=== PATIENT | female | born 1980 | race Caucasian/White ===

== ENCOUNTER → 2016-09-20 | Outpatient (CLI) | payer BC ==
[~2016-09-20] MED LIST: ADDE10 PO; CEPH500C3 PO; CYMB30CA PO; IBUP600 PO; LEXA10TA PO; LORTA5 PO; MACR100C PO; MACR100C2 PO; METF500T PO; NAPR500 PO; PERC10TA27 PO; PYRI200T4 PO; SYMB80AE INH; TAMS0.4C67 PO; TOPI25 PO; VENTAER INH; VICOTAB4 PO; VICT18IN SQ; ZOFR4TAB3 SL; ZOFR8TAB PO
== END ==
LOC: CPRE 09:55
PROVIDERS: ATTEND Obstetrics & Gynecology
DX: R10.2 Pelvic and perineal pain (principal)

== ENCOUNTER → 2016-09-23 | Day surgery (SDC) | payer BC ==
--- NOTE | 2016-09-21 12:19 | MH ---
cc: MILLIE HERNANDEZ DATE OF ADMISSION: 09/23/2016 DATE OF : 1980 SCHEDULED PROCEDURE: Diagnostic laparoscopy, possible excision of endometriosis, lysis of adhesions. CHIEF COMPLAINT Chronic pelvic pain. HISTORY OF PRESENT ILLNESS The patient is a 35 year old white female, Para 2, using a Nuva ring continuously to not cycle, who has been longstanding patient of [facility] and other physicians in our practice. She has a very pleasant but somewhat dysphoric and unfortunate young lady with multiple medical conditions requiring multiple procedures throughout her young life. 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 She has had multiple episodes of severe bleeding, menometrorrhagia, and has tried various oral contraceptives IUD use with out significant improvement. She desires to maintain her fertility for possibly one more child on a recent Indices she did have a number of polyps but these were reviewed. A sonogram was done recently by her primary care physician which showed bilateral 3-4 cm complex masses which could be endometrioma like in nature. She states that her pain and the lower pelvis is 7 out of 10 most day but can go up. She reports extreme fatigue. She complains of abdominal bloating. She has had multiple yeast infection, urinary tract infections and overall feels lethargic most of the time. She is currently not involved, not having intercourse. She has had a history of one section one natural delivery. She has had a distant history of a LEEP procedure. She has had at least for laparoscopies by other physicians for chronic pelvic pain and has been diagnosed with endometriosis. She has had most recently one open ureteral reimplantation which was bilateral she has also had a right lower quadrant hernia repair x2 and she has had both her appendix and gallbladder out. CHRONIC CONDITIONS: Her chronic conditions include severe migraines Depression Anxiety gastroparesis She is moderately above her ideal body weight. MEDICATIONS Medications include 1. Bupropion 150 daily. 2. Adderall daily 20 mg. 3. Hydrocodone 5 mg. 4. Ibuprofen to 200 mg just recently given one to two every 6 hours because of this most recent pain. She has not opioid addicted or opioid seeking in the past. 5. She takes metformin 500 mg daily. 6. Nuva ring. 7. Decadron for nausea. 8. Dipendrate for headaches 9. Victoza to help with a free diabetic condition and help with weight loss. ALLERGIES CEFTIN CIPRO LEVAQUIN PHENERGAN She acknowledges that when she tries to take all these medications as prescribed that they cause significant nausea and that she has been trying to get off most of her medications. Most recently she has taken an antibiotic for urinary tract infection but is on none at this time. She has had a severe migraine for the past three days. She is concerned that it maybe hormonal although she is sing the Nuva ring continuously. She is not taking right now her Topamax, Her Wellbutrin or her metformin. She is hoping that after this for surgery that she will go on the metabolic diet. Again the pain is bilateral. She pinpoints it to around the ovarian areas. She has had no other real exacerbating or alleviating factors. PHYSICAL EXAMINATION: VITAL SIGNS: Her weight is 160. Her height is 5.2. Her blood pressure is 110/70. NECK: She has no thyromegaly. LUNGS: Lungs are clear to auscultation and percussion. HEART: Rate and rhythm are regular without murmur, heaves or thrills. BREASTS: Breast exam shows no dominant mass, nipple discharge, skin retraction or adenopathy the last exam 6 months ago. ABDOMEN: Her abdomen is essentially benign. She has no hepatosplenomegaly. No CVA tenderness. Normoactive bowel sounds in all four quadrant. I Do palpate any hernias, there is no fluid wave. There is no hepatosplenomegaly and I can elicit pain with deep palpation in both lower quadrants but no rebound or guarding. PELVIC: The pelvic examination reveals a normal vaginal vault, it has a multiparous cervix without any significant descent and a normal size uterus bilateral hip pain on bimanual exam in both quadrants and more on the right in the left. RECTUM: Rectovaginal exam revealed a negative guaiac no polyps or hemorrhoids. EXTREMITIES: Show normal deep tendon reflexes, normal pulses and no edema. IMPRESSION: The impression at this time is chronic and acute pelvic pain with recent diagnosis of bilateral ovarian mass and they are small nature, could be either hemorrhagic corpus luteal cyst or they could be endometrioma. She does have a prior history of endometriosis. She states system new pain in terms of the acuity and consistency and she also likely has some the pelvic adhesions. We reviewed in great detail the risks, benefits and expectations of the surgery. The prior surgeries for a greater risk for a the iatrogenic injury, either trocar energy, using devices or infection. She understands that we may not identify reason for her pain. She understands that may find a reason that we cannot treat but she feels that this point the importance of both diagnosis and potential treatment exceeds the list. She has signed consents and is ready for . Thank you very much. Millie Hernandez MD [facility]/ /11:23 AM /11:55 AM
[~2016-09-23] VITALS: Ht 157.5 cm; Wt 74.1 kg
[~2016-09-23] MED LIST changes: +ACETAMINOPHEN 1000 MG/100 ML VIAL IV ONE; +APREPITANT 40 MG CAP ONE; +BUPIVACAINE HCL PF 0.5% 30 ML VIAL ONE; -CEPH500C3 PO; +CLINDAMYCIN INJ 600 MG in SODIUM CHLORIDE 0.9% INJ 100 ML IV SCH; +DEXAMETHASONE SOD PHOS 4 MG/ML VIAL ONE; +DO NOT ADM ANY ANTICOAGULANT DRUGS XX PRN; +FAMOTIDINE 20 MG/2 ML VIAL ONE; -IBUP600 PO; +INSULIN HUMAN REGULAR 1,000 UNITS/10 ML VIAL SQ PRN; +LACTATED RINGER'S 1000 ML IV SCH; -LEXA10TA PO; -LORTA5 PO; -MACR100C PO; +MEPERIDINE HCL 50 MG/ML VIAL IM PRN; +METHYLENE BLUE 10 MG/ML VIAL ONE; +METOPROLOL TARTRATE 25 MG TAB PO PRN; +MIDAZOLAM HCL 2 MG/2 ML VIAL ONE; -NAPR500 PO; +NEOSTIGMINE 3 MG/3 ML SYR IV ONE; +ONDANSETRON HCL 4 MG/2 ML VIAL IV PUSH PRN; +ONDANSETRON HCL 4 MG/2 ML VIAL ONE; -PERC10TA27 PO; +PROPOFOL 200 MG/20 ML AMP IV ONE; -PYRI200T4 PO; +SODIUM CHLORID 0.9% 500 ML IV SCH; +SODIUM CHLORIDE 0.9% 20 ML VIAL ONE; +SODIUM CHLORIDE 0.9% INJ 100 ML ONE; +SUGAMMADEX SODIUM 200 MG/2 ML VIAL IV PUSH ONE; -TAMS0.4C67 PO; -TOPI25 PO; +VASOPRESSIN INJ 20 UNITS/ML VIAL ONE; -ZOFR4TAB3 SL; +diphenhydrAMINE HCL 50 MG/ML VIAL ONE; +fentaNYL CITRATE 250 MCG/5 ML AMP ONE; +oxyCODONE/ACETAMINOPHEN 5 MG/325 MG TAB PO PRN
[2016-09-23 06:18] VITALS: BP 113/74; PULSE 85; RESP 20; TEMP 98.5; O2SAT 98
[2016-09-23 10:40] VITALS: BP 115/73; PULSE 85; RESP 16; TEMP 97.6; O2SAT 94
--- NOTE | 2016-09-23 18:26 | PD.OP ---
Operative Report Date of Surgery: Sep 23, 2016 Preoperative Diagnosis: pelvic pain, bilateral ovarian cysts, history of endometriosis, hx of ureteral reimplantations, irregular bleeding Postoperative Diagnosis: same, minimal endometriosis no flow of dye through tubes interstitial cystitis bladder diverticulum Procedure: D & C, diagnostic laparoscopy chromointubation cystourethroscopy Anesthesia: GET Surgeon: Deborah Ernst Indirect Sales Representative(s): hospital staff Operation and Findings: Deborah Tomlin MD Sep 23, 2016 18:26
[2016-09-24 09:58] LABS: RAPID PLASMA REAGIN SCREEN NON-REACTIVE (NON-REACTVE)
--- NOTE | 2016-09-29 07:53 | MP ---
cc: MILLIE HERNANDEZ DATE OF SURGERY: 09/23/2016 1980 PREOPERATIVE DIAGNOSIS Chronic and acute pelvic pain, bilateral ovarian cysts on ultrasound that may be endometriomas, history of ureteral reimplantation, sections, possible adhesions and irregular bleeding. POSTOPERATIVE DIAGNOSIS Minimal endometriosis, lack of flow of dye with chromotubation and glomerulations in the bladder consistent with interstitial cystitis. SURGEON Dr. Hernandez. PROCEDURE Fractional D&C, diagnostic laparoscopy, chromotubation, cystourethroscopy. ANESTHESIA General. SURGEON Dr. Hernandez. COFFEE URN ATTENDANT Hospital staff. FINDINGS Examination under anesthesia revealed an anteverted mobile uterus that was not fixed. I could not palpate the ovaries. There was no real significant descent. Dilation of the cervix was done and endocervical curettage and the uterus was sounded to 8 and a D&C was performed. Then attention was directed to the abdomen where an incision was made in the umbilicus and a 5 mm trocar and sleeve were placed with great care due to her previous laparoscopies. Positioning was appropriate and then CO2 was instilled into the peritoneal cavity and systematic evaluation of the abdominal and pelvic contents was performed. Liver edge was normal. There was a worrisome degree of abdominal fat for such a young female in the omentum and elsewhere. The uterus was of normal size and contour. Both tubes seemed somewhat dilated intermittent positions. The left tube had some clubbing and phimosis of the fimbria. The right tube otherwise appeared normal. Both ovaries were normal in appearance and there was an absence of the cyst seen on ultrasound which was suggested that they were corpus luteal cyst that had resolved. There was mild scarring from her previous section and there was some mild endometriosis by the right tube and very significant pelvic congestion syndrome noted on the right infundibulopelvic ligament which may be a source of her pain. The pneumoperitoneum was released after we could not get any flow of dye through either tube and attention was directed to the perineum. The bladder was filled with 300 ccs of sterile saline and then the scope placed. Most of the bladder looked fairly smooth but there was some areas of inflammation and classic glomerulations that would be suggestive of interstitial cystitis. The right ureteral orifice was difficult to observe, there was a lot of redundancy and what appeared to be a bladder diverticulum toward the right upper corner of the bladder. I never did see urine coming through but it looked like some bluish dye was right at the area of the ureteral orifice. The left ureteral orifice which was flush against the bladder had immediate and strong flow of urine under direct observation. The instrumentation was then removed in the bladder and the Rangel replaced Sponge, instrument, needle count were appropriate. Bleeding was negligible. She tolerated the procedure well and she went to the recovery room in stable condition. Millie Hernandez MD [facility] /6:30 PM /7:35 AM
== END | disposition home or self-care (01) ==
LOC: HSDC 05:38
PROVIDERS: ATTEND Obstetrics & Gynecology
DX: R10.2 Pelvic and perineal pain (principal); N32.3 Diverticulum of bladder; N83.202 Unspecified ovarian cyst, left side; N83.201 Unspecified ovarian cyst, right side; N97.1 Female infertility of tubal origin; N30.10 Interstitial cystitis (chronic) without hematuria; N80.2 Endometriosis of fallopian tube; N94.89 Other specified conditions associated with female genital organs and menstrual cycle
CPT/HCPCS: 00840; 49320; 52000; 58120; 58350; 86592; 86850; 86900; 86901; 88305; J0131; J1100; J1200; J2250; J2405; J2710; J3010; J7120; J8501

== ENCOUNTER 2017-01-22 19:05 | Emergency (ER) | payer BC ==
[~2017-01-22] VITALS: Ht 162.6 cm; Wt 65.0 kg
[~2017-01-22 19:05] MED LIST changes: -ACETAMINOPHEN 1000 MG/100 ML VIAL IV ONE; -APREPITANT 40 MG CAP ONE; -BUPIVACAINE HCL PF 0.5% 30 ML VIAL ONE; -CLINDAMYCIN INJ 600 MG in SODIUM CHLORIDE 0.9% INJ 100 ML IV SCH; -CYMB30CA PO; -DEXAMETHASONE SOD PHOS 4 MG/ML VIAL ONE; -DO NOT ADM ANY ANTICOAGULANT DRUGS XX PRN; -FAMOTIDINE 20 MG/2 ML VIAL ONE; -INSULIN HUMAN REGULAR 1,000 UNITS/10 ML VIAL SQ PRN; -LACTATED RINGER'S 1000 ML IV SCH; -MACR100C2 PO; -MEPERIDINE HCL 50 MG/ML VIAL IM PRN; -METHYLENE BLUE 10 MG/ML VIAL ONE; -METOPROLOL TARTRATE 25 MG TAB PO PRN; -MIDAZOLAM HCL 2 MG/2 ML VIAL ONE; -NEOSTIGMINE 3 MG/3 ML SYR IV ONE; -ONDANSETRON HCL 4 MG/2 ML VIAL IV PUSH PRN; -ONDANSETRON HCL 4 MG/2 ML VIAL ONE; -PROPOFOL 200 MG/20 ML AMP IV ONE; -SODIUM CHLORID 0.9% 500 ML IV SCH; -SODIUM CHLORIDE 0.9% 20 ML VIAL ONE; -SODIUM CHLORIDE 0.9% INJ 100 ML ONE; -SUGAMMADEX SODIUM 200 MG/2 ML VIAL IV PUSH ONE; -VASOPRESSIN INJ 20 UNITS/ML VIAL ONE; -diphenhydrAMINE HCL 50 MG/ML VIAL ONE; -fentaNYL CITRATE 250 MCG/5 ML AMP ONE; -oxyCODONE/ACETAMINOPHEN 5 MG/325 MG TAB PO PRN
[2017-01-22 19:09] VITALS: BP 136/79; PULSE 91; RESP 16; TEMP 99.3; O2SAT 96
[2017-01-22] MEDS ORDERED: CYMB30CA PO ×2 (19:25)
[2017-01-22] MEDS ORDERED: SODIUM CHLORIDE 0.9% FLUSH 10 ML FLUSH IVF PRN (19:45)
--- NOTE | 2017-01-22 19:49 | PD ---
HPI Chief Complaint: Flank/Kidney Pain Time Seen by Provider: 19:35 Travel History International Travel<30 days: No Contact w/Intl Traveler<30days: No Traveled to known affect area: No History of Present Illness HPI 36-year-old female presents to the emergency department for complaint of urinary tract infection fever 100.6-100.7F generalized weakness lethargy nausea right flank pain with history of vesicoureteral reflux and recurrent infections with ESBL Klebsiella pneumonia only responsive to meropenem. Patient states she was hospitalized 01/17 through through 01/19 at [facility] and discharged and referred to [facility] for ongoing management without prescription medication. Patient states she contacted her specialist at [facility] where she is followed by a urologist and an infectious disease specialist and was told to come to a different hospital in the area. Patient did not follow-up with [facility] as she lives here locally. Patient states that since she's been discharged she is progressively worsened. Patient's had no vomiting abdominal pain or diarrhea. Patient is also diabetic. Patient denies . Patient has polycystic ovary syndrome and pelvic congestion syndrome. Patient denies any abnormal vaginal bleeding. Patient is currently taking no antibiotic. Patient presents with her urine culture with resultant organism and sensitivities. Patient's culture is positive for ESBL Klebsiella pneumoniae. Patient rates pain 5-7/10 in intensity. PFSH Past Medical History Narrative Medical Asthma, diabetes, vesicoureteral reflux, polycystic ovary syndrome, pelvic congestion syndrome, endometriosis, D&C and cystoscopy recurrent ESBL Klebsiella pneumonia UTI's; no tobacco use; nursing notes reviewed Asthma: Yes Cancer: No Cardiovascular Problems: No Diabetes: Yes (TYPE II) Patient Takes Glucophage: Yes Diminished Hearing: No Endocrine: No Gastrointestinal Disorders: Yes (GERD; GASTROPARESIS) GERD: Yes Genitourinary: Yes (VESICOURETERAL REFLUX, CKD) Hepatitis: No Hiatal Hernia: No Immune Disorder: No Inguinal Hernia: Yes Medical other: Yes Musculoskeletal: No Psychiatric: Yes (ADHD) Reproductive: Yes (ENDOMETRIOSIS;PELVIC CONGESTIVE SYNDROME, PCOS ) Respiratory: Yes (ASTHMA) Immunizations Current: Yes Migraines: Yes Thyroid Disease: No ?: Not : 3 Para: 2 Miscarriage: 0 : 0 Ectopic : Yes (X 1 ) Dilation and Curettage (D&C): Yes Past Surgical History Abdominal Surgery: Yes (APPENDECTOMY, CHOLECTSTECTOMY) AICD: No Appendectomy: Yes Body Medical Devices: NOVA RING Cardiac Surgery: No Section: Yes Cholecystectomy: Yes Ear Surgery: No Endocrine Surgery: No Eye Surgery: Yes (STRABISMUS X 3) Genitourinary Surgery: Yes (CYSTOSCOPIES X 3 WITH URETERAL STENTING 06/11/14, REIMPLANTATION OF KATIE URE) Gynecologic Surgery: Yes (mult lap endometrosis X 4; C -SECTION) Joint Replacement: No Oral Surgery: Yes (T&A) Pacemaker: No Thoracic Surgery: No Tonsillectomy: Yes Other Surgery: Yes Social History Alcohol Use: Yes (SOCIALLY) Tobacco Use: No Substance Use: No Allergies-Medications (Allergen,Severity, Reaction): Coded Allergies: Ceftin (Verified Allergy, Severe, SEVERE VOMITING,THROAT SWELLING, 01/22/17 ) THROAT SWELLING Cipro (Verified Allergy, Severe, HIVES, SOB ; THROAT SWELLING, 01/22/17) Phenergan (Verified Allergy, Severe, SEIZURES, 01/22/17) Rocephin (Verified Allergy, Intermediate, Rash, 01/22/17) Levaquin (Verified Allergy, Unknown, Hives, 01/22/17) Reported Meds & Prescriptions Reported Meds & Active Scripts Active Reported Cymbalta DR (Duloxetine HCl) 30 Mg Capdr 30 Mg PO DAILY Symbicort Inh (Budesonide/Formoterol Fumarate) 80-4.5 Mcg/Act Aero 1 Puff INH Q12HR PRN Ventolin Hfa 18 GM Inh (Albuterol Sulfate) 90 Mcg/Act Aer 2 Puff INH Q4H PRN Zofran (Ondansetron HCl) 8 Mg Tab 8 Mg PO DAILY Metformin (Metformin HCl) 500 Mg Tab 500 Mg PO DAILY With a meal Victoza Inj (Liraglutide Inj) 18 Mg/3 Ml Pen 1.8 Mg SQ HS Review of Systems Except as stated in HPI: all other systems reviewed are Neg General / Constitutional: Positive: Fever, No: Chills HENT: No: Congestion Cardiovascular: No: Chest Pain or Discomfort Respiratory: No: Shortness of Breath Gastrointestinal: Positive: Nausea, No: Vomiting, Diarrhea, Abdominal Pain Genitourinary: Positive: Dysuria, Flank Pain Musculoskeletal: No: Myalgias, Arthralgias Skin: No Rash Neurologic: Positive: Weakness Psychiatric: No: Anxiety Hematologic/Lymphatic: No: Lymph Node Enlargement Physical Exam Narrative GENERAL: Well-developed well-nourished female in no acute distress no respiratory distress SKIN: Warm and dry. HEAD: Normocephalic. EYES: No scleral icterus. No injection or drainage. NECK: Supple, trachea midline. No JVD or lymphadenopathy. CARDIOVASCULAR: Regular rate and rhythm without murmurs, gallops, or rubs. RESPIRATORY: Breath sounds equal bilaterally. No accessory muscle use. GASTROINTESTINAL: Abdomen soft, non-tender, nondistended. MUSCULOSKELETAL: No cyanosis, or edema. BACK: Nontender without obvious deformity. Right-sided CVA tenderness. Data Data Last Documented VS Vital Signs Date Time Temp Pulse Resp B/P Pulse Ox O2 Delivery O2 Flow Rate FiO2 01/22/17 22:39 99.5 94 16 134/77 99 Room Air Orders Complete Blood Count With Diff (01/22/17 19:35) Basic Metabolic Panel (Bmp) (01/22/17 19:35) Urinalysis - C+S If Indicated (01/22/17 19:35) Ed Urine Pregnancytest Poc (01/22/17 19:35) Ecg Monitoring (01/22/17 19:35) Iv Access Insert/Monitor (01/22/17 19:35) Sodium Chloride 0.9% Flush (Ns Flush) (01/22/17 19:45) Blood Culture (01/22/17 19:35) Lactic Acid (01/22/17 19:35) Urine Culture (01/22/17 19:45) Gentamicin 80 Mg Premix (Gentamicin 80 M (01/22/17 23:30) Diphenhydramine Inj (Benadryl Inj) (01/22/17 23:45) Meropenem Inj (Merrem Inj) (01/22/17 23:45) Labs Laboratory Tests Test 01/22/17 01/22/17 19:45 20:05 Urine Color YELLOW Urine Turbidity CLEAR Urine pH 6.5 Urine Specific [place] 1.027 Urine Protein TRACE mg/dL Urine Glucose (UA) NEG mg/dL Urine Ketones NEG mg/dL Urine Occult Blood NEG Urine Nitrite NEG Urine Bilirubin NEG Urine Urobilinogen LESS THAN 2.0 MG/DL Urine Leukocyte Esterase SMALL Urine RBC LESS THAN 1 /hpf Urine WBC 12 /hpf Urine Squamous Epithelial 1 /hpf Cells Microscopic Urinalysis Comment CULTURE INDICATED White Blood Count 7.9 TH/MM3 Red Blood Count 4.59 MIL/MM3 Hemoglobin 13.8 GM/DL Hematocrit 39.8 % Mean Corpuscular Volume 86.6 FL Mean Corpuscular Hemoglobin 30.1 PG Mean Corpuscular Hemoglobin 34.8 % Concent Red Cell Distribution Width 13.2 % Platelet Count 258 TH/MM3 Mean Platelet Volume 8.4 FL Neutrophils (%) (Auto) 63.0 % Lymphocytes (%) (Auto) 27.2 % Monocytes (%) (Auto) 7.3 % Eosinophils (%) (Auto) 2.0 % Basophils (%) (Auto) 0.5 % Neutrophils # (Auto) 5.0 TH/MM3 Lymphocytes # (Auto) 2.1 TH/MM3 Monocytes # (Auto) 0.6 TH/MM3 Eosinophils # (Auto) 0.2 TH/MM3 Basophils # (Auto) 0.0 TH/MM3 CBC Comment DIFF FINAL Differential Comment Sodium Level 141 MEQ/L Potassium Level 3.7 MEQ/L Chloride Level 105 MEQ/L Carbon Dioxide Level 27.0 MEQ/L Anion Gap 9 MEQ/L Blood Urea Nitrogen 13 MG/DL Creatinine 0.84 MG/DL Estimat Glomerular Filtration 78 ML/MIN Rate Random Glucose 115 MG/DL Lactic Acid Level 1.5 mmol/L Calcium Level 9.2 MG/DL [facility] Medical Decision Making Medical Screen Exam Complete: Yes Emergency Medical Condition: Yes Medical Record Reviewed: Yes Interpretation(s) CBC & BMP Diagram 01/22/17 20:05 ua: 12 white blood cells rare bacteria Differential Diagnosis UTI, sepsis, failed outpatient therapy, uncontrolled diabetes Narrative Course IV access obtained specimens collected and sent for resulting Diagnosis Primary Impression: UTI (urinary tract infection) Additional Impression: Vesico-ureteral reflux Referrals: Primary Care Physician call for appointment Patient Instructions: General Instructions Additional Instructions: Increase fluid hydration Follow-up with primary care provider Return to the emergency department for any concerns or change condition Complete course of antibiotic as prescribed Acetaminophen/Tylenol as needed for fever 100.4F or greater Med/Other Pt SpecificInfo: Prescription(s) given Scripts Nitrofurantoin Monohydrate Macrocrystals (Macrobid)100 Mg [id number] Mg PO BID 7 Days Ref 0 Prov:Jacquelyn Montana MD 01/23/17 Disposition: 01 DISCHARGE HOME Condition: Stable Jacquelyn Montana MD January 22, 2017 19:49
[2017-01-22 20:24] LABS: BASOPHIL % 0.5 % (0.0-2.0); EOSINOPHIL # 0.2 TH/MM3 (0-0.4); HEMATOCRIT 39.8 % (35.0-46.0); HEMO FLAGS DIFF FINAL; LYMPH % 27.2 % (9.0-44.0); LYMPHOCYTE # 2.1 TH/MM3 (1.0-4.8); MEAN CELL VOLUME 86.6 FL (80.0-100.0); MEAN CORPUSCULAR HEMOGLOBIN 30.1 PG (27.0-34.0); MEAN CORPUSCULAR HGB CONC 34.8 % (32.0-36.0); MONO % 7.3 % (0.0-8.0); PLATELET COUNT 258 TH/MM3 (150-450); RED BLOOD COUNT 4.59 MIL/MM3 (4.00-5.30); RED CELL DISTRIBUTION WIDTH 13.2 % (11.6-17.2); WHITE BLOOD COUNT 7.9 TH/MM3 (4.0-11.0)
[2017-01-22 20:27] LABS: BLOOD, URINE NEG (NEG); COMMENT (UR) CULTURE INDICATED; CULTURE IF INDICATED CULTURE INDICATED; GLUCOSE,URINE NEG (NEG); KETONE, URINE NEG (NEG); NITRITE,URINE NEG (NEG); PH, URINE 6.5 (5.0-8.5); SQUAMOUS EPITHELIAL CELL URINE 1 /hpf (0-5); URINE COLOR YELLOW (YELLW/STRAW)
[2017-01-22 20:55] LABS: POTASSIUM 3.7 MEQ/L (3.5-5.1)
[2017-01-22 22:39] VITALS: BP 134/77; PULSE 94; RESP 16; TEMP 99.5; O2SAT 99
[2017-01-22] MEDS ORDERED: GENTAMICIN 80 MG PREMIX 100 ML IV ONE (23:30)
[2017-01-22] MEDS ORDERED: MEROPENEM 1000 MG/NS 100 ML IV ONE ×2 (23:45)
[2017-01-22] MEDS ORDERED: diphenhydrAMINE HCL 50 MG/ML VIAL IV PUSH ONE (23:45)
[2017-01-23] MEDS ORDERED: MACR100C2 PO (00:58)
--- NOTE | 2017-01-25 12:46 | ED.CB ---
ED Call Back Communication I spoke with ID regarding patient's UC results. Blood patient return to the emergency department for a beta Quant testing. If she is truly , we will be limited to ertapenem. She will need either at midline or PICC line and set up with home health versus infusion center, and will need infectious disease to formally consult during her ED visit. Zaira Genao MD January 25, 2017 12:45
== END 2017-01-23 01:19 | disposition home or self-care (01) ==
LOC: NEPC 19:05
DX: N39.0 Urinary tract infection, site not specified (principal); N13.70 Vesicoureteral-reflux, unspecified; B96.1 Klebsiella pneumoniae [K. pneumoniae] as the cause of diseases classified elsewhere; R11.0 Nausea; R10.9 Unspecified abdominal pain; E11.9 Type 2 diabetes mellitus without complications; Z79.84 Long term (current) use of oral hypoglycemic drugs; Z87.09 Personal history of other diseases of the respiratory system; Z87.448 Personal history of other diseases of urinary system; Z87.42 Personal history of other diseases of the female genital tract; Z87.19 Personal history of other diseases of the digestive system; Z86.59 Personal history of other mental and behavioral disorders; Z86.69 Personal history of other diseases of the nervous system and sense organs
CPT/HCPCS: 80048; 81001; 83605; 84703; 85025; 87040; 87077; 87086; 87186; 96365; 96375; 99284; J1200; J2185

== ENCOUNTER 2017-01-25 13:19 | Observation (INO) | payer BC ==
[~2017-01-25] VITALS: Ht 157.5 cm; Wt 70.0 kg
[~2017-01-25 13:19] MED LIST changes: +CYMB30CA PO; +MACR100C2 PO
[2017-01-25 13:21] VITALS: BP 157/76; PULSE 94; RESP 16; TEMP 98.3; O2SAT 98
--- NOTE | 2017-01-25 13:27 | PD ---
Physical Exam Date Seen by Provider: January 25, 2017 Time Seen by Provider: 13:25 Narrative 36 yo female here for evaluation of positive urine cultures. here for IV antibiotics. Was seen here recently and called back today. Has been taking antibiotics, just found out today by urine test. She is also . Bacteria apparently is resistant to oral antibiotics. Having polyuria and dysuria. Vitals sign stable. Patient awaiting bed placement. Data Data Last Documented VS Vital Signs Date Time Temp Pulse Resp B/P Pulse Ox O2 Delivery O2 Flow Rate FiO2 01/25/17 13:21 98.3 94 16 157/76 98 MDM Medical Record Reviewed: Yes Supervised Visit with JUSTIN: No Aaron Olivia January 25, 2017 13:27
[2017-01-25 14:15] LABS: BLOOD, URINE NEG (NEG); COMMENT (UR) CULT NOT INDICATED; CULTURE IF INDICATED CULT NOT INDICATED; GLUCOSE,URINE NEG (NEG); KETONE, URINE NEG (NEG); MUCUS URINE FEW /lpf (OCC); NITRITE,URINE NEG (NEG); SQUAMOUS EPITHELIAL CELL URINE 1 /hpf (0-5); URINE COLOR YELLOW (YELLW/STRAW)
[2017-01-25 14:22] VITALS: TEMP 99.3
--- NOTE | 2017-01-25 14:43 | PD ---
HPI Chief Complaint: Complaint Time Seen by Provider: 14:06 Travel History International Travel<30 days: No Contact w/Intl Traveler<30days: No Traveled to known affect area: No History of Present Illness HPI 36yo F with PMH of vesiculo-ureteral reflex and ESBL + urine infection was called in today because she had a urine culture on 01/22/17 that was >100,000 klebsiella pneumoniae ESBL positive. Pt states she can only take meropenem and just found out she is . States she is still nauseous. Denies any fever , chest pain, sob, vomiting, abdominal pain. Pt has chronic right lower back pain. She has an infectious disease physician at [facility] where she has had multiple surgeries regarding this. PFSH Past Medical History Asthma: Yes Cancer: No Cardiovascular Problems: No Diabetes: Yes Patient Takes Glucophage: No Diminished Hearing: No Endocrine: No Gastrointestinal Disorders: Yes (GERD; GASTROPARESIS) GERD: Yes Genitourinary: Yes (VESICOURETERAL REFLUX, CKD) Hepatitis: No Hiatal Hernia: No Immune Disorder: No Inguinal Hernia: Yes Musculoskeletal: No Psychiatric: Yes (ADHD) Reproductive: Yes (ENDOMETRIOSIS;PELVIC CONGESTIVE SYNDROME, PCOS ) Respiratory: Yes (asthma) Immunizations Current: Yes Migraines: Yes Thyroid Disease: No Tetanus Vaccination: Unknown Influenza Vaccination: Yes ?: : 3 Para: 2 Miscarriage: 0 : 0 Ectopic : Yes (X 1 ) Dilation and Curettage (D&C): Yes Past Surgical History Abdominal Surgery: Yes (APPENDECTOMY, CHOLECTSTECTOMY) AICD: No Appendectomy: Yes Body Medical Devices: NOVA RING Cardiac Surgery: No Section: Yes Cholecystectomy: Yes Ear Surgery: No Endocrine Surgery: No Eye Surgery: Yes Genitourinary Surgery: Yes Gynecologic Surgery: Yes (mult lap endometrosis X 4; C -SECTION) Joint Replacement: No Oral Surgery: Yes (T&A) Pacemaker: No Thoracic Surgery: No Tonsillectomy: Yes Other Surgery: Yes Social History Alcohol Use: No Tobacco Use: No Substance Use: No Allergies-Medications (Allergen,Severity, Reaction): Coded Allergies: Ceftin (Verified Allergy, Severe, SEVERE VOMITING,THROAT SWELLING, 01/25/17 ) THROAT SWELLING Cipro (Verified Allergy, Severe, HIVES, SOB ; THROAT SWELLING, 01/25/17) Invanz (Verified Allergy, Severe, swelling throat, 01/25/17) Phenergan (Verified Allergy, Severe, SEIZURES, 01/25/17) Rocephin (Verified Allergy, Intermediate, Rash, 01/25/17) Levaquin (Verified Allergy, Unknown, Hives, 01/25/17) *MDRO Multi-Drug Resistant Organism (Verified Adverse Reaction, Unknown, ESBL, 01/25/17) ESBL Klebsiella (urine) - 01/22/17 Reported Meds & Prescriptions Reported Meds & Active Scripts Active Reported Cymbalta DR (Duloxetine HCl) 30 Mg Capdr 30 Mg PO DAILY Symbicort Inh (Budesonide/Formoterol Fumarate) 80-4.5 Mcg/Act Aero 1 Puff INH Q12HR PRN Ventolin Hfa 18 GM Inh (Albuterol Sulfate) 90 Mcg/Act Aer 2 Puff INH Q4H PRN Zofran (Ondansetron HCl) 8 Mg Tab 8 Mg PO DAILY Metformin (Metformin HCl) 500 Mg Tab 500 Mg PO DAILY With a meal Victoza Inj (Liraglutide Inj) 18 Mg/3 Ml Pen 1.8 Mg SQ HS Review of Systems Except as stated in HPI: all other systems reviewed are Neg Physical Exam Narrative GENERAL: 36yo F not in distress. SKIN: Focused skin assessment warm/dry. HEAD: Atraumatic. Normocephalic. CARDIOVASCULAR: Regular rate and rhythm. No murmur appreciated. RESPIRATORY: No accessory muscle use. Clear to auscultation. Breath sounds equal bilaterally. GASTROINTESTINAL: Abdomen soft, non-tender, nondistended. No rebound tenderness or guarding. BACK: No midline ttp. Right CVA tenderness. MUSCULOSKELETAL: No obvious deformities. No clubbing. No cyanosis. No edema. NEUROLOGICAL: Awake and alert. No obvious cranial nerve deficits. Motor grossly within normal limits. Normal speech. PSYCHIATRIC: Appropriate mood and affect; insight and judgment normal. Data Data Last Documented VS Vital Signs Date Time Temp Pulse Resp B/P Pulse Ox O2 Delivery O2 Flow Rate FiO2 01/25/17 14:22 99.3 01/25/17 14:05 14 01/25/17 13:21 94 157/76 98 Orders Urinalysis - C+S If Indicated (01/25/17 13:29) Complete Blood Count With Diff (01/25/17 14:27) Basic Metabolic Panel (Bmp) (01/25/17 14:27) Bhcg Screen Qualitative (01/25/17 14:27) Admit Order (Ed Use Only) (01/25/17 16:02) Labs Laboratory Tests Test 01/25/17 01/25/17 14:00 14:35 Urine Color YELLOW Urine Turbidity CLEAR Urine pH 6.0 Urine Specific [place] 1.020 Urine Protein NEG mg/dL Urine Glucose (UA) NEG mg/dL Urine Ketones NEG mg/dL Urine Occult Blood NEG Urine Nitrite NEG Urine Bilirubin NEG Urine Urobilinogen LESS THAN 2.0 MG/DL Urine Leukocyte Esterase NEG Urine WBC LESS THAN 1 /hpf Urine Squamous Epithelial 1 /hpf Cells Urine Mucus FEW /lpf Microscopic Urinalysis Comment CULT NOT INDICATED White Blood Count 8.3 TH/MM3 Red Blood Count 4.50 MIL/MM3 Hemoglobin 13.0 GM/DL Hematocrit 39.5 % Mean Corpuscular Volume 87.7 FL Mean Corpuscular Hemoglobin 28.8 PG Mean Corpuscular Hemoglobin 32.8 % Concent Red Cell Distribution Width 13.2 % Platelet Count 242 TH/MM3 Mean Platelet Volume 8.1 FL Neutrophils (%) (Auto) 67.2 % Lymphocytes (%) (Auto) 23.7 % Monocytes (%) (Auto) 6.2 % Eosinophils (%) (Auto) 2.6 % Basophils (%) (Auto) 0.3 % Neutrophils # (Auto) 5.6 TH/MM3 Lymphocytes # (Auto) 2.0 TH/MM3 Monocytes # (Auto) 0.5 TH/MM3 Eosinophils # (Auto) 0.2 TH/MM3 Basophils # (Auto) 0.0 TH/MM3 CBC Comment DIFF FINAL Differential Comment Sodium Level 142 MEQ/L Potassium Level 3.9 MEQ/L Chloride Level 106 MEQ/L Carbon Dioxide Level 28.5 MEQ/L Anion Gap 8 MEQ/L Blood Urea Nitrogen 13 MG/DL Creatinine 0.95 MG/DL Estimat Glomerular Filtration 67 ML/MIN Rate Random Glucose 96 MG/DL Calcium Level 8.9 MG/DL Beta HCG, Qualitative 23 MIU/ML [facility] Medical Decision Making Medical Screen Exam Complete: Yes Emergency Medical Condition: Yes Differential Diagnosis Recurrent ESBL positive urine infection Narrative Course 36yo F with recurrent ESBL positive urine infection was called back because of her urine culture results. Pt also just found out she is . bHCG is 23. I discussed with police detention attendant ID physician Dr. Delgado who recommends either admission and ID consult and she will see her tomorrow or give 1 dose of ertapenem and call ID physician Dr. Quiñonez to see if pt can follow up with her tomorrow. I discussed with Dr. Quiñonez and she recommended admission because she is not able to get her into her office soon. Labs reviewed, no leukocytosis. Creatinine normal. UA negative. Pt insists she does not feel well. Pt states she is allergic to invanz but not meropenem. ID consult place, will let ID dictate what antibiotics needed if needed. Discussed with resident physician and accepted to their service. Diagnosis Primary Impression: Vesico-ureteral reflux Admitting Information Admitting Physician Requests: Sonam Pascal DO January 25, 2017 14:43
[2017-01-25 14:53] LABS: AUTOMATED NEUTROPHIL # 5.6 TH/MM3 (1.8-7.7); BASOPHIL % 0.3 % (0.0-2.0); EOSINOPHIL # 0.2 TH/MM3 (0-0.4); EOSINOPHIL % 2.6 % (0.0-4.0); HEMATOCRIT 39.5 % (35.0-46.0); HEMO FLAGS DIFF FINAL; LYMPH % 23.7 % (9.0-44.0); MEAN CELL VOLUME 87.7 FL (80.0-100.0); MEAN CORPUSCULAR HEMOGLOBIN 28.8 PG (27.0-34.0); MEAN CORPUSCULAR HGB CONC 32.8 % (32.0-36.0); MONO % 6.2 % (0.0-8.0); NEUT % 67.2 % (16.0-70.0); PLATELET COUNT 242 TH/MM3 (150-450); RED CELL DISTRIBUTION WIDTH 13.2 % (11.6-17.2); WHITE BLOOD COUNT 8.3 TH/MM3 (4.0-11.0)
[2017-01-25 15:17] LABS: BICARBONATE 28.5 MEQ/L (21.0-32.0); POTASSIUM 3.9 MEQ/L (3.5-5.1)
--- NOTE | 2017-01-25 16:23 | HHI.HP ---
[facility] Service Family Medicine Primary Care Physician Cornelia Nuñez, DO Admission Diagnosis ESBL positive urine culture Diagnoses: International Travel<30 Days: No Contact w/Intl Traveler<30days: No Known Affected Area: No History of Present Illness This is a 36-year-old female with past medical history significant for vesicoureteral reflux and recurrent infections with ESBL Klebsiella pneumonia only responsive to meropenem, type 2 diabetes, asthma, and newly found to be . She frequently gets infections with Klebsiella pneumonia ESBL. Because of her vesicular ureteral reflux she chronically has CVA tenderness. However on January 17 to the she had to go to [facility] due to worsening fever, fatigue, ill feeling, increased CVA tenderness, and burning with urination. She was found to have Klebsiella pneumonia ESBL once more and has been treated with meropenem. She was discharged on the from [facility], and says that she was still feeling slightly feverish with some pelvic pain. She weighed around at home for the next 2 days with the pain worsening and the fevers worsening. She decided to come to the [facility] on were a UA was performed and blood cultures were taken and she was given another dose of meropenem. She was then sent home and told that they would follow-up her urine culture. Today 01/25/17 she took a test and found that she was and shortly after that was called that her Klebsiella pneumonia once more grew out of her urine from that previous ED visit. She is told to come to the hospital because they're unable to do get her into a infectious disease doctor's office quick enough for proper treatment. ID was consulted about the patient and they recommended she be admitted because of the infection and the for further treatment. She says that she is still having her chronic right-sided CVA tenderness but does not feel it is any worse than normal. She denies any burning with urination. She feels like she has a slightly increased frequency of urination. She does not notice any abnormal smells with her urine. She does feel mildly nauseated but she is uncertain whether this is due to the or the infection, but she has been cleared by her POWER SHOVEL OPERATOR HELPER for use of Zofran. (Brenton Hartley MD R2) Review of Systems Constitutional: COMPLAINS OF: Fatigue, Fever, DENIES: Weight gain, Weight loss , Dizziness Endocrine: DENIES: Polyuria Eyes: DENIES: Blurred vision, Double Vision Ears, nose, mouth, throat: DENIES: Throat pain, Hoarseness, Running Nose Respiratory: DENIES: Cough, Sputum production, Shortness of breath Cardiovascular: DENIES: Chest pain, Syncope Gastrointestinal: COMPLAINS OF: Nausea, DENIES: Abdominal pain, Black stools, Bloody stools, Vomiting Genitourinary: COMPLAINS OF: Urinary frequency, DENIES: Dyspareunia, Dysuria Musculoskeletal: COMPLAINS OF: Back pain (CVA tenderness), DENIES: Joint pain , Neck pain Integumentary: DENIES: Rash Hematologic/lymphatic: DENIES: Bruising Neurologic: COMPLAINS OF: Headache, DENIES: Seizures, Tremor Psychiatric: DENIES: Anxiety, Confusion, Depression (Brenton Hartley MD R2) Past Family Social History Past Medical History vesicoureteral reflux DM Type II since 1999 Gastroparesis Asthma Past Surgical History Cholecystectomy appendectomy tonsillectomy Hernia repair Inguinal x3 Laparoscopy x5 3 eye surgeries Reported Medications Reported Meds & Active Scripts Active Reported Cymbalta DR (Duloxetine HCl) 30 Mg Capdr 30 Mg PO DAILY Symbicort Inh (Budesonide/Formoterol Fumarate) 80-4.5 Mcg/Act Aero 1 Puff INH Q12HR PRN Ventolin Hfa 18 GM Inh (Albuterol Sulfate) 90 Mcg/Act Aer 2 Puff INH Q4H PRN Zofran (Ondansetron HCl) 8 Mg Tab 8 Mg PO DAILY Metformin (Metformin HCl) 500 Mg Tab 500 Mg PO DAILY With a meal Victoza Inj (Liraglutide Inj) 18 Mg/3 Ml Pen 1.8 Mg SQ HS (Brenton Hartley MD R2) Allergies: Coded Allergies: Ceftin (Verified Allergy, Severe, SEVERE VOMITING,THROAT SWELLING, 01/25/17 ) THROAT SWELLING Cipro (Verified Allergy, Severe, HIVES, SOB ; THROAT SWELLING, 01/25/17) Invanz (Verified Allergy, Severe, swelling throat, 01/25/17) Phenergan (Verified Allergy, Severe, SEIZURES, 01/25/17) Rocephin (Verified Allergy, Intermediate, Rash, 01/25/17) Levaquin (Verified Allergy, Unknown, Hives, 01/25/17) *MDRO Multi-Drug Resistant Organism (Verified Adverse Reaction, Unknown, ESBL, 01/25/17) ESBL Klebsiella (urine) - 01/22/17 Family History DM Social History Live in [facility] in a house with her children and [employer] No pets No smoking No alcohol No illicit drugs (Brenton Hartley MD R2) Physical Exam Vital Signs Vital Signs Date Time Temp Pulse Resp B/P Pulse Ox O2 Delivery O2 Flow Rate FiO2 01/25/17 14:22 99.3 01/25/17 14:05 14 01/25/17 13:21 98.3 94 16 157/76 98 Physical Exam GENERAL: This is a well-nourished, well-developed patient, in no apparent distress. SKIN: Focused skin assessment warm/dry. HEAD: Atraumatic. Normocephalic. CARDIOVASCULAR: Regular rate and rhythm. No murmur appreciated. RESPIRATORY: No accessory muscle use. Clear to auscultation. Breath sounds equal bilaterally. GASTROINTESTINAL: Abdomen soft, non-tender, nondistended. No rebound tenderness or guarding. BACK: No midline ttp. Right CVA tenderness. MUSCULOSKELETAL: No obvious deformities. No clubbing. No cyanosis. No edema. NEUROLOGICAL: Awake and alert. No obvious cranial nerve deficits. Motor grossly within normal limits. Normal speech. PSYCHIATRIC: Appropriate mood and affect; insight and judgment normal. Laboratory Laboratory Tests Test 01/25/17 01/25/17 14:00 14:35 Urine Color YELLOW Urine Turbidity CLEAR Urine pH 6.0 Urine Specific [place] 1.020 Urine Protein NEG Urine Glucose (UA) NEG Urine Ketones NEG Urine Occult Blood NEG Urine Nitrite NEG Urine Bilirubin NEG Urine Urobilinogen LESS THAN 2.0 Urine Leukocyte Esterase NEG Urine WBC LESS THAN 1 Urine Squamous Epithelial 1 Cells Urine Mucus FEW Microscopic Urinalysis Comment CULT NOT INDICATED White Blood Count 8.3 Red Blood Count 4.50 Hemoglobin 13.0 Hematocrit 39.5 Mean Corpuscular Volume 87.7 Mean Corpuscular Hemoglobin 28.8 Mean Corpuscular Hemoglobin 32.8 Concent Red Cell Distribution Width 13.2 Platelet Count 242 Mean Platelet Volume 8.1 Neutrophils (%) (Auto) 67.2 Lymphocytes (%) (Auto) 23.7 Monocytes (%) (Auto) 6.2 Eosinophils (%) (Auto) 2.6 Basophils (%) (Auto) 0.3 Neutrophils # (Auto) 5.6 Lymphocytes # (Auto) 2.0 Monocytes # (Auto) 0.5 Eosinophils # (Auto) 0.2 Basophils # (Auto) 0.0 CBC Comment DIFF FINAL Differential Comment Sodium Level 142 Potassium Level 3.9 Chloride Level 106 Carbon Dioxide Level 28.5 Anion Gap 8 Blood Urea Nitrogen 13 Creatinine 0.95 Estimat Glomerular Filtration 67 Rate Random Glucose 96 Calcium Level 8.9 Beta HCG, Qualitative 23 (Brenton Hartley MD R2) Result Diagram: 01/25/17 1435 01/25/17 1435 Assessment and Plan Assessment and Plan This is a 36-year-old female with past medical history significant for vesicoureteral reflux and recurrent infections with ESBL Klebsiella pneumonia only responsive to meropenem, type 2 diabetes, asthma, and newly found to be . Being admitted observation for Klebsiella pneumonia ESBL infection Code Status Full code Discussed Condition With Dr. Tran (Brenton Hartley MD R2) Attending Attestation THIS CASE WAS DISCUSSED WITH THE RESIDENT PHYSICIAN. I HAVE REVIEWED THE RECORD AND AGREE WITH THE ABOVE NOTE AND PLAN OF CARE WAS DISCUSSED. I HAVE AUTHORIZED THE ORDER FOR PLACEMENT IN OUT-PATIENT OBSERVATION STATUS. (Adalberto Tran MD) Problem List: (1) UTI (urinary tract infection) Status: Acute Plan: Patient found to be Klebsiella pneumonia ESBL positive. She's treated frequently with meropenem as she gets these infections quite often. Meropenem works for the patient in the past. * Admit to observation * Infectious disease consulted, recommendations appreciated * Start meropenem 1 g IV every 8 hours * Tylenol when necessary fever, headache, pain * IV fluids at 150 MLS per hour * Urine cultures pending * Blood cultures pending * CBC, BMP ordered for the a.m. (2) Diabetes mellitus Status: Acute Plan: Long-standing history of type 2 diabetes. * Holding home medications * Blood glucose per protocol * Low-dose insulin sliding scale (3) Status: Acute Plan: Patient newly found to be with a beta hCG of 23. * Patient will be following up with her POWER SHOVEL OPERATOR HELPER as outpatient (4) Nutrition, metabolism, and development symptoms Status: Acute Plan: Diet: Diabetic diet Fluids: IV as above Monitor electrolytes replace accordingly Vitals every 4 Out of bed ad phil. DVT prophylaxis with heparin and SCDs CODE STATUS: Full code Disposition: Pending infectious diseases recommendations (Brenton Hartley MD R2) Problem Qualifiers (1) UTI (urinary tract infection): Qualified Code: N30.00 - Acute cystitis without hematuria (2) Diabetes mellitus: Qualified Code: E11.9 - Type 2 diabetes mellitus without complication, without long-term current use of insulin (3) : Qualified Code: Z3A.01 - Less than 8 weeks gestation of Brenton Hartley MD R2 January 25, 2017 16:23 Adalberto Tran MD January 26, 2017 11:13
[2017-01-25] MEDS ORDERED: BUDESONIDE-FORMOTEROL 80/4.5 MCG INHALER INH PRN (16:45)
[2017-01-25] MEDS ORDERED: ONDANSETRON HCL 4 MG/2 ML VIAL IVP PRN (16:45)
[2017-01-25] MEDS ORDERED: NALOXONE HCL 0.4 MG/ML AMP IV PRN (16:45)
[2017-01-25] MEDS ORDERED: SENNOSIDES 8.6 MG TAB PO PRN (16:45)
[2017-01-25] MEDS ORDERED: ZOLPIDEM TARTRATE 5 MG TAB PO PRN (16:45)
[2017-01-25] MEDS ORDERED: MAGNESIUM HYDROXIDE SUSP 30 ML CUP PO PRN (16:45)
[2017-01-25] MEDS ORDERED: BISACODYL 10 MG SUPP RECTAL PRN (16:45)
[2017-01-25] MEDS ORDERED: DEXTROSE 50% IN WATER 50 ML VIAL(D50) IV PRN (16:45)
[2017-01-25] MEDS ORDERED: GLUCAGON 1 MG/ML VIAL OTHER PRN (16:45)
[2017-01-25] MEDS ORDERED: LACTULOSE SYRUP 20 GM/30 ML CUP PO PRN (16:45)
[2017-01-25] MEDS ORDERED: SODIUM CHLORIDE 0.9% FLUSH 10 ML FLUSH IV FLUSH PRN (16:45)
[2017-01-25] MEDS: SODIUM CHLOR 0.9% 1000 ML INJ 1,000 ML IV SCH (16:57)
[2017-01-25] MEDS ORDERED: MISCELLANEOUS PHARMACY INFORMATION XX PRN (17:00)
[2017-01-25] MEDS: HEPARIN SODIUM - SQ 10,000 UNITS/ML VIAL SQ SCH (17:00)
[2017-01-25] MEDS ORDERED: ALBUTEROL SULFATE 90 MCG/ACT HFA 18 GM INHALER INH PRN (17:00)
[2017-01-25 17:17] VITALS: BP 114/64; PULSE 73; RESP 16; TEMP 99.1; O2SAT 99
[2017-01-25] MEDS: MEROPENEM INJ 1,000 MG in SODIUM CHLORIDE 0.9% INJ 100 ML IV SCH (18:37)
[2017-01-25] MEDS: diphenhydrAMINE HCL 50 MG CAP PO PRN (18:45)
[2017-01-25 20:55] LABS: BACTERIA, URINE RARE /hpf; BLOOD, URINE NEG (NEG); COMMENT (UR) CULT NOT INDICATED; GLUCOSE,URINE NEG (NEG); KETONE, URINE NEG (NEG); MUCUS URINE FEW /lpf (OCC); NITRITE,URINE NEG (NEG); SQUAMOUS EPITHELIAL CELL URINE 5 /hpf (0-5); URINE COLOR LIGHT-YELLOW (YELLW/STRAW)
[2017-01-25] MEDS: INSULIN ASPART SUPPLEMENTAL SCALE SQ SCH (21:00)
[2017-01-25] MEDS: DOCUSATE SODIUM 50 MG/SENNA 8.6 MG TAB PO SCH (21:00)
[2017-01-25 21:57] LABS: ALT (GPT) 54 U/L (10-53); ANION GAP 8 MEQ/L (5-15); AST (GOT) 14 U/L (15-37); BICARBONATE 26.2 MEQ/L (21.0-32.0); BLOOD UREA NITROGEN 13 MG/DL (7-18); CHLORIDE 106 MEQ/L (98-107); GLOMERULAR FILTRATION RATE 76 ML/MIN (>89); POTASSIUM 3.4 MEQ/L (3.5-5.1); SODIUM (NA) 140 MEQ/L (136-145)
[2017-01-25 22:00] LABS: ALKALINE PHOSPHATASE 65 U/L (45-117); TOTAL BILIRUBIN ADULT 0.1 MG/DL (0.2-1.0)
[2017-01-25] MEDS: SODIUM CHLORIDE 0.9% FLUSH 10 ML FLUSH IV FLUSH SCH (22:08)
[2017-01-26 00:57] VITALS: BP 104/62; PULSE 76; RESP 18; TEMP 98.5; O2SAT 97
[2017-01-26] MEDS: HEPARIN SODIUM - SQ 10,000 UNITS/ML VIAL SQ SCH ×2 (02:23→09:13)
[2017-01-26] MEDS: SODIUM CHLOR 0.9% 1000 ML INJ 1,000 ML IV SCH ×2 (02:23→09:11)
[2017-01-26] MEDS: diphenhydrAMINE HCL 50 MG CAP PO PRN ×2 (02:23→10:02)
[2017-01-26] MEDS: MEROPENEM INJ 1,000 MG in SODIUM CHLORIDE 0.9% INJ 100 ML IV SCH ×2 (02:24→10:04)
[2017-01-26 04:45] VITALS: BP 99/61; PULSE 76; RESP 18; TEMP 98.9; O2SAT 99
[2017-01-26] MEDS: INSULIN ASPART SUPPLEMENTAL SCALE SQ SCH (07:00)
[2017-01-26 07:38] LABS: AUTOMATED NEUTROPHIL # 5.3 TH/MM3 (1.8-7.7); BASOPHIL % 0.4 % (0.0-2.0); EOSINOPHIL # 0.2 TH/MM3 (0-0.4); EOSINOPHIL % 2.5 % (0.0-4.0); HEMATOCRIT 35.5 % (35.0-46.0); HEMO FLAGS DIFF FINAL; LYMPH % 30.7 % (9.0-44.0); LYMPHOCYTE # 2.7 TH/MM3 (1.0-4.8); MEAN CELL VOLUME 86.7 FL (80.0-100.0); MEAN CORPUSCULAR HEMOGLOBIN 29.7 PG (27.0-34.0); MEAN CORPUSCULAR HGB CONC 34.3 % (32.0-36.0); NEUT % 61.4 % (16.0-70.0); PLATELET COUNT 235 TH/MM3 (150-450); RED BLOOD COUNT 4.09 MIL/MM3 (4.00-5.30); RED CELL DISTRIBUTION WIDTH 13.2 % (11.6-17.2); WHITE BLOOD COUNT 8.7 TH/MM3 (4.0-11.0)
[2017-01-26 07:59] VITALS: BP 100/59; PULSE 65; RESP 18; TEMP 98.3; O2SAT 100
[2017-01-26 08:00] VITALS: BP 100/59; PULSE 65; RESP 18; TEMP 98.3; O2SAT 100
[2017-01-26 08:14] LABS: BICARBONATE 22.7 MEQ/L (21.0-32.0); POTASSIUM 3.7 MEQ/L (3.5-5.1)
--- NOTE | 2017-01-26 08:17 | HHI.FPPN ---
Subjective Remarks Attending Note: Patient seen and examined. S: Chart and all resident physician notes reviewed. In summary this is a 36 year old female who was admitted with an admission diagnosis of Esbl Positive Urine Culture. This patient has a history of ureterovesical reflux for which she previously underwent surgery. H/o recurrent UTI's secondary to ESBL Klebsiella. Recently was hospitalized at [facility] for the same and treated with meropenem. Symptoms of CVA pain recurred and she was admitted for ID evaluation. Patient is . Objective Vitals Vital Signs Date Time Temp Pulse Resp B/P Pulse Ox O2 Delivery O2 Flow Rate FiO2 01/26/17 07:59 98.3 65 18 100/59 100 01/26/17 04:45 98.9 76 18 99/61 99 01/26/17 00:57 98.5 76 18 104/62 97 01/25/17 17:17 99.1 73 16 114/64 99 01/25/17 14:22 99.3 01/25/17 14:05 14 01/25/17 13:21 98.3 94 16 157/76 98 I/O 01/25/17 01/25/17 01/25/17 01/26/17 01/26/17 01/26/17 07:00 15:00 23:00 07:00 15:00 23:00 Intake Total 250 ml Balance 250 ml Intake Oral 250 ml Result Diagram: 01/26/17 0642 01/26/17 06 Other Results Item Value Date Time Total Bilirubin 0.1 MG/DL L 01/25/172102 Aspartate Amino Transf (AST/SGOT) 14 U/L L 01/25/172102 Alanine Aminotransferase (ALT/SGPT) 54 U/L H 01/25/172102 Alkaline Phosphatase 65 U/L 01/25/172102 Beta HCG, Qualitative 23 MIU/ML H 01/25/17 1435 Urine Specific [place] 1.020 01/25/17 1400 Urine Nitrite NEG 01/25/17 1400 Urine Leukocyte Esterase NEG 01/25/17 1400 Objective Remarks O. CONSTITUTIONAL/GEN: normally nourished, in NAD. EYES: conjunctiva normal, PERRLA, EOMI. ENT: Mouth and pharynx normal. LUNGS: clear A-P, respiratory effort is normal. CARDIOVASCULAR: RR without murmur or gallop. No significant edema. GI/ABD: soft without masses, without organomegaly. : no CVA tenderness NEURO: No focal deficits. SKIN: color normal, no rashes noted. PSYCH/MENTAL STATUS: Alert and oriented x 3. A/P Assessment and Plan This is a 36-year-old female with past medical history significant for vesicoureteral reflux and recurrent infections with ESBL Klebsiella pneumonia only responsive to meropenem, type 2 diabetes, asthma, and newly found to be . Being admitted observation for Klebsiella pneumonia ESBL infection Problem List: (1) UTI (urinary tract infection) Status: Acute Plan: Patient found to be Klebsiella pneumonia ESBL positive. She's treated frequently with meropenem as she gets these infections quite often. Meropenem works for the patient in the past. * Admit to observation * Infectious disease consulted, recommendations appreciated * Start meropenem 1 g IV every 8 hours * Tylenol when necessary fever, headache, pain * IV fluids at 150 MLS per hour * Urine cultures pending * Blood cultures pending * CBC, BMP ordered for the a.m. 01/26/17 Awaiting ID evaluation and recommendations. (2) Diabetes mellitus Status: Acute Plan: Long-standing history of type 2 diabetes. * Holding home medications * Blood glucose per protocol * Low-dose insulin sliding scale (3) Status: Acute Plan: Patient newly found to be with a beta hCG of 23. * Patient will be following up with her MICROBIAL SPECIALIST as outpatient (4) Nutrition, metabolism, and development symptoms Status: Acute Plan: Diet: Diabetic diet Fluids: IV as above Monitor electrolytes replace accordingly Vitals every 4 Out of bed ad phil. DVT prophylaxis with heparin and SCDs CODE STATUS: Full code Disposition: Pending infectious diseases recommendations Problem Qualifiers (1) UTI (urinary tract infection): Qualified Code: N30.00 - Acute cystitis without hematuria (2) Diabetes mellitus: Qualified Code: E11.9 - Type 2 diabetes mellitus without complication, without long-term current use of insulin (3) : Qualified Code: Z3A.01 - Less than 8 weeks gestation of Adalberto Tran MD January 26, 2017 08:17
[2017-01-26] MEDS ORDERED: DULoxetine HCl DR 30 MG CAP PO SCH (09:00)
[2017-01-26] MEDS: DOCUSATE SODIUM 50 MG/SENNA 8.6 MG TAB PO SCH (09:12)
[2017-01-26] MEDS: SODIUM CHLORIDE 0.9% FLUSH 10 ML FLUSH IV FLUSH SCH (09:12)
--- NOTE | 2017-01-26 10:39 | PD.CONS ---
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 Records reviewed. Patient is a 36-year-old female, with history of vesicoureteral reflux, and problem with recurrent UTI, presented to the ED yesterday after she was called because of her abnormal urine culture result. Patient has been followed at the [facility], and has a urologist as well as an infectious disease physician that she follows up with. She has had multiple surgical procedures done to correct her reflux, and apparently the last procedure had shown that she has no reflux. Over the last 2 years she's had recurrent UTI with Klebsiella ESBL positive organism, and this was even after her last surgical procedure. She was told at one point that she is probably colonized by this bacteria. About 2 weeks ago she started having recurrent problem that she attributes to her UTI and this includes some generalized malaise, feeling feverish, increasing right sided flank pain, some dysuria, and some nausea. She was apparently hospitalized at [facility], from January 17 2 January 19, and received Meropenem. She was discharge but she was still having her symptoms. She went to [facility] on January 22, and evaluation revealed some very mild pyuria. She was not febrile at that time. Her WBC was normal. Patient received a dose of meropenem, and she was sent home. Patient stated that her symptoms improved, and yesterday she was called because the urine culture came back with Klebsiella ESBL positive. Patient feels markedly improved and has not had symptoms since she was discharge from the ED on January 22. Her repeat urinalysis is now unremarkable. She had two UA done yesterday. Her white count is normal and she is not febrile. She denies any nausea or any dysuria currently and her pain in her back is not there. She has received 3 doses of meropenem. Patient also was found to be . Infectious disease consultation is requested to evaluate the patient. Review of Systems Constitutional: DENIES: Fever, Chills Eyes: DENIES: Eye pain Ears, nose, mouth, throat: DENIES: Nasal discharge, Oral lesions, Throat pain, Ear Pain, Sinus Pain Respiratory: DENIES: Cough, Shortness of breath Cardiovascular: DENIES: Chest pain, Palpitations, Dyspnea on Exertion Gastrointestinal: COMPLAINS OF: Nausea, DENIES: Difficulty Swallowing Genitourinary: COMPLAINS OF: Dysuria Musculoskeletal: COMPLAINS OF: Back pain Integumentary: DENIES: Rash Neurologic: DENIES: Headache Psychiatric: DENIES: Anxiety Past Family Social History Allergies: Coded Allergies: Ceftin (Verified Allergy, Severe, SEVERE VOMITING,THROAT SWELLING, 01/25/17 ) THROAT SWELLING Cipro (Verified Allergy, Severe, HIVES, SOB ; THROAT SWELLING, 01/25/17) Invanz (Verified Allergy, Severe, swelling throat, 01/25/17) Phenergan (Verified Allergy, Severe, SEIZURES, 01/25/17) Rocephin (Verified Allergy, Intermediate, Rash, 01/25/17) Levaquin (Verified Allergy, Unknown, Hives, 01/25/17) *MDRO Multi-Drug Resistant Organism (Verified Adverse Reaction, Unknown, ESBL, 01/25/17) ESBL Klebsiella (urine) - 01/22/17 Past Medical History Vesicoureteral reflux DM Type II since 1999 Gastroparesis Asthma Past Surgical History Surgery by Dr Zuñiga for her vesicoureteral reflux 2013, and 3 other surgeries at [facility] Cholecystectomy Appendectomy Tonsillectomy Hernia repair Inguinal x3 Laparoscopy x5, for pelvic pain 3 eye surgeries Active Ordered Medications Albuterol Dulcolax Symbicort Benadryl Cymbalta Heparin Insulin Lactulose MOM Meropenem Zofran Pericolace Senokot Beti Social History Live in [employer] in a house with her children 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 SKIN: Warm and dry. No generalized rash, no ecchymoses and no evidence of embolic lesions. HEAD: Atraumatic. Normocephalic. No temporal wasting, or tenderness. EYES: [place] conjunctiva. No petechia or hemorrhage. Pupils equal, round and reactive to light. Extraocular movements full and intact. No scleral icterus. No injection or drainage. EARS, NOSE AND THROAT: Nose without bleeding or purulent nasal discharge. No sinus tenderness. Mucous membranes pink and moist. No oral lesions noted. No exudate. No oral thrush. NECK: Trachea midline. Supple and not tender, no meningeal signs CARDIOVASCULAR: Regular rate and rhythm. No murmurs, rubs or gallops heard RESPIRATORY: Clear to auscultation. Breath sounds equal bilaterally. No rales , wheezing or rhonchi ABDOMEN: Soft, non-tender, nondistended. Bowel sounds present and normoactive. No guarding. No rebound. No organomegaly. BACK: No CVA tenderness EXTREMITIES: No clubbing, cyanosis, or edema.No joint effusion, has good ROM. No calf tenderness. Well perfused and warm. NEUROLOGICAL: Awake and alert. Cranial nerves grossly intact. Motor grossly within normal limits. PSYCHIATRIC: Normal affect, calm and cooperative. LINE: No evidence of infection Laboratory Laboratory Tests Test 01/25/17 01/25/17 01/25/17 01/25/17 14:00 14:35 18:30 21:03 Urine Color YELLOW LIGHT-YELLOW Urine Turbidity CLEAR CLEAR Urine pH 6.0 6.0 Urine Specific [place] 1.020 1.012 Urine Protein NEG NEG Urine Glucose (UA) NEG NEG Urine Ketones NEG NEG Urine Occult Blood NEG NEG Urine Nitrite NEG NEG Urine Bilirubin NEG NEG Urine Urobilinogen LESS THAN 2.0 LESS THAN 2.0 Urine Leukocyte Esterase NEG TRACE Urine WBC LESS THAN 1 1 Urine Squamous Epithelial 1 5 Cells Urine Mucus FEW FEW Microscopic Urinalysis Comment CULT NOT CULT NOT INDICATED INDICATED White Blood Count 8.3 Red Blood Count 4.50 Hemoglobin 13.0 Hematocrit 39.5 Mean Corpuscular Volume 87.7 Mean Corpuscular Hemoglobin 28.8 Mean Corpuscular Hemoglobin 32.8 Concent Red Cell Distribution Width 13.2 Platelet Count 242 Mean Platelet Volume 8.1 Neutrophils (%) (Auto) 67.2 Lymphocytes (%) (Auto) 23.7 Monocytes (%) (Auto) 6.2 Eosinophils (%) (Auto) 2.6 Basophils (%) (Auto) 0.3 Neutrophils # (Auto) 5.6 Lymphocytes # (Auto) 2.0 Monocytes # (Auto) 0.5 Eosinophils # (Auto) 0.2 Basophils # (Auto) 0.0 CBC Comment DIFF FINAL Differential Comment Sodium Level 142 140 Potassium Level 3.9 3.4 Chloride Level 106 106 Carbon Dioxide Level 28.5 26.2 Anion Gap 8 8 Blood Urea Nitrogen 13 13 Creatinine 0.95 0.86 Estimat Glomerular Filtration 67 76 Rate Random Glucose 96 101 Calcium Level 8.9 8.5 Beta HCG, Qualitative 23 Urine RBC LESS THAN 1 Urine Bacteria RARE Total Bilirubin 0.1 Aspartate Amino Transf 14 (AST/SGOT) Alanine Aminotransferase 54 (ALT/SGPT) Alkaline Phosphatase 65 Total Protein 7.2 Albumin 3.7 Test 01/26/17 06:42 White Blood Count 8.7 Red Blood Count 4.09 Hemoglobin 12.2 Hematocrit 35.5 Mean Corpuscular Volume 86.7 Mean Corpuscular Hemoglobin 29.7 Mean Corpuscular Hemoglobin 34.3 Concent Red Cell Distribution Width 13.2 Platelet Count 235 Mean Platelet Volume 8.4 Neutrophils (%) (Auto) 61.4 Lymphocytes (%) (Auto) 30.7 Monocytes (%) (Auto) 5.0 Eosinophils (%) (Auto) 2.5 Basophils (%) (Auto) 0.4 Neutrophils # (Auto) 5.3 Lymphocytes # (Auto) 2.7 Monocytes # (Auto) 0.4 Eosinophils # (Auto) 0.2 Basophils # (Auto) 0.0 CBC Comment DIFF FINAL Differential Comment Sodium Level 142 Potassium Level 3.7 Chloride Level 108 Carbon Dioxide Level 22.7 Anion Gap 11 Blood Urea Nitrogen 11 Creatinine 0.77 Estimat Glomerular Filtration 86 Rate Random Glucose 110 Calcium Level 8.3 Date/Time Procedure Status Source Growth 01/25/17 21:03 Aerobic Blood Culture Received Blood Other Pending 01/25/17 21:03 Anaerobic Blood Culture Received Blood Other Pending 01/25/17 18:30 Urine Culture Received Urine Clean Catch Pending Result Diagram: 01/26/17 0642 01/26/17 0642 Assessment and Plan Assessment and Plan IMPRESSION Repeated UC with Klebsiella ESBL+, last one was 01/22 with some dysuria at that time, malaise, no fever in ED, (+) UA - got one dose of Meropenem 01/22, called back for (+) UC, but her symptoms have resolved - repeat UA now normal, ?intermittent symptoms, told she is colonized in her system by Klebsiella - no systemic symptoms Hc Vesicoureteral reflux, has had multiple surgeries done Multiple unusual allergies RECOMMENDATION Since her UA and her symptoms are better despite no Rx, I would favor stopping her Abx and D/C home on no Abx She has an ID who she follows up with at [facility] and I advised her that it is a good idea to have an ID locally who can evaluate her - I will give her Dr Maria A Quesada so she can establish with her Thank you for this consultation Discussed Condition With Explained recommendation to the patient Aicha Delgado MD January 26, 2017 10:39 iAcha Delgado MD January 26, 2017 10:39
--- NOTE | 2017-01-26 11:26 | HHI.DCPOC ---
Discharge Care Plan Diagnosis: (1) UTI (urinary tract infection) (2) History of ESBL Klebsiella pneumoniae infection (3) Diabetes mellitus (4) (5) Vesico-ureteral reflux Goals to Promote Your Health * To prevent worsening of your condition and complications * To maintain your health at the optimal level Follow up with ID as an outpatient Directions to Meet Your Goals Take your medications as prescribed Follow your dietary instruction Follow activity as directed Keep your appointments as scheduled Take your immunizations and boosters as scheduled If your symptoms worsen call your PCP, if no PCP go to Urgent Care Center or Emergency Room Smoking is Dangerous to Your Health. Avoid second hand smoke Call the 24-hour hour crisis hotline for domestic abuse at Brenton Hartley MD R2 January 26, 2017 11:26
== END 2017-01-26 12:30 | disposition home or self-care (01) ==
LOC: NEPE 13:19 → NEDA 16:03 → NEPGCP 17:44
PROVIDERS: ADMIT Family Medicine; ATTEND Family Medicine
DX: O23.41 Unspecified infection of urinary tract in pregnancy, first trimester (principal); B96.1 Klebsiella pneumoniae [K. pneumoniae] as the cause of diseases classified elsewhere; O99.511 Diseases of the respiratory system complicating pregnancy, first trimester; J45.909 Unspecified asthma, uncomplicated; O24.311 Unspecified pre-existing diabetes mellitus in pregnancy, first trimester; E11.22 Type 2 diabetes mellitus with diabetic chronic kidney disease; O26.831 Pregnancy related renal disease, first trimester; N18.9 Chronic kidney disease, unspecified; N13.70 Vesicoureteral-reflux, unspecified; O99.341 Other mental disorders complicating pregnancy, first trimester; F90.9 Attention-deficit hyperactivity disorder, unspecified type; O09.11 Supervision of pregnancy with history of ectopic pregnancy, first trimester; O34.219 Maternal care for unspecified type scar from previous cesarean delivery; Z88.1 Allergy status to other antibiotic agents; Z88.8 Allergy status to other drugs, medicaments and biological substances; Z79.84 Long term (current) use of oral hypoglycemic drugs
CPT/HCPCS: 80048; 80053; 81001; 82948; 84703; 85025; 87040; 87086; 99285; G0378; J1644; J2185; J7030; Q0163

== ENCOUNTER 2017-02-13 20:07 | Emergency (ER) | payer BC ==
[~2017-02-13] VITALS: Ht 157.5 cm; Wt 72.0 kg
[~2017-02-13 20:07] MED LIST changes: -ADDE10 PO; -MACR100C2 PO; -VICOTAB4 PO
[2017-02-13 20:09] VITALS: BP 126/75; PULSE 93; RESP 18; TEMP 98.8; O2SAT 100
--- NOTE | 2017-02-13 20:50 | PD ---
HPI Chief Complaint: Related Problem Time Seen by Provider: 20:25 Travel History International Travel<30 days: No Contact w/Intl Traveler<30days: No Traveled to known affect area: No History of Present Illness HPI 36-year-old 6 weeks female with history of vesiculo-ureteral reflex presents to the emergency room for evaluation of vaginal bleeding that started just prior to arrival. Patient states while standing, a large clot ran down her leg. She went to the bathroom and more blood came out while she was sitting on the toilet. She denies any abdominal pain or cramping. Patient called her pets and pet supplies salesperson, Dr. Ernst, who recommended she come to the emergency room for evaluation and ultrasound. Patient has not had an ultrasound yet. Her initial OB appointment is February 15. Patient reports her blood type is A+. 2+ weeks ago was recently diagnosed with urinary tract infection caused by ESBL positive Klebsiella pneumonia requiring IV meropenem. LMP was 01/02/17. Past medical history includes diabetes controlled with diet. PFSH Past Medical History Asthma: Yes Cancer: No Cardiovascular Problems: No Diabetes: Yes Patient Takes Glucophage: No Diminished Hearing: No Endocrine: No Gastrointestinal Disorders: Yes (GERD; GASTROPARESIS) GERD: Yes Genitourinary: Yes (VESICOURETERAL REFLUX, CKD) Hepatitis: No Hiatal Hernia: No Immune Disorder: No Inguinal Hernia: Yes Medical other: Yes Musculoskeletal: No Psychiatric: Yes (ADHD) Reproductive: Yes (ENDOMETRIOSIS;PELVIC CONGESTIVE SYNDROME, PCOS ) Respiratory: Yes (asthma) Immunizations Current: Yes Migraines: Yes Thyroid Disease: No ?: LMP: 01/02/17 : 3 Para: 2 Miscarriage: 0 : 0 Ectopic : Yes (X 1 ) Dilation and Curettage (D&C): Yes Past Surgical History Abdominal Surgery: Yes (APPENDECTOMY, CHOLECTSTECTOMY) AICD: No Appendectomy: Yes Body Medical Devices: NOVA RING Cardiac Surgery: No Section: Yes Cholecystectomy: Yes Ear Surgery: No Endocrine Surgery: No Eye Surgery: Yes Genitourinary Surgery: Yes Gynecologic Surgery: Yes (mult lap endometrosis X 4; C -SECTION) Joint Replacement: No Oral Surgery: Yes (T&A) Pacemaker: No Thoracic Surgery: No Tonsillectomy: Yes Other Surgery: Yes (multiple revision/corrective surgeries to vesicoureteral ) Social History Alcohol Use: No Tobacco Use: No Substance Use: No Allergies-Medications (Allergen,Severity, Reaction): Coded Allergies: Ceftin (Verified Allergy, Severe, SEVERE VOMITING,THROAT SWELLING, 02/13/17 ) THROAT SWELLING Cipro (Verified Allergy, Severe, HIVES, SOB ; THROAT SWELLING, 02/13/17) Invanz (Verified Allergy, Severe, swelling throat, 02/13/17) Phenergan (Verified Allergy, Severe, SEIZURES, 02/13/17) Rocephin (Verified Allergy, Intermediate, Rash, 02/13/17) Levaquin (Verified Allergy, Unknown, Hives, 02/13/17) *MDRO Multi-Drug Resistant Organism (Verified Adverse Reaction, Unknown, ESBL, 02/13/17) ESBL Klebsiella (urine) - 01/22/17 Reported Meds & Prescriptions Reported Meds & Active Scripts Active Reported Cymbalta DR (Duloxetine HCl) 30 Mg Capdr 30 Mg PO DAILY Symbicort Inh (Budesonide/Formoterol Fumarate) 80-4.5 Mcg/Act Aero 1 Puff INH Q12HR PRN Ventolin Hfa 18 GM Inh (Albuterol Sulfate) 90 Mcg/Act Aer 2 Puff INH Q4H PRN Zofran (Ondansetron HCl) 8 Mg Tab 8 Mg PO DAILY Metformin (Metformin HCl) 500 Mg Tab 500 Mg PO DAILY With a meal Victoza Inj (Liraglutide Inj) 18 Mg/3 Ml Pen 1.8 Mg SQ HS Review of Systems Except as stated in HPI: all other systems reviewed are Neg Physical Exam Narrative GENERAL: Well-nourished, well-developed female in no acute distress. Afebrile. Ambulatory. SKIN: Focused skin assessment warm/dry. HEAD: Normocephalic. EYES: No scleral icterus. No injection or drainage. NECK: Supple, trachea midline. No JVD or lymphadenopathy. CARDIOVASCULAR: Regular rate and rhythm without murmurs, gallops, or rubs. RESPIRATORY: Breath sounds equal bilaterally. No accessory muscle use. GASTROINTESTINAL: Abdomen soft, non-tender, nondistended. Data Data Last Documented VS Vital Signs Date Time Temp Pulse Resp B/P Pulse Ox O2 Delivery O2 Flow Rate FiO2 02/13/17 20:09 98.8 93 18 126/75 100 Room Air Orders Beta Hcg (Quant/Titer) (02/13/17 20:34) Complete Blood Count With Diff (02/13/17 20:34) Basic Metabolic Panel (Bmp) (02/13/17 20:34) Urinalysis - C+S If Indicated (02/13/17 20:34) Us Pelvis (Ques Pr/Ect)W Trans (02/13/17 ) Labs Laboratory Tests Test 02/13/17 20:40 White Blood Count 11.1 TH/MM3 Red Blood Count 4.44 MIL/MM3 Hemoglobin 13.1 GM/DL Hematocrit 38.3 % Mean Corpuscular Volume 86.2 FL Mean Corpuscular Hemoglobin 29.4 PG Mean Corpuscular Hemoglobin 34.1 % Concent Red Cell Distribution Width 13.2 % Platelet Count 239 TH/MM3 Mean Platelet Volume 8.3 FL Neutrophils (%) (Auto) 72.7 % Lymphocytes (%) (Auto) 19.1 % Monocytes (%) (Auto) 6.0 % Eosinophils (%) (Auto) 1.7 % Basophils (%) (Auto) 0.5 % Neutrophils # (Auto) 8.0 TH/MM3 Lymphocytes # (Auto) 2.1 TH/MM3 Monocytes # (Auto) 0.7 TH/MM3 Eosinophils # (Auto) 0.2 TH/MM3 Basophils # (Auto) 0.1 TH/MM3 CBC Comment DIFF FINAL Differential Comment Urine Color LIGHT-YELLOW Urine Turbidity CLEAR Urine pH 6.0 Urine Specific [place] 1.005 Urine Protein NEG mg/dL Urine Glucose (UA) NEG mg/dL Urine Ketones NEG mg/dL Urine Occult Blood MOD Urine Nitrite NEG Urine Bilirubin NEG Urine Urobilinogen LESS THAN 2.0 MG/DL Urine Leukocyte Esterase NEG Urine RBC LESS THAN 1 /hpf Urine WBC LESS THAN 1 /hpf Urine Squamous Epithelial 1 /hpf Cells Microscopic Urinalysis Comment CULT NOT INDICATED Sodium Level 138 MEQ/L Potassium Level 3.3 MEQ/L Chloride Level 103 MEQ/L Carbon Dioxide Level 23.5 MEQ/L Anion Gap 12 MEQ/L Blood Urea Nitrogen 10 MG/DL Creatinine 0.74 MG/DL Estimat Glomerular Filtration 90 ML/MIN Rate Random Glucose 129 MG/DL Calcium Level 9.5 MG/DL Human Chorionic Gonadotropin, [address] MIU/ML Quant MDM Medical Decision Making Medical Screen Exam Complete: Yes Emergency Medical Condition: Yes Medical Record Reviewed: Yes Differential Diagnosis Spontaneous miscarriage, urinary tract infection, ectopic , normal Narrative Course 36-year-old 6 week female presents to the emergency room for evaluation of vaginal bleeding that started just prior to arrival. Patient denies any abdominal pain or cramping. Abdomen is soft, nontender, nondistended. Vital signs stable. Patient resting comfortably though slightly anxious. CBC and BMP are unremarkable. HCG is 62,700. UA is negative other than blood which is likely contaminant from vaginal bleeding. Ultrasound shows single intrauterine with a heart rate of 117 bpm measuring approximately 6 weeks and possible fibroid. I spoke to the patient's pets and pet supplies salesperson, Dr. Phelps, who recommends patient follow up in her office tomorrow for repeat ultrasound. Patient discharged with instructions and told to return for worsening symptoms. She understands and agrees to plan. Diagnosis Primary Impression: Threatened miscarriage in early Referrals: Deborah Ernst MD Patient Instructions: General Instructions, Threatened Miscarriage (ED) Additional Instructions: Rest and drink plenty of fluids. Follow-up with Dr. Ernst. Call her office in the morning for appointment tomorrow. Return to the emergency room for worsening symptoms. Disposition: 01 DISCHARGE HOME Condition: Stable Lara Torres Feb 13, 2017 20:49
[2017-02-13 20:56] LABS: BASOPHIL # 0.1 TH/MM3 (0-0.2); BASOPHIL % 0.5 % (0.0-2.0); EOSINOPHIL # 0.2 TH/MM3 (0-0.4); EOSINOPHIL % 1.7 % (0.0-4.0); HEMATOCRIT 38.3 % (35.0-46.0); HEMO FLAGS DIFF FINAL; LYMPH % 19.1 % (9.0-44.0); LYMPHOCYTE # 2.1 TH/MM3 (1.0-4.8); MEAN CELL VOLUME 86.2 FL (80.0-100.0); MEAN CORPUSCULAR HEMOGLOBIN 29.4 PG (27.0-34.0); MEAN CORPUSCULAR HGB CONC 34.1 % (32.0-36.0); NEUT % 72.7 % (16.0-70.0); PLATELET COUNT 239 TH/MM3 (150-450); RED BLOOD COUNT 4.44 MIL/MM3 (4.00-5.30); RED CELL DISTRIBUTION WIDTH 13.2 % (11.6-17.2); WHITE BLOOD COUNT 11.1 TH/MM3 (4.0-11.0)
[2017-02-13 21:05] LABS: BICARBONATE 23.5 MEQ/L (21.0-32.0); POTASSIUM 3.3 MEQ/L (3.5-5.1)
[2017-02-13 21:07] LABS: BLOOD, URINE MOD (NEG); COMMENT (UR) CULT NOT INDICATED; CULTURE IF INDICATED CULT NOT INDICATED; GLUCOSE,URINE NEG (NEG); KETONE, URINE NEG (NEG); NITRITE,URINE NEG (NEG); SQUAMOUS EPITHELIAL CELL URINE 1 /hpf (0-5); URINE COLOR LIGHT-YELLOW (YELLW/STRAW)
--- NOTE | 2017-02-13 22:32 | RADRPT ---
EXAM DATE/TIME: 02/13/2017 21:38 [place] COMPARISON: No previous studies available for comparison. INDICATIONS : Pelvic pain and vaginal bleeding. LAB(S): Beta-hC,700 MEDICAL HISTORY : . Gastroesophageal reflux disease. Methicillin-resistant Staphylococcus aureus. SURGICAL HISTORY : Tonsillectomy. Appendectomy. section. D&C. Cholecystectomy. ENCOUNTER: Initial ACUITY: 2 days PAIN SCORE: 4/10 LOCATION: Bilateral pelvis MEASUREMENTS: UTERUS: 8.2 x 5.1 x 5.2 cm ENDOMETRIAL STRIPE: 14 mm RIGHT OVARY: 3.5 x 2.4 x 3.9 cm LEFT OVARY: 3.1 x 1.5 x 2.9 cm FREE FLUID: No CROWN RUMP LENGTH: 0.4 cm = 6 WKS 1 DAYS FHR: 117 BPM FINDINGS: UTERUS: Heterogeneous echotexture with thickened anterior myometrium in the uterine body. This area could rep resent a mass such as a fibroid it measures approximately 3.2 x 2.1 x 3.1 cm. There is a single intra uterine gestational sac identified measuring approximately 3.8 x 2.8 x 1.1 cm. And has a somewhat aty pical shape and embryo is identified with crown-rump length measurement of 0.4 cm indicating gestatio nal age of 6 weeks and one day. No yolk sac is visualized. RIGHT OVARY: Ovary contains no mass or significant cystic lesion. There is a simple cyst measuring up to 2.1 cm. Follicles are present. LEFT OVARY: Ovary contains no mass or significant cystic lesion. Follicles are present. MISCELLANEOUS: No free fluid. CONCLUSION: 1. Single IUP is visualized. Estimated age is 6 weeks and one day based on crown-rump length measurem ent. heart rate of 117 beats per minute is documented which is somewhat low. Gestational sac al so has an atypical shape and no yolk sac is visualized. Therefore, [facility] of . 2. Possible isoechoic mass in the anterior uterine body measuring up to 3.2 cm. This could represent a fibroid. Bc Tejeda MD on February 13, 2017 at 22:26 Board Certified Radiologist. This report was verified electronically.
== END 2017-02-13 23:09 | disposition home or self-care (01) ==
LOC: NEPC 20:07
DX: O20.0 Threatened abortion (principal); K21.9 Gastro-esophageal reflux disease without esophagitis; E11.22 Type 2 diabetes mellitus with diabetic chronic kidney disease; N18.9 Chronic kidney disease, unspecified; K31.84 Gastroparesis; E11.43 Type 2 diabetes mellitus with diabetic autonomic (poly)neuropathy; F90.9 Attention-deficit hyperactivity disorder, unspecified type; N13.70 Vesicoureteral-reflux, unspecified; Z3A.01 Less than 8 weeks gestation of pregnancy; J45.909 Unspecified asthma, uncomplicated
CPT/HCPCS: 76700; 76817; 80048; 81001; 84702; 85025; 99284

== ENCOUNTER 2017-02-27 20:44 | Emergency (ER) | payer BC ==
[~2017-02-27] VITALS: Ht 157.5 cm; Wt 72.0 kg
[2017-02-27 20:46] VITALS: BP 127/77; PULSE 84; RESP 14; TEMP 97.9; TEMP 99.4; O2SAT 99
--- NOTE | 2017-02-27 22:05 | PD ---
Physical Exam Date Seen by Provider: Feb 27, 2017 Time Seen by Provider: 22:00 Data Data Last Documented VS Vital Signs Date Time Temp Pulse Resp B/P Pulse Ox O2 Delivery O2 Flow Rate FiO2 02/27/17 20:46 99.4 84 14 127/77 99 Room Air MDM Supervised Visit with JUSTIN: No Narrative Course 36 YO F with complaint of abdominal and right flank pain x 3 days. Hx ESBL klebsiella and ureterovesical reflux. 8 weeks by US. Vitals reviewed. Patient seen in triage, awaiting bed placement. Leny Hamlin Feb 27, 2017 22:05
[2017-02-27] MEDS ORDERED: SODIUM CHLOR 0.9% 1000 ML INJ 1,000 ML IV ONE (23:45)
[2017-02-28] VITALS: BP 119/67; PULSE 80; RESP 18; O2SAT 97
[2017-02-28 00:14] LABS: AUTOMATED NEUTROPHIL # 7.6 TH/MM3 (1.8-7.7); BASOPHIL % 0.2 % (0.0-2.0); EOSINOPHIL # 0.1 TH/MM3 (0-0.4); EOSINOPHIL % 1.3 % (0.0-4.0); HEMATOCRIT 38.8 % (35.0-46.0); HEMO FLAGS DIFF FINAL; LYMPH % 21.6 % (9.0-44.0); LYMPHOCYTE # 2.3 TH/MM3 (1.0-4.8); MEAN CELL VOLUME 87.4 FL (80.0-100.0); MEAN CORPUSCULAR HEMOGLOBIN 29.1 PG (27.0-34.0); MEAN CORPUSCULAR HGB CONC 33.3 % (32.0-36.0); MONO % 5.7 % (0.0-8.0); NEUT % 71.2 % (16.0-70.0); PLATELET COUNT 223 TH/MM3 (150-450); RED BLOOD COUNT 4.43 MIL/MM3 (4.00-5.30); RED CELL DISTRIBUTION WIDTH 13.4 % (11.6-17.2); WHITE BLOOD COUNT 10.7 TH/MM3 (4.0-11.0)
[2017-02-28 00:30] LABS: ALT (GPT) 18 U/L (10-53); ANION GAP 7 MEQ/L (5-15); AST (GOT) 10 U/L (15-37); BICARBONATE 26.6 MEQ/L (21.0-32.0); BLOOD UREA NITROGEN 11 MG/DL (7-18); CHLORIDE 103 MEQ/L (98-107); GLOMERULAR FILTRATION RATE 104 ML/MIN (>89); POTASSIUM 3.5 MEQ/L (3.5-5.1); SODIUM (NA) 137 MEQ/L (136-145)
--- NOTE | 2017-02-28 00:36 | PD ---
HPI Chief Complaint: Complaint Time Seen by Provider: 23:35 Travel History International Travel<30 days: No Contact w/Intl Traveler<30days: No Traveled to known affect area: No History of Present Illness HPI The patient is a 36 year old female who presents to the [facility] emergency department with a history of right-sided flank pain that she reports began 4 days ago. The patient reports that the pain has been constant. She reports that today it has been associated with fatigue and nausea. She reports that she has urinary frequency, however she is also . Patient reports that she has a history of vesicourethral reflux with recurrent urinary tract infections. She reports that this happens approximately once a month. She reports having recurrent ESBL in her urine culture that is followed by Dr. Quesada. The patient has multiple medication allergies. She reports that the only thing that she can take when this happens is Meropenem. The patient is a with 2 prior deliveries. The first delivery was complicated by a vaginal delivery with shoulder dystocia, second was delivered by . On review of systems, the patient denies any recent fevers, cough, congestion, neck pain, chest pain, shortness of breath, new or worsening abdominal pain, vomiting, diarrhea, dysuria, urinary urgency, or neurologic symptoms. LMP: January 02, 2017. 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 Asthma: Yes Cancer: No Cardiovascular Problems: No Diabetes: Yes Patient Takes Glucophage: No (NOT WHILE ) Diminished Hearing: No Endocrine: No Gastrointestinal Disorders: Yes (GERD; GASTROPARESIS) GERD: Yes Genitourinary: Yes (VESICOURETERAL REFLUX, CKD) Hepatitis: No Hiatal Hernia: No Immune Disorder: No Inguinal Hernia: Yes Medical other: Yes Musculoskeletal: No Psychiatric: Yes (ADHD) Reproductive: Yes (ENDOMETRIOSIS;PELVIC CONGESTIVE SYNDROME, PCOS ) Respiratory: Yes (asthma) Immunizations Current: Yes Migraines: Yes Thyroid Disease: No ?: : 3 Para: 2 Miscarriage: 0 : 0 Ectopic : Yes (X 1 ) Dilation and Curettage (D&C): Yes Past Surgical History Narrative Surgical The patient's past surgical history is significant for 4 prior surgeries related to vesicle urethral reflux, cholecystectomy, appendectomy, tonsillectomy , inguinal hernia repair 3, 1, laparoscopy 5 for pelvic pain from endometriosis, 3 prior eye surgeries. Abdominal Surgery: Yes (APPENDECTOMY, CHOLECTSTECTOMY) AICD: No Appendectomy: Yes Body Medical Devices: NOVA RING Cardiac Surgery: No Section: Yes Cholecystectomy: Yes Ear Surgery: No Endocrine Surgery: No Eye Surgery: Yes Genitourinary Surgery: Yes Gynecologic Surgery: Yes (mult lap endometrosis X 4; C -SECTION) Joint Replacement: No Oral Surgery: Yes (T&A) Pacemaker: No Thoracic Surgery: No Tonsillectomy: Yes Other Surgery: Yes (multiple revision/corrective surgeries to vesicoureteral ) Social History Alcohol Use: No Tobacco Use: No Substance Use: No Allergies-Medications (Allergen,Severity, Reaction): Coded Allergies: Ceftin (Verified Allergy, Severe, SEVERE VOMITING,THROAT SWELLING, 02/27/17) THROAT SWELLING Cipro (Verified Allergy, Severe, HIVES, SOB ; THROAT SWELLING, 02/27/17) Invanz (Verified Allergy, Severe, swelling throat, 02/27/17) Phenergan (Verified Allergy, Severe, SEIZURES, 02/27/17) Rocephin (Verified Allergy, Intermediate, Rash, 02/27/17) Levaquin (Verified Allergy, Unknown, Hives, 02/27/17) *MDRO Multi-Drug Resistant Organism (Verified Adverse Reaction, Unknown, ESBL, 02/27/17) ESBL Klebsiella (urine) - 01/22/17 Reported Meds & Prescriptions Reported Meds & Active Scripts Active Reported Symbicort Inh (Budesonide/Formoterol Fumarate) 80-4.5 Mcg/Act Aero 1 Puff INH Q12HR PRN Ventolin Hfa 18 GM Inh (Albuterol Sulfate) 90 Mcg/Act Aer 2 Puff INH Q4H PRN Review of Systems Except as stated in HPI: all other systems reviewed are Neg General / Constitutional: No: Fever Eyes: No: Visual changes HENT: No: Headaches Cardiovascular: No: Chest Pain or Discomfort Respiratory: No: Shortness of Breath Gastrointestinal: Positive: Nausea, No: Vomiting, Diarrhea, Abdominal Pain Genitourinary: Positive: Frequency, Flank Pain (right flank pain), No: Urgency , Dysuria Musculoskeletal: No: Pain Skin: No Rash Neurologic: Positive: Weakness (generalized fatigue), No: Focal Abnormalities , Coordination Problem, Change in Mentation, Slurred Speech, Sensory Disturbance Psychiatric: No: Depression Endocrine: No: Polydipsia Hematologic/Lymphatic: No: Easy Bruising Physical Exam Narrative General: The patient is a well-developed well-nourished female in no acute distress. Head and Neck exam: Head is normocephalic atraumatic. Eyes: EOMI, pupils are equal round and reactive to light. Nose: Midline septum with pink mucous membranes Mouth: Dentition unremarkable. Moist mucus membranes. Posterior oropharynx is not erythematous. No tonsillar hypertrophy. Uvula midline. Airway patent. Neck: No palpable lymphadenopathy. No nuchal rigidity. No thyromegaly. Cardiovascular: Regular rate and rhythm without murmurs, gallops, or rubs. Lungs: Clear to auscultation bilaterally. No wheezes, rhonchi, or rales. Abdomen: Soft, without tenderness to palpation in all 4 quadrants of the abdomen. No guarding, rebound, or rigidity. Normal bowel sounds are audible. No tenderness on palpation of McBurney's point. Extremities: No clubbing, cyanosis, or edema. No calf tenderness on palpation. Back: No spinous process tenderness to palpation. Right-sided CVA tenderness to palpation. Neurologic Exam: Grossly nonfocal. Skin Exam: No rash noted. Intact skin that is warm and dry. Data Data Last Documented VS Vital Signs Date Time Temp Pulse Resp B/P Pulse Ox O2 Delivery O2 Flow Rate FiO2 02/28/17 00:00 80 18 119/67 97 Room Air 02/27/17 20:46 99.4 Orders Complete Blood Count With Diff (02/27/17 23:35) Comprehensive Metabolic Panel (02/27/17 23:35) Blood Culture (02/27/17 23:35) Lipase (02/27/17 23:35) Urinalysis - C+S If Indicated (02/27/17 23:35) Beta Hcg (Quant/Titer) (02/27/17 23:35) Lactic Acid Sepsis Protocol (02/27/17 23:35) Sodium Chlor 0.9% 1000 Ml Inj (Ns 1000 M (02/27/17 23:45) Urine Culture (02/28/17 00:36) Asp: Doc Allergy To Pen/Ceph (Asp Crit: (02/28/17 00:45) Asp: Path Resis Cult Proven (Asp Crit: P (02/28/17 00:45) [facility] (02/28/17 00:45) Meropenem Inj (Merrem Inj) (02/28/17 00:45) Labs Laboratory Tests Test 02/27/17 23:55 White Blood Count 10.7 TH/MM3 Red Blood Count 4.43 MIL/MM3 Hemoglobin 12.9 GM/DL Hematocrit 38.8 % Mean Corpuscular Volume 87.4 FL Mean Corpuscular Hemoglobin 29.1 PG Mean Corpuscular Hemoglobin 33.3 % Concent Red Cell Distribution Width 13.4 % Platelet Count 223 TH/MM3 Mean Platelet Volume 8.1 FL Neutrophils (%) (Auto) 71.2 % Lymphocytes (%) (Auto) 21.6 % Monocytes (%) (Auto) 5.7 % Eosinophils (%) (Auto) 1.3 % Basophils (%) (Auto) 0.2 % Neutrophils # (Auto) 7.6 TH/MM3 Lymphocytes # (Auto) 2.3 TH/MM3 Monocytes # (Auto) 0.6 TH/MM3 Eosinophils # (Auto) 0.1 TH/MM3 Basophils # (Auto) 0.0 TH/MM3 CBC Comment DIFF FINAL Differential Comment Urine Color YELLOW Urine Turbidity CLEAR Urine pH 6.0 Urine Specific [place] 1.016 Urine Protein NEG mg/dL Urine Glucose (UA) NEG mg/dL Urine Ketones NEG mg/dL Urine Occult Blood TRACE Urine Nitrite NEG Urine Bilirubin NEG Urine Urobilinogen LESS THAN 2.0 MG/DL Urine Leukocyte Esterase NEG Urine WBC LESS THAN 1 /hpf Urine Squamous Epithelial 4 /hpf Cells Urine Mucus FEW /lpf Microscopic Urinalysis Comment CULT NOT INDICATED Sodium Level 137 MEQ/L Potassium Level 3.5 MEQ/L Chloride Level 103 MEQ/L Carbon Dioxide Level 26.6 MEQ/L Anion Gap 7 MEQ/L Blood Urea Nitrogen 11 MG/DL Creatinine 0.65 MG/DL Estimat Glomerular Filtration 104 ML/MIN Rate Random Glucose 76 MG/DL Lactic Acid Level 1.1 mmol/L Calcium Level 8.8 MG/DL Total Bilirubin 0.1 MG/DL Aspartate Amino Transf 10 U/L (AST/SGOT) Alanine Aminotransferase 18 U/L (ALT/SGPT) Alkaline Phosphatase 42 U/L Total Protein 7.4 GM/DL Albumin 3.6 GM/DL Lipase 171 U/L Human Chorionic Gonadotropin, [id number] MIU/ML Quant [facility] Medical Decision Making Medical Screen Exam Complete: Yes Emergency Medical Condition: Yes Medical Record Reviewed: Yes Differential Diagnosis Recurrent ESBL of the urine, versus musculoskeletal strain Narrative Course During the course of the patients emergency department visit, the patients history, examination, and differential diagnosis were reviewed with the patient. The patient had IV access obtained and blood work sent for analysis. The patient was placed on a playground monitor with oximetry and blood pressure monitoring. The patient reports that she was sent by Dr. Quesada after discussing her symptoms with Dr. Quesada earlier today. The patient was initially provided normal saline 1 L IV fluid bolus. The patients laboratory studies were reviewed and remarkable for a white count of 10.7, hemoglobin 12.9, platelets 223 with 71.2 neutrophils, CMP is remarkable for total bilirubin of 0.1, AST 10, alkaline phosphatase 42, lipase 171, beta hCG is 144,049, lactic acid is 1.1. Urinalysis shows trace occult blood, 4 squamous epithelial cells, few mucus, culture not indicated, however given her history of culture has been ordered. As she was instructed to come to the emergency department by her infectious disease doctor and receive a dose of Meropenem, the first dose was administered after blood cultures 2 were drawn. She will follow-up closely with her infectious disease doctor in the morning. The patient is resting comfortably and feels better, is alert and in no distress. The patients results and examination findings were discussed with the patient. The repeat examination is unremarkable and benign. The history, exam, diagnostic testing, and current condition do not suggest any significant pathology to warrant further testing, continued ED treatment, admission, or surgical evaluation at this point. The vital signs have been stable. The patient does not have uncontrollable pain, intractable vomiting, or other significant symptoms. The patient's condition is stable and appropriate for discharge. The patient will pursue further outpatient evaluation with a primary care physician or other designated or consulting physician as indicated in the discharge instructions. The patient expressed understanding and was agreeable with this plan. Diagnosis Primary Impression: Flank pain Referrals: Maria A Queasda MD 1 day [employer] 3 days Patient Instructions: Flank Pain (ED), General Instructions Med/Other Pt SpecificInfo: Other (follow-up with infectious disease for planning regarding continuation of medicine) Disposition: 01 DISCHARGE HOME Condition: Stable Jenny Messer MD Feb 28, 2017 00:36
[2017-02-28] MEDS ORDERED: MEROPENEM INJ 500 MG in SODIUM CHLORIDE 0.9% INJ 100 ML IV SCH (00:45)
[2017-02-28] MEDS ORDERED: ASP: Path resistant to other antimicrobials, culture proven XX PRN (00:45)
[2017-02-28] MEDS ORDERED: ASP: Documented allergy to Penicillins or Cephalosporins XX PRN (00:45)
[2017-02-28] MEDS ORDERED: MISCELLANEOUS PHARMACY INFORMATION XX PRN (00:45)
[2017-02-28 00:46] LABS: ALKALINE PHOSPHATASE 42 U/L (45-117); BETA HCG QUANT 144049 MIU/ML (0-5); TOTAL BILIRUBIN ADULT 0.1 MG/DL (0.2-1.0)
[2017-02-28 01:06] LABS: BLOOD, URINE TRACE (NEG); COMMENT (UR) CULT NOT INDICATED; CULTURE IF INDICATED CULT NOT INDICATED; GLUCOSE,URINE NEG (NEG); KETONE, URINE NEG (NEG); MUCUS URINE FEW /lpf (OCC); NITRITE,URINE NEG (NEG); SQUAMOUS EPITHELIAL CELL URINE 4 /hpf (0-5); URINE COLOR YELLOW (YELLW/STRAW)
== END 2017-02-28 02:27 | disposition home or self-care (01) ==
LOC: NEPC 20:44
DX: O23.41 Unspecified infection of urinary tract in pregnancy, first trimester (principal); B96.20 Unspecified Escherichia coli [E. coli] as the cause of diseases classified elsewhere; Z3A.08 8 weeks gestation of pregnancy
CPT/HCPCS: 80053; 81001; 83605; 83690; 84702; 85025; 87040; 87077; 87086; 87186; 96361; 96374; 99284; J2185; J7030

== ENCOUNTER 2017-03-30 21:15 | Observation (INO) | payer BC ==
[~2017-03-30 21:15] MED LIST changes: -CYMB30CA PO; -METF500T PO; -VICT18IN SQ; -ZOFR8TAB PO
[2017-03-30 21:18] VITALS: BP 163/85; PULSE 94; RESP 18; TEMP 99.2; O2SAT 99
[2017-03-30] MEDS ORDERED: MERO1INJ8 IV (21:37)
[2017-03-30] MEDS ORDERED: SODIUM CHLOR 0.9% 1000 ML INJ 1,000 ML IV SCH (21:42)
[2017-03-30] MEDS ORDERED: ONDANSETRON HCL 4 MG/2 ML VIAL IVP ONE (21:45)
[2017-03-30] MEDS ORDERED: SODIUM CHLORIDE 0.9% FLUSH 10 ML FLUSH IV FLUSH PRN ×2 (21:45→23:00)
[2017-03-30] MEDS ORDERED: MORPHINE SULFATE 4 MG/ML INJ IV PUSH ONE (21:45)
--- NOTE | 2017-03-30 21:51 | PD ---
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 She states that she is concerned that she could be allergic to antibiotic again but states that she did not have any hives. She denies any fevers, vomiting, or other symptoms. Modifying Factors: None Associated Signs & Symptoms: Chest tightness after getting IV antibiotics for resistant UTI, right flank pain Risk Factors: Multiple antibiotic allergies, PFSH Past Medical History Asthma: Yes Cancer: No Cardiovascular Problems: No Diabetes: Yes Patient Takes Glucophage: No Diminished Hearing: No Endocrine: No Gastrointestinal Disorders: Yes (GERD; GASTROPARESIS) GERD: Yes Genitourinary: Yes (VESICOURETERAL REFLUX, CKD) Hepatitis: No Hiatal Hernia: No Immune Disorder: No Inguinal Hernia: Yes Musculoskeletal: No Psychiatric: Yes (ADHD) Reproductive: Yes (ENDOMETRIOSIS;PELVIC CONGESTIVE SYNDROME, PCOS ) Respiratory: Yes (asthma) Immunizations Current: Yes Migraines: Yes Thyroid Disease: No ?: LMP: 01/02/17 : 3 Para: 2 Miscarriage: 0 : 0 Ectopic : Yes Dilation and Curettage (D&C): Yes Past Surgical History Abdominal Surgery: Yes (APPENDECTOMY, CHOLECTSTECTOMY) AICD: No Appendectomy: Yes Body Medical Devices: NOVA RING Cardiac Surgery: No Section: Yes Cholecystectomy: Yes Ear Surgery: No Endocrine Surgery: No Eye Surgery: Yes Genitourinary Surgery: Yes Gynecologic Surgery: Yes (mult lap endometrosis X 4; C -SECTION) Joint Replacement: No Oral Surgery: Yes (T&A) Pacemaker: No Thoracic Surgery: No Tonsillectomy: Yes Other Surgery: Yes (multiple revision/corrective surgeries to vesicoureteral ) Social History Alcohol Use: No Tobacco Use: No Substance Use: No Allergies-Medications (Allergen,Severity, Reaction): Coded Allergies: Ceftin (Verified Allergy, Severe, SEVERE VOMITING,THROAT SWELLING, 02/27/17) THROAT SWELLING Cipro (Verified Allergy, Severe, HIVES, SOB ; THROAT SWELLING, 02/27/17) Invanz (Verified Allergy, Severe, swelling throat, 02/27/17) Phenergan (Verified Allergy, Severe, SEIZURES, 02/27/17) Rocephin (Verified Allergy, Intermediate, Rash, 02/27/17) Levaquin (Verified Allergy, Unknown, Hives, 02/27/17) *MDRO Multi-Drug Resistant Organism (Verified Adverse Reaction, Unknown, ESBL, 02/27/17) ESBL Klebsiella (urine) - 01/22/17 Reported Meds & Prescriptions Reported Meds & Active Scripts Active Reported Meropenem Inj 1 Gm/50 Ml Bag 1,000 Mg IV Q12H Symbicort Inh (Budesonide/Formoterol Fumarate) 80-4.5 Mcg/Act Aero 1 Puff INH Q12HR PRN Ventolin Hfa 18 GM Inh (Albuterol Sulfate) 90 Mcg/Act Aer 2 Puff INH Q4H PRN Review of Systems Except as stated in HPI: all other systems reviewed are Neg Physical Exam Narrative GENERAL: Well-developed young female patient currently in mild distress. Awake and oriented 3. SKIN: Focused skin assessment warm/dry. HEAD: Atraumatic. Normocephalic. EYES: Pupils equal and round. No scleral icterus. No injection or drainage. ENT: No nasal bleeding or discharge. Mucous membranes pink and moist. NECK: Trachea midline. No JVD. CARDIOVASCULAR: Regular rate and rhythm. No murmur appreciated. RESPIRATORY: No accessory muscle use. Clear to auscultation. Breath sounds equal bilaterally. GASTROINTESTINAL: Abdomen soft, mild suprapubic tenderness without guarding or rebound, nondistended. Hepatic and splenic margins not palpable. BACK: Mild right CVA tenderness. No rash. No point tenderness on palpation of the spine. MUSCULOSKELETAL: No obvious deformities. No clubbing. No cyanosis. No edema. NEUROLOGICAL: Awake and alert. No obvious cranial nerve deficits. Motor grossly within normal limits. Normal speech. PSYCHIATRIC: Appropriate mood and affect; insight and judgment normal. Data Data Last Documented VS Vital Signs Date Time Temp Pulse Resp B/P Pulse Ox O2 Delivery O2 Flow Rate FiO2 8/2/17 22:15 16 03/30/17 21:57 98 Room Air 03/30/17 21:18 99.2 94 163/85 Orders Complete Blood Count With Diff (03/30/17 21:42) Comprehensive Metabolic Panel (03/30/17 21:42) Urinalysis - C+S If Indicated (03/30/17 21:42) Iv Access Insert/Monitor (03/30/17 21:42) Ecg Monitoring (03/30/17 21:42) Oximetry (03/30/17 21:42) Morphine Inj (Morphine Inj) (03/30/17 21:45) Ondansetron Inj (Zofran Inj) (03/30/17 21:45) Sodium Chlor 0.9% 1000 Ml Inj (Ns 1000 M (03/30/17 21:42) Sodium Chloride 0.9% Flush (Ns Flush) (03/30/17 21:45) Heart Tones (03/30/17 21:42) Us Kidney/Renal/Bladder (03/30/17 21:42) Electrocardiogram (03/30/17 21:44) Lactic Acid Sepsis Protocol (03/30/17 21:46) Blood Culture (03/30/17 21:46) Diphenhydramine Inj (Benadryl Inj) (03/30/17 22:45) Famotidine Inj (Pepcid Inj) (03/30/17 22:45) Admit Order (Ed Use Only) (03/30/17 22:58) Labs Laboratory Tests Test 03/30/17 03/30/17 21:50 21:55 White Blood Count 11.0 TH/MM3 Red Blood Count 4.17 MIL/MM3 Hemoglobin 12.3 GM/DL Hematocrit 36.6 % Mean Corpuscular Volume 87.7 FL Mean Corpuscular Hemoglobin 29.4 PG Mean Corpuscular Hemoglobin 33.5 % Concent Red Cell Distribution Width 13.3 % Platelet Count 213 TH/MM3 Mean Platelet Volume 7.8 FL Neutrophils (%) (Auto) 75.9 % Lymphocytes (%) (Auto) 17.7 % Monocytes (%) (Auto) 5.1 % Eosinophils (%) (Auto) 1.0 % Basophils (%) (Auto) 0.3 % Neutrophils # (Auto) 8.4 TH/MM3 Lymphocytes # (Auto) 2.0 TH/MM3 Monocytes # (Auto) 0.6 TH/MM3 Eosinophils # (Auto) 0.1 TH/MM3 Basophils # (Auto) 0.0 TH/MM3 CBC Comment DIFF FINAL Differential Comment Urine Color LIGHT-YELLOW Urine Turbidity CLEAR Urine pH 7.5 Urine Specific [place] 1.010 Urine Protein NEG mg/dL Urine Glucose (UA) NEG mg/dL Urine Ketones NEG mg/dL Urine Occult Blood TRACE Urine Nitrite NEG Urine Bilirubin NEG Urine Urobilinogen LESS THAN 2.0 MG/DL Urine Leukocyte Esterase MOD Urine RBC 1 /hpf Urine WBC 6 /hpf Urine Squamous Epithelial 2 /hpf Cells Urine Amorphous Sediment RARE Urine Bacteria RARE /hpf Urine Mucus FEW /lpf Microscopic Urinalysis Comment CULT NOT INDICATED Sodium Level 137 MEQ/L Potassium Level 3.2 MEQ/L Chloride Level 102 MEQ/L Carbon Dioxide Level 23.9 MEQ/L Anion Gap 11 MEQ/L Blood Urea Nitrogen 10 MG/DL Creatinine 0.57 MG/DL Estimat Glomerular Filtration 121 ML/MIN Rate Random Glucose 117 MG/DL Calcium Level 9.1 MG/DL Total Bilirubin 0.2 MG/DL Aspartate Amino Transf 8 U/L (AST/SGOT) Alanine Aminotransferase 12 U/L (ALT/SGPT) Alkaline Phosphatase 42 U/L Total Protein 7.0 GM/DL Albumin 3.2 GM/DL Lactic Acid Level 1.5 mmol/L [facility] Medical Decision Making Medical Screen Exam Complete: Yes Emergency Medical Condition: Yes Medical Record Reviewed: Yes Interpretation(s) Laboratory Tests Test 03/30/17 21:50 Neutrophils (%) (Auto) 75.9 % (16.0-70.0) Neutrophils # (Auto) 8.4 TH/MM3 (1.8-7.7) Urine Occult Blood TRACE (NEG) Urine Leukocyte Esterase MOD (NEG) Urine WBC 6 /hpf (0-5) Urine Bacteria RARE /hpf (NONE) Urine Mucus FEW /lpf (OCC) Potassium Level 3.2 MEQ/L (3.5-5.1) Random Glucose 117 MG/DL (74-106) Aspartate Amino Transf 8 U/L (15-37) (AST/SGOT) Alkaline Phosphatase 42 U/L (45-117) Albumin 3.2 GM/DL (3.4-5.0) Last 24 hours Impressions Renal Ultrasound 8/10/15 2141 Signed Impressions: Service Date/Time: Thursday, March 30, 2017 21:49 - CONCLUSION: No evidence of hydronephrosis. Carmelo Wiggins MD Differential Diagnosis UTI/pyelonephritis versus urethral obstruction versus musculoskeletal versus allergic reaction Narrative Course UA shows that she still has UTI. At this point, she was treated for possible allergic reaction. And considering her complex medical history, plan would be to admit the patient as an observation and she will need consultation with infectious disease. Case was discussed with Dr. Pierson for admission. She has requested that I consult MICK hernandez regarding this issue. We have called infectious disease doctor on-call at 12 AM and at 12:45 AM without answer. Infectious disease consult was placed in the chart. Diagnosis Primary Impression: UTI (urinary tract infection) Additional Impressions: Flank pain History of ESBL Klebsiella pneumoniae infection Admitting Information Admitting Physician Requests: Admit Dalia Ochoa MD Mar 30, 2017 21:51
[2017-03-30 21:57] VITALS: RESP 16; O2SAT 98
[2017-03-30 22:11] LABS: AUTOMATED NEUTROPHIL # 8.4 TH/MM3 (1.8-7.7); BASOPHIL % 0.3 % (0.0-2.0); EOSINOPHIL # 0.1 TH/MM3 (0-0.4); HEMATOCRIT 36.6 % (35.0-46.0); HEMO FLAGS DIFF FINAL; LYMPH % 17.7 % (9.0-44.0); MEAN CELL VOLUME 87.7 FL (80.0-100.0); MEAN CORPUSCULAR HEMOGLOBIN 29.4 PG (27.0-34.0); MEAN CORPUSCULAR HGB CONC 33.5 % (32.0-36.0); MONO % 5.1 % (0.0-8.0); NEUT % 75.9 % (16.0-70.0); PLATELET COUNT 213 TH/MM3 (150-450); RED BLOOD COUNT 4.17 MIL/MM3 (4.00-5.30); RED CELL DISTRIBUTION WIDTH 13.3 % (11.6-17.2)
[2017-03-30 22:27] LABS: BACTERIA, URINE RARE /hpf; BLOOD, URINE TRACE (NEG); COMMENT (UR) CULT NOT INDICATED; CULTURE IF INDICATED CULT NOT INDICATED; GLUCOSE,URINE NEG (NEG); KETONE, URINE NEG (NEG); MUCUS URINE FEW /lpf (OCC); NITRITE,URINE NEG (NEG); PH, URINE 7.5 (5.0-8.5); SQUAMOUS EPITHELIAL CELL URINE 2 /hpf (0-5); URINE COLOR LIGHT-YELLOW (YELLW/STRAW)
[2017-03-30 22:29] LABS: ANION GAP 11 MEQ/L (5-15); AST (GOT) 8 U/L (15-37); BICARBONATE 23.9 MEQ/L (21.0-32.0); BLOOD UREA NITROGEN 10 MG/DL (7-18); CHLORIDE 102 MEQ/L (98-107); GLOMERULAR FILTRATION RATE 121 ML/MIN (>89); POTASSIUM 3.2 MEQ/L (3.5-5.1); SODIUM (NA) 137 MEQ/L (136-145)
[2017-03-30 22:30] LABS: ALT (GPT) 12 U/L (10-53)
[2017-03-30 22:32] LABS: ALKALINE PHOSPHATASE 42 U/L (45-117); TOTAL BILIRUBIN ADULT 0.2 MG/DL (0.2-1.0)
--- NOTE | 2017-03-30 22:33 | RADRPT ---
EXAM DATE/TIME: 03/30/2017 21:49 [facility] COMPARISON: US KIDNEY/RENAL/BLADDER, July 08, 2014, 18:08. INDICATIONS : Obstruction. MEDICAL HISTORY : . Gastroesophageal reflux disease. Methicillin-resistant Staphylococcus. SURGICAL HISTORY : Tonsillectomy. Appendectomy. section. D&C. Cholecystectomy. ENCOUNTER: Initial ACUITY: 2 days PAIN SCORE: 4/10 LOCATION: Bilateral flank MEASUREMENTS: RIGHT KIDNEY: 11.8 x 5.1 x 5.1 cm LEFT KIDNEY: 12.3 x 4.3 x 5.3 cm FINDINGS: RIGHT KIDNEY: Renal cortex is normal in thickness and echotexture. No hydronephrosis, stone, or mass. LEFT KIDNEY: Renal cortex is normal in thickness and echotexture. No hydronephrosis, stone, or mass. BLADDER: Nondistended. CONCLUSION: No evidence of hydronephrosis. Carmelo Wiggins MD on March 30, 2017 at 22:30 Board Certified Radiologist. This report was verified electronically.
[2017-03-30] MEDS ORDERED: diphenhydrAMINE HCL 50 MG/ML VIAL IV PUSH ONE (22:45)
[2017-03-30] MEDS ORDERED: FAMOTIDINE 20 MG/2 ML VIAL IV PUSH ONE (22:45)
[2017-03-30] MEDS ORDERED: NALOXONE HCL 0.4 MG/ML AMP IV PRN (23:00)
[2017-03-31] VITALS (7 sets, daily range): BP systolic 98–125; BP diastolic 58–73; PULSE 74–89; RESP 14–19; TEMP 98.4–99.1; O2SAT 97–99
[2017-03-31 07:32] LABS: AUTOMATED NEUTROPHIL # 6.3 TH/MM3 (1.8-7.7); BASOPHIL % 0.2 % (0.0-2.0); EOSINOPHIL # 0.1 TH/MM3 (0-0.4); EOSINOPHIL % 1.6 % (0.0-4.0); HEMATOCRIT 33.1 % (35.0-46.0); HEMO FLAGS DIFF FINAL; LYMPH % 21.8 % (9.0-44.0); LYMPHOCYTE # 1.9 TH/MM3 (1.0-4.8); MEAN CELL VOLUME 87.7 FL (80.0-100.0); MEAN CORPUSCULAR HEMOGLOBIN 30.5 PG (27.0-34.0); MEAN CORPUSCULAR HGB CONC 34.8 % (32.0-36.0); MONO % 5.6 % (0.0-8.0); NEUT % 70.8 % (16.0-70.0); PLATELET COUNT 194 TH/MM3 (150-450); RED BLOOD COUNT 3.77 MIL/MM3 (4.00-5.30); RED CELL DISTRIBUTION WIDTH 13.7 % (11.6-17.2); WHITE BLOOD COUNT 8.9 TH/MM3 (4.0-11.0)
[2017-03-31 08:21] LABS: BICARBONATE 22.6 MEQ/L (21.0-32.0); POTASSIUM 3.4 MEQ/L (3.5-5.1)
[2017-03-31] MEDS: SODIUM CHLORIDE 0.9% FLUSH 10 ML FLUSH IV FLUSH SCH ×2 (09:00→21:00)
--- NOTE | 2017-03-31 09:11 | HHI.HP ---
HPI Service [facility] Primary Care Physician Non-Staff Admission Diagnosis UTI/antibiotic resistance/allergic reaction Diagnoses: Chief Complaint: UTI, right flank pain. Travel History International Travel<30 Days: Yes Contact w/Intl Traveler <30 Da: Yes Name of Country Traveled to: [place] Traveled to Known Affected Are: No History of Present Illness Ms. Gamble is a 36 year old female who is currently 13 week , with a history of recurrent UTI, allergic to multiple antibiotics who presents to the emergency department on 03/30/2017 due to persistent right flank pain. She has had episodes of UTIs for a year or so. She usually follows up with Dr. Parker (ID ) who has continued Meropenem through a midline. In the last 4-5 days, she has experienced persistent right flank pain and dysuria which prompted her to come to the hospital. She also reports low grade fever - around 99.6F and nausea but no vomiting. When she does take meropenem, she feels chest discomfort, shortness of breath. Currently, patient denies any chest pain, shortness of breath. Denies any cough, changes in her bowel habits. Review of Systems Except as stated in HPI: all other systems reviewed are Neg Past Family Social History Past Medical History DM was on victoza and metformin before . Inguinal hernia vesicoureteral reflux Past Surgical History Bilateral ureteral reimplants Appendectomy Cholecystectomy Tonsils x 1 Inguinal hernia repair x 3 5 laparoscopic surgery for endometriosis 3 eye surgery due to strabismus Reported Medications Meropenem Inj 1 Gm/50 Ml Bag 1,000 Mg IV Q12H Symbicort Inh (Budesonide/Formoterol Fumarate) 80-4.5 Mcg/Act Aero 1 Puff INH Q12HR PRN Ventolin Hfa 18 GM Inh (Albuterol Sulfate) 90 Mcg/Act Aer 2 Puff INH Q4H PRN Allergies: Coded Allergies: Ceftin (Verified Allergy, Severe, SEVERE VOMITING,THROAT SWELLING, 02/27/17) THROAT SWELLING Cipro (Verified Allergy, Severe, HIVES, SOB ; THROAT SWELLING, 02/27/17) Invanz (Verified Allergy, Severe, swelling throat, 02/27/17) Phenergan (Verified Allergy, Severe, SEIZURES, 02/27/17) Rocephin (Verified Allergy, Intermediate, Rash, 02/27/17) Levaquin (Verified Allergy, Unknown, Hives, 02/27/17) *MDRO Multi-Drug Resistant Organism (Verified Adverse Reaction, Unknown, ESBL, 02/27/17) ESBL Klebsiella (urine) - 01/22/17 Family History Mother and grandmother - diabetes mellitus. Social History Patient denies using tobacco, alcohol, illicit drugs. Physical Exam Vital Signs Vital Signs Date Time Temp Pulse Resp B/P Pulse Ox O2 Delivery O2 Flow Rate FiO2 03/31/17 08:32 99.1 89 16 107/63 98 03/31/17 05:40 98.4 74 18 98/58 97 03/31/17 04:00 81 03/30/17 22:15 16 03/30/17 21:57 16 98 Room Air 03/30/17 21:18 99.2 94 18 163/85 99 Room Air Physical Exam GENERAL: This is a well-nourished, well-developed patient, in no apparent distress. SKIN: No rashes, ecchymoses or lesions. Warm and dry. HEAD: Atraumatic. Normocephalic. No temporal or scalp tenderness. EYES: Pupils equal round and reactive. No injection or drainage. ENT: Nose without bleeding, purulent drainage or septal hematoma. Airway patent. NECK: Trachea midline. No lymphadenopathy. Supple, nontender, no meningeal signs. CARDIOVASCULAR: Regular rate and rhythm without murmurs, gallops, or rubs. No JVD. RESPIRATORY: Clear to auscultation. Breath sounds equal bilaterally. No wheezes , rales, or rhonchi. GASTROINTESTINAL: Abdomen soft, non-tender, nondistended. No guarding. Mild CVA tenderness on right. MUSCULOSKELETAL: Extremities without clubbing, cyanosis, or edema. NEUROLOGICAL: Awake and alert. Cranial nerves II through XII intact. No focal neurological deficits. Normal speech. Laboratory Laboratory Tests Test 03/30/17 03/30/17 03/31/17 21:50 21:55 06:51 White Blood Count 11.0 8.9 Red Blood Count 4.17 3.77 Hemoglobin 12.3 11.5 Hematocrit 36.6 33.1 Mean Corpuscular Volume 87.7 87.7 Mean Corpuscular Hemoglobin 29.4 30.5 Mean Corpuscular Hemoglobin 33.5 34.8 Concent Red Cell Distribution Width 13.3 13.7 Platelet Count 213 194 Mean Platelet Volume 7.8 8.3 Neutrophils (%) (Auto) 75.9 70.8 Lymphocytes (%) (Auto) 17.7 21.8 Monocytes (%) (Auto) 5.1 5.6 Eosinophils (%) (Auto) 1.0 1.6 Basophils (%) (Auto) 0.3 0.2 Neutrophils # (Auto) 8.4 6.3 Lymphocytes # (Auto) 2.0 1.9 Monocytes # (Auto) 0.6 0.5 Eosinophils # (Auto) 0.1 0.1 Basophils # (Auto) 0.0 0.0 CBC Comment DIFF FINAL DIFF FINAL Differential Comment Urine Color LIGHT-YELLOW Urine Turbidity CLEAR Urine pH 7.5 Urine Specific [place] 1.010 Urine Protein NEG Urine Glucose (UA) NEG Urine Ketones NEG Urine Occult Blood TRACE Urine Nitrite NEG Urine Bilirubin NEG Urine Urobilinogen LESS THAN 2.0 Urine Leukocyte Esterase MOD Urine RBC 1 Urine WBC 6 Urine Squamous Epithelial 2 Cells Urine Amorphous Sediment RARE Urine Bacteria RARE Urine Mucus FEW Microscopic Urinalysis Comment CULT NOT INDICATED Sodium Level 137 140 Potassium Level 3.2 3.4 Chloride Level 102 107 Carbon Dioxide Level 23.9 22.6 Anion Gap 11 10 Blood Urea Nitrogen 10 8 Creatinine 0.57 0.50 Estimat Glomerular Filtration 121 141 Rate Random Glucose 117 74 Calcium Level 9.1 8.5 Total Bilirubin 0.2 Aspartate Amino Transf 8 (AST/SGOT) Alanine Aminotransferase 12 (ALT/SGPT) Alkaline Phosphatase 42 Total Protein 7.0 Albumin 3.2 Lactic Acid Level 1.5 Date/Time Procedure Status Source Growth 03/30/17 21:55 Aerobic Blood Culture Received Blood Peripheral Pending 03/30/17 21:55 Anaerobic Blood Culture Received Blood Peripheral Pending Result Diagram: 03/31/17 0651 03/31/1751 Imaging Last Impressions Renal Ultrasound 03/30/172141 Signed Impressions: Service Date/Time: Thursday, March 30, 2017 21:49 - CONCLUSION: No evidence of hydronephrosis. Carmelo Wiggins MD Assessment and Plan Problem List: (1) UTI (urinary tract infection) ICD Code: N39.0 Status: Acute (2) Vesico-ureteral reflux ICD Code: N13.70 Status: Acute (3) Diabetes mellitus ICD Code: E11.9 Status: Acute (4) Headache ICD Code: R51 Status: Acute Assessment and Plan Ms. Gamble is a 13 week , 36 year old female with a history of recurrently UTI who presents to the ED due to persistent right flank pain and chest pain, shortness of breath associated with Meropenem. She has been on Meropenem per her outpatient ID physician for ESBL Klebsiella UTI. - Right sided flank pain - Recurrent UTI - History of vesicoureteral reflux - Patient is on Meropenem via a midline. - Given her history of extensive allergies to multiple anti-bacterials and symptoms associated with Meropenem, ID was consulted. - Will wait for ID input before re-starting Meropenem. - Follow cultures. - Headache - Acetaminophen and Fioricet PRN. Her Registered Sales Assistant gave her Fioricet to be used sparingly. - Diabetes mellitus - Will use Aspart sliding scale insulin. - If needed, Levemir can be considered as well. Levemir is category B. Full code. Ambulation. Saira Dean DO Mar 31, 2017 09:11
[2017-03-31] MEDS ORDERED: POTASSIUM CHLORIDE 20 MEQ CONTROLLED RELEASE TAB PO ONE (09:15)
[2017-03-31] MEDS ORDERED: ACETAMINOPHEN 325 MG TAB PO PRN ×2 (09:15→09:30)
[2017-03-31] MEDS ORDERED: ACETAMIN 325 MG/BUTALBITAL 50 MG/CAFFEINE 40 MG TAB PO PRN (10:00)
[2017-03-31] MEDS ORDERED: GLUCAGON 1 MG/ML VIAL OTHER PRN (10:30)
[2017-03-31] MEDS ORDERED: DEXTROSE 50% IN WATER 50 ML VIAL(D50) IV PRN (10:30)
[2017-03-31] MEDS: INSULIN ASPART SUPPLEMENTAL SCALE SQ SCH ×3 (11:00→21:00)
--- NOTE | 2017-03-31 14:51 | EKG ---
Date Performed: 03/30/2017 Time Performed: 22:19:54 PTAGE: 36 years EKG: Sinus rhythm NORMAL ECG PREVIOUS TRACING : 04/04/2014 13.21 Since previous tracing, no significant change noted DOCTOR: Zandra Rico Interpretating Date/Time 03/31/2017 14:49:00
--- NOTE | 2017-03-31 14:54 | PD.ID.CON ---
History of Present Illness Service ID Consult Requested By Reason for Consult Evaluation and Mment of EBL positive UTI in a patient with Vesicoureteral reflex and 13 weeks , multiple antibiotic allergies. Primary Care Physician Non-Staff Diagnoses: History of Present Illness Ms. Gamble is a 36 year old female who is currently 13 week , with a history of recurrent UTI, allergic to multiple antibiotics who presents to the emergency department on 03/30/2017 due to persistent right flank pain. She has had episodes of UTIs for a year or so. She usually follows up with Dr. Parker (ID ) who has continued Meropenem through a midline. In the last 4-5 days, she has experienced persistent right flank pain and dysuria which prompted her to come to the hospital. She also reports low grade fever - around 99.6F and nausea but no vomiting. When she does take meropenem, she feels chest discomfort, chest tightness, and shortness of breath. Currently, patient denies any chest pain, shortness of breath. Denies any cough, changes in her bowel habits. ID consulted for evaluation and Mment of ESBL positive UTI in a pt with VUR and 13 weeks . Patient does not describe symptoms suggestive of UTI just general feeling of weakness. Currently asymptomatic. Review of Systems Constitutional: DENIES: Diaphoretic episodes, Fatigue, Fever, Weight gain, Weight loss, Chills, Dizziness, Change in appetite, Night Sweats Endocrine: DENIES: Abnorml menstrual pattern, Heat/cold intolerance, Polydipsia , Polyuria, Polyphagia Eyes: DENIES: Blurred vision, Diplopia, Eye inflammation, Eye pain, Vision loss , Photosensitivity, Double Vision Ears, nose, mouth, throat: DENIES: Tinnitus, Hearing loss, Vertigo, Nasal discharge, Oral lesions, Throat pain, Hoarseness, Ear Pain, Running Nose, Epistaxis, Sinus Pain, Toothache, Odynophagia Respiratory: DENIES: Apneas, Cough, Snoring, Wheezing, Hemoptysis, Sputum production, Shortness of breath Cardiovascular: DENIES: Chest pain, Palpitations, Syncope, Dyspnea on Exertion , PND, Lower Extremity Edema, Orthopnea, Claudication Gastrointestinal: DENIES: Abdominal pain, Black stools, Bloody stools, Constipation, Diarrhea, Nausea, Vomiting, Difficulty Swallowing, Anorexia Genitourinary: DENIES: Abnormal vaginal bleeding, Dysmenorrhea, Dyspareunia, Sexual dysfunction, Urinary frequency, Urinary incontinence, Urgency, Hematuria , Dysuria, Nocturia, Vaginal discharge Musculoskeletal: DENIES: Joint pain, Muscle aches, Stiffness, Joint Swelling, Back pain, Neck pain Integumentary: DENIES: Abnormal pigmentation, Pruritus, Rash, Nail changes, Breast masses, Breast skin changes, Nipple discharge Hematologic/lymphatic: DENIES: Bruising, Lymphadenopathy Immunologic/allergic: DENIES: Eczema, Urticaria Neurologic: DENIES: Abnormal gait, Headache, Localized weakness, Paresthesias, Seizures, Speech Problems, Tremor, Poor Balance Psychiatric: DENIES: Anxiety, Confusion, Mood changes, Depression, Hallucinations, Agitation, Suicidal Ideation, Homicidal Ideation, Delusions Past Family Social History Allergies: Coded Allergies: Ceftin (Verified Allergy, Severe, SEVERE VOMITING,THROAT SWELLING, 02/27/17) THROAT SWELLING Cipro (Verified Allergy, Severe, HIVES, SOB ; THROAT SWELLING, 02/27/17) Invanz (Verified Allergy, Severe, swelling throat, 02/27/17) Phenergan (Verified Allergy, Severe, SEIZURES, 02/27/17) Rocephin (Verified Allergy, Intermediate, Rash, 02/27/17) Levaquin (Verified Allergy, Unknown, Hives, 02/27/17) *MDRO Multi-Drug Resistant Organism (Verified Adverse Reaction, Unknown, ESBL, 02/27/17) ESBL Klebsiella (urine) - 01/22/17 Past Medical History DM was on victoza and metformin before . Inguinal hernia vesicoureteral reflux Past Surgical History Bilateral ureteral reimplants Appendectomy Cholecystectomy Tonsils x 1 Inguinal hernia repair x 3 5 laparoscopic surgery for endometriosis 3 eye surgery due to strabismus Reported Medications Reported Meds & Active Scripts Active Reported Meropenem Inj 1 Gm/50 Ml Bag 500 Mg IV Q8HR Symbicort Inh (Budesonide/Formoterol Fumarate) 80-4.5 Mcg/Act Aero 1 Puff INH Q12HR PRN Ventolin Hfa 18 GM Inh (Albuterol Sulfate) 90 Mcg/Act Aer 2 Puff INH Q4H PRN Active Ordered Medications Current Medications Medications (Trade) Dose Ordered Sig/Mary Route Start Time Stop Time Status Last Admin (NS Flush) 2 ml UNSCH PRN IV FLUSH 03/30/17 23:00 (NS Flush) 2 ml BID IV FLUSH 03/31/17 09:00 (Narcan Inj) 0.4 mg UNSCH PRN IV 03/30/17 23:00 (Fioricet 325-50-40) 1 tab Q8H PRN PO 03/31/17 10:00 (Tylenol) 650 mg Q6H PRN PO 03/31/17 09:30 03/31/17 09:42 (D50w (Vial) Inj) 50 ml UNSCH PRN IV 03/31/17 10:30 (Glucagon Inj) 1 mg UNSCH PRN OTHER 03/31/17 10:30 Family History Mother and grandmother - diabetes mellitus. Social History Patient denies using tobacco, alcohol, illicit drugs. Physical Exam Vital Signs Vital Signs Date Time Temp Pulse Resp B/P Pulse Ox O2 Delivery O2 Flow Rate FiO2 03/31/17 10:42 20 03/31/17 08:32 99.1 89 16 107/63 98 03/31/17 05:40 98.4 74 18 98/58 97 03/31/17 04:00 81 03/30/17 22:15 16 03/30/17 21:57 16 98 Room Air 03/30/17 21:18 99.2 94 18 163/85 99 Room Air Physical Exam GENERAL: This is a well-nourished, well-developed patient, in no apparent distress. SKIN: No rashes, ecchymoses or lesions. Cool and dry. HEAD: Atraumatic. Normocephalic. No temporal or scalp tenderness. EYES: Pupils equal round and reactive. Extraocular motions intact. No scleral icterus. No injection or drainage. ENT: Nose without bleeding, purulent drainage or septal hematoma. Throat without erythema, tonsillar hypertrophy or exudate. Uvula midline. Airway patent. NECK: Trachea midline. Supple, nontender, no meningeal signs. CARDIOVASCULAR: Regular rate and rhythm without murmurs, gallops, or rubs. RESPIRATORY: Clear to auscultation. Breath sounds equal bilaterally. No wheezes , rales, or rhonchi. GASTROINTESTINAL: Abdomen soft, non-tender, nondistended. MUSCULOSKELETAL: Extremities without clubbing, cyanosis, or edema. NEUROLOGICAL: Awake and alert. Grossly non focal Psych cooperative IV line sites with no e.o infection Laboratory Laboratory Tests Test 03/30/17 03/30/17 03/31/17 21:50 21:55 06:51 White Blood Count 11.0 8.9 Red Blood Count 4.17 3.77 Hemoglobin 12.3 11.5 Hematocrit 36.6 33.1 Mean Corpuscular Volume 87.7 87.7 Mean Corpuscular Hemoglobin 29.4 30.5 Mean Corpuscular Hemoglobin 33.5 34.8 Concent Red Cell Distribution Width 13.3 13.7 Platelet Count 213 194 Mean Platelet Volume 7.8 8.3 Neutrophils (%) (Auto) 75.9 70.8 Lymphocytes (%) (Auto) 17.7 21.8 Monocytes (%) (Auto) 5.1 5.6 Eosinophils (%) (Auto) 1.0 1.6 Basophils (%) (Auto) 0.3 0.2 Neutrophils # (Auto) 8.4 6.3 Lymphocytes # (Auto) 2.0 1.9 Monocytes # (Auto) 0.6 0.5 Eosinophils # (Auto) 0.1 0.1 Basophils # (Auto) 0.0 0.0 CBC Comment DIFF FINAL DIFF FINAL Differential Comment Urine Color LIGHT-YELLOW Urine Turbidity CLEAR Urine pH 7.5 Urine Specific [place] 1.010 Urine Protein NEG Urine Glucose (UA) NEG Urine Ketones NEG Urine Occult Blood TRACE Urine Nitrite NEG Urine Bilirubin NEG Urine Urobilinogen LESS THAN 2.0 Urine Leukocyte Esterase MOD Urine RBC 1 Urine WBC 6 Urine Squamous Epithelial 2 Cells Urine Amorphous Sediment RARE Urine Bacteria RARE Urine Mucus FEW Microscopic Urinalysis Comment CULT NOT INDICATED Sodium Level 137 140 Potassium Level 3.2 3.4 Chloride Level 102 107 Carbon Dioxide Level 23.9 22.6 Anion Gap 11 10 Blood Urea Nitrogen 10 8 Creatinine 0.57 0.50 Estimat Glomerular Filtration 121 141 Rate Random Glucose 117 74 Calcium Level 9.1 8.5 Total Bilirubin 0.2 Aspartate Amino Transf 8 (AST/SGOT) Alanine Aminotransferase 12 (ALT/SGPT) Alkaline Phosphatase 42 Total Protein 7.0 Albumin 3.2 Lactic Acid Level 1.5 Date/Time Procedure Status Source Growth 03/31/17 11:00 Urine Culture Received Urine Clean Catch Pending 03/30/17 21:55 Aerobic Blood Culture - Preliminary Resulted Blood Peripheral NO GROWTH IN 1 DAY 03/30/17 21:55 Anaerobic Blood Culture - Preliminary Resulted Blood Peripheral NO GROWTH IN 1 DAY Result Diagram: 03/31/17 0651 03/31/17 0651 Imaging Last Impressions Renal Ultrasound 03/30/172141 Signed Impressions: Service Date/Time: Thursday, March 30, 2017 21:49 - CONCLUSION: No evidence of hydronephrosis. Carmelo Wiggins MD Assessment and Plan Assessment and Plan h/o ESBL UTIs in past. VUR 13 weeks . Multiple antibiotic allergies. Recs: No further antibiotics. [place] Midline. D.w CARMEN Jacinto for : agrees to discontinue antibiotics. Left message for Ok to discharge from ID standpoint. Later recd call from that BCX positive for GPC. Adv to repeat blood cultures. If staph epidermidis and pt clinically ok may discharge to follow up with Dr.Reba Quesada. If clinical change or MSSA bacteremia please call ID on site nurse. I will be OOT from 04/01/2017 to 04/07/2017. I will be back on 04/08/2017. Other ID MDs covering for me. Bhavana Coates MD Mar 31, 2017 14:54
[2017-03-31] MEDS ORDERED: LORazepam 0.5 MG TAB PO PRN (21:00)
[2017-03-31 21:44] LABS: HEMATOCRIT 35.6 % (35.0-46.0); REVIEW FLAG FINAL
[2017-04-01 02:58] VITALS: PULSE 87
[2017-04-01 03:53] VITALS: BP 94/57; PULSE 67; RESP 18; TEMP 98.4; O2SAT 100
[2017-04-01] MEDS: INSULIN ASPART SUPPLEMENTAL SCALE SQ SCH (06:30)
--- NOTE | 2017-04-01 08:33 | HHI.PR ---
Subjective Remarks Follow up for recurrent UTI. Patient is 13 weeks and has been on Meropenem. She denies any acute concerns today. No fever, chills. She had mild nausea. Objective Vitals Vital Signs Date Time Temp Pulse Resp B/P Pulse Ox O2 Delivery O2 Flow Rate FiO2 04/01/17 03:53 98.4 67 18 94/57 100 04/01/17 02:58 87 03/31/17 23:31 98.4 83 18 102/65 97 03/31/17 20:57 83 03/31/17 19:17 98.7 84 19 111/71 99 03/31/17 15:45 98.6 89 14 125/73 97 03/31/17 10:42 20 Result Diagram: 03/31/17212203/31/1751 Imaging Last Impressions Renal Ultrasound 03/30/172141 Signed Impressions: Service Date/Time: Thursday, March 30, 2017 21:49 - CONCLUSION: No evidence of hydronephrosis. Carmelo Wiggins MD Objective Remarks GENERAL: AOx3, NAD. SKIN: Warm and dry. HEAD: Normocephalic. EYES: No scleral icterus. No injection or drainage. NECK: Supple, trachea midline. No JVD or lymphadenopathy. CARDIOVASCULAR: Regular rate and rhythm without murmurs, gallops, or rubs. RESPIRATORY: Breath sounds equal bilaterally. No accessory muscle use. GASTROINTESTINAL: Abdomen soft, non-tender, nondistended. MUSCULOSKELETAL: No cyanosis, or edema. BACK: Nontender without obvious deformity. No CVA tenderness. Procedures None. A/P Problem List: (1) UTI (urinary tract infection) ICD Code: N39.0 Status: Acute (2) Vesico-ureteral reflux ICD Code: N13.70 Status: Acute (3) Diabetes mellitus ICD Code: E11.9 Status: Acute (4) Headache ICD Code: R51 Status: Acute Assessment and Plan Ms. Gamble is a 13 week , 36 year old female with a history of recurrently UTI who presents to the ED due to persistent right flank pain and chest pain, shortness of breath associated with Meropenem. She has been on Meropenem per her outpatient ID physician for ESBL Klebsiella UTI. - Right sided flank pain - Recurrent UTI - History of vesicoureteral reflux - Patient is on Meropenem via a midline. - Given her history of extensive allergies to multiple anti-bacterials and symptoms associated with Meropenem, ID was consulted. - ID recommended against any abx for now. - Blood culture positive for staph Aureus coag negative 1 out of 4. This is most likely represent contamination. - Headache - Acetaminophen and Fioricet PRN. Her Hydraulic Jack Mechanic gave her Fioricet to be used sparingly. - Diabetes mellitus - Use Aspart sliding scale insulin. - If needed, Levemir can be considered as well. Levemir is category B. Full code. Ambulation. Discharge patient to home Condition on discharge: Improved Regular Diet as tolerated Ad Sharon activity Rx written: Discontinued Midline and discontinued Meropenem. Follow-up with primary care physician and/or Hydraulic Jack Mechanic as needed. ID outpatient in one week. Saira Dean DO Apr 01, 2017 08:33
[2017-04-01 08:47] VITALS: BP 118/69; PULSE 89; RESP 16; TEMP 99.4; O2SAT 97
[2017-04-01] MEDS: SODIUM CHLORIDE 0.9% FLUSH 10 ML FLUSH IV FLUSH SCH (09:21)
[2017-04-01] MEDS ORDERED: PYRIDOXINE HCL 50 MG TAB PO SCH (11:00)
[2017-04-01 11:16] VITALS: BP 107/68; PULSE 88; RESP 16; TEMP 99; O2SAT 98
== END 2017-04-01 13:34 | disposition home or self-care (01) ==
LOC: NEPC 21:15 → NEDA 23:00 → NEPHCDU 03-31 02:16
PROVIDERS: ADMIT Hospitalist; ATTEND Hospitalist
DX: O23.41 Unspecified infection of urinary tract in pregnancy, first trimester (principal); N39.0 Urinary tract infection, site not specified; R51 Headache; O24.311 Unspecified pre-existing diabetes mellitus in pregnancy, first trimester; E11.9 Type 2 diabetes mellitus without complications; Z79.84 Long term (current) use of oral hypoglycemic drugs; O99.612 Diseases of the digestive system complicating pregnancy, second trimester; N13.70 Vesicoureteral-reflux, unspecified; K21.9 Gastro-esophageal reflux disease without esophagitis; J45.909 Unspecified asthma, uncomplicated; O99.342 Other mental disorders complicating pregnancy, second trimester; F90.9 Attention-deficit hyperactivity disorder, unspecified type; O26.832 Pregnancy related renal disease, second trimester; N18.9 Chronic kidney disease, unspecified; Z3A.13 13 weeks gestation of pregnancy
CPT/HCPCS: 76775; 80048; 80053; 81001; 82948; 83605; 85014; 85018; 85025; 86403; 87040; 87077; 87086; 87186; 87205; 93005; 96374; 96375; 99285; G0378; J1200; J2270; J2405; J7030

== ENCOUNTER 2017-05-19 21:37 | Observation (INO) | payer BC ==
[~2017-05-19] VITALS: Ht 157.5 cm; Wt 77.1 kg
--- NOTE | 2017-05-19 22:43 | PD ---
HPI Chief Complaint kidney, abdominal pain Travel History International Travel<30 Days: No Contact w/Intl Traveler<30Days: No Known Affected Area: No History of Present Illness HPI 36-year-old 002, IUP at 20.4 weeks care complicated by: 1. 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 Prior delivery 3. Multiple renal issues with history of chronic urinary tract infection and pyelonephritis 4. History of bilateral ureteral reimplantations 5. Conization of extended spectrum beta-lactamase Klebsiella with resistance to all antibiotics except the carbapenems 6. Numerous antibiotic allergies as documented (including 2 carbapenems; ciprofloxacin, Ceftin, Phenergan, Levaquin, Rocephin, meropenem, Invanz) 7. Gastroparesis 8. Asthma: No meds 9. Depression: No meds 10. Class C diabetes: She was diagnosed with type 2 diabetes in 2003; home regimen includes Levamir 12 units daily with a Humulin R sliding scale 2-3 times per day Patient presents reporting a two-day history of right lower quadrant pain and right flank pain. She also reports that she has had associated nausea and just generally been not feeling well and feeling tired. She reports that she has cramps and sharp pains in her bladder that radiate to the right side of her lower abdomen. She reports that her symptoms worsen tonight when she started to throw up at about 6:30 PM. She is throwing up 4 times prior to her arrival here. She reports a temperature of 100.6 at home, which improved to 99.0 after she took Tylenol. She reports that she has constant burning with urination but that is chronic for her. She denies any leaking of fluid or vaginal bleeding. She denies any painful cramping or contractions. She reports normal movement. She reports that she is not maintained on any prophylactic antibiotics. She patient reports she was treated for pyelonephritis several times in the first trimester and with her last occurrence she developed an allergy to meropenem. She reports that she was told by her infectious disease specialist that she would need desensitization prior to receiving any other antibiotics for pyelonephritis. She reports that her urinalysis are typically negative, however when it urine culture sent and will typically reveal ESBL Klebsiella. Weeks Gestation: 20 Para: 2 : 3 History Past Medical History Narrative Medical Multiple renal issues with history of chronic urinary tract infection and pyelonephritis History of bilateral ureteral reimplantations Conization of extended spectrum beta-lactamase Klebsiella with resistance to all antibiotics except the carbapenems Numerous antibiotic allergies as documented (including 2 carbapenems; ciprofloxacin, Ceftin, Phenergan, Levaquin, Rocephin, meropenem, Invanz) Gastroparesis Asthma: No meds Depression: No meds Class C diabetes: She is diagnosed with type 2 diabetes in 2003 Endometriosis Pelvic congestion syndrome Obstetric History Obstetric History 1 with shoulder dystocia and associated injury with a number Erb's palsy delivery 1 Past Surgical History Narrative Surgical Hernia repair Appendectomy Cholecystectomy D&C section Laparoscopy 5 Tonsillectomy Family History Narrative Family History DM Social History Alcohol Use: No Tobacco Use: No Substance Abuse: No Allergies-Medications (Allergen,Severity, Reaction): Coded Allergies: cefuroxime (Unverified Allergy, Severe, SEVERE VOMITING,THROAT SWELLING, ) THROAT SWELLING ciprofloxacin (Unverified Allergy, Severe, HIVES, SOB ; THROAT SWELLING, ) ertapenem (Unverified Allergy, Severe, swelling throat, 05/20/17) meropenem (Verified Allergy, Severe, Hives, 05/20/17) promethazine (Unverified Allergy, Severe, SEIZURES, 05/20/17) ceftriaxone (Unverified Allergy, Intermediate, Rash, 05/20/17) levofloxacin (Unverified Allergy, Unknown, Hives, 05/20/17) *MDRO Multi-Drug Resistant Organism (Verified Adverse Reaction, Unknown, ESBL, 05/20/17) ESBL Klebsiella (urine) - 01/22/17 Home Meds Reported Medications Budesonide-Formoterol Inh (Symbicort Inh) 80-4.5 Mcg/Act Aero, 1 PUFF INH Q12HR Y for Asthma Management, #1 INHALER 0 Refills 09/20/16 Albuterol 18 GM Inh (Ventolin Hfa 18 GM Inh) 90 Mcg/Act Aer, 2 PUFF INH Q4H Y for SHORTNESS OF BREATH, #1 INHALER 0 Refills 09/20/16 Review of Systems General / Constitutional: Fever Gastrointestinal: Nausea, Vomiting Genitourinary: Dysuria Physical Exam Narrative GENERAL: Well-nourished, well-developed patient. SKIN: Warm and dry. HEAD: Normocephalic and atraumatic. EYES: No scleral icterus. No injection or drainage. ENT: No nasal drainage noted. Mucous membranes pink. Airway patent. NECK: Supple, trachea midline. No JVD. CARDIOVASCULAR: Regular rate and rhythm without murmurs, gallops, or rubs. RESPIRATORY: Breath sounds equal bilaterally. No accessory muscle use. BREASTS: Deferred ABDOMEN/GI: Abdomen soft, non-tender, bowel sounds present, no rebound, no guarding Gravid GENITOURINARY: Deferred FHT's: 140s by Doppler EXTREMITIES: No cyanosis or edema. BACK: Nontender without obvious deformity. No CVA tenderness. NEUROLOGICAL: Awake and alert. Motor and sensory grossly within normal limits. Five out of 5 muscle strength in all muscle groups. Normal speech. Musculoskeletal: Grossly normal range of motion, gait, muscle strength Psychiatric: Grossly normal memory and affect Data Data Orders Orders Vital Signs (Adult) .ON ADMISSION (05/19/17 22:38) ^ Labor Status (05/19/17 22:38) Urinalysis - C+S If Indicated (05/19/17 22:38) Cbc No Diff, Includes Plts (05/19/17 22:38) Comprehensive Metabolic Panel (05/19/17 22:38) Labs Laboratory Tests Test 05/19/17 21:50 [facility] Plan Assessment/plan: 1. IUP at 20.4 weeks 2. Multiple renal issues with history of chronic urinary tract infection and pyelonephritis and ESBL Klebsiella colonization of kidney: concern for pyelonephritis with elevated temperature at home and similar symptoms reported by patient as when she has had other episodes of pyelonephritis. With her last episode of pyelonephritis she developed an allergy to IV meropenem and was told by her infectious disease physician that she would need desensitization prior to treatment with any other antibiotics. CBC and CMP ordered, results pending. Urinalysis negative but will order a follow-up culture. Discussed with Dr. Munson, Will admit for 23 hour observation due to fever and pain and consult infectious disease and nephrology in the morning. We'll obtain renal ultrasound in the morning. 3. 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 Prior delivery 5. Conization of extended spectrum beta-lactamase Klebsiella with resistance to all antibiotics except the carbapenems 6. Numerous antibiotic allergies as documented (including 2 carbapenems; ciprofloxacin, Ceftin, Phenergan, Levaquin, Rocephin, meropenem, Invanz) 7. Gastroparesis 8. Asthma: No meds 9. Depression: No meds 10. Class C diabetes: She is diagnosed with type 2 diabetes in 2003, will continue home regimen of Levamir 12 units daily with Humulin R sliding scale 2- 3 times per day. Will order ADA diet. 11. History of bilateral ureteral reimplantations 12. No evidence of labor 13. well-being: heart tones appropriate for gestational age Sharmaine Perez MD May 19, 2017 22:43
[2017-05-19 22:49] LABS: BLOOD, URINE NEG (NEG); COMMENT (UR) CULT NOT INDICATED; CULTURE IF INDICATED CULT NOT INDICATED; GLUCOSE,URINE NEG (NEG); KETONE, URINE NEG (NEG); MUCUS URINE FEW /lpf (OCC); NITRITE,URINE NEG (NEG); SQUAMOUS EPITHELIAL CELL URINE 1 /hpf (0-5); URINE COLOR YELLOW (YELLW/STRAW)
[2017-05-20] MEDS ORDERED: ACETAMINOPHEN 325 MG TAB PO PRN
[2017-05-20] MEDS ORDERED: ONDANSETRON HCL 4 MG/2 ML VIAL IV PRN
[2017-05-20] MEDS ORDERED: SODIUM CHLORIDE 0.9% FLUSH 10 ML FLUSH IV FLUSH PRN
[2017-05-20] MEDS ORDERED: ONDANSETRON ODT 4 MG TAB PO PRN
[2017-05-20] MEDS ORDERED: ZOLPIDEM TARTRATE 5 MG TAB PO PRN
[2017-05-20 00:14] LABS: HEMATOCRIT 35.6 % (35.0-46.0); MEAN CELL VOLUME 90.1 FL (80.0-100.0); MEAN CORPUSCULAR HEMOGLOBIN 30.6 PG (27.0-34.0); PLATELET COUNT 191 TH/MM3 (150-450); RED BLOOD COUNT 3.96 MIL/MM3 (4.00-5.30); RED CELL DISTRIBUTION WIDTH 13.7 % (11.6-17.2); REVIEW FLAG FINAL; WHITE BLOOD COUNT 10.5 TH/MM3 (4.0-11.0)
[2017-05-20 00:28] LABS: ALKALINE PHOSPHATASE 39 U/L (45-117); ALT (GPT) 13 U/L (10-53); ANION GAP 9 MEQ/L (5-15); AST (GOT) 15 U/L (15-37); BICARBONATE 23.4 MEQ/L (21.0-32.0); BLOOD UREA NITROGEN 7 MG/DL (7-18); CHLORIDE 105 MEQ/L (98-107); GLOMERULAR FILTRATION RATE 121 ML/MIN (>89); POTASSIUM 3.5 MEQ/L (3.5-5.1); SODIUM (NA) 137 MEQ/L (136-145); TOTAL BILIRUBIN ADULT 0.2 MG/DL (0.2-1.0)
--- NOTE | 2017-05-20 00:42 | HHI.HP ---
History & Physical H&P Patient Name: Ming Gamble Unit Number: [id number] Date of : 1980 Patient Status: Admitted Inpatient (obs) Attending Doctor: Swathi Munson MD HPI HPI Chief Complaint kidney, abdominal pain Travel History International Travel<30 Days: No Contact w/Intl Traveler<30Days: No Known Affected Area: No History of Present Illness HPI 36-year-old , IUP at 20.5 weeks care complicated by: 1. 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 Prior delivery 3. Multiple renal issues with history of chronic urinary tract infection and pyelonephritis 4. History of bilateral ureteral reimplantations 5. Conization of extended spectrum beta-lactamase Klebsiella with resistance to all antibiotics except the carbapenems 6. Numerous antibiotic allergies as documented (including 2 carbapenems; ciprofloxacin, Ceftin, Phenergan, Levaquin, Rocephin, meropenem, Invanz) 7. Gastroparesis 8. Asthma: No meds 9. Depression: No meds 10. Class C diabetes: She was diagnosed with type 2 diabetes in 2003; home regimen includes Levamir 12 units daily with a Humulin R sliding scale 2-3 times per day Patient presents reporting a two-day history of right lower quadrant pain and right flank pain. She also reports that she has had associated nausea and just generally been not feeling well and feeling tired. She reports that she has cramps and sharp pains in her bladder that radiate to the right side of her lower abdomen. She reports that her symptoms worsen tonight when she started to throw up at about 6:30 PM. She is throwing up 4 times prior to her arrival here. She reports a temperature of 100.6 at home, which improved to 99.0 after she took Tylenol. She reports that she has constant burning with urination but that is chronic for her. She denies any leaking of fluid or vaginal bleeding. She denies any painful cramping or contractions. She reports normal movement. She reports that she is not maintained on any prophylactic antibiotics. She patient reports she was treated for pyelonephritis several times in the first trimester and with her last occurrence she developed an allergy to meropenem. She reports that she was told by her infectious disease specialist that she would need desensitization prior to receiving any other antibiotics for pyelonephritis. She reports that her urinalysis are typically negative, however when it urine culture sent and will typically reveal ESBL Klebsiella. Weeks Gestation: 20 Para: 2 : 3 History (Limited) History Past Medical History Narrative Medical Multiple renal issues with history of chronic urinary tract infection and pyelonephritis History of bilateral ureteral reimplantations Conization of extended spectrum beta-lactamase Klebsiella with resistance to all antibiotics except the carbapenems Numerous antibiotic allergies as documented (including 2 carbapenems; ciprofloxacin, Ceftin, Phenergan, Levaquin, Rocephin, meropenem, Invanz) Gastroparesis Asthma: No meds Depression: No meds Class C diabetes: She is diagnosed with type 2 diabetes in 2003 Endometriosis Pelvic congestion syndrome Obstetric History Obstetric History 1 with shoulder dystocia and associated injury with a number Erb's palsy delivery 1 Past Surgical History Narrative Surgical Hernia repair Appendectomy Cholecystectomy D&C section Laparoscopy 5 Tonsillectomy Family History Narrative Family History DM Social History Alcohol Use: No Tobacco Use: No Substance Abuse: No Allergies-Medications Allergies-Medications (Allergen,Severity, Reaction): Coded Allergies: cefuroxime (Unverified Allergy, Severe, SEVERE VOMITING,THROAT SWELLING, ) THROAT SWELLING ciprofloxacin (Unverified Allergy, Severe, HIVES, SOB ; THROAT SWELLING, ) ertapenem (Unverified Allergy, Severe, swelling throat, 05/20/17) meropenem (Verified Allergy, Severe, Hives, 05/20/17) promethazine (Unverified Allergy, Severe, SEIZURES, 05/20/17) ceftriaxone (Unverified Allergy, Intermediate, Rash, 05/20/17) levofloxacin (Unverified Allergy, Unknown, Hives, 05/20/17) *MDRO Multi-Drug Resistant Organism (Verified Adverse Reaction, Unknown, ESBL, 05/20/17) ESBL Klebsiella (urine) - 01/22/17 Home Meds Reported Medications Budesonide-Formoterol Inh (Symbicort Inh) 80-4.5 Mcg/Act Aero, 1 PUFF INH Q12HR Y for Asthma Management, #1 INHALER 0 Refills 09/20/16 Albuterol 18 GM Inh (Ventolin Hfa 18 GM Inh) 90 Mcg/Act Aer, 2 PUFF INH Q4H Y for SHORTNESS OF BREATH, #1 INHALER 0 Refills 09/20/16 ROS Review of Systems General / Constitutional: Fever Gastrointestinal: Nausea, Vomiting Genitourinary: Dysuria Physical Exam Physical Exam Narrative GENERAL: Well-nourished, well-developed patient. SKIN: Warm and dry. HEAD: Normocephalic and atraumatic. EYES: No scleral icterus. No injection or drainage. ENT: No nasal drainage noted. Mucous membranes pink. Airway patent. NECK: Supple, trachea midline. No JVD. CARDIOVASCULAR: Regular rate and rhythm without murmurs, gallops, or rubs. RESPIRATORY: Breath sounds equal bilaterally. No accessory muscle use. BREASTS: Deferred ABDOMEN/GI: Abdomen soft, non-tender, bowel sounds present, no rebound, no guarding Gravid GENITOURINARY: Deferred FHT's: 140s by Doppler EXTREMITIES: No cyanosis or edema. BACK: Nontender without obvious deformity. No CVA tenderness. NEUROLOGICAL: Awake and alert. Motor and sensory grossly within normal limits. Five out of 5 muscle strength in all muscle groups. Normal speech. Musculoskeletal: Grossly normal range of motion, gait, muscle strength Psychiatric: Grossly normal memory and affect Data Data Data Orders Orders Vital Signs (Adult) .ON ADMISSION (05/19/17 22:38) ^ Labor Status (05/19/17 22:38) Urinalysis - C+S If Indicated (05/19/17 22:38) Cbc No Diff, Includes Plts (05/19/17 22:38) Comprehensive Metabolic Panel (05/19/17 22:38) Labs Laboratory Tests Test 05/19/17 21:50 [facility] MDM Plan Assessment/plan: 1. IUP at 20.5 weeks 2. Multiple renal issues with history of chronic urinary tract infection and pyelonephritis and ESBL Klebsiella colonization of kidney: concern for pyelonephritis with elevated temperature at home and similar symptoms reported by patient as when she has had other episodes of pyelonephritis. With her last episode of pyelonephritis she developed an allergy to IV meropenem and was told by her infectious disease physician that she would need desensitization prior to treatment with any other antibiotics. CBC and CMP ordered, results pending. Urinalysis negative but will order a follow-up culture. Discussed with Dr. Munson, Will admit for 23 hour observation due to fever and pain and consult infectious disease and nephrology in the morning. We'll obtain renal ultrasound in the morning. 3. 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 Prior delivery 5. Conization of extended spectrum beta-lactamase Klebsiella with resistance to all antibiotics except the carbapenems 6. Numerous antibiotic allergies as documented (including 2 carbapenems; ciprofloxacin, Ceftin, Phenergan, Levaquin, Rocephin, meropenem, Invanz) 7. Gastroparesis 8. Asthma: No meds 9. Depression: No meds 10. Class C diabetes: She is diagnosed with type 2 diabetes in 2003, will continue home regimen of Levamir 12 units daily with Humulin R sliding scale 2- 3 times per day. Will order ADA diet. 11. History of bilateral ureteral reimplantations 12. No evidence of labor 13. well-being: heart tones appropriate for gestational age Sharmaine Perez MD May 19, 2017 22:43 Sharmaine Perez MD May 20, 2017 00:42
[2017-05-20] MEDS ORDERED: LACTATED RINGER'S 1000 ML INJ 1,000 ML IV ONE (08:00)
[2017-05-20] MEDS ORDERED: GLUCAGON 1 MG/ML VIAL OTHER PRN ×2 (08:00→08:15)
[2017-05-20] MEDS ORDERED: DEXTROSE 50% IN WATER 50 ML VIAL(D50) IV PUSH PRN ×2 (08:00→08:15)
--- NOTE | 2017-05-20 08:47 | RADRPT ---
EXAM DATE/TIME: 05/20/2017 08:22 [facility] COMPARISON: No previous studies available for comparison. INDICATIONS : Abnormal labs. MEDICAL HISTORY : . Gastroesophageal reflux disease. Methicillin-resistant Staphylococcus. SURGICAL HISTORY : Tonsillectomy. Appendectomy. section. D&C. Cholecystectomy. ENCOUNTER: Subsequent ACUITY: 3 days PAIN SCORE: 4/10 LOCATION: Bilateral flank MEASUREMENTS: RIGHT KIDNEY: 11.0 x 5.2 x 6.2 cm LEFT KIDNEY: 13.8 x 5.9 x 6.6 cm FINDINGS: RIGHT KIDNEY: Renal cortex is normal in thickness and echotexture. No hydronephrosis, stone, or mass. LEFT KIDNEY: Renal cortex is normal in thickness and echotexture. No hydronephrosis, stone, or mass. BLADDER: Bladder not well distended. Intrauterine . CONCLUSION: Normal renal sonogram. Limited visualization of the bladder. Fitz Prado MD on May 20, 2017 at 8:45 Board Certified Radiologist. This report was verified electronically.
--- NOTE | 2017-05-20 08:59 | PD.OB.ANTE ---
Subjective Interval History Patient continues to c/o of pelvic/back pain, Objective Lab & Micro Results Test 05/19/17 21:50 05/19/17 23:55 Urine Color YELLOW Urine Turbidity CLEAR Urine pH 6.0 Urine Specific [place] 1.017 Urine Protein NEG mg/dL Urine Glucose (UA) NEG mg/dL Urine Ketones NEG mg/dL Urine Occult Blood NEG Urine Nitrite NEG Urine Bilirubin NEG Urine Urobilinogen LESS THAN 2.0 MG/DL Urine Leukocyte Esterase NEG Urine WBC 1 /hpf Urine Squamous Epithelial Cells 1 /hpf Urine Mucus FEW /lpf Microscopic Urinalysis Comment CULT NOT INDICATED White Blood Count 10.5 TH/MM3 Red Blood Count 3.96 MIL/MM3 Hemoglobin 12.1 GM/DL Hematocrit 35.6 % Mean Corpuscular Volume 90.1 FL Mean Corpuscular Hemoglobin 30.6 PG Mean Corpuscular Hemoglobin Concent 34.0 % Red Cell Distribution Width 13.7 % Platelet Count 191 TH/MM3 Mean Platelet Volume 8.3 FL Blood Urea Nitrogen 7 MG/DL Creatinine 0.57 MG/DL Random Glucose 77 MG/DL Total Protein 7.6 GM/DL Albumin 3.3 GM/DL Calcium Level 9.1 MG/DL Alkaline Phosphatase 39 U/L Aspartate Amino Transf (AST/SGOT) 15 U/L Alanine Aminotransferase (ALT/SGPT) 13 U/L Total Bilirubin 0.2 MG/DL Sodium Level 137 MEQ/L Potassium Level 3.5 MEQ/L Chloride Level 105 MEQ/L Carbon Dioxide Level 23.4 MEQ/L Anion Gap 9 MEQ/L Estimat Glomerular Filtration Rate 121 ML/MIN Physical Exam GENERAL: Well-nourished, well-developed patient. CARDIOVASCULAR: Regular rate and rhythm without murmurs, gallops, or rubs. RESPIRATORY: Breath sounds equal bilaterally. No accessory muscle use. ABDOMEN/GI: Abdomen soft, non-tender. Fundus: [-] GENITOURINARY: External Genitalia: intact and normal in appearance Cervix: [-] Dilatation: [-] Effacement: [-] Station: [-] Presentation: [-] Membranes: [-] Uterine Contractions: [-] FHT's: Category: [-] Baseline: [-] Reactive: [-] Variability: [-] Decels: [-] EXTREMITIES: No cyanosis or edema, non-tender, without signs of DVT. Assessment and Plan Assessment and Plan 01/02 weeks SIUP, continues to have back pain, renal u/s is nondiagnostic. UA, CBC is normal. complex medical history with chronic pain syndrome. history of multiple procedures,will consult Urology . order sonogram, Case d/w dr Ernst ,considering use of neurontin this admission. Alexander Verdugo MD May 20, 2017 08:58
[2017-05-20] MEDS ORDERED: SODIUM CHLORIDE 0.9% FLUSH 10 ML FLUSH IV FLUSH SCH (09:00)
[2017-05-20] MEDS ORDERED: DOCUSATE SODIUM 100 MG CAP PO SCH (09:00)
[2017-05-20] MEDS ORDERED: FERROUS SULFATE 325 MG (65 MG ELEMENTAL IRON) TAB PO SCH (09:00)
[2017-05-20] MEDS: LACTATED RINGER'S 1000 ML INJ 1,000 ML IV SCH ×2 (09:42→16:00)
[2017-05-20] MEDS ORDERED: INSULIN NovoLIN REGULAR SUPPLEMENTAL SCALE SQ SCH (12:00)
--- NOTE | 2017-05-20 15:19 | PD.OB.ANTE ---
Subjective Interval History Patient has improved through the day, renal u/s is negative,OB sonogram is pending Objective Lab & Micro Results Test 05/19/17 21:50 05/19/17 23:55 Urine Color YELLOW Urine Turbidity CLEAR Urine pH 6.0 Urine Specific [place] 1.017 Urine Protein NEG mg/dL Urine Glucose (UA) NEG mg/dL Urine Ketones NEG mg/dL Urine Occult Blood NEG Urine Nitrite NEG Urine Bilirubin NEG Urine Urobilinogen LESS THAN 2.0 MG/DL Urine Leukocyte Esterase NEG Urine WBC 1 /hpf Urine Squamous Epithelial Cells 1 /hpf Urine Mucus FEW /lpf Microscopic Urinalysis Comment CULT NOT INDICATED White Blood Count 10.5 TH/MM3 Red Blood Count 3.96 MIL/MM3 Hemoglobin 12.1 GM/DL Hematocrit 35.6 % Mean Corpuscular Volume 90.1 FL Mean Corpuscular Hemoglobin 30.6 PG Mean Corpuscular Hemoglobin Concent 34.0 % Red Cell Distribution Width 13.7 % Platelet Count 191 TH/MM3 Mean Platelet Volume 8.3 FL Blood Urea Nitrogen 7 MG/DL Creatinine 0.57 MG/DL Random Glucose 77 MG/DL Total Protein 7.6 GM/DL Albumin 3.3 GM/DL Calcium Level 9.1 MG/DL Alkaline Phosphatase 39 U/L Aspartate Amino Transf (AST/SGOT) 15 U/L Alanine Aminotransferase (ALT/SGPT) 13 U/L Total Bilirubin 0.2 MG/DL Sodium Level 137 MEQ/L Potassium Level 3.5 MEQ/L Chloride Level 105 MEQ/L Carbon Dioxide Level 23.4 MEQ/L Anion Gap 9 MEQ/L Estimat Glomerular Filtration Rate 121 ML/MIN Physical Exam GENERAL: Well-nourished, well-developed patient. CARDIOVASCULAR: Regular rate and rhythm without murmurs, gallops, or rubs. RESPIRATORY: Breath sounds equal bilaterally. No accessory muscle use. ABDOMEN/GI: Abdomen soft, non-tender. Fundus: nontender GENITOURINARY:N/A FHT' CAT 1 EXTREMITIES: No cyanosis or edema, non-tender, without signs of DVT. Assessment and Plan Assessment and Plan 20 5/7 weeks SIUP, Improved symptoms. Discussed negative findings ( UA ,CBC and renal sonogram) discussed discharge home on neurontin 300 mg QID ; RTO in 2 weeks, can be seen by Urology as outpatient Alexander Verdugo MD May 20, 2017 15:19
[2017-05-20] MEDS ORDERED: INSULIN DETEMIR 100 UNITS/ML VIAL SQ SCH ×2 (18:00→21:00)
--- NOTE | 2017-05-20 18:59 | MB ---
cc: JESUS NAGEL MD, PAMELA P. MD DATE OF CONSULTATION 05/20/17 REASON FOR CONSULTATION 1. History of recurrent urinary tract infections. 2. Persistent dysuria. 3. History of vesicoureteral reflux. 4. History of bilateral ureteral reimplantation 5. History of deflux injection HISTORY OF PRESENT ILLNESS The patient is a 36-year-old female who is currently 20 1/2 weeks who presented early last night. She has a history of right lower quadrant pain and right flank pain. She also reports she has some nausea and vomiting and has been feeling tired and not well. She states the flank pain is mainly on the right side right lower abdomen which she has on a quite frequent basis. She did have severe fever at home of 100.6. She ad a renal ultrasound done on admission which showed normal kidneys with no evidence of hydronephrosis. Urology was consulted due to her complicated urological history. During the first 20 weeks of her , she has been receiving multiple antibiotics with Dr. Dipak araya in [facility] with Infectious Disease usually requiring meropenem, however, she recently grew an ALLERGY TO MEROPENEM and most of her urines have been resistant to other penems. She has chronic dysuria which she has learned to live with. She most recently was seen up at [facility] in which she has had three separate deflux drug injections for her reflux, but she has not been seen a urologist since she has been . She denies any history of kidney stones or any recent blood in her urine. REVIEW OF SYSTEMS See HPI, otherwise all systems reviewed otherwise are negative. PAST MEDICAL HISTORY 1. Vesicoureteral reflux 2. Recurrent UTIs. 3. Hernia repair, 4. Appendectomy, 5. Cholecystectomy, 6. Laparoscopy 7. section, 8. Tonsillectomy, 9. History of bilateral ureteral reimplantation FAMILY HISTORY Denies urolithiasis or genitourinary disease. SOCIAL HISTORY Denies alcohol, smoking or illicit drugs. ALLERGIES CIPRO ERTAPENEUM MEROPENEM PROMETHAZINE CEFTRIAXONE LEVOFLOXACIN CEFUROXIME REVIEW OF SYSTEMS See HPI otherwise all systems reviewed otherwise are negative. MEDICATIONS home, 1. Albuterol 2. Symbicort PHYSICAL EXAMINATION VITAL SIGNS: Afebrile. T-max of 98, pulse 88, blood pressure 120/70, sat 99% room air. GENERAL: She is alert and oriented x3 in no apparent distress, pleasant and cooperative lady who appears stated age. HEENT: Head is normocephalic, atraumatic. Eyes - No scleral icterus. Extraocular muscles intact. NECK: Supple. Trachea is midline. No JVD. LUNGS: Clear to auscultation. No wheezes, rales or rhonchi. HEART: Regular rate and rhythm. No murmurs, gallops or rubs. ABDOMEN: Soft, nontender, nondistended. Positive bowel sounds but is protuberant secondary to a 20 week . GENITOURINARY: No bilaterally. PELVIC: Not indicated. EXTREMITIES: Nontender, no cyanosis, clubbing or edema. PSYCHIATRIC: Normal affect. NEUROLOGIC: Cranial nerves II-XII intact. Strength 5/5 in all four extremities. SKIN: No ulcers or rash, pink and moist LABORATORY DATA White count 10.5, hemoglobin 12.1, hematocrit 35.6, platelet count 191. Sodium 137, potassium ___, chloride 105, bicarb 22.4, creatinine 0.57, BUN seven, glucose 77. Urine clean negative. IMAGING STUDIES Renal ultrasound images reviewed, per radiologist report - the patient has no evidence of hydronephrosis or kidney stones or masses. ASSESSMENT The patient is a 36-year-old female with a significant urological history status post bilateral ureteral reimplantations with chronic urinary tract infections admitted with persistent right flank pain and dysuria. PLAN Recommend conservative management at this time during the remaining of her . We will defer antibiotic coverage to infectious disease. I do not think having bilateral stents would improve her condition. Once she does deliver her child, I think the next step would be to place her under anesthesia and perform a cystoscopy and cultures each one of her kidneys as I suspect her right kidney may be chronically infected. If her right great kidney is chronically infected then it may be time to talk about removing her right kidney as the source of infection as her left kidney is contributing to 70% of the function compared to 30% of the right. I had a long discussion with her which she agrees with this above plan. Thank you for this consult. Please call with any questions. She can follow up as an outpatient once she delivers. MD MENDY Wick/ /5:28 PM /6:25 PM
== END 2017-05-20 17:30 | disposition home or self-care (01) ==
LOC: HOBED 21:37 → H2EA 23:56
PROVIDERS: ADMIT Obstetrics & Gynecology; ATTEND Obstetrics & Gynecology
DX: O26.832 Pregnancy related renal disease, second trimester (principal); O23.42 Unspecified infection of urinary tract in pregnancy, second trimester; Z88.1 Allergy status to other antibiotic agents; O24.312 Unspecified pre-existing diabetes mellitus in pregnancy, second trimester; O99.512 Diseases of the respiratory system complicating pregnancy, second trimester; O99.612 Diseases of the digestive system complicating pregnancy, second trimester; J45.909 Unspecified asthma, uncomplicated; K31.84 Gastroparesis; K21.9 Gastro-esophageal reflux disease without esophagitis; O99.342 Other mental disorders complicating pregnancy, second trimester; F32.9 Major depressive disorder, single episode, unspecified; Z3A.20 20 weeks gestation of pregnancy; G89.4 Chronic pain syndrome; Z87.440 Personal history of urinary (tract) infections
CPT/HCPCS: 76775; 76816; 80053; 81001; 82948; 85027; 96360; 96361; 99285; G0378; J7120

== ENCOUNTER 2017-05-29 21:40 | Emergency (ER) | payer BC ==
[~2017-05-29] VITALS: Ht 157.5 cm; Wt 77.1 kg
[2017-05-29 22:54] LABS: BACTERIA, URINE OCC /hpf; BLOOD, URINE NEG (NEG); COMMENT (UR) CULT NOT INDICATED; CULTURE IF INDICATED CULT NOT INDICATED; GLUCOSE,URINE 300 mg/dL (NEG); KETONE, URINE TRACE mg/dL (NEG); MUCUS URINE FEW /lpf (OCC); NITRITE,URINE NEG (NEG); PH, URINE 6.5 (5.0-8.5); SQUAMOUS EPITHELIAL CELL URINE 1 /hpf (0-5); URINE COLOR YELLOW (YELLW/STRAW)
--- NOTE | 2017-05-29 23:12 | PD ---
HPI Chief Complaint Right back pain, urinary frequency and dysuria Date Seen: May 29, 2017 Time Seen: 22:30 Travel History International Travel<30 Days: No Contact w/Intl Traveler<30Days: No Known Affected Area: No History of Present Illness HPI Patient is 36-year-old white female PCS at 22 weeks who is an insulin- requiring diabetic with the history of ureteral reimplantation and chronic a kidney and UTI problems who is here in the hospital last week with a 6 seen the complaint problem urinalysis that time was negative. sHe is seen by infectious disease because she is allergic to every antibiotic and she is to see them every week either collecting urinalysis every week, she sees the [facility] later this week and is seeing them weekly as well . She is having no bleeding or leakage of fluid no contractions heart tones in the 140s Weeks Gestation: 22 Para: 1 : 3 History Past Medical History Narrative Medical Class C diabetes Obstetric History Obstetric History 1 Past Surgical History Narrative Surgical 1 Ureteral reimplantations Social History Alcohol Use: No Tobacco Use: No Substance Abuse: No Allergies-Medications (Allergen,Severity, Reaction): Coded Allergies: cefuroxime (Unverified Allergy, Severe, SEVERE VOMITING,THROAT SWELLING, 05/29/17) THROAT SWELLING ciprofloxacin (Unverified Allergy, Severe, HIVES, SOB ; THROAT SWELLING, 05/29/17) ertapenem (Unverified Allergy, Severe, swelling throat, 05/29/17) meropenem (Verified Allergy, Severe, Hives, 05/29/17) promethazine (Unverified Allergy, Severe, SEIZURES, 05/29/17) ceftriaxone (Unverified Allergy, Intermediate, Rash, 05/29/17) levofloxacin (Unverified Allergy, Unknown, Hives, 05/29/17) *MDRO Multi-Drug Resistant Organism (Verified Adverse Reaction, Unknown, ESBL, 05/29/17) ESBL Klebsiella (urine) - 01/22/17 Home Meds Reported Medications Budesonide-Formoterol Inh (Symbicort Inh) 80-4.5 Mcg/Act Aero, 1 PUFF INH Q12HR Y for Asthma Management, #1 INHALER 0 Refills 09/20/16 Albuterol 18 GM Inh (Ventolin Hfa 18 GM Inh) 90 Mcg/Act Aer, 2 PUFF INH Q4H Y for SHORTNESS OF BREATH, #1 INHALER 0 Refills 09/20/16 Review of Systems General / Constitutional: No: Fever, Weight Gain, Chills, Other Eyes: No: Diploplia, Blurred Vision, Visual changes, Pain, Photophobia HENT: No: Headaches, Vertigo, Lightheadedness Cardiovascular: No: Irregular Rhythm, Chest Pain or Discomfort, Palpitations, Tachycardia, Syncope, Varicosities, Edema, Cyanosis Respiratory: No: Cough, Short of Breath, Other Gastrointestinal: No: Nausea, Vomiting, Diarrhea Genitourinary: Urgency, Frequency, Dysuria, Nocturia, No: Decreased Urinary Output, Oliguria Musculoskeletal: No: Limited ROM, Weakness, Cramping, Edema, Pain Skin: No Rash, No Itching, No Dryness, No Lumps, No Change in Pigmentation, No Change in Nails, No Alopecia, No Lesions Neurologic: No: Weakness, Dizziness, Syncope, Focal Abnormalities, Coordination Problem, Headache, Slurred Speech, Seizures Psychiatric: No: Depression, Suicidal Ideations, Homicidal Ideation Endocrine: No: Heat Intolerance, Cold Intolerance, Polydipsia, Polyuria, Other Physical Exam Narrative GENERAL: Well-nourished, well-developed patient. SKIN: Warm and dry. HEAD: Normocephalic and atraumatic. EYES: No scleral icterus. No injection or drainage. ENT: No nasal drainage noted. Mucous membranes pink. Airway patent. NECK: Supple, trachea midline. No JVD. CARDIOVASCULAR: Regular rate and rhythm without murmurs, gallops, or rubs. RESPIRATORY: Breath sounds equal bilaterally. No accessory muscle use. BREASTS: Bilateral exam showed no masses , no retractions, no nipple discharge. ABDOMEN/GI: Abdomen soft, non-tender, bowel sounds present, no rebound, no guarding Gravid to [-22] weeks size Fundal Height: [At umbilicus-] GENITOURINARY: External Genitalia: intact and normal in appearance BUS glands: [-] Cervix: [Posterior-] Dilatation: [-Closed] Effacement: [-] Membranes: [intact ] Uterine Contractions: [0-] FHT's: 140s EXTREMITIES: No cyanosis or edema. BACK: Nontender without obvious deformity. Questionable CVA tenderness. On right she has some discomfort when you pound pretty hard on her back but not a lot not much NEUROLOGICAL: Awake and alert. Motor and sensory grossly within normal limits. Five out of 5 muscle strength in all muscle groups. Normal speech. Data Data Orders Orders Urinalysis - C+S If Indicated (05/29/17 22:39) Labs Fingerstick blood sugar 138 Laboratory Tests Test 05/29/17 21:50 Urine Color YELLOW Urine Turbidity CLEAR Urine pH 6.5 Urine Specific [place] 1.021 Urine Protein NEG Urine Glucose (UA) 300 Urine Ketones TRACE Urine Occult Blood NEG Urine Nitrite NEG Urine Bilirubin NEG Urine Urobilinogen LESS THAN 2.0 Urine Leukocyte Esterase NEG Urine WBC 3 Urine Squamous Epithelial Cells 1 Urine Bacteria OCC Urine Mucus FEW Microscopic Urinalysis Comment CULT NOT INDICATED MDM Interpretation(s) 36-year-old white female at 22 weeks is previous who sees Dr. Ernst and is scheduled see Dr. Verdugo later this week. She presents with the continued back pain is worsened somewhat since she was here last week for this same thing was admitted at that time. Urinalysis at that time was negative her urinalysis tonight is negative, and her CVA tenderness on the right is minimal and very likely what is been long-term. She is scheduled see infectious disease every week is collecting a urine every week and culturing it examining of her recurrent infection and problems and they've recommend desensitization to try and get her on an antibiotic at some point because she is essentially allergic to every antibiotic Plan Plan tonight is to discharge her home use Tylenol for pain heating pad on her back or soak in a hot bath drink plenty of fluids for hydration and flushing the bladder, she is to follow-up with her OB provider in infectious disease in the usual fashion. Essentially as she is here tonight is what she was when she went home from here the last time so there is not much I can add to what's been done already for her. Her blood sugar tonight was 138 she will continue her hyperglycemic meds Diagnosis Diagnosis: Primary Impression: Flank pain Additional Impression: Diabetes mellitus affecting in second trimester Disposition: 01 DISCHARGE HOME Condition: Stable Jeevan Starkey II, MD May 29, 2017 23:12
== END 2017-05-29 23:17 | disposition home or self-care (01) ==
LOC: HOBED 21:40
DX: O26.892 Other specified pregnancy related conditions, second trimester (principal); R10.9 Unspecified abdominal pain; O24.912 Unspecified diabetes mellitus in pregnancy, second trimester; Z3A.22 22 weeks gestation of pregnancy
CPT/HCPCS: 81001; 82948; 99283

== ENCOUNTER 2017-06-13 10:42 | Emergency (ER) | payer BC ==
[2017-06-13 12:49] LABS: AUTOMATED NEUTROPHIL # 6.6 TH/MM3 (1.8-7.7); BASOPHIL % 0.3 % (0.0-2.0); EOSINOPHIL # 0.1 TH/MM3 (0-0.4); EOSINOPHIL % 1.1 % (0.0-4.0); LYMPH % 17.4 % (9.0-44.0); LYMPHOCYTE # 1.5 TH/MM3 (1.0-4.8); MEAN CELL VOLUME 91.2 FL (80.0-100.0); MEAN CORPUSCULAR HEMOGLOBIN 30.7 PG (27.0-34.0); MEAN CORPUSCULAR HGB CONC 33.6 % (32.0-36.0); MONO % 6.5 % (0.0-8.0); NEUT % 74.7 % (16.0-70.0); PLATELET COUNT 190 TH/MM3 (150-450); RED BLOOD COUNT 4.06 MIL/MM3 (4.00-5.30); RED CELL DISTRIBUTION WIDTH 13.8 % (11.6-17.2); WHITE BLOOD COUNT 8.9 TH/MM3 (4.0-11.0)
[2017-06-13 12:58] LABS: HEMO FLAGS AUTO DIFF
[2017-06-13 13:29] LABS: PLATELET ESTIMATE SMEAR NORMAL (NORMAL); PLATELET MORPHOLOGY NORMAL (NORMAL); SCAN/DIFF AUTO DIFF CONFIRMED
[2017-06-13] MEDS ORDERED: ZITHTAB PO (13:32)
--- NOTE | 2017-06-13 13:42 | PD ---
HPI Chief Complaint c/o of several days of cough congestion low-grade fever Date Seen: Jun 13, 2017 Time Seen: 13:20 Travel History International Travel<30 Days: No Contact w/Intl Traveler<30Days: No Known Affected Area: No History of Present Illness HPI Patient is 36-year-old white female previous at [address] Ernst's who presents with several days of cough congestion syndrome low-grade fever, and she was seen by the urgent care today and they did urinalysis and strep screen Negative, They Wanted Her to Come to Labor and Delivery to Be Evaluated for Obstetric Reasons As Well As to Watch Her Blood Pressure. She Had One Blood Pressure There Is 146/86 Followed Blood Pressures Here Been Completely Normal. The Heart Rate Is Reactive and No Contractions. Weeks Gestation: 24 Para: 2 : 3 Last Menstrual Period: Jun 13, 2017 History Past Medical History Narrative Medical Asthma and usually does not use an inhaler but only when she says she is "sick" Obstetric History Obstetric History 2 Past Surgical History Narrative Surgical C-sections Social History Alcohol Use: No Tobacco Use: No Substance Abuse: No Allergies-Medications (Allergen,Severity, Reaction): Coded Allergies: cefuroxime (Unverified Allergy, Severe, SEVERE VOMITING,THROAT SWELLING, 05/29/17) THROAT SWELLING ciprofloxacin (Unverified Allergy, Severe, HIVES, SOB ; THROAT SWELLING, 05/29/17) ertapenem (Unverified Allergy, Severe, swelling throat, 05/29/17) meropenem (Verified Allergy, Severe, Hives, 05/29/17) promethazine (Unverified Allergy, Severe, SEIZURES, 05/29/17) ceftriaxone (Unverified Allergy, Intermediate, Rash, 05/29/17) levofloxacin (Unverified Allergy, Unknown, Hives, 05/29/17) *MDRO Multi-Drug Resistant Organism (Verified Adverse Reaction, Unknown, ESBL, 05/29/17) ESBL Klebsiella (urine) - 01/22/17 Home Meds Reported Medications Budesonide-Formoterol Inh (Symbicort Inh) 80-4.5 Mcg/Act Aero, 1 PUFF INH Q12HR Y for Asthma Management, #1 INHALER 0 Refills 09/20/16 Albuterol 18 GM Inh (Ventolin Hfa 18 GM Inh) 90 Mcg/Act Aer, 2 PUFF INH Q4H Y for SHORTNESS OF BREATH, #1 INHALER 0 Refills 09/20/16 Review of Systems General / Constitutional: Fever, No: Weight Gain, Chills, Other Eyes: No: Diploplia, Blurred Vision, Visual changes, Pain, Photophobia HENT: Other, No: Headaches, Vertigo, Lightheadedness Cardiovascular: No: Irregular Rhythm, Chest Pain or Discomfort, Palpitations, Tachycardia, Syncope, Varicosities, Edema, Cyanosis Respiratory: Cough, No: Short of Breath, Other Gastrointestinal: No: Nausea, Vomiting, Diarrhea Genitourinary: No: Decreased Urinary Output, Oliguria Musculoskeletal: No: Limited ROM, Weakness, Cramping, Edema, Pain Skin: No Rash, No Itching, No Dryness, No Lumps, No Change in Pigmentation, No Change in Nails, No Alopecia, No Lesions Neurologic: No: Weakness, Dizziness, Syncope, Focal Abnormalities, Coordination Problem, Headache, Slurred Speech, Seizures Psychiatric: No: Depression, Suicidal Ideations, Homicidal Ideation Endocrine: No: Heat Intolerance, Cold Intolerance, Polydipsia, Polyuria, Other Physical Exam Narrative GENERAL: Well-nourished, well-developed patient. SKIN: Warm and dry. HEAD: Normocephalic and atraumatic. EYES: No scleral icterus. No injection or drainage. ENT: No nasal drainage noted. Mucous membranes pink. Airway patent. Oropharynx clear is a little bit of redness in the back of her throat but no white patches or exudates NECK: Supple, trachea midline. No JVD. CARDIOVASCULAR: Regular rate and rhythm without murmurs, gallops, or rubs. RESPIRATORY: Breath sounds equal bilaterally. No accessory muscle use. BREASTS: Bilateral exam showed no masses , no retractions, no nipple discharge. ABDOMEN/GI: Abdomen soft, non-tender, bowel sounds present, no rebound, no guarding Gravid to [24-] weeks size Fundal Height: [24-] GENITOURINARY: External Genitalia: intact and normal in appearance BUS glands: [-] Cervix: [-] Dilatation: [-Closed] Effacement: [-] Thick Station: [-3] Membranes: [intact ] Uterine Contractions: [none-] FHT's: Category: [-1] Baseline: [133-] Reactive: [yes-] Variability: [-mod] Decels: [none-] EXTREMITIES: No cyanosis or edema. BACK: Nontender without obvious deformity. No CVA tenderness. NEUROLOGICAL: Awake and alert. Motor and sensory grossly within normal limits. Five out of 5 muscle strength in all muscle groups. Normal speech. Data Data Orders Orders Complete Blood Count With Diff (06/13/17 11:41) Bedside Glucose BERYL.CSUGAR (06/13/17 11:41) Influenzae A/B Antigen (06/13/17 11:41) Labs UA dipstick negative, strep Culture done at the urgent care negative Laboratory Tests Test 06/13/17 12:40 White Blood Count 8.9 Red Blood Count 4.06 Hemoglobin 12.4 Hematocrit 37.0 Mean Corpuscular Volume 91.2 Mean Corpuscular Hemoglobin 30.7 Mean Corpuscular Hemoglobin Concent 33.6 Red Cell Distribution Width 13.8 Platelet Count 190 Mean Platelet Volume 8.2 Neutrophils (%) (Auto) 74.7 Lymphocytes (%) (Auto) 17.4 Monocytes (%) (Auto) 6.5 Eosinophils (%) (Auto) 1.1 Basophils (%) (Auto) 0.3 Neutrophils # (Auto) 6.6 Lymphocytes # (Auto) 1.5 Monocytes # (Auto) 0.6 Eosinophils # (Auto) 0.1 Basophils # (Auto) 0.0 CBC Comment AUTO DIFF Date/Time Source Procedure Growth Status 06/13/17 11:41 Nasal Washing Influenza Types A,B Antigen (DEMI) - Final NEGATIVE FOR FLU A AND B ANTIGEN.... Complete MDM Interpretation(s) This 36-year-old white female previous at [address] Ernst's who presents for evaluation of cough and congestion stuffy nose sore throat and low-grade fever she was seen in urgent care today and diagnosed with acute bronchitis and sinusitis given no prescriptions. Patient's allergic to a lot of antibiotics but has no knowledge of her allergy to Zithromax so as a Z-Kamlesh of antibiotic could be potentially used and will be given. The heart tones are within normal limits no contractions tapered issues. Her flu swab was negative strep culture negative urine dipstick negative Plan Plan to prescribe the patient a Z-Kamlesh for use in the usual fashion, codeine cough syrup and elixir, and Claritin the use twice a day for stuffy nose. The patient is to see Dr. Ernst in 2 days for repeat evaluation. Diagnosis Diagnosis: Primary Impression: Sinusitis, acute frontal Additional Impressions: Bronchitis 24 weeks gestation of Disposition: 01 DISCHARGE HOME Condition: Stable Scripts Azithromycin (Zithromax Z-Kamlesh) 250 Mg Dspk 250 MG PO DIRECTED for Infection, #1 DSPK 0 Refills 500 MG (2 tabs) day 1, then 1 tab days 2-5. Prov: Jeevan Starkey II, MD 06/13/17 Patient Instructions: General Instructions Departure Forms: Tests/Procedures Jeevan Starkey II, MD Jun 13, 2017 13:42
== END 2017-06-13 14:01 | disposition home or self-care (01) ==
LOC: HOBED 10:42
DX: O26.892 Other specified pregnancy related conditions, second trimester (principal); J01.10 Acute frontal sinusitis, unspecified; J40 Bronchitis, not specified as acute or chronic; J45.909 Unspecified asthma, uncomplicated
CPT/HCPCS: 82948; 85025; 87804; 99283

== ENCOUNTER 2017-06-17 18:03 | Emergency (ER) | payer BC ==
[~2017-06-17 18:03] MED LIST changes: +ZITHTAB PO
--- NOTE | 2017-06-17 18:33 | PD ---
HPI Chief Complaint Possible leakage of fluid Date Seen: Jun 17, 2017 Time Seen: 18:26 Travel History International Travel<30 Days: No Contact w/Intl Traveler<30Days: No Known Affected Area: No History of Present Illness HPI 36-year-old 3 para 2 at 25 weeks gestation who thought she may be leaking fluid. She denies any cramping, bleeding or decreased movement. Patient reports she has had an upper respiratory infection for the last week which is resolving. History Past Medical History Narrative Medical Pre-gestational diabetes Vesicoureteral reflux Obstetric History Obstetric History One vaginal delivery with pelvic floor injury, second delivered by elective Current under the care of Dr. Ernst. Insulin-dependent pre-gestational diabetes Past Surgical History Narrative Surgical 5 laparoscopies, cholecystectomy, tonsillectomy, ureteral implantation 2, C- section Family History Family History: Negative Social History Alcohol Use: No Tobacco Use: No Substance Abuse: No Allergies-Medications (Allergen,Severity, Reaction): Coded Allergies: cefuroxime (Unverified Allergy, Severe, SEVERE VOMITING,THROAT SWELLING, 05/29/17) THROAT SWELLING ciprofloxacin (Unverified Allergy, Severe, HIVES, SOB ; THROAT SWELLING, 05/29/17) ertapenem (Unverified Allergy, Severe, swelling throat, 05/29/17) meropenem (Verified Allergy, Severe, Hives, 05/29/17) promethazine (Unverified Allergy, Severe, SEIZURES, 05/29/17) ceftriaxone (Unverified Allergy, Intermediate, Rash, 05/29/17) levofloxacin (Unverified Allergy, Unknown, Hives, 05/29/17) *MDRO Multi-Drug Resistant Organism (Verified Adverse Reaction, Unknown, ESBL, 05/29/17) ESBL Klebsiella (urine) - 01/22/17 Home Meds Active Scripts Azithromycin (Zithromax Z-Kamlesh) 250 Mg Dspk, 250 MG PO DIRECTED for Infection , #1 DSPK 0 Refills 500 MG (2 tabs) day 1, then 1 tab days 2-5. Prov:Jeevan Starkey II, MD 06/13/17 Reported Medications Budesonide-Formoterol Inh (Symbicort Inh) 80-4.5 Mcg/Act Aero, 1 PUFF INH Q12HR Y for Asthma Management, #1 INHALER 0 Refills 09/20/16 Albuterol 18 GM Inh (Ventolin Hfa 18 GM Inh) 90 Mcg/Act Aer, 2 PUFF INH Q4H Y for SHORTNESS OF BREATH, #1 INHALER 0 Refills 09/20/16 Review of Systems Except as stated in HPI: all other systems reviewed are Neg Physical Exam Narrative GENERAL: Well-nourished, well-developed patient. SKIN: Warm and dry. HEAD: Normocephalic and atraumatic. EYES: No scleral icterus. No injection or drainage. ENT: No nasal drainage noted. Mucous membranes pink. Airway patent. NECK: Supple, trachea midline. No JVD. CARDIOVASCULAR: Regular rate and rhythm without murmurs, gallops, or rubs. RESPIRATORY: Breath sounds equal bilaterally. No accessory muscle use. ABDOMEN/GI: Abdomen soft, non-tender, bowel sounds present, no rebound, no guarding Gravid to [-] weeks size Fundal Height: [-] GENITOURINARY: External Genitalia: intact and normal in appearance BUS glands: [-] Cervix: [-] Dilatation: [-] Effacement: [-] Station: [-] Presentation: [-] Membranes: [intact or ruptured] Uterine Contractions: [-] FHT's: Category: [-] Baseline: [150-] Reactive: [-] Variability: [Moderate-] Decels: [-] EXTREMITIES: No cyanosis or edema. BACK: Nontender without obvious deformity. No CVA tenderness. NEUROLOGICAL: Awake and alert. Motor and sensory grossly within normal limits. Five out of 5 muscle strength in all muscle groups. Normal speech. Data Data Vital Signs Reviewed: Yes MDM Medical Record Reviewed: Yes Narrative Course / MDM Assessment: 25 week intrauterine without evidence of ruptured membranes Plan: Follow-up as scheduled for routine care. Diagnosis Diagnosis: Primary Impression: 25 weeks gestation of Additional Impression: suspected ruptured membranes not identified Disposition: 01 DISCHARGE HOME Condition: Good Alexander Landis MD Jun 17, 2017 18:32
== END 2017-06-17 19:00 | disposition home or self-care (01) ==
LOC: HOBED 18:03
DX: O26.92 Pregnancy related conditions, unspecified, second trimester (principal); Z3A.25 25 weeks gestation of pregnancy
CPT/HCPCS: 84112; 99284

== ENCOUNTER 2017-07-03 16:07 | Emergency (ER) | payer BC ==
[2017-07-03] VITALS (9 sets, daily range): BP systolic 134; BP diastolic 79; PULSE 101–111; RESP 18
--- NOTE | 2017-07-03 16:40 | PD ---
HPI Chief Complaint uterine contractions 27 weeks Travel History International Travel<30 Days: No Contact w/Intl Traveler<30Days: No Known Affected Area: No History of Present Illness HPI 36 yo , at 27 weeks, presents with uterine cramping. care with Dr Ernst, [facility] 10-02-2017. Pt has had previous C Section Previous h/o labor but both proceeded to term deliveries. complicated by NIDDM, now on Insulin. Reports active movements. No vaginal bleeding or leaking. Weeks Gestation: 27 Para: 2 : 4 History Past Medical History Narrative Medical NIDDM,, h/o endometriosis, recurrent urinary tract infections, Asthma Obstetric History Obstetric History h/o labor with 2 prior pregnancies. Eventually delivered at term with both. Previous C section last delivery. h/o ectopic Past Surgical History Narrative Surgical Previous LSC Cholecystectomy, previous LSC Appenendectomy, multiple laparoscopies for endometriosis and pelvic congestion syndrome, Ureteric bilateral re-implantation Previous C Section Family History Family History: Negative Social History Alcohol Use: No Tobacco Use: No Substance Abuse: No Allergies-Medications (Allergen,Severity, Reaction): Coded Allergies: cefuroxime (Unverified Allergy, Severe, SEVERE VOMITING,THROAT SWELLING, 05/29/17) THROAT SWELLING ciprofloxacin (Unverified Allergy, Severe, HIVES, SOB ; THROAT SWELLING, 05/29/17) ertapenem (Unverified Allergy, Severe, swelling throat, 05/29/17) meropenem (Verified Allergy, Severe, Hives, 05/29/17) promethazine (Unverified Allergy, Severe, SEIZURES, 05/29/17) ceftriaxone (Unverified Allergy, Intermediate, Rash, 05/29/17) levofloxacin (Unverified Allergy, Unknown, Hives, 05/29/17) *MDRO Multi-Drug Resistant Organism (Verified Adverse Reaction, Unknown, ESBL, 05/29/17) ESBL Klebsiella (urine) - 01/22/17 Home Meds Active Scripts Azithromycin (Zithromax Z-Kamlesh) 250 Mg Dspk, 250 MG PO DIRECTED for Infection , #1 DSPK 0 Refills 500 MG (2 tabs) day 1, then 1 tab days 2-5. Prov:Jeevan Starkey II, MD 06/13/17 Reported Medications Budesonide-Formoterol Inh (Symbicort Inh) 80-4.5 Mcg/Act Aero, 1 PUFF INH Q12HR Y for Asthma Management, #1 INHALER 0 Refills 09/20/16 Albuterol 18 GM Inh (Ventolin Hfa 18 GM Inh) 90 Mcg/Act Aer, 2 PUFF INH Q4H Y for SHORTNESS OF BREATH, #1 INHALER 0 Refills 09/20/16 Review of Systems Except as stated in HPI: all other systems reviewed are Neg Physical Exam Narrative GENERAL: Well-nourished, well-developed patient. SKIN: Warm and dry. HEAD: Normocephalic and atraumatic. EYES: No scleral icterus. No injection or drainage. ENT: No nasal drainage noted. Mucous membranes pink. Airway patent. NECK: Supple, trachea midline. No JVD. CARDIOVASCULAR: Regular rate and rhythm without murmurs, gallops, or rubs. RESPIRATORY: Breath sounds equal bilaterally. No accessory muscle use. BREASTS: Bilateral exam showed no masses , no retractions, no nipple discharge. ABDOMEN/GI: Abdomen soft, non-tender, bowel sounds present, no rebound, no guarding Gravid to [27] weeks size Fundal Height: [27] GENITOURINARY: External Genitalia: intact and normal in appearance BUS glands: wnl Cervix: [soft] Dilatation: [FT] Effacement: [non-effaced] Station: ] Presentation: ] Membranes: [intact] Uterine Contractions: [rare, irritable pattern] FHT's: Category: [1] Baseline: [-] Reactive: [-] Variability: [good] Decels: [none] EXTREMITIES: No cyanosis or edema. BACK: Nontender without obvious deformity. No CVA tenderness. NEUROLOGICAL: Awake and alert. Motor and sensory grossly within normal limits. Five out of 5 muscle strength in all muscle groups. Normal speech. Data Data Vital Signs Reviewed: Yes [facility] Medical Record Reviewed: Yes Plan Pt is a 36 yo at 27 weeks who presents with uterine cramping. No vaginal bleeding or leaking. Fibronectin sent. Cervix FT Irritable pattern, no contractions palpable. fFN returned negative. No contractions. Complete 500cc LR bolus/Terbutaline SQ 0.25 x1 Discharge home with labor precautions. Diagnosis Diagnosis: Primary Impression: 27 weeks gestation of Additional Impression: Uterine cramping Disposition: DISCHARGE HOME Condition: Good Piter Platt MD Jul 03, 2017 16:40
[2017-07-03] MEDS ORDERED: WATE IV ONE (16:45)
[2017-07-03] MEDS ORDERED: DEXTROSE 5% IV ONE (16:45)
[2017-07-03 17:12] LABS: BLOOD, URINE NEG (NEG); COMMENT (UR) CULT NOT INDICATED; CULTURE IF INDICATED CULT NOT INDICATED; GLUCOSE,URINE 70 mg/dL (NEG); KETONE, URINE NEG (NEG); MUCUS URINE FEW /lpf (OCC); NITRITE,URINE NEG (NEG); SQUAMOUS EPITHELIAL CELL URINE 11 /hpf (0-5); URINE COLOR YELLOW (YELLW/STRAW)
[2017-07-03 17:26] LABS: BACTERIA, URINE FEW /hpf
[2017-07-03] MEDS ORDERED: TERBUTALINE INJ 1 MG/ML AMP SQ ONE (18:15)
[2017-07-03] MEDS ORDERED: LACTATED RINGER'S 1000 ML INJ 500 ML IV ONE (18:15)
== END 2017-07-03 19:45 | disposition home or self-care (01) ==
LOC: HOBED 16:07
DX: O47.03 False labor before 37 completed weeks of gestation, third trimester (principal); O24.912 Unspecified diabetes mellitus in pregnancy, second trimester; J45.909 Unspecified asthma, uncomplicated; Z3A.27 27 weeks gestation of pregnancy; Z79.51 Long term (current) use of inhaled steroids; Z79.899 Other long term (current) drug therapy; Z88.8 Allergy status to other drugs, medicaments and biological substances
CPT/HCPCS: 81001; 82731; 82948; 96372; 99284; J3105; J7120

== ENCOUNTER 2017-07-04 16:26 | Emergency (ER) | payer BC ==
[~2017-07-04] VITALS: Ht 157.5 cm; Wt 77.1 kg
[2017-07-04 16:42] VITALS: BP 133/92; PULSE 117
[2017-07-04] MEDS ORDERED: ACETAMINOPHEN 325 MG TAB PO ONE (17:00)
[2017-07-04 17:02] VITALS: BP 118/78; PULSE 106
[2017-07-04] MEDS ORDERED: SODIUM CHLOR 0.9% 1000 ML INJ 1,000 ML IV ONE (17:15)
--- NOTE | 2017-07-04 17:23 | PD ---
HPI Chief Complaint abdominal pain Date Seen: Jul 04, 2017 Time Seen: 16:30 Travel History International Travel<30 Days: No Contact w/Intl Traveler<30Days: No Known Affected Area: No History of Present Illness HPI Patient is a 36-year-old at 27 weeks and 1 day who presents with 4 days of abdominal pain. Patient follows with Dr. Mcdonald. Patient reports that she was here yesterday and she received a shot, which seemed to help get her through the night. She woke up this morning and within an hour, she reports that she had 6 contractions, then an additional 2 contractions. She called her OB provider, who instructed her to present to the OB ED. She describes the pain as periumbilical, crampy, wrapping around to her back. She tried to take a warm bath last night. She reports that she has had a headache for the past 3 days, for which she is taking Tylenol. She reports some nausea but no vomiting. She reports that she always has dysuria, which is secondary to a urinary tract abnormality, for which she has underwent surgery. 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 She also has a right inguinal hernia. She reports that she chronically has pain around the right inguinal hernia. However, for the last few days, she has had pain on her left side. She denies any vaginal bleeding, leakage of fluid. She reports movement. Weeks Gestation: 27 Para: 2 : 4 Miscarriage: 1 History Past Medical History Narrative Medical Insulin-dependent type 2 diabetes Congenital urinary tract abnormality status post surgical correction Chronic kidney disease vesicourethral reflux Patient reports allergies to almost every class of antibiotics for which she has an anaphylactic reaction Right inguinal hernia Obstetric History Obstetric History Patient is a . She has a prior history of one ectopic . Her first delivery, she had contractions for which she required shots, pills, induction of labor at full-term. Her delivery was complicated by shoulder dystocia. She delivered a 7 lbs. 4 oz. baby girl. She currently has a 8-year- old girl. Her next delivery was complicated by low USMAN. She delivered via at full-term a 7 lbs. 11 oz. baby boy. Past Surgical History Narrative Surgical Appendectomy Cholecystectomy Fibroid and polyp removal Tonsillectomy Hernia repair D and C for endometriosis and pelvic congestion syndrome Eye surgery for strabismus Family History Narrative Family History Family history of diabetes Social History Narrative Social History Patient lives at home with her and 2 children. They also share custody with her 's 3 children from previous marriage. Alcohol Use: No Tobacco Use: No Substance Abuse: No Allergies-Medications (Allergen,Severity, Reaction): Coded Allergies: cefuroxime (Unverified Allergy, Severe, SEVERE VOMITING,THROAT SWELLING, 07/04/17) THROAT SWELLING ciprofloxacin (Unverified Allergy, Severe, HIVES, SOB ; THROAT SWELLING, 07/04/17) ertapenem (Unverified Allergy, Severe, swelling throat, 07/04/17) meropenem (Verified Allergy, Severe, Hives, 07/04/17) promethazine (Unverified Allergy, Severe, SEIZURES, 07/04/17) ceftriaxone (Unverified Allergy, Intermediate, Rash, 07/04/17) levofloxacin (Unverified Allergy, Unknown, Hives, 07/04/17) *MDRO Multi-Drug Resistant Organism (Verified Adverse Reaction, Unknown, ESBL, 07/04/17) ESBL Klebsiella (urine) - 01/22/17 Home Meds Active Scripts Azithromycin (Zithromax Z-Kamlesh) 250 Mg Dspk, 250 MG PO DIRECTED for Infection , #1 DSPK 0 Refills 500 MG (2 tabs) day 1, then 1 tab days 2-5. Prov:Jeevan Starkey II, MD 06/13/17 Reported Medications Budesonide-Formoterol Inh (Symbicort Inh) 80-4.5 Mcg/Act Aero, 1 PUFF INH Q12HR Y for Asthma Management, #1 INHALER 0 Refills 09/20/16 Albuterol 18 GM Inh (Ventolin Hfa 18 GM Inh) 90 Mcg/Act Aer, 2 PUFF INH Q4H Y for SHORTNESS OF BREATH, #1 INHALER 0 Refills 09/20/16 Review of Systems General / Constitutional: No: Fever, Chills Eyes: No: Blurred Vision HENT: Headaches Cardiovascular: No: Chest Pain or Discomfort, Edema Respiratory: No: Cough, Short of Breath Gastrointestinal: Nausea, No: Vomiting, Abdominal Pain Genitourinary: Dysuria (chronic) Physical Exam Blood pressure 133/92, 118/78 Heart rate 117, 106 Respirations 16 Aperture 98.9 Narrative GENERAL: Well-nourished, well-developed patient. SKIN: Warm and dry. HEAD: Normocephalic and atraumatic. EYES: No scleral icterus. No injection or drainage. ENT: No nasal drainage noted. Mucous membranes pink. Airway patent. NECK: Supple, trachea midline. No JVD. CARDIOVASCULAR: Regular rate and rhythm without murmurs, gallops, or rubs. RESPIRATORY: Breath sounds equal bilaterally. No accessory muscle use. ABDOMEN/GI: Abdomen soft, non-tender, bowel sounds present, no rebound, no guarding Gravid to 27 weeks size GENITOURINARY: External Genitalia: intact and normal in appearance Cervical exam: Long, thick, closed Membranes: [intact] Uterine Contractions: 3 contractions over 40 minutes FHT's: Category: 1 Baseline: 150 Reactive: Reactive Variability: Moderate Decels: None EXTREMITIES: No cyanosis or edema. BACK: Nontender without obvious deformity. No CVA tenderness. NEUROLOGICAL: Awake and alert. Motor and sensory grossly within normal limits. Five out of 5 muscle strength in all muscle groups. Normal speech. Data Data Vital Signs Reviewed: Yes Orders Orders Vital Signs (Adult) .ON ADMISSION (07/04/17 16:56) ^ Labor Status (07/04/17 16:56) Urinalysis - C+S If Indicated (07/04/17 16:56) ^ Hydration (07/04/17 16:56) Acetaminophen (Tylenol) (07/04/17 17:00) MDM Plan Patient is a 36-year-old at 27 weeks and 1 day with a complicated PMH including Congenital urinary tract abnormality who presents with 4 days of abdominal pain. She was seen here yesterday and was noted to have negative Fibronectin. After initial uterine irritability, she had no contractions after 500cc LR bolus/Terbutaline SQ 0.25 x1, and was discharged home with labor precautions. 1. abdominal pain with possible contractions -Rule out UTI with UA -Rule out labor with tocometry, which shows very rare contractions, and cervical exams, which is long thick and closed -Monitor vitals vital signs -Monitor heart rate -Encourage by mouth hydration -Procardia 10 mg by mouth 1 to treat uterine irritability / rare contractions -Tylenol for pain 2. nausea - Zofran 4 mg ODT 3. Insulin-dependent diabetes, type II -Fingerstick blood glucose in the 150s s/d/w Dr. Starkey Diagnosis Diagnosis: Primary Impression: Abdominal pain affecting , antepartum Additional Impression: contractions Ruled Out: UTI (urinary tract infection), labor Disposition: 01 DISCHARGE HOME Condition: Good Isaiah Tinsley MD R2 Jul 04, 2017 17:23
[2017-07-04] MEDS ORDERED: NIFEdipine 10 MG CAP PO ONE (17:30)
[2017-07-04] MEDS ORDERED: ONDANSETRON ODT 4 MG TAB PO ONE (17:45)
[2017-07-04 18:04] LABS: BACTERIA, URINE RARE /hpf; BLOOD, URINE NEG (NEG); COMMENT (UR) CULT NOT INDICATED; CULTURE IF INDICATED CULT NOT INDICATED; GLUCOSE,URINE 1000 mg/dL (NEG); KETONE, URINE 10 mg/dL (NEG); NITRITE,URINE NEG (NEG); PH, URINE 6.5 (5.0-8.5); SQUAMOUS EPITHELIAL CELL URINE 2 /hpf (0-5); URINE COLOR YELLOW (YELLW/STRAW)
== END 2017-07-04 18:30 | disposition home or self-care (01) ==
LOC: HOBED 16:26
DX: O26.892 Other specified pregnancy related conditions, second trimester (principal); O99.612 Diseases of the digestive system complicating pregnancy, second trimester; K40.90 Unilateral inguinal hernia, without obstruction or gangrene, not specified as recurrent; O24.112 Pre-existing type 2 diabetes mellitus, in pregnancy, second trimester; E11.9 Type 2 diabetes mellitus without complications; Z3A.27 27 weeks gestation of pregnancy; Z79.4 Long term (current) use of insulin
CPT/HCPCS: 81001; 82948; 99283

== ENCOUNTER 2017-07-14 17:48 | Emergency (ER) | payer BC ==
[~2017-07-14] VITALS: Ht 157.5 cm; Wt 79.4 kg
[2017-07-14] MEDS ORDERED: ACETAMIN 325 MG/BUTALBITAL 50 MG/CAFFEINE 40 MG TAB PO ONE (19:15)
[2017-07-14] MEDS ORDERED: ONDANSETRON HCL 4 MG/2 ML VIAL IV PUSH ONE (19:15)
[2017-07-14] MEDS ORDERED: LACTATED RINGER'S 1000 ML INJ 1,000 ML IV ONE (19:15)
--- NOTE | 2017-07-14 19:16 | PD ---
HPI Chief Complaint Contraction/headache/nausea Travel History International Travel<30 Days: No Contact w/Intl Traveler<30Days: No Known Affected Area: No History of Present Illness HPI 36-year-old , IUP at 28.4 weeks care complicated by: 1. 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 Prior delivery 3. Multiple renal issues with history of chronic urinary tract infection and pyelonephritis 4. History of bilateral ureteral reimplantations 5. Conization of extended spectrum beta-lactamase Klebsiella with resistance to all antibiotics except the carbapenems 6. Numerous antibiotic allergies as documented (including 2 carbapenems; ciprofloxacin, Ceftin, Phenergan, Levaquin, Rocephin, meropenem, Invanz) 7. Gastroparesis 8. Asthma: No meds 9. Depression: No meds 10. Class C diabetes: She was diagnosed with type 2 diabetes in 2003; home regimen includes Levamir with a Humulin R sliding scale 2-3 times per day The patient presents complaining of contractions that have been irregular since this afternoon. There are no aggravating or alleviating factors, there are no attempted treatments. She does occasionally take Procardia for her contractions but she came to ensure she was not in labor. The patient also reports nausea this afternoon and a headache as well. She tried Tylenol for her headache, but there was no relief. She reports the contractions are relatively irregular and just occurring every now and then but she has not been timing them she denies any leaking of fluid or vaginal bleeding. She reports good movements. Weeks Gestation: 28 Para: 2 : 4 History Past Medical History Narrative Medical Multiple renal issues with history of chronic urinary tract infection and pyelonephritis History of bilateral ureteral reimplantations Conization of extended spectrum beta-lactamase Klebsiella with resistance to all antibiotics except the carbapenems Numerous antibiotic allergies as documented (including 2 carbapenems; ciprofloxacin, Ceftin, Phenergan, Levaquin, Rocephin, meropenem, Invanz) Gastroparesis Asthma: No meds Depression: No meds Class C diabetes: She is diagnosed with type 2 diabetes in 2003 Endometriosis Pelvic congestion syndrome Obstetric History Obstetric History Obstetric History Obstetric History 1 with shoulder dystocia and associated injury with a number Erb's palsy delivery 1 Past Surgical History Narrative Surgical Past Surgical History Narrative Surgical Hernia repair Appendectomy Cholecystectomy D&C section Laparoscopy 5 Tonsillectomy Family History Narrative Family History Family History Narrative Family History DM Social History Alcohol Use: No Tobacco Use: No Substance Abuse: No Allergies-Medications (Allergen,Severity, Reaction): Coded Allergies: cefuroxime (Unverified Allergy, Severe, SEVERE VOMITING,THROAT SWELLING, 07/14/17) THROAT SWELLING ciprofloxacin (Unverified Allergy, Severe, HIVES, SOB ; THROAT SWELLING, 07/14/17) ertapenem (Unverified Allergy, Severe, swelling throat, 07/14/17) meropenem (Verified Allergy, Severe, Hives, 07/14/17) promethazine (Unverified Allergy, Severe, SEIZURES, 07/14/17) ceftriaxone (Unverified Allergy, Intermediate, Rash, 07/14/17) levofloxacin (Unverified Allergy, Unknown, Hives, 07/14/17) *MDRO Multi-Drug Resistant Organism (Verified Adverse Reaction, Unknown, ESBL, 07/14/17) ESBL Klebsiella (urine) - 01/22/17 Home Meds Active Scripts Azithromycin (Zithromax Z-Kamlesh) 250 Mg Dspk, 250 MG PO DIRECTED for Infection , #1 DSPK 0 Refills 500 MG (2 tabs) day 1, then 1 tab days 2-5. Prov:Jeevan Starkey II, MD 06/13/17 Reported Medications Budesonide-Formoterol Inh (Symbicort Inh) 80-4.5 Mcg/Act Aero, 1 PUFF INH Q12HR Y for Asthma Management, #1 INHALER 0 Refills 09/20/16 Albuterol 18 GM Inh (Ventolin Hfa 18 GM Inh) 90 Mcg/Act Aer, 2 PUFF INH Q4H Y for SHORTNESS OF BREATH, #1 INHALER 0 Refills 09/20/16 Review of Systems Except as stated in HPI: all other systems reviewed are Neg General / Constitutional: No: Fever, Weight Gain, Weight Loss, Chills, Other Eyes: No: Diploplia, Blurred Vision, Visual changes, Pain, Photophobia, Other HENT: Headaches Cardiovascular: No: Irregular Rhythm, Chest Pain or Discomfort, Palpitations, Tachycardia, Syncope, Varicosities, Edema, Cyanosis, Other Respiratory: No: Cough, Short of Breath, Wheezing, Other Gastrointestinal: Nausea Genitourinary: No: Urgency, Frequency, Dysuria, Nocturia, Hematuria, Decreased Urinary Output, Oliguria, Hesitancy, Dribbling, Incontinence, Pelvic Pain, Dyspareunia, Discharge, Menorrhagia, Vaginal Bleeding, Other Musculoskeletal: No: Limited ROM, Weakness, Cramping, Edema, Pain, Other Skin: No Rash, No Itching, No Dryness, No Lumps, No Change in Pigmentation, No Change in Nails, No Alopecia, No Lesions, No Breast Lumps, No Breast Tenderness , No Breast Swelling, No Other Neurologic: No: Weakness, Dizziness, Syncope, Focal Abnormalities, Coordination Problem, Headache, Slurred Speech, Seizures, Other Psychiatric: No: Anxiety, Depression, Suicidal Ideations, Disorder of Thought, Mood Disorder, Substance Abuse, Homicidal Ideation, Other Endocrine: No: Heat Intolerance, Cold Intolerance, Polydipsia, Polyuria, Other Hematologic/Lymphatic: No Easy Bruising, No Lymph Node Enlargement, No Other Physical Exam Narrative GENERAL: Well-nourished, well-developed patient. SKIN: Warm and dry. HEAD: Normocephalic and atraumatic. EYES: No scleral icterus. No injection or drainage. ENT: No nasal drainage noted. Mucous membranes pink. Airway patent. NECK: Supple, trachea midline. No JVD. CARDIOVASCULAR: Regular rate and rhythm without murmurs, gallops, or rubs. RESPIRATORY: Breath sounds equal bilaterally. No accessory muscle use. BREASTS: Deferred ABDOMEN/GI: Abdomen soft, non-tender, bowel sounds present, no rebound, no guarding Gravid GENITOURINARY: External Genitalia: intact and normal in appearance. Normal BUS. Physiologic discharge noted, grossly normal rugae, no cervical or vaginal masses. fibronectin obtained. SVE closed/thick/high/posterior. FHT's: heart tones are in the 140s with moderate long-term variability, good accelerations, no decelerations noted EXTREMITIES: No cyanosis or edema. BACK: Nontender without obvious deformity. No CVA tenderness. NEUROLOGICAL: Awake and alert. Motor and sensory grossly within normal limits. Five out of 5 muscle strength in all muscle groups. Normal speech. Psychiatric: Grossly normal memory and affect Data Data Orders Orders Lr (Bolus) Inj (07/14/17 19:15) Vital Signs (Adult) .ON ADMISSION (07/14/17 19:13) ^ Labor Status (07/14/17 19:13) Urinalysis - C+S If Indicated (07/14/17 19:13) Diet Liquid (07/15/17 Breakfast) Fibronectin (07/14/17 19:13) Ondansetron Inj (Zofran Inj) (07/14/17 19:15) Ihpv-Wprca-Ixpn 325-50-40 Mg (Fioricet 3 (07/14/17 19:15) MDM Plan Assessment/plan: 1. IUP at 28.4 weeks 2. Multiple renal issues with history of chronic urinary tract infection and pyelonephritis and ESBL Klebsiella colonization of kidney: 3. 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 Prior delivery 5. Conization of extended spectrum beta-lactamase Klebsiella with resistance to all antibiotics except the carbapenems 6. Numerous antibiotic allergies as documented (including 2 carbapenems; ciprofloxacin, Ceftin, Phenergan, Levaquin, Rocephin, meropenem, Invanz) 7. Gastroparesis 8. Asthma: No meds 9. Depression: No meds 10. Class C diabetes: She is diagnosed with type 2 diabetes in 2003, will continue home regimen of Levamir daily with Humulin R sliding scale 2-3 times per day. Will order ADA diet. 11. History of bilateral ureteral reimplantations 12. No evidence of labor: fibronectin negative, no regular contractions, and cervix closed on exam. Strict labor precautions 13. well-being: heart tones appropriate for gestational age, reactive NST, FHR reassuring and appropriate for gestational age. kick counts daily 14. Nausea and headache: Resolved with IV fluids, Zofran, and Fioricet. Labs normal. 15. Follow-up with primary OB in 2-3 days or sooner if needed Sharmaine Perez MD Jul 14, 2017 19:16
[2017-07-14 19:45] VITALS: TEMP 97.6
[2017-07-14 20:17] LABS: BACTERIA, URINE RARE /hpf; BLOOD, URINE NEG (NEG); COMMENT (UR) CULT NOT INDICATED; CULTURE IF INDICATED CULT NOT INDICATED; GLUCOSE,URINE 1000 mg/dL (NEG); KETONE, URINE 10 mg/dL (NEG); MUCUS URINE FEW /lpf (OCC); NITRITE,URINE NEG (NEG); SQUAMOUS EPITHELIAL CELL URINE 4 /hpf (0-5); URINE COLOR LIGHT-YELLOW (YELLW/STRAW)
== END 2017-07-14 21:25 | disposition home or self-care (01) ==
LOC: HOBED 17:48
DX: O47.03 False labor before 37 completed weeks of gestation, third trimester (principal); E11.43 Type 2 diabetes mellitus with diabetic autonomic (poly)neuropathy; J45.909 Unspecified asthma, uncomplicated; R11.0 Nausea; R51 Headache; F32.9 Major depressive disorder, single episode, unspecified; Z3A.28 28 weeks gestation of pregnancy
CPT/HCPCS: 81001; 82731; 96361; 96374; 99284; J2405; J7120

== ENCOUNTER 2017-07-23 09:13 | Emergency (ER) | payer BC ==
[~2017-07-23] VITALS: Ht 157.5 cm; Wt 81.6 kg
[2017-07-23] MEDS ORDERED: HUMALOG SQ (09:44)
[2017-07-23] MEDS ORDERED: LEVEMIR SQ (09:46)
[2017-07-23] MEDS ORDERED: NIFE1TAB85 PO (09:46)
--- NOTE | 2017-07-23 10:43 | PD ---
History of Present Illness Date Seen: Jul 23, 2017 Time Seen: 10:39 History of Present Illness [facility] Unit Number: [id number] Date of : 1980 Patient Status: Departed Emergency Room Attending Doctor: Jeevan Starkey MD HPI HPI Chief Complaint vag bleeding Travel History International Travel<30 Days: No Contact w/Intl Traveler<30Days: No Known Affected Area: No History of Present Illness HPI 36-year-old , IUP at 29-30 weeks care complicated by: 1. 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 Prior delivery 3. Multiple renal issues with history of chronic urinary tract infection and pyelonephritis 4. History of bilateral ureteral reimplantations 5. Conization of extended spectrum beta-lactamase Klebsiella with resistance to all antibiotics except the carbapenems 6. Numerous antibiotic allergies as documented (including 2 carbapenems; ciprofloxacin, Ceftin, Phenergan, Levaquin, Rocephin, meropenem, Invanz) 7. Gastroparesis 8. Asthma: No meds 9. Depression: No meds 10. Class C diabetes: She was diagnosed with type 2 diabetes in 2003; home regimen includes Levamir with a Humulin R sliding scale 2-3 times per day Is a 36-year-old white female the 29-30 weeks presents complaining of vaginal bleeding noted this morning. She is having only minimal cramping today. No leakage of fluid. heart rate tracing is reactive for 29 weeks and no contractions Weeks Gestation: 2 9 Para: 2 : 4 History (Limited) History Past Medical History Narrative Medical Multiple renal issues with history of chronic urinary tract infection and pyelonephritis History of bilateral ureteral reimplantations Conization of extended spectrum beta-lactamase Klebsiella with resistance to all antibiotics except the carbapenems Numerous antibiotic allergies as documented (including 2 carbapenems; ciprofloxacin, Ceftin, Phenergan, Levaquin, Rocephin, meropenem, Invanz) Gastroparesis Asthma: No meds Depression: No meds Class C diabetes: She is diagnosed with type 2 diabetes in 2003 Endometriosis Pelvic congestion syndrome Obstetric History Obstetric History Obstetric History Obstetric History 1 with shoulder dystocia and associated injury with a number Erb's palsy delivery 1 Past Surgical History Narrative Surgical Past Surgical History Narrative Surgical Hernia repair Appendectomy Cholecystectomy D&C section Laparoscopy 5 Tonsillectomy Family History Narrative Family History Family History Narrative Family History DM Social History Alcohol Use: No Tobacco Use: No Substance Abuse: No Allergies-Medications Allergies-Medications (Allergen,Severity, Reaction): Coded Allergies: cefuroxime (Unverified Allergy, Severe, SEVERE VOMITING,THROAT SWELLING, 07/14/17) THROAT SWELLING ciprofloxacin (Unverified Allergy, Severe, HIVES, SOB ; THROAT SWELLING, 07/14/17) ertapenem (Unverified Allergy, Severe, swelling throat, 07/14/17) meropenem (Verified Allergy, Severe, Hives, 07/14/17) promethazine (Unverified Allergy, Severe, SEIZURES, 07/14/17) ceftriaxone (Unverified Allergy, Intermediate, Rash, 07/14/17) levofloxacin (Unverified Allergy, Unknown, Hives, 07/14/17) *MDRO Multi-Drug Resistant Organism (Verified Adverse Reaction, Unknown, ESBL, 07/14/17) ESBL Klebsiella (urine) - 01/22/17 Home Meds Active Scripts Azithromycin (Zithromax Z-Kamlesh) 250 Mg Dspk, 250 MG PO DIRECTED for Infection , #1 DSPK 0 Refills 500 MG (2 tabs) day 1, then 1 tab days 2-5. Prov:Jeevan Starkey II, MD 06/13/17 Reported Medications Budesonide-Formoterol Inh (Symbicort Inh) 80-4.5 Mcg/Act Aero, 1 PUFF INH Q12HR Y for Asthma Management, #1 INHALER 0 Refills 09/20/16 Albuterol 18 GM Inh (Ventolin Hfa 18 GM Inh) 90 Mcg/Act Aer, 2 PUFF INH Q4H Y for SHORTNESS OF BREATH, #1 INHALER 0 Refills 09/20/16 ROS Review of Systems Except as stated in HPI: all other systems reviewed are Neg General / Constitutional: No: Fever, Weight Gain, Weight Loss, Chills, Other Eyes: No: Diploplia, Blurred Vision, Visual changes, Pain, Photophobia, Other HENT: Headaches Cardiovascular: No: Irregular Rhythm, Chest Pain or Discomfort, Palpitations, Tachycardia, Syncope, Varicosities, Edema, Cyanosis, Other Respiratory: No: Cough, Short of Breath, Wheezing, Other Gastrointestinal: Nausea Genitourinary: No: Urgency, Frequency, Dysuria, Nocturia, Hematuria, Decreased Urinary Output, Oliguria, Hesitancy, Dribbling, Incontinence, Pelvic Pain, Dyspareunia, Discharge, Menorrhagia, , Other Musculoskeletal: No: Limited ROM, Weakness, Cramping, Edema, Pain, Other Skin: No Rash, No Itching, No Dryness, No Lumps, No Change in Pigmentation, No Change in Nails, No Alopecia, No Lesions, No Breast Lumps, No Breast Tenderness , No Breast Swelling, No Other Neurologic: No: Weakness, Dizziness, Syncope, Focal Abnormalities, Coordination Problem, Headache, Slurred Speech, Seizures, Other Psychiatric: No: Anxiety, Depression, Suicidal Ideations, Disorder of Thought, Mood Disorder, Substance Abuse, Homicidal Ideation, Other Endocrine: No: Heat Intolerance, Cold Intolerance, Polydipsia, Polyuria, Other Hematologic/Lymphatic: No Easy Bruising, No Lymph Node Enlargement, No Other Physical Exam Physical Exam Narrative GENERAL: Well-nourished, well-developed patient. SKIN: Warm and dry. HEAD: Normocephalic and atraumatic. EYES: No scleral icterus. No injection or drainage. ENT: No nasal drainage noted. Mucous membranes pink. Airway patent. NECK: Supple, trachea midline. No JVD. CARDIOVASCULAR: Regular rate and rhythm without murmurs, gallops, or rubs. RESPIRATORY: Breath sounds equal bilaterally. No accessory muscle use. BREASTS: Deferred ABDOMEN/GI: Abdomen soft, non-tender, bowel sounds present, no rebound, no guarding Gravid GENITOURINARY: External Genitalia: intact and normal in appearance. Normal BUS. Physiologic discharge noted, grossly normal rugae, no cervical or vaginal masses speculum exam done and bloody mucus seen at the cervix and no active bleeding no bright red bleeding only dark bloody mucus, cervix is closed. FHT's: heart tones are in the 140s with moderate long-term variability, good accelerations, no decelerations noted EXTREMITIES: No cyanosis or edema. BACK: Nontender without obvious deformity. No CVA tenderness. NEUROLOGICAL: Awake and alert. Motor and sensory grossly within normal limits. Five out of 5 muscle strength in all muscle groups. Normal speech. Psychiatric: Grossly normal memory and affect Data Data Data vag US --cx length- 28 mm with fundal pressure 25 mm , USMAN 10.3 28 wk 6 d size no previa ant placenta Orders Lr (Bolus) Inj (07/14/17 19:15) Vital Signs (Adult) .ON ADMISSION (07/14/17 19:13) ^ Labor Status (07/14/17 19:13) Urinalysis - C+S If Indicated (07/14/17 19:13) Diet Liquid (07/15/17 Breakfast) Fibronectin (07/14/17 19:13) Ondansetron Inj (Zofran Inj) (07/14/17 19:15) Avnj-Usdrw-Ydfx 325-50-40 Mg (Fioricet 3 (07/14/17 19:15) MDM MDM Plan Assessment/plan: 1. IUP at 29-30 weeks Vaginal bleeding new-onset, placenta is anterior by previous ultrasound no evidence of previa, will check a cervical length by transvaginal scan -28 mm no previa 2. Multiple renal issues with history of chronic urinary tract infection and pyelonephritis and ESBL Klebsiella colonization of kidney: 3. 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 Prior delivery 5. Conization of extended spectrum beta-lactamase Klebsiella with resistance to all antibiotics except the carbapenems 6. Numerous antibiotic allergies as documented (including 2 carbapenems; ciprofloxacin, Ceftin, Phenergan, Levaquin, Rocephin, meropenem, Invanz) 7. Gastroparesis 8. Asthma: No meds 9. Depression: No meds 10. Class C diabetes: She is diagnosed with type 2 diabetes in 2003, will continue home regimen of Levamir daily with Humulin R sliding scale 2-3 times per day. Will order ADA diet. 11. History of bilateral ureteral reimplantations 12. No evidence of labor: fibronectin negative, no regular contractions, and cervix closed on exam. Strict labor precautions 13. well-being: heart tones appropriate for gestational age, reactive NST, FHR reassuring and appropriate for gestational age. kick counts daily 15. Follow-up with primary OB in 2-3 days or sooner if needed , bedrest if bleeding Jeevan Starkey II, MD Jul 23, 2017 10:43
--- NOTE | 2017-07-23 12:55 | PD ---
HPI Travel History International Travel<30 Days: No Contact w/Intl Traveler<30Days: No Known Affected Area: No Allergies-Medications (Allergen,Severity, Reaction): Coded Allergies: cefuroxime (Unverified Allergy, Severe, SEVERE VOMITING,THROAT SWELLING, 07/14/17) THROAT SWELLING ciprofloxacin (Unverified Allergy, Severe, HIVES, SOB ; THROAT SWELLING, 07/14/17) ertapenem (Unverified Allergy, Severe, swelling throat, 07/14/17) meropenem (Verified Allergy, Severe, Hives, 07/14/17) promethazine (Unverified Allergy, Severe, SEIZURES, 07/14/17) ceftriaxone (Unverified Allergy, Intermediate, Rash, 07/14/17) levofloxacin (Unverified Allergy, Unknown, Hives, 07/14/17) *MDRO Multi-Drug Resistant Organism (Verified Adverse Reaction, Unknown, ESBL, 07/14/17) ESBL Klebsiella (urine) - 01/22/17 Home Meds Reported Medications Insulin Detemir Inj (Levemir Inj) 1,000 unit/ 10 ML Vial, 14 UNITS SQ BID for Blood Sugar Management, VIAL 0 Refills Do not mix with any other Insulin. 07/23/17 Nifedipine ER 24 HR (Procardia XL) 30 Mg Tab, 30 MG PO DAILY, #30 TAB 0 Refills 07/23/17 Insulin Lispro (Human) Inj (Humalog Inj) 1,000 Unit/10 Ml Vial, 8 UNITS SQ DIRECTED for Blood Sugar Management, #1 VIAL 0 Refills Max dose at bedtime:( )units; sugars< 70,(0)units; sugars 150-199,(1)unit; sugars 200-249,(3)units; sugars 250-299,(5)units; sugars 300-349,(7)units; sugars more than 349,(9)units. 07/23/17 Albuterol 18 GM Inh (Ventolin Hfa 18 GM Inh) 90 Mcg/Act Aer, 2 PUFF INH Q4H Y for SHORTNESS OF BREATH, #1 INHALER 0 Refills 09/20/16 Discontinued Reported Medications Budesonide-Formoterol Inh (Symbicort Inh) 80-4.5 Mcg/Act Aero, 1 PUFF INH Q12HR Y for Asthma Management, #1 INHALER 0 Refills 09/20/16 Discontinued Scripts Azithromycin (Zithromax Z-Kamlesh) 250 Mg Dspk, 250 MG PO DIRECTED for Infection , #1 DSPK 0 Refills 500 MG (2 tabs) day 1, then 1 tab days 2-5. Prov:Jeevan Starkey II, MD 06/13/17 Physical Exam Narrative GENERAL: Well-nourished, well-developed patient. SKIN: Warm and dry. HEAD: Normocephalic and atraumatic. EYES: No scleral icterus. No injection or drainage. ENT: No nasal drainage noted. Mucous membranes pink. Airway patent. NECK: Supple, trachea midline. No JVD. CARDIOVASCULAR: Regular rate and rhythm without murmurs, gallops, or rubs. RESPIRATORY: Breath sounds equal bilaterally. No accessory muscle use. BREASTS: Bilateral exam showed no masses , no retractions, no nipple discharge. ABDOMEN/GI: Abdomen soft, non-tender, bowel sounds present, no rebound, no guarding Gravid to [-] weeks size Fundal Height: [-] GENITOURINARY: External Genitalia: intact and normal in appearance BUS glands: [-] Cervix: [-] Dilatation: [-] Effacement: [-] Station: [-] Presentation: [-] Membranes: [intact or ruptured] Uterine Contractions: [-] FHT's: Category: [-] Baseline: [-] Reactive: [-] Variability: [-] Decels: [-] EXTREMITIES: No cyanosis or edema. BACK: Nontender without obvious deformity. No CVA tenderness. NEUROLOGICAL: Awake and alert. Motor and sensory grossly within normal limits. Five out of 5 muscle strength in all muscle groups. Normal speech. Data Data Orders Orders Us Ob Limited W/Transvaginal (07/23/17 ) Attending Discharge Order (07/23/17 ) MDM Diagnosis Diagnosis: Primary Impression: Vaginal bleeding during , antepartum Disposition: 01 DISCHARGE HOME Condition: Stable Patient Instructions: General Instructions Departure Forms: Tests/Procedures Jeevan Starkey II, MD Jul 23, 2017 12:55
== END 2017-07-23 13:28 | disposition home or self-care (01) ==
LOC: HOBED 09:13
DX: O46.93 Antepartum hemorrhage, unspecified, third trimester (principal); J45.909 Unspecified asthma, uncomplicated; E11.43 Type 2 diabetes mellitus with diabetic autonomic (poly)neuropathy; K31.84 Gastroparesis; Z79.51 Long term (current) use of inhaled steroids; Z79.899 Other long term (current) drug therapy; Z3A.29 29 weeks gestation of pregnancy
CPT/HCPCS: 76815; 76817; 82948; 99285

== ENCOUNTER 2017-07-25 19:59 | Observation (INO) | payer BC ==
[2017-07-25] VITALS (14 sets, daily range): BP systolic 120–130; BP diastolic 65–93; PULSE 108–115; RESP 20; TEMP 98.9
[~2017-07-25 19:59] MED LIST changes: +HUMALOG SQ; +LEVEMIR SQ; +NIFE1TAB85 PO; -SYMB80AE INH; -ZITHTAB PO
[2017-07-25] MEDS: LACTATED RINGER'S 1000 ML INJ 1,000 ML IV SCH (21:45)
[2017-07-25] MEDS ORDERED: MAGNESIUM SULFATE 40 GM PREMIX 1,000 ML IV SCH (21:56)
[2017-07-25] MEDS ORDERED: SODIUM CHLORIDE 0.9% FLUSH 10 ML FLUSH IV FLUSH PRN (22:00)
[2017-07-25] MEDS ORDERED: SODIUM CHLORIDE 0.9% FLUSH 10 ML FLUSH IV FLUSH SCH (22:00)
[2017-07-25] MEDS ORDERED: ONDANSETRON ODT 4 MG TAB PO PRN (22:00)
[2017-07-25] MEDS ORDERED: ZOLPIDEM TARTRATE 5 MG TAB PO PRN (22:00)
[2017-07-25] MEDS: BETAMETHASONE SOD PHOS/ACETATE SUSP 30 MG/5 ML VIAL IM SCH (22:27)
--- NOTE | 2017-07-25 22:35 | HHI.HP ---
HPI Chief Complaint Contractions with cervical change diabetes elevated BP Date Seen: Jul 25, 2017 Time Seen: 14:00 Travel History International Travel<30 Days: No Contact w/Intl Traveler<30Days: No Known Affected Area: No History of Present Illness HPI 36 yo mwf at 29 + weeks EGA presented to [facility] with concern about possible rupture of membranes. Amnisure negative but alfreda painfully. strip reactive with no decels. PNC with [facility] beginning early first trimester. Hx of multiple urologic surgeries -- re implantations of right ureter with issues of chronic infections and reflux. Multiple antibiotic allergies. NIDDM prior to gestation with difficult to control diabetes in on high doses of insulin. Has been complaining of contractions for several weeks and cervix 1 cm/50 today. FFN+ last week. Weeks Gestation: 29 Para: 2 : 4 Miscarriage: 1 : 0 History Past Medical History Narrative Medical Endometriosis chronic kidney infection diabetes depression and anxiety Obstetric History Obstetric History Term IUP with Shoulder dystocia and erb's palsy & 1/2 pounds Term elective section SAB x 1 present Past Surgical History Narrative Surgical multiple urologic and gynecologic surgeries Family History Family History: Negative Social History Alcohol Use: No Tobacco Use: No Substance Abuse: No Allergies-Medications (Allergen,Severity, Reaction): Coded Allergies: cefuroxime (Unverified Allergy, Severe, SEVERE VOMITING,THROAT SWELLING, 07/14/17) THROAT SWELLING ciprofloxacin (Unverified Allergy, Severe, HIVES, SOB ; THROAT SWELLING, 07/14/17) ertapenem (Unverified Allergy, Severe, swelling throat, 07/14/17) meropenem (Verified Allergy, Severe, Hives, 07/14/17) promethazine (Unverified Allergy, Severe, SEIZURES, 07/14/17) ceftriaxone (Unverified Allergy, Intermediate, Rash, 07/14/17) levofloxacin (Unverified Allergy, Unknown, Hives, 07/14/17) *MDRO Multi-Drug Resistant Organism (Verified Adverse Reaction, Unknown, ESBL, 07/14/17) ESBL Klebsiella (urine) - 01/22/17 Home Meds Reported Medications Insulin Detemir Inj (Levemir Inj) 1,000 unit/ 10 ML Vial, 14 UNITS SQ BID for Blood Sugar Management, VIAL 0 Refills Do not mix with any other Insulin. 07/23/17 Nifedipine ER 24 HR (Procardia XL) 30 Mg Tab, 30 MG PO DAILY, #30 TAB 0 Refills 07/23/17 Insulin Lispro (Human) Inj (Humalog Inj) 1,000 Unit/10 Ml Vial, 8 UNITS SQ DIRECTED for Blood Sugar Management, #1 VIAL 0 Refills Max dose at bedtime:( )units; sugars< 70,(0)units; sugars 150-199,(1)unit; sugars 200-249,(3)units; sugars 250-299,(5)units; sugars 300-349,(7)units; sugars more than 349,(9)units. 07/23/17 Albuterol 18 GM Inh (Ventolin Hfa 18 GM Inh) 90 Mcg/Act Aer, 2 PUFF INH Q4H Y for SHORTNESS OF BREATH, #1 INHALER 0 Refills 09/20/16 Discontinued Reported Medications Budesonide-Formoterol Inh (Symbicort Inh) 80-4.5 Mcg/Act Aero, 1 PUFF INH Q12HR Y for Asthma Management, #1 INHALER 0 Refills 09/20/16 Discontinued Scripts Azithromycin (Zithromax Z-Kamlesh) 250 Mg Dspk, 250 MG PO DIRECTED for Infection , #1 DSPK 0 Refills 500 MG (2 tabs) day 1, then 1 tab days 2-5. Prov:Jeevan Starkey II, MD 06/13/17 Review of Systems Gastrointestinal: Abdominal Pain Genitourinary: Vaginal Bleeding Musculoskeletal: Cramping, Edema Psychiatric: Anxiety Physical Exam Narrative GENERAL: Well-nourished, well-developed patient. SKIN: Warm and dry. HEAD: Normocephalic and atraumatic. EYES: No scleral icterus. No injection or drainage. ENT: No nasal drainage noted. Mucous membranes pink. Airway patent. NECK: Supple, trachea midline. No JVD. CARDIOVASCULAR: Regular rate and rhythm without murmurs, gallops, or rubs. RESPIRATORY: Breath sounds equal bilaterally. No accessory muscle use. BREASTS: Bilateral exam showed no masses , no retractions, no nipple discharge. ABDOMEN/GI: Abdomen soft, non-tender, bowel sounds present, no rebound, no guarding Gravid to 30 weeks size strip reactive 1/50/-2 contractions every few minutes EXTREMITIES: No cyanosis or edema. BACK: Nontender without obvious deformity. No CVA tenderness. NEUROLOGICAL: Awake and alert. Motor and sensory grossly within normal limits. Five out of 5 muscle strength in all muscle groups. Normal speech. Caprini VTE Risk Assessment Caprini VTE Risk Assessment: No/Low Risk (score <= 1) Caprini Risk Assessment Model Point Value = 1 Point Value = 2 Point Value = 3 Point Value = 5 Age 41-60 Minor surgery BMI > 25 kg/m2 Swollen legs Varicose veins or History of unexplained or recurrent spontaneous Oral contraceptives or hormone replacement Sepsis (< 1 month) Serious lung disease, including pneumonia (< 1 month) Abnormal pulmonary function Acute myocardial infarction Congestive heart failure (< 1 month) History of inflammatory bowel disease Medical patient at bed rest Age 61-74 Arthroscopic surgery Major open surgery (> 45 min) Laparoscopic surgery (> 45 min) Malignancy Confined to bed (> 72 hours) Immobilizing plaster cast Central venous access Age >= 75 History of VTE Family history of VTE Factor V Leiden Prothrombin [id number] Lupus anticoagulant Anticardiolipin antibodies Elevated serum homocysteine Heparin-induced thrombocytopenia Other congenital or acquired thrombophilia Stroke (< 1 month) Elective arthroplasty Hip, pelvis, or leg fracture Acute spinal cord injury (< 1 month) Prophylaxis Regimen Total Risk Factor Score Risk Level Prophylaxis Regimen 0-1 Low Early ambulation 2 Moderate Order ONE of the following: *Sequential Compression Device (SCD) *Heparin 5000 units SQ BID 3-4 Higher Order ONE of the following medications: *Heparin 5000 units SQ TID *Enoxaparin/Lovenox 40 mg SQ daily (WT < 150 kg, CrCl > 30 mL/min) *Enoxaparin/Lovenox 30 mg SQ daily (WT < 150 kg, CrCl > 10-29 mL/min) *Enoxaparin/Lovenox 30 mg SQ BID (WT < 150 kg, CrCl > 30 mL/min) AND/OR *Sequential Compression Device (SCD) 5 or more Highest Order ONE of the following medications: *Heparin 5000 units SQ TID (Preferred with Epidurals) *Enoxaparin/Lovenox 40 mg SQ daily (WT < 150 kg, CrCl > 30 mL/min) *Enoxaparin/Lovenox 30 mg SQ daily (WT < 150 kg, CrCl > 10-29 mL/min) *Enoxaparin/Lovenox 30 mg SQ BID (WT < 150 kg, CrCl > 30 mL/min) AND *Sequential Compression Device (SCD) Data Data Orders Orders Ob (2e) Additional Admit Info (07/25/17 21:08) Place In Observation (07/25/17 ) Diet Ob Consistent Carb (07/26/17 Breakfast) Vital Signs (Adult) BERYL.S3H-AAEEA AWAKE (07/25/17 21:56) Heart (07/25/17 21:56) Activity Bed Rest With Brp (07/25/17 21:56) Complete Blood Count With Diff (07/25/17 21:56) Hepatic Functional Panel (07/25/17 21:56) Uric Acid (07/25/17 21:56) Urinalysis - C+S If Indicated (07/25/17 21:56) Bedside Glucose . ORDERED (07/25/17 21:56) Sodium Chloride 0.9% Flush (Ns Flush) (07/25/17 22:00) Sodium Chloride 0.9% Flush (Ns Flush) (07/25/17 22:00) Zolpidem (Ambien) (07/25/17 22:00) Ondansetron Odt (Zofran Odt) (07/25/17 22:00) Specimen To Be Collected PRN (07/25/17 21:56) Intake + Output Q1H (07/25/17 21:56) Notify Parameters (07/25/17 21:56) Heart CONTINUOUS (07/25/17 21:56) Urinary Catheter Management BERYL.Q8H (07/25/17 21:56) ^ Check Deep Tendon Reflexes Q1H (07/25/17 21:56) Lactated Ringer's 1000 Ml Inj (Lr 1000 M (07/25/17 21:56) Magnesium Sulfate 40 Gm Premix (Magnesiu (07/25/17 21:56) Betamethasone Inj (Celestone Soluspan In (07/25/17 22:00) Bedside Glucose BERYL.CSUGAR (07/25/17 21:56) Insulin Human Reg Supp Scale (Novolin R (07/26/17 08:00) Assessment/Plan Assessment and Plan Cramping, bleeding at 30 weeks IDDM chronic UTI's Magnesium and steroids while glucose management Carbiener,Deborah Mifflin MD Jul 25, 2017 22:35
[2017-07-25] MEDS: INSULIN NovoLIN REGULAR SUPPLEMENTAL SCALE SQ SCH (22:52)
[2017-07-25 22:57] LABS: AUTOMATED NEUTROPHIL # 7.9 TH/MM3 (1.8-7.7); BASOPHIL % 0.1 % (0.0-2.0); EOSINOPHIL # 0.1 TH/MM3 (0-0.4); EOSINOPHIL % 0.7 % (0.0-4.0); HEMATOCRIT 35.7 % (35.0-46.0); HEMO FLAGS DIFF FINAL; LYMPH % 15.4 % (9.0-44.0); LYMPHOCYTE # 1.6 TH/MM3 (1.0-4.8); MEAN CELL VOLUME 90.3 FL (80.0-100.0); MEAN CORPUSCULAR HGB CONC 34.3 % (32.0-36.0); MONO % 6.3 % (0.0-8.0); NEUT % 77.5 % (16.0-70.0); PLATELET COUNT 194 TH/MM3 (150-450); RED BLOOD COUNT 3.95 MIL/MM3 (4.00-5.30); RED CELL DISTRIBUTION WIDTH 13.8 % (11.6-17.2); WHITE BLOOD COUNT 10.2 TH/MM3 (4.0-11.0)
[2017-07-25 23:01] LABS: BLOOD, URINE NEG (NEG); COMMENT (UR) CULT NOT INDICATED; CULTURE IF INDICATED CULT NOT INDICATED; GLUCOSE,URINE 300 mg/dL (NEG); KETONE, URINE 10 mg/dL (NEG); MUCUS URINE FEW /lpf (OCC); NITRITE,URINE NEG (NEG); PH, URINE 6.5 (5.0-8.5); SQUAMOUS EPITHELIAL CELL URINE 5 /hpf (0-5); URINE COLOR YELLOW (YELLW/STRAW)
[2017-07-25 23:22] LABS: URIC ACID 4.6 MG/DL (2.6-6.0)
[2017-07-25 23:25] LABS: INDIRECT BILIRUBIN 0.1 MG/DL (0.0-0.8); TOTAL BILIRUBIN ADULT 0.2 MG/DL (0.2-1.0)
[2017-07-26] VITALS (62 sets, daily range): BP systolic 98–126; BP diastolic 50–71; PULSE 106–122; RESP 18; TEMP 97.9–98.7
[2017-07-26] MEDS: INSULIN NovoLIN REGULAR SUPPLEMENTAL SCALE SQ SCH ×7 (00:57→12:30)
[2017-07-26] MEDS: LACTATED RINGER'S 1000 ML INJ 1,000 ML IV SCH ×2 (04:56→17:21)
--- NOTE | 2017-07-26 09:25 | PD.OB.ANTE ---
Subjective Diagnosis: (1) contractions Diagnosis: Principal (2) Diabetes mellitus Interval History decrease in ctx intensity, no bleeding, lof. upset about being inpt as she has to move and has to go to closing of house tomorrow. Antepartum ROS: Reports: movement normal Objective Vital Signs Vital Signs Date Time Temp Pulse Resp B/P (MAP) Pulse Ox O2 Delivery O2 Flow Rate FiO2 07/26/17 09:00 115 07/26/17 08:44 18 07/26/17 08:15 115 07/26/17 08:10 116 07/26/17 08:05 113 07/26/17 08:00 114 110/57 (74) 07/26/17 08:00 110 07/26/17 07:55 117 07/26/17 07:50 118 07/26/17 07:47 97.9 07/26/17 07:46 18 07/26/17 07:45 121 07/26/17 07:40 122 07/26/17 07:35 114 07/26/17 07:30 110 07/26/17 07:25 111 07/26/17 07:20 109 07/26/17 07:15 108 07/26/17 07:10 108 07/26/17 07:05 109 07/26/17 07:00 108 105/53 (70) 07/26/17 07:00 108 07/26/17 06:55 108 07/26/17 06:34 18 07/26/17 06:00 110/61 (77) 07/26/17 05:55 106 07/26/17 05:30 106 07/26/17 05:00 98.7 18 98/59 (72) 07/26/17 04:55 108 07/26/17 04:45 107 07/26/17 04:00 108/59 (75) 07/26/17 03:55 109 07/26/17 03:00 18 07/26/17 03:00 110/66 (81) 07/26/17 02:55 111 07/26/17 02:00 111/50 (70) 07/26/17 01:55 110 07/26/17 01:00 18 115/62 (79) 07/26/17 01:00 98.7 07/26/17 00:55 110 07/26/17 00:00 126/71 (89) 07/26/17 00:00 18 07/25/17 23:55 110 07/25/17 23:40 112 07/25/17 23:35 110 07/25/17 23:25 109 07/25/17 23:10 114 07/25/17 23:00 120/65 (83) 07/25/17 22:55 111 07/25/17 22:45 121/69 (86) 07/25/17 22:45 98.9 20 07/25/17 22:40 108 07/25/17 22:35 113 07/25/17 22:32 130/93 (105) 07/25/17 22:25 114 07/25/17 22:10 111 07/25/17 21:55 115 Lab & Micro Results Test 07/25/17 21:45 White Blood Count 10.2 TH/MM3 Red Blood Count 3.95 MIL/MM3 Hemoglobin 12.2 GM/DL Hematocrit 35.7 % Mean Corpuscular Volume 90.3 FL Mean Corpuscular Hemoglobin 31.0 PG Mean Corpuscular Hemoglobin Concent 34.3 % Red Cell Distribution Width 13.8 % Platelet Count 194 TH/MM3 Mean Platelet Volume 8.2 FL Neutrophils (%) (Auto) 77.5 % Lymphocytes (%) (Auto) 15.4 % Monocytes (%) (Auto) 6.3 % Eosinophils (%) (Auto) 0.7 % Basophils (%) (Auto) 0.1 % Neutrophils # (Auto) 7.9 TH/MM3 Lymphocytes # (Auto) 1.6 TH/MM3 Monocytes # (Auto) 0.6 TH/MM3 Eosinophils # (Auto) 0.1 TH/MM3 Basophils # (Auto) 0.0 TH/MM3 CBC Comment DIFF FINAL Differential Comment Urine Color YELLOW Urine Turbidity CLEAR Urine pH 6.5 Urine Specific Diablo 1.021 Urine Protein TRACE mg/dL Urine Glucose (UA) 300 mg/dL Urine Ketones 10 mg/dL Urine Occult Blood NEG Urine Nitrite NEG Urine Bilirubin NEG Urine Urobilinogen LESS THAN 2.0 MG/DL Urine Leukocyte Esterase TRACE Urine RBC 2 /hpf Urine WBC 1 /hpf Urine Squamous Epithelial Cells 5 /hpf Urine Mucus FEW /lpf Microscopic Urinalysis Comment CULT NOT INDICATED Uric Acid 4.6 MG/DL Total Bilirubin 0.2 MG/DL Direct Bilirubin 0.1 MG/DL Indirect Bilirubin 0.1 MG/DL Aspartate Amino Transf (AST/SGOT) 19 U/L Alanine Aminotransferase (ALT/SGPT) 16 U/L Alkaline Phosphatase 63 U/L Total Protein 7.3 GM/DL Albumin 2.8 GM/DL Physical Exam GENERAL: Well-nourished, well-developed patient. CARDIOVASCULAR: Regular rate and rhythm without murmurs, gallops, or rubs. RESPIRATORY: Breath sounds equal bilaterally. No accessory muscle use. ABDOMEN/GI: Abdomen soft, non-tender. Fundus: [-] GENITOURINARY: External Genitalia: intact and normal in appearance Cervix:1/50/-2, posterior Presentation:ceph Membranes intact Uterine Contractions: irritable FHT's: Category: I Baseline: 120 Reactive: [-] Variability:mod Decels: [-] EXTREMITIES: No cyanosis or edema, non-tender, without signs of DVT. Assessment and Plan Assessment and Plan 36 yo with iup at 30w2d here for ptl and dm management 1) ctx- received bms at 2230, on mag. will stop magnesium after 12 hours. No cervical change overnight, reassuring. will receive next bms at 2230 and will re-evaluate at that time for stability for d/c home 2) IDDM- receiving SSI for adjustments q 2 hours Swathi Munson MD Jul 26, 2017 09:25
[2017-07-26] MEDS ORDERED: diphenhydrAMINE HCL 25 MG CAP PO ONE (09:30)
[2017-07-26] MEDS: BETAMETHASONE SOD PHOS/ACETATE SUSP 30 MG/5 ML VIAL IM SCH (16:52)
--- NOTE | 2017-07-26 17:42 | PD.OB.ANTE ---
Subjective Diagnosis: (1) contractions Diagnosis: Principal (2) Diabetes mellitus Interval History 30 2/7 week IUP sucessful tocolysis UTI needs treatment Steroids given diabetic control fair feeling well Objective Vital Signs Vital Signs Date Time Temp Pulse Resp B/P (MAP) Pulse Ox O2 Delivery O2 Flow Rate FiO2 07/26/17 12:21 18 07/26/17 11:38 98.4 07/26/17 11:25 18 07/26/17 10:55 116 07/26/17 10:50 113 07/26/17 10:45 111 07/26/17 10:43 18 07/26/17 10:40 111 07/26/17 10:35 108 07/26/17 10:30 112 07/26/17 10:25 112 07/26/17 10:20 113 07/26/17 10:15 120 07/26/17 10:10 117 07/26/17 10:05 112 07/26/17 10:00 106 07/26/17 10:00 111 123/69 (87) 07/26/17 09:35 18 07/26/17 09:00 115 07/26/17 09:00 113 120/66 (84) 07/26/17 08:55 113 07/26/17 08:50 110 07/26/17 08:45 113 07/26/17 08:44 18 07/26/17 08:40 110 07/26/17 08:35 112 07/26/17 08:30 112 07/26/17 08:25 113 07/26/17 08:20 114 07/26/17 08:15 115 07/26/17 08:10 116 07/26/17 08:05 113 07/26/17 08:00 114 110/57 (74) 07/26/17 08:00 110 07/26/17 07:55 117 07/26/17 07:50 118 07/26/17 07:47 97.9 07/26/17 07:46 18 07/26/17 07:45 121 07/26/17 07:40 122 07/26/17 07:35 114 07/26/17 07:30 110 07/26/17 07:25 111 07/26/17 07:20 109 07/26/17 07:15 108 07/26/17 07:10 108 07/26/17 07:05 109 07/26/17 07:00 108 105/53 (70) 07/26/17 07:00 108 07/26/17 06:55 108 07/26/17 06:34 18 07/26/17 06:00 110/61 (77) 07/26/17 05:55 106 07/26/17 05:30 106 07/26/17 05:00 98.7 18 98/59 (72) 07/26/17 04:55 108 07/26/17 04:45 107 07/26/17 04:00 108/59 (75) 07/26/17 03:55 109 07/26/17 03:00 18 07/26/17 03:00 110/66 (81) 07/26/17 02:55 111 07/26/17 02:00 111/50 (70) 07/26/17 01:55 110 07/26/17 01:00 18 115/62 (79) 07/26/17 01:00 98.7 07/26/17 00:55 110 07/26/17 00:00 126/71 (89) 07/26/17 00:00 18 07/25/17 23:55 110 07/25/17 23:40 112 07/25/17 23:35 110 07/25/17 23:25 109 07/25/17 23:10 114 07/25/17 23:00 120/65 (83) 07/25/17 22:55 111 07/25/17 22:45 121/69 (86) 07/25/17 22:45 98.9 20 07/25/17 22:40 108 07/25/17 22:35 113 07/25/17 22:32 130/93 (105) 07/25/17 22:25 114 07/25/17 22:10 111 07/25/17 21:55 115 Lab & Micro Results Test 07/25/17 21:45 White Blood Count 10.2 TH/MM3 Red Blood Count 3.95 MIL/MM3 Hemoglobin 12.2 GM/DL Hematocrit 35.7 % Mean Corpuscular Volume 90.3 FL Mean Corpuscular Hemoglobin 31.0 PG Mean Corpuscular Hemoglobin Concent 34.3 % Red Cell Distribution Width 13.8 % Platelet Count 194 TH/MM3 Mean Platelet Volume 8.2 FL Neutrophils (%) (Auto) 77.5 % Lymphocytes (%) (Auto) 15.4 % Monocytes (%) (Auto) 6.3 % Eosinophils (%) (Auto) 0.7 % Basophils (%) (Auto) 0.1 % Neutrophils # (Auto) 7.9 TH/MM3 Lymphocytes # (Auto) 1.6 TH/MM3 Monocytes # (Auto) 0.6 TH/MM3 Eosinophils # (Auto) 0.1 TH/MM3 Basophils # (Auto) 0.0 TH/MM3 CBC Comment DIFF FINAL Differential Comment Urine Color YELLOW Urine Turbidity CLEAR Urine pH 6.5 Urine Specific [place] 1.021 Urine Protein TRACE mg/dL Urine Glucose (UA) 300 mg/dL Urine Ketones 10 mg/dL Urine Occult Blood NEG Urine Nitrite NEG Urine Bilirubin NEG Urine Urobilinogen LESS THAN 2.0 MG/DL Urine Leukocyte Esterase TRACE Urine RBC 2 /hpf Urine WBC 1 /hpf Urine Squamous Epithelial Cells 5 /hpf Urine Mucus FEW /lpf Microscopic Urinalysis Comment CULT NOT INDICATED Uric Acid 4.6 MG/DL Total Bilirubin 0.2 MG/DL Direct Bilirubin 0.1 MG/DL Indirect Bilirubin 0.1 MG/DL Aspartate Amino Transf (AST/SGOT) 19 U/L Alanine Aminotransferase (ALT/SGPT) 16 U/L Alkaline Phosphatase 63 U/L Total Protein 7.3 GM/DL Albumin 2.8 GM/DL Physical Exam GENERAL: Well-nourished, well-developed patient. CARDIOVASCULAR: Regular rate and rhythm without murmurs, gallops, or rubs. RESPIRATORY: Breath sounds equal bilaterally. No accessory muscle use. ABDOMEN/GI: Abdomen soft, non-tender. 30 cm 1+/50% -2 anterior and soft strip category one no UCs on monitor EXTREMITIES: No cyanosis or edema, non-tender, without signs of DVT. Assessment and Plan Problem List: (1) contractions ICD Codes: O47.9 - False labor, unspecified (2) Diabetes mellitus ICD Codes: E11.9 - Type 2 diabetes mellitus without complications Status: Acute Assessment and Plan 36 yo with iup at 30w2d here for ptl and dm management 1) ctx- received bms at 2230, on mag. will stop magnesium after 12 hours. No cervical change overnight, reassuring. will receive next bms at 2230 and will re-evaluate at that time for stability for d/c home 2) IDDM- receiving SSI for adjustments q 2 hours 07/26/17 stable and home with macrobid, insulin and intermittent procardia Hayden Magaña MD Jul 26, 2017 17:42
[2017-07-26] MEDS ORDERED: NIFE10 PO (17:46)
[2017-07-26] MEDS ORDERED: MACR100C2 PO (17:47)
--- NOTE | 2017-07-26 17:47 | HHI.DCPOC ---
Discharge Care Plan Report Symptoms to Your Doctor -Temperature above 100.5 degrees -Redness, of incision or excessive or foul smelling drainage -Unusual pain or calf pain -Increased vaginal bleeding -Painful or difficulty urinating -Feelings of extreme sadness or anxiety after 2 weeks Goals to Promote Your Health * To prevent worsening of your condition and complications * To maintain your health at the optimal level Directions to Meet Your Goals Take your medications as prescribed Follow your dietary instruction Follow activity as directed Ensure plenty of rest for recovery Drink fluids for hydration Keep your appointments as scheduled Take your immunizations and boosters as scheduled If your symptoms worsen call your PCP, if no PCP go to Urgent Care Center or Emergency Room Smoking is Dangerous to Your Health. Avoid second hand smoke Call the 24-hour crisis hotline for domestic abuse at Deborah Ernst MD Jul 26, 2017 17:47
== END 2017-07-26 18:12 | disposition home or self-care (01) ==
LOC: HOBED 19:59 → H2EB 21:12
PROVIDERS: ADMIT Obstetrics & Gynecology; ATTEND Obstetrics & Gynecology
DX: O60.03 Preterm labor without delivery, third trimester (principal); O23.43 Unspecified infection of urinary tract in pregnancy, third trimester; E11.9 Type 2 diabetes mellitus without complications; R03.0 Elevated blood-pressure reading, without diagnosis of hypertension; Z3A.30 30 weeks gestation of pregnancy
CPT/HCPCS: 59025; 80076; 81001; 84112; 84550; 85025; 96361; 96372; 96374; 99285; G0378; J0702; J3475; J7120

== ENCOUNTER 2017-07-28 08:05 | Inpatient (IN) | payer BC ==
[2017-07-28] VITALS (20 sets, daily range): BP systolic 113–146; BP diastolic 63–88; PULSE 87–118; RESP 12–20; TEMP 98.7–100.9; O2SAT 98–99
[~2017-07-28] VITALS: Ht 152.4 cm; Wt 81.6 kg
[~2017-07-28 08:05] MED LIST changes: +MACR100C2 PO; +NIFE10 PO; -NIFE1TAB85 PO
--- NOTE | 2017-07-28 09:01 | HHI.HP ---
History & Physical H&P Patient Name: Ming Lopez Unit Number: [id number] Date of : 1980 Patient Status: Departed Emergency Room Attending Doctor: Jeevan Starkey MD HPI HPI Chief Complaint Contraction/headache/nausea Travel History International Travel<30 Days: No Contact w/Intl Traveler<30Days: No Known Affected Area: No History of Present Illness HPI 36-year-old , IUP at 30-31 weeks care complicated by: 1. 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 Prior delivery 3. Multiple renal issues with history of chronic urinary tract infection and pyelonephritis 4. History of bilateral ureteral reimplantations 5. Conization of extended spectrum beta-lactamase Klebsiella with resistance to all antibiotics except the carbapenems 6. Numerous antibiotic allergies as documented (including 2 carbapenems; ciprofloxacin, Ceftin, Phenergan, Levaquin, Rocephin, meropenem, Invanz) 7. Gastroparesis 8. Asthma: No meds 9. Depression: No meds 10. Class C diabetes: She was diagnosed with type 2 diabetes in 2003; home regimen includes Levamir with a Humulin R sliding scale 2-3 times per day The patient presents complaining of contractions that have been irregular and vaginal bleeding. There are no aggravating or alleviating factors, there are no attempted treatments. She does occasionally take Procardia for her contractions . . She tried Tylenol for her headache, but there was no relief. She reports the contractions are relatively irregular and just occurring every now and then but she has not been timing them she denies any leaking of fluid . She reports good movements. Weeks Gestation: 30 Para: 2 : 4 History (Limited) History Past Medical History Narrative Medical Multiple renal issues with history of chronic urinary tract infection and pyelonephritis History of bilateral ureteral reimplantations Conization of extended spectrum beta-lactamase Klebsiella with resistance to all antibiotics except the carbapenems Numerous antibiotic allergies as documented (including 2 carbapenems; ciprofloxacin, Ceftin, Phenergan, Levaquin, Rocephin, meropenem, Invanz) Gastroparesis Asthma: No meds Depression: No meds Class C diabetes: She is diagnosed with type 2 diabetes in 2003 Endometriosis Pelvic congestion syndrome Obstetric History Obstetric History Obstetric History Obstetric History 1 with shoulder dystocia and associated injury with a number Erb's palsy delivery 1 Past Surgical History Narrative Surgical Past Surgical History Narrative Surgical Hernia repair Appendectomy Cholecystectomy D&C section Laparoscopy 5 Tonsillectomy Family History Narrative Family History Family History Narrative Family History DM Social History Alcohol Use: No Tobacco Use: No Substance Abuse: No Allergies-Medications Allergies-Medications (Allergen,Severity, Reaction): Coded Allergies: cefuroxime (Unverified Allergy, Severe, SEVERE VOMITING,THROAT SWELLING, 07/14/17) THROAT SWELLING ciprofloxacin (Unverified Allergy, Severe, HIVES, SOB ; THROAT SWELLING, 07/14/17) ertapenem (Unverified Allergy, Severe, swelling throat, 07/14/17) meropenem (Verified Allergy, Severe, Hives, 07/14/17) promethazine (Unverified Allergy, Severe, SEIZURES, 07/14/17) ceftriaxone (Unverified Allergy, Intermediate, Rash, 07/14/17) levofloxacin (Unverified Allergy, Unknown, Hives, 07/14/17) *MDRO Multi-Drug Resistant Organism (Verified Adverse Reaction, Unknown, ESBL, 07/14/17) ESBL Klebsiella (urine) - 01/22/17 Home Meds Active Scripts Azithromycin (Zithromax Z-Kamlesh) 250 Mg Dspk, 250 MG PO DIRECTED for Infection , #1 DSPK 0 Refills 500 MG (2 tabs) day 1, then 1 tab days 2-5. Prov:Jeevan Starkey II, MD 06/13/17 Reported Medications Budesonide-Formoterol Inh (Symbicort Inh) 80-4.5 Mcg/Act Aero, 1 PUFF INH Q12HR Y for Asthma Management, #1 INHALER 0 Refills 09/20/16 Albuterol 18 GM Inh (Ventolin Hfa 18 GM Inh) 90 Mcg/Act Aer, 2 PUFF INH Q4H Y for SHORTNESS OF BREATH, #1 INHALER 0 Refills 09/20/16 ROS Review of Systems Except as stated in HPI: all other systems reviewed are Neg General / Constitutional: No: Fever, Weight Gain, Weight Loss, Chills, Other Eyes: No: Diploplia, Blurred Vision, Visual changes, Pain, Photophobia, Other HENT: Headaches Cardiovascular: No: Irregular Rhythm, Chest Pain or Discomfort, Palpitations, Tachycardia, Syncope, Varicosities, Edema, Cyanosis, Other Respiratory: No: Cough, Short of Breath, Wheezing, Other Gastrointestinal: Nausea Genitourinary: No: Urgency, Frequency, Dysuria, Nocturia, Hematuria, Decreased Urinary Output, Oliguria, Hesitancy, Dribbling, Incontinence, Pelvic Pain, Dyspareunia, Discharge, Menorrhagia, Vaginal Bleeding, Other Musculoskeletal: No: Limited ROM, Weakness, Cramping, Edema, Pain, Other Skin: No Rash, No Itching, No Dryness, No Lumps, No Change in Pigmentation, No Change in Nails, No Alopecia, No Lesions, No Breast Lumps, No Breast Tenderness , No Breast Swelling, No Other Neurologic: No: Weakness, Dizziness, Syncope, Focal Abnormalities, Coordination Problem, Headache, Slurred Speech, Seizures, Other Psychiatric: No: Anxiety, Depression, Suicidal Ideations, Disorder of Thought, Mood Disorder, Substance Abuse, Homicidal Ideation, Other Endocrine: No: Heat Intolerance, Cold Intolerance, Polydipsia, Polyuria, Other Hematologic/Lymphatic: No Easy Bruising, No Lymph Node Enlargement, No Other Physical Exam Physical Exam Narrative GENERAL: Well-nourished, well-developed patient. SKIN: Warm and dry. HEAD: Normocephalic and atraumatic. EYES: No scleral icterus. No injection or drainage. ENT: No nasal drainage noted. Mucous membranes pink. Airway patent. NECK: Supple, trachea midline. No JVD. CARDIOVASCULAR: Regular rate and rhythm without murmurs, gallops, or rubs. RESPIRATORY: Breath sounds equal bilaterally. No accessory muscle use. BREASTS: Deferred ABDOMEN/GI: Abdomen soft, non-tender, bowel sounds present, no rebound, no guarding Gravid GENITOURINARY: External Genitalia: intact and normal in appearance. spec exam--moderate blood in vault dark red oozing from cx , cx --loose 1 cm /80/-3 FHT's: heart tones are in the 140s with moderate long-term variability, good accelerations, no decelerations noted EXTREMITIES: No cyanosis or edema. BACK: Nontender without obvious deformity. No CVA tenderness. NEUROLOGICAL: Awake and alert. Motor and sensory grossly within normal limits. Five out of 5 muscle strength in all muscle groups. Normal speech. Psychiatric: Grossly normal memory and affect Data Data Data Orders Orders Lr (Bolus) Inj (07/14/17 19:15) Vital Signs (Adult) .ON ADMISSION (07/14/17 19:13) ^ Labor Status (07/14/17 19:13) Urinalysis - C+S If Indicated (07/14/17 19:13) Diet Liquid (07/15/17 Breakfast) Fibronectin (07/14/17 19:13) Ondansetron Inj (Zofran Inj) (07/14/17 19:15) Cnqe-Fjgto-Sxbs 325-50-40 Mg (Fioricet 3 (07/14/17 19:15) MDM MDM Plan Assessment/plan: 1. IUP at 30-31 weeks vag bleeding early labor cx /-3 CTXs hard to supervisor opening and picking plan for tocolysis, IVF ,IV Magso4 ,US PTL 2. Multiple renal issues with history of chronic urinary tract infection and pyelonephritis and ESBL Klebsiella colonization of kidney: 3. 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 Prior delivery 5. Conization of extended spectrum beta-lactamase Klebsiella with resistance to all antibiotics except the carbapenems 6. Numerous antibiotic allergies as documented (including 2 carbapenems; ciprofloxacin, Ceftin, Phenergan, Levaquin, Rocephin, meropenem, Invanz) 7. Gastroparesis 8. Asthma: No meds 9. Depression: No meds 10. Class C diabetes: She is diagnosed with type 2 diabetes in 2003, will continue home regimen of Levamir daily with Humulin R sliding scale 2-3 times per day. Will order ADA diet. 11. History of bilateral ureteral reimplantations 13. well-being: heart tones appropriate for gestational age, reactive NST, FHR reassuring and appropriate for gestational age. Jeevan Starkey MD, Bill L. II MD Jul 28, 2017 09:01
[2017-07-28] MEDS ORDERED: CALCIUM GLUCONATE 10% 1 GM/10 ML VIAL IV PUSH PRN (09:30)
[2017-07-28] MEDS ORDERED: LACTATED RINGER'S 1000 ML INJ 1,000 ML IV SCH ×3 (09:30→21:50)
[2017-07-28] MEDS ORDERED: ONDANSETRON HCL 4 MG/2 ML VIAL IV PUSH PRN ×2 (09:30→17:00)
[2017-07-28] MEDS ORDERED: MAGNESIUM SULFATE 4 GM PREMIX 100 ML IV ONE (09:30)
[2017-07-28] MEDS: NIFEdipine 10 MG CAP PO SCH ×4 (09:30→10:30)
[2017-07-28] MEDS ORDERED: SODIUM CHLORIDE 0.9% FLUSH 10 ML FLUSH IV FLUSH PRN ×2 (09:30→17:00)
[2017-07-28] MEDS ORDERED: MAGNESIUM SULFATE 40 GM PREMIX 1,000 ML IV SCH (10:00)
[2017-07-28] MEDS ORDERED: diphenhydrAMINE HCL 50 MG/ML VIAL ONE ×2 (10:41→10:47)
[2017-07-28 11:06] LABS: AUTOMATED NEUTROPHIL # 8.9 TH/MM3 (1.8-7.7); BASOPHIL % 0.1 % (0.0-2.0); EOSINOPHIL % 0.4 % (0.0-4.0); HEMATOCRIT 33.1 % (35.0-46.0); LYMPH % 14.6 % (9.0-44.0); LYMPHOCYTE # 1.6 TH/MM3 (1.0-4.8); MEAN CELL VOLUME 90.9 FL (80.0-100.0); MEAN CORPUSCULAR HEMOGLOBIN 30.9 PG (27.0-34.0); MONO % 6.2 % (0.0-8.0); NEUT % 78.7 % (16.0-70.0); PLATELET COUNT 190 TH/MM3 (150-450); RED BLOOD COUNT 3.64 MIL/MM3 (4.00-5.30); WHITE BLOOD COUNT 11.3 TH/MM3 (4.0-11.0)
[2017-07-28 11:16] LABS: HEMO FLAGS AUTO DIFF
[2017-07-28] MEDS ORDERED: diphenhydrAMINE HCL 50 MG/ML VIAL IV PUSH ONE (11:30)
[2017-07-28 11:44] LABS: SCAN/DIFF AUTO DIFF CONFIRMED
[2017-07-28] MEDS ORDERED: VANCOMYCIN 1,000 MG/NS 250 ML IV SCH ×2 (12:00)
[2017-07-28] MEDS ORDERED: CITRIC ACID-SODIUM CITRATE LIQ 30 ML UDC PO SCH ×2 (12:30→15:30)
[2017-07-28] MEDS ORDERED: SODIUM CHLORID 0.9% 500 ML INJ 500 ML IV PRN (12:30)
[2017-07-28] MEDS ORDERED: OXYTOCIN 30 UNITS-500ML PREMIX 500 ML IV ONE ×2 (12:30→17:00)
[2017-07-28] MEDS ORDERED: SODIUM CHLOR 0.9% 1000 ML INJ 1,000 ML IV PRN (12:30)
[2017-07-28] MEDS ORDERED: LIDOCAINE HCL 1% 50 ML VIAL I-DERMAL PRN (13:00)
[2017-07-28] MEDS ORDERED: MINERAL OIL 10 ML VIAL TOPICAL PRN (13:00)
[2017-07-28] MEDS ORDERED: LIDOCAINE HCL 1% 50 ML VIAL INFIL PRN (13:00)
[2017-07-28 13:25] LABS: ALT (GPT) 17 U/L (10-53); ANION GAP 10 MEQ/L (5-15); AST (GOT) 24 U/L (15-37); BICARBONATE 24.3 MEQ/L (21.0-32.0); BLOOD UREA NITROGEN 6 MG/DL (7-18); CHLORIDE 104 MEQ/L (98-107); GLOMERULAR FILTRATION RATE 164 ML/MIN (>89); POTASSIUM 3.4 MEQ/L (3.5-5.1); SODIUM (NA) 138 MEQ/L (136-145)
[2017-07-28 13:27] LABS: ALKALINE PHOSPHATASE 55 U/L (45-117); TOTAL BILIRUBIN ADULT 0.3 MG/DL (0.2-1.0)
[2017-07-28] MEDS ORDERED: LACTATED RINGER'S 1000 ML INJ 1,000 ML IV ONE (13:58)
--- NOTE | 2017-07-28 14:27 | PD.LABORPN ---
Subjective Subjective 36 yo mwf at 30 1/2 weeks EGA came in with bleeding and cervical change. She has been having premature contractions with positive FFN in my office last week. She has received MgSO4 this week, along with steroids. She is on vancomycin which is one of the few antibiotics that she is not allergic too, as she has group B strep in her urine. She is a NIDDM when not and requiring insulin. Her sugars have been variable and she is now coomanaged by perinatologist Dr. Abdalla. She has been on procardia with no decrease in UCs in last 24 hours. surveillance throughout has been entirely reassuring. Mom has urologic condition with reflex, multiple right urerteral reimplantations and hx of multiple UTIs. Cervix was 50/2/-2 on Tuesday. Now 3- 4/100% 0 with BBOW Desires repeat section and PPTL. Objective Vital Signs Vital Signs Date Time Temp Pulse Resp B/P (MAP) Pulse Ox O2 Delivery O2 Flow Rate FiO2 07/28/17 13:00 98.7 07/28/17 12:00 98 131/70 (90) 07/28/17 11:30 102 07/28/17 11:25 105 07/28/17 11:25 106 136/81 (99) 07/28/17 11:20 103 07/28/17 11:20 101 144/79 (100) 07/28/17 11:15 99 07/28/17 11:15 102 139/86 (103) 07/28/17 11:10 102 146/88 (107) 07/28/17 11:10 100 07/28/17 11:05 98 136/88 (104) 07/28/17 11:05 104 07/28/17 11:00 100 116/72 (87) 07/28/17 10:57 94 130/77 (94) Objective 3-4/100/_1 to 0 BBOW vertex EFW 3+ pounds strip reassuring Weeks Gestation: 30 Gest Age Assessed Date: Jul 28, 2017 Pt started active labor?: Yes Active labor start date: Jul 28, 2017 Active labor start time: 08:00 Medical induction of labor?: No Artificial rupture of membrane: No Assessment/Plan Assessment and Plan 30+ week IUP in active labor prior section x 1 prior with severe shoulder dystocia and child with permanent brachial plexus injury gestational diabetes on insulin GBS in urine desires repeat section with BTL will go when ready. have discussed risks, benefits, expectations, alternatives and options regarding mode of delivery and timing of sterilization Have also reviewed with NICU in detail. Deborah Ernst MD Jul 28, 2017 14:27
[2017-07-28] MEDS ORDERED: ACETAMINOPHEN 1000 MG/100 ML 100 ML IV ONE ×2 (15:23→15:30)
[2017-07-28] MEDS ORDERED: MEPERIDINE HCL 25 MG/ML VIAL ONE (15:27)
[2017-07-28] MEDS ORDERED: NIFEdipine 10 MG CAP PO SCH (16:00)
[2017-07-28] MEDS ORDERED: OXYTOCIN 30 UNITS-500ML PREMIX 500 ML ONE (16:18)
[2017-07-28] MEDS ORDERED: SIMETHICONE 80 MG CHEWABLE TAB PO PRN (17:00)
[2017-07-28] MEDS ORDERED: ZOLPIDEM TARTRATE 5 MG TAB PO PRN (17:00)
[2017-07-28] MEDS ORDERED: INSULIN NovoLIN REGULAR SUPPLEMENTAL SCALE SQ SCH (17:00)
[2017-07-28] MEDS ORDERED: DOCUSATE SODIUM 50 MG/SENNA 8.6 MG TAB PO PRN (17:00)
[2017-07-28] MEDS ORDERED: oxyCODONE/ACETAMINOPHEN 5 MG/325 MG TAB PO PRN (17:00)
--- NOTE | 2017-07-28 17:04 | PD.OB.DELI ---
Procedure Note Section Procedure Pre Op Diagnosis: (1) delivery due to previous difficult delivery, delivered, current hospitalization (2) Gestational diabetes mellitus (GDM) (3) labor in third trimester Post Op Diagnosis: (1) delivery due to previous difficult delivery, delivered, current hospitalization Performed by Deborah Ernst Procedure: Repeat Low Transverse Sec Indication for delivery: Desired elective repeat Previous condition: Other (adhesions) Informed consent obtained: For anesthesia, For procedure Confirmed correct: Patient, Procedure, Site, Time-out taken Anesthesia: Epidural Medication prior to procedure: As documented in eMAR, Antacids Monitoring during procedure: Blood pressure monitoring, pre k special education teacher, doppler, monitor Urinary catheter: Inserted using sterile technique, To dependent drainage Sterile preparation: Duraprep, In usual fashion, With 2% chlorexidine ( Hibiclens) Position: Supine with wedge to right side Operative Features Skin Incision: Pfannenstiel Uterine Incision: Low transverse w/knife / blunt ext Membranes Ruptured: Artificially Presentation: Occiput anterior Delivery date: Jul 28, 2017 Delivery time: 15:00 Delivery of infant: Assisted Infant: Female One Minute : 7 Five Minute : 8 Weight: 3 12 Status of : Viable Placenta delivered: Intact Medications: Antibiotics, Oxytocin Estimated blood loss: 400 Procedure tolerated: Well Maternal Condition: Stable Condition: Stable Procedure in detail dictated Deborah Ernst MD Jul 28, 2017 17:04
[2017-07-28] MEDS: diphenhydrAMINE HCL 50 MG/ML VIAL IV PUSH PRN (18:37)
[2017-07-28] MEDS: IBUPROFEN 600 MG TAB PO PRN (20:49)
[2017-07-28] MEDS ORDERED: SODIUM CHLORIDE 0.9% FLUSH 10 ML FLUSH IV FLUSH SCH (21:00)
--- NOTE | 2017-07-28 23:08 | MP ---
cc: MILLIE HERNANDEZ M.D. DATE OF SURGERY 07/28/17 PREOPERATIVE DIAGNOSIS A 30-1/2-week intrauterine with labor and rapid cervical change, prior section after complicated vaginal delivery, desire for repeat section, gestational diabetes on insulin POSTOPERATIVE DIAGNOSIS A 30-1/2-week intrauterine with labor and rapid cervical change, prior section after complicated vaginal delivery, desire for repeat section, gestational diabetes on insulin. Delivered PROCEDURE Repeat low transverse segment section and bilateral fimbriectomy ANESTHESIA Spinal with Duramorph SURGEON Quintin Hernandez MD [employer] Karen Vargas. FINDINGS A living female was delivered from [place] with clear fluid and a very, very thick umbilical cord. However, the placenta was densely adherent to the uterus without being in accreta. It appeared aged, calcified, ratty and it was difficult to see if it was intact. Careful evaluation of the uterus was performed to make sure there was no placental remnants left. Infant weight 3 pounds 12 ounces. Her Apgars were 7 and 8. She is in the NICU on C-PAP. Both the right and left fimbria were removed. Estimated blood loss was 400 mL. Sponge, instrument and needle count were correct. She and the baby went to the recovery in stable condition. PROCEDURE IN DETAIL The patient had come in this morning with some bleeding and contractions and was found to be changing her cervix. She went from 50% minus 3 to about 400% and zero station with bulging water. She desired a repeat section with a tubal and NICU desired the procedure should be done during daylight hours. She had received two courses of steroids with the last one being 48 hours ago. She had been on magnesium for a day this week and for another 6 hours today. She had received vancomycin for her Group B strep prophylaxis. The circumstances were explained to her and she was taken to the operating room. She was given a spinal with Duramorph. She was placed in dorsal supine position with weight off the vena cava. A time-out was performed with all in attendance. She had a Rangel catheter in place, sequential stockings on. After assuring adequate analgesia, her Pfannenstiel incision was used to go through to the rectus fascia with the scarred subcutaneous and fascial tissue noted. The fascia was taken off the scarred rectus muscle. She had a pronounced rectus diastasis. The parietal peritoneum was entered sharply and an incision made in the low transverse portion of the uterus. The was delivered easily with the findings as noted above. The cord was clamped after a delay of 45 seconds, cut and she was handed to the neonatology team in attending. Cord gas was obtained. Cord blood was obtained and then a placenta was [facility] to [facility] harvesting. The uterus was gently exteriorized, carefully cleaned with a lap sponge to assure no placental remnants of membrane. It was closed with chromic in an interlocking fashion and then the right tube was removed by classic Martha technique including the fimbria and then the left tube was treated the same. The uterus was placed back in the peritoneal cavity and then copious irrigation was performed and then the rectus muscle was approximated with interrupted. The fascia was closed with one Vicryl in a running interlocking fashion. The subcutaneous layer was closed with 3-0 plain and the skin was closed with a 4-0 Vicryl on a Wiliam needle. Estimated blood loss was 400 mL. Sponge, instrument, needle count were correct. She tolerated the procedure well and she went to the recovery room in stable condition. MD JESSIE Falcon/ /5:07 PM /10:47 PM MTDD
[2017-07-28] MEDS: oxyCODONE/ACETAMINOPHEN 5 MG/325 MG TAB PO PRN (23:39)
[2017-07-29] VITALS (9 sets, daily range): BP systolic 119–145; BP diastolic 77–86; PULSE 91–139; RESP 16–22; TEMP 98.3–102.7; O2SAT 95–98
[2017-07-29] MEDS: diphenhydrAMINE HCL 50 MG/ML VIAL IV PUSH PRN ×2 (01:14→07:32)
[2017-07-29] MEDS ORDERED: OXYTOCIN 30 UNITS-500ML PREMIX 500 ML IV PRN (03:00)
[2017-07-29] MEDS: oxyCODONE/ACETAMINOPHEN 5 MG/325 MG TAB PO PRN (04:04)
[2017-07-29] MEDS: IBUPROFEN 600 MG TAB PO PRN ×3 (04:05→18:24)
[2017-07-29 05:57] LABS: AUTOMATED NEUTROPHIL # 8.7 TH/MM3 (1.8-7.7); BASOPHIL % 0.1 % (0.0-2.0); EOSINOPHIL % 0.1 % (0.0-4.0); HEMATOCRIT 30.1 % (35.0-46.0); HEMO FLAGS DIFF FINAL; LYMPH % 6.7 % (9.0-44.0); LYMPHOCYTE # 0.7 TH/MM3 (1.0-4.8); MEAN CELL VOLUME 90.6 FL (80.0-100.0); MEAN CORPUSCULAR HGB CONC 34.2 % (32.0-36.0); MONO % 4.2 % (0.0-8.0); NEUT % 88.9 % (16.0-70.0); PLATELET COUNT 155 TH/MM3 (150-450); RED BLOOD COUNT 3.33 MIL/MM3 (4.00-5.30); RED CELL DISTRIBUTION WIDTH 13.9 % (11.6-17.2); WHITE BLOOD COUNT 9.8 TH/MM3 (4.0-11.0)
[2017-07-29] MEDS: SODIUM CHLORIDE 0.9% FLUSH 10 ML FLUSH IV FLUSH SCH (07:30)
--- NOTE | 2017-07-29 07:56 | HHI.OB ---
Subjective Post Operative Day: 1 Remarks Resting comfortably except for itching Objective Vitals/I&O Vital Signs Date Time Temp Pulse Resp B/P (MAP) Pulse Ox O2 Delivery O2 Flow Rate FiO2 07/29/17 04:00 99.1 114 16 119/77 (91) 07/29/17 01:14 99.8 119 16 145/78 (100) 07/28/17 23:00 99.7 07/28/17 21:30 100.9 07/28/17 21:30 118 16 07/28/17 21:30 120/76 (91) 07/28/17 18:40 20 07/28/17 17:50 94 130/77 (94) 07/28/17 17:50 99.3 07/28/17 17:44 18 07/28/17 16:50 98.9 07/28/17 16:34 20 99 07/28/17 16:34 88 123/75 (91) 07/28/17 16:20 116/71 (86) 07/28/17 16:20 87 20 99 07/28/17 16:05 14 99 07/28/17 16:05 93 114/63 (80) 07/28/17 15:50 98 07/28/17 15:50 98.7 92 12 113/70 (84) 07/28/17 13:00 98.7 07/28/17 12:00 98 131/70 (90) 07/28/17 11:30 102 07/28/17 11:25 105 07/28/17 11:25 106 136/81 (99) 07/28/17 11:20 103 07/28/17 11:20 101 144/79 (100) 07/28/17 11:15 99 07/28/17 11:15 102 139/86 (103) 07/28/17 11:10 102 146/88 (107) 07/28/17 11:10 100 07/28/17 11:05 98 136/88 (104) 07/28/17 11:05 104 07/28/17 11:00 100 116/72 (87) 07/28/17 10:57 94 130/77 (94) Result Diagram: 07/29/17 0521 07/28/17 1246 Objective Remarks GENERAL: Well-nourished, well-developed patient. CARDIOVASCULAR: Regular rate and rhythm without murmurs, gallops, or rubs. RESPIRATORY: Breath sounds equal bilaterally. No accessory muscle use. ABDOMEN/GI: Abdomen soft, non-tender, bowel sounds present. Incision: Clean, dry and intact. (bandage dry) Fundus: Firm, non-tender at umbilicus. GENITOURINARY: Light to moderate bleeding. EXTREMITIES: No cyanosis or edema, non-tender, without signs of DVT. Medications and IVs Current Medications Medications (Trade) Dose Ordered Sig/Mary Route Start Time Stop Time Status Last Admin (Bicitra Liq) 30 ml CAR HOSTLER PO 07/28/17 12:30 08/01/17 12:29 07/28/17 14:04 Lactated Ringer's 1,000 ml @ 100 mls/hr Q10H IV 07/28/17 21:50 07/29/17 17:49 Oxytocin 500 ml @ 100 mls/hr UNSCH X1 PRN IV 07/29/17 03:00 07/30/17 02:59 (NS Flush) 2 ml BID IV FLUSH 07/28/17 21:00 (NS Flush) 2 ml UNSCH PRN IV FLUSH 07/28/17 17:00 (Mylicon Chew) 80 mg QID PRN PO 07/28/17 17:00 (Motrin) 600 mg Q6H PRN PO 07/28/17 17:00 07/29/17 04:05 (Percocet 5-325 Mg) 1 tab Q4H PRN PO 07/28/17 17:00 (Percocet 5-325 Mg) 2 tab Q4H PRN PO 07/28/17 17:00 07/29/17 04:04 (Nohemy-Colace) 2 tab Q12H PRN PO 07/28/17 17:00 (Ambien) 5 mg HS PRN PO 07/28/17 17:00 (M-M-R Ii Inj) 0.5 ml ONCE ONCE SQ 07/29/17 16:00 07/29/17 16:01 (Boostrix Inj) 0.5 ml ONCE ONCE IM 07/29/17 16:00 07/29/17 16:01 (Zofran Inj) 4 mg Q6H PRN IV PUSH 07/28/17 17:00 (Zoloft) 50 mg DAILY PO 07/28/17 17:45 (Benadryl Inj) 50 mg Q6H PRN IV PUSH 07/28/17 18:30 07/29/17 07:32 Assessment/Plan Assessment and Plan Doing well POD 1 insulin dependent GDM--FBS now 110 No treatment for one week and can then resume her victoza and metformin. labor and delivery--history of many UTIs possible infection? WBC normal though HR slightly elevated and temp had one 100.9 (afebrile now) itching terribly-- benedryl po and visteral plan for discharge POD 3 with pain meds, Deborah Feliciano MD Jul 29, 2017 07:56
[2017-07-29] MEDS ORDERED: OXYC1TAB63 PO (08:01)
--- NOTE | 2017-07-29 08:01 | HHI.DCPOC ---
Discharge Care Plan Report Symptoms to Your Doctor -Temperature above 100.5 degrees -Redness, of incision or excessive or foul smelling drainage -Unusual pain or calf pain -Increased vaginal bleeding -Painful or difficulty urinating -Feelings of extreme sadness or anxiety after 2 weeks Goals to Promote Your Health * To prevent worsening of your condition and complications * To maintain your health at the optimal level Directions to Meet Your Goals Take your medications as prescribed Follow your dietary instruction Follow activity as directed Ensure plenty of rest for recovery Drink fluids for hydration Keep your appointments as scheduled Take your immunizations and boosters as scheduled If your symptoms worsen call your PCP, if no PCP go to Urgent Care Center or Emergency Room Smoking is Dangerous to Your Health. Avoid second hand smoke Call the 24-hour crisis hotline for domestic abuse at Deborah Ernst MD Jul 29, 2017 08:01
[2017-07-29] MEDS: SERTRALINE HCL 50 MG TAB PO SCH (10:23)
[2017-07-29] MEDS: ACETAMINOPHEN 325 MG TAB PO PRN ×2 (10:23→18:24)
[2017-07-29 10:57] LABS: BLOOD, URINE LARGE (NEG); COMMENT (UR) CULT NOT INDICATED; CULTURE IF INDICATED CULT NOT INDICATED; GLUCOSE,URINE NEG (NEG); KETONE, URINE TRACE mg/dL (NEG); MUCUS URINE FEW /lpf (OCC); NITRITE,URINE NEG (NEG); PH, URINE 5.5 (5.0-8.5); SQUAMOUS EPITHELIAL CELL URINE 1 /hpf (0-5); URINE COLOR YELLOW (YELLW/STRAW)
[2017-07-29] MEDS: diphenhydrAMINE HCL 50 MG CAP PO PRN (13:04)
[2017-07-29] MEDS ORDERED: DIPHTH/TETANUS/ACEL PERTUSSIS (BOOSTER) 0.5 ML VIAL/PFS IM ONE (16:00)
[2017-07-29] MEDS ORDERED: MEASLES, MUMPS, RUBELLA VACCINE 0.5 ML VIAL SQ ONE (16:00)
[2017-07-29] MEDS ORDERED: MEPERIDINE HCL 25 MG/ML VIAL IV ONE (19:00)
[2017-07-29] MEDS ORDERED: KETOROLAC TROMETHAMINE 60 MG/2 ML (IM) VIAL IM PRN (19:00)
[2017-07-29 19:27] LABS: AUTOMATED NEUTROPHIL # 6.4 TH/MM3 (1.8-7.7); BASOPHIL % 0.1 % (0.0-2.0); EOSINOPHIL % 0.2 % (0.0-4.0); HEMATOCRIT 33.1 % (35.0-46.0); LYMPH % 7.3 % (9.0-44.0); LYMPHOCYTE # 0.5 TH/MM3 (1.0-4.8); MEAN CELL VOLUME 90.2 FL (80.0-100.0); MEAN CORPUSCULAR HEMOGLOBIN 30.1 PG (27.0-34.0); MEAN CORPUSCULAR HGB CONC 33.4 % (32.0-36.0); MONO % 4.6 % (0.0-8.0); NEUT % 87.8 % (16.0-70.0); PLATELET COUNT 155 TH/MM3 (150-450); RED BLOOD COUNT 3.67 MIL/MM3 (4.00-5.30); RED CELL DISTRIBUTION WIDTH 14.1 % (11.6-17.2); WHITE BLOOD COUNT 7.3 TH/MM3 (4.0-11.0)
[2017-07-29 19:28] LABS: HEMO FLAGS AUTO DIFF
[2017-07-29 20:33] LABS: BANDS 9 % (0-6); CORRECTED NUCLEATED RBC 1 /100 WBC (0-0); EOSINOPHILS 1 % (0-4); METAMYELOCYTES 1 % (0-1); MYELOCYTES 2 % (0-0); NEUTROPHIL # MANUAL DIFF 6.9 TH/MM3 (1.8-7.7); POLYS (SEG NEUTROPHILS) 82 % (16-70); SCAN/DIFF FINAL DIFF MANUAL; WBC DIFF SAMPLE 100
[2017-07-29] MEDS: diphenhydrAMINE HCL 50 MG/ML VIAL IV PRN (20:38)
[2017-07-29 20:39] LABS: PLATELET ESTIMATE SMEAR NORMAL (NORMAL); PLATELET MORPHOLOGY NORMAL (NORMAL); TOXIC GRANULATION 1+ (NORMAL)
[2017-07-29 20:40] LABS: DOHLE BODIES PRESENT (NONE SEEN)
[2017-07-29] MEDS: VANCOMYCIN 1,000 MG/NS 250 ML IV SCH ×2 (20:41)
--- NOTE | 2017-07-29 23:34 | HHI.OB ---
Subjective Post Operative Day: 1 Remarks On two separate occasions today Ming went to the NICU after assessment with normal vitals other than mild elevated HR. There she developed shakes and chills and returned to [facility] and assessment showed high fever, tachycardia and mildly elevated temperature. She has texted me that her uterus hurts worse than when in labor. She has complained of feeling excessive bleeding, but nurses evaluation revealed scant blood. Objective Vitals/I&O Vital Signs Date Time Temp Pulse Resp B/P (MAP) Pulse Ox O2 Delivery O2 Flow Rate FiO2 07/29/17 20:30 91 07/29/17 20:30 99.2 07/29/17 20:30 95 07/29/17 20:00 115 18 143/82 (102) 07/29/17 20:00 101.3 07/29/17 16:56 98.8 07/29/17 13:55 98.3 07/29/17 12:25 100.0 07/29/17 10:16 102.7 07/29/17 09:15 102.1 139 22 139/86 (103) 98 07/29/17 04:00 99.1 114 16 119/77 (91) 07/29/17 01:14 99.8 119 16 145/78 (100) Result Diagram: 07/29/17 1921 07/28/17 1246 Objective Remarks GENERAL: Well-nourished, well-developed patient. CARDIOVASCULAR:RRR with mild elevation in rate. RESPIRATORY: Breath sounds equal bilaterally. No accessory muscle use. ABDOMEN/GI: Abdomen soft, non-tender, bowel sounds present. Incision: Clean, dry and intact. Fundus: Firm, non-tender at umbilicus. GENITOURINARY: Light to moderate bleeding. EXTREMITIES: No cyanosis or edema, non-tender, without signs of DVT. Negative Homans, no erythema at or around incision No CVAT (this assesment is per RN twice today both am and evening shifts) Medications and IVs Current Medications Medications (Trade) Dose Ordered Sig/Mary Route Start Time Stop Time Status Last Admin (Bicitra Liq) 30 ml METAL LEAF LAYER PO 07/28/17 12:30 08/01/17 12:29 07/28/17 14:04 Oxytocin 500 ml @ 100 mls/hr UNSCH X1 PRN IV 07/29/17 03:00 07/30/17 02:59 (NS Flush) 2 ml BID IV FLUSH 07/28/17 21:00 07/29/17 07:30 (NS Flush) 2 ml UNSCH PRN IV FLUSH 07/28/17 17:00 (Mylicon Chew) 80 mg QID PRN PO 07/28/17 17:00 (Motrin) 600 mg Q6H PRN PO 07/28/17 17:00 07/29/17 18:24 (Nohemy-Colace) 2 tab Q12H PRN PO 07/28/17 17:00 (Ambien) 5 mg HS PRN PO 07/28/17 17:00 (Zofran Inj) 4 mg Q6H PRN IV PUSH 07/28/17 17:00 (Zoloft) 50 mg DAILY PO 07/28/17 17:45 07/29/17 10:23 (Benadryl) 50 mg Q6H PRN PO 07/29/17 08:00 07/29/17 13:04 (Tylenol) 650 mg Q6H PRN PO 07/29/17 10:30 07/29/17 18:24 (Roxicodone) 10 mg Q6H PRN PO 07/29/17 12:00 07/29/17 13:04 Vancomycin HCl 1000 mg/Sodium Chloride 250 ml @ 250 mls/hr Q12H IV 07/29/17 21:00 07/29/17 20:41 (Benadryl Inj) 50 mg Q6H PRN IV 07/29/17 19:00 07/29/17 20:38 (Toradol Inj) 30 mg UNSCH X1 PRN IM 07/29/17 19:00 08/01/17 18:59 Assessment/Plan Assessment and Plan Doing well POD 1 insulin dependent GDM--FBS now 110 No treatment for one week and can then resume her victoza and metformin. labor and delivery--history of many UTIs possible infection? WBC normal though HR slightly elevated and temp had one 100.9 (afebrile now) itching terribly-- benedryl po and visteral plan for discharge POD 3 with pain meds, benedryl 07/29/17 23:30 Multiple conversations with post nurses and texts with patient since initial evaluation this am: Two episodes of sudden chills, fever , tachycardia both occurring when patient off the floor. Blood cultures pending. CBC this am and this evening both show normal WBC with mild left shift. Cultures pending. ECG ordered. Vancomycin initially stopped this am but resumed this evening. DDX: Post op infection: patient has history of UTIs and multiple urologic procedures including re implantation of right ureter. Has had UTI's with MDRO and currently treated for GBS in her last urine culture. Allergic to all antibiotics except vancomycin and nitrofurantoin. Pulmonary embolism: consider ABG and helical CT if occurs again. Septic thrombophleblitis: No elevation of WBC and febrile on vancomycin. blood cultures pending. no urine culture at this time. Observe for now--watch for another T spike and see if timed with leaving floor. pain management as needed no treatment for diabetes at this time. Deborah Ernst MD Jul 29, 2017 23:34
[2017-07-30] MEDS: IBUPROFEN 600 MG TAB PO PRN ×4 (00:24→22:28)
[2017-07-30 00:53] VITALS: BP 129/76; PULSE 89; RESP 16; TEMP 98.6; O2SAT 96
[2017-07-30 04:28] VITALS: BP 124/86; PULSE 101; RESP 16; TEMP 99.4; O2SAT 97
[2017-07-30] MEDS: diphenhydrAMINE HCL 50 MG/ML VIAL IV PRN (04:44)
[2017-07-30 07:40] VITALS: BP 118/82; PULSE 92; RESP 18; TEMP 98.3; O2SAT 95
[2017-07-30] MEDS ORDERED: KETOROLAC TROMETHAMINE 60 MG/2 ML (IM) VIAL IM PRN (09:15)
--- NOTE | 2017-07-30 09:26 | HHI.OB ---
Subjective Post Operative Day: 2 Remarks pt returns from NICU in wheelchair, states had lip swelling after last dose of oxycodone, resolved with benadryl Objective Vitals/I&O Vital Signs Date Time Temp Pulse Resp B/P (MAP) Pulse Ox O2 Delivery O2 Flow Rate FiO2 07/30/17 07:40 98.3 92 18 118/82 (94) 95 07/30/17 04:28 99.4 101 16 124/86 (99) 97 07/30/17 00:53 98.6 89 16 96 07/30/17 00:53 129/76 (93) 07/29/17 20:30 91 07/29/17 20:30 99.2 07/29/17 20:30 95 07/29/17 20:00 115 18 143/82 (102) 07/29/17 20:00 101.3 07/29/17 16:56 98.8 07/29/17 13:55 98.3 07/29/17 12:25 100.0 07/29/17 10:16 102.7 Result Diagram: 07/29/17 19207/28/17 1246 Objective Remarks GENERAL: Well-nourished, well-developed patient. CARDIOVASCULAR:RRR with mild elevation in rate. RESPIRATORY: Breath sounds equal bilaterally. No accessory muscle use. ABDOMEN/GI: Abdomen soft, non-tender, bowel sounds present. Incision: Clean, dry and intact. Fundus: Firm, non-tender at umbilicus. GENITOURINARY: Light to moderate bleeding. EXTREMITIES: No cyanosis or edema, non-tender, without signs of DVT. Negative Homans, no erythema at or around incision No CVAT Medications and IVs Current Medications Medications (Trade) Dose Ordered Sig/Mary Route Start Time Stop Time Status Last Admin (Bicitra Liq) 30 ml LOG WASHER PO 07/28/17 12:30 08/01/17 12:29 07/28/17 14:04 (NS Flush) 2 ml BID IV FLUSH 07/28/17 21:00 07/29/17 07:30 (NS Flush) 2 ml UNSCH PRN IV FLUSH 07/28/17 17:00 (Mylicon Chew) 80 mg QID PRN PO 07/28/17 17:00 (Motrin) 600 mg Q6H PRN PO 07/28/17 17:00 07/30/17 07:38 (Nohemy-Colace) 2 tab Q12H PRN PO 07/28/17 17:00 (Ambien) 5 mg HS PRN PO 07/28/17 17:00 (Zofran Inj) 4 mg Q6H PRN IV PUSH 07/28/17 17:00 (Zoloft) 50 mg DAILY PO 07/28/17 17:45 07/29/17 10:23 (Benadryl) 50 mg Q6H PRN PO 07/29/17 08:00 07/29/17 13:04 (Tylenol) 650 mg Q6H PRN PO 07/29/17 10:30 07/29/17 18:24 (Roxicodone) 10 mg Q6H PRN PO 07/29/17 12:00 07/30/17 04:22 Vancomycin HCl 1000 mg/Sodium Chloride 250 ml @ 250 mls/hr Q12H IV 07/29/17 21:00 07/29/17 20:41 (Benadryl Inj) 50 mg Q6H PRN IV 07/29/17 19:00 07/30/17 04:44 (Toradol Inj) 30 mg UNSCH X1 PRN IM 07/29/17 19:00 08/01/17 18:59 (Toradol Inj) 30 mg Q6HR PRN IM 07/30/17 09:15 08/04/17 09:14 Assessment/Plan Assessment and Plan Doing well POD 2 insulin dependent GDM--FBS now 110 No treatment for one week and can then resume her victoza and metformin. labor and delivery--history of many UTIs possible infection? WBC normal though HR slightly elevated and temp 101.3 at 8pm (afebrile now) itching terribly-- benedryl po and visteral plan for discharge POD 3 with pain meds, benedryl 07/29/17 23:30 Multiple conversations with post nurses and texts with patient since initial evaluation this am: Two episodes of sudden chills, fever , tachycardia both occurring when patient off the floor. Blood cultures pending. CBC this am and this evening both show normal WBC with mild left shift. Cultures pending. ECG ordered. Vancomycin initially stopped this am but resumed this evening. DDX: Post op infection: patient has history of UTIs and multiple urologic procedures including re implantation of right ureter. Has had UTI's with MDRO and currently treated for GBS in her last urine culture. Allergic to all antibiotics except vancomycin and nitrofurantoin. Pulmonary embolism: consider ABG and helical CT if occurs again. Septic thrombophleblitis: No elevation of WBC and febrile on vancomycin. blood cultures pending. no urine culture at this time. Observe for now--watch for another T spike and see if timed with leaving floor. pain management as needed no treatment for diabetes at this time. 07/30/17 POD #2 afeb on vanco at this time will try roxicodone with benadryl, has toradol ordered as back up continue post op care Discharge Planning routine Attending Attestation pt seen by Mariia Velez MD Jul 30, 2017 09:26
[2017-07-30] MEDS: VANCOMYCIN 1,000 MG/NS 250 ML IV SCH ×2 (09:49)
[2017-07-30] MEDS: SERTRALINE HCL 50 MG TAB PO SCH (09:49)
[2017-07-30] MEDS: SODIUM CHLORIDE 0.9% FLUSH 10 ML FLUSH IV FLUSH SCH (09:49)
[2017-07-30] MEDS ORDERED: diphenhydrAMINE HCL 50 MG/ML VIAL IV PUSH ONE (10:30)
--- NOTE | 2017-07-30 11:32 | HHI.OB ---
Subjective Post Operative Day: 2 Remarks resting comfortably. no further temperature elevations no complaints for me. Earlier was upset with receiving any medications without pre medication with benedryl as she will develop an allergy to those medications invariably. Objective Vitals/I&O Vital Signs Date Time Temp Pulse Resp B/P (MAP) Pulse Ox O2 Delivery O2 Flow Rate FiO2 07/30/17 07:40 98.3 92 18 118/82 (94) 95 07/30/17 04:28 99.4 101 16 124/86 (99) 97 07/30/17 00:53 98.6 89 16 96 07/30/17 00:53 129/76 (93) 07/29/17 20:30 91 07/29/17 20:30 99.2 07/29/17 20:30 95 07/29/17 20:00 115 18 143/82 (102) 07/29/17 20:00 101.3 07/29/17 16:56 98.8 07/29/17 13:55 98.3 07/29/17 12:25 100.0 Result Diagram: 07/29/17 19207/28/17 1246 Objective Remarks GENERAL: Well-nourished, well-developed patient. CARDIOVASCULAR:RRR with mild elevation in rate. RESPIRATORY: Breath sounds equal bilaterally. No accessory muscle use. ABDOMEN/GI: Abdomen soft, non-tender, bowel sounds present. Incision: Clean, dry and intact. Fundus: Firm, non-tender at umbilicus. GENITOURINARY: Light to moderate bleeding. EXTREMITIES: No cyanosis or edema, non-tender, without signs of DVT. Negative Homans, no erythema at or around incision No CVAT Medications and IVs Current Medications Medications (Trade) Dose Ordered Sig/Mary Route Start Time Stop Time Status Last Admin (Bicitra Liq) 30 ml FOUNDER AND PRESIDENT PO 07/28/17 12:30 08/01/17 12:29 07/28/17 14:04 (NS Flush) 2 ml BID IV FLUSH 07/28/17 21:00 07/30/17 09:49 (NS Flush) 2 ml UNSCH PRN IV FLUSH 07/28/17 17:00 (Mylicon Chew) 80 mg QID PRN PO 07/28/17 17:00 (Motrin) 600 mg Q6H PRN PO 07/28/17 17:00 07/30/17 07:38 (Nohemy-Colace) 2 tab Q12H PRN PO 07/28/17 17:00 (Ambien) 5 mg HS PRN PO 07/28/17 17:00 (Zofran Inj) 4 mg Q6H PRN IV PUSH 07/28/17 17:00 (Zoloft) 50 mg DAILY PO 07/28/17 17:45 07/30/17 09:49 (Benadryl) 50 mg Q6H PRN PO 07/29/17 08:00 07/29/17 13:04 (Tylenol) 650 mg Q6H PRN PO 07/29/17 10:30 07/29/17 18:24 (Roxicodone) 10 mg Q6H PRN PO 07/29/17 12:00 07/30/17 10:25 Vancomycin HCl 1000 mg/Sodium Chloride 250 ml @ 250 mls/hr Q12H IV 07/29/17 21:00 07/30/17 09:49 (Benadryl Inj) 50 mg Q6H PRN IV 07/29/17 19:00 07/30/17 04:44 (Toradol Inj) 30 mg UNSCH X1 PRN IM 07/29/17 19:00 08/01/17 18:59 (Toradol Inj) 30 mg Q6HR PRN IM 07/30/17 09:15 08/04/17 09:14 Assessment/Plan Assessment and Plan Doing well POD 2 insulin dependent GDM--FBS now 110 No treatment for one week and can then resume her victoza and metformin. labor and delivery--history of many UTIs possible infection? WBC normal though HR slightly elevated and temp 101.3 at 8pm (afebrile now) itching terribly-- benedryl po and visteral plan for discharge POD 3 with pain meds, benedryl 07/29/17 23:30 Multiple conversations with post nurses and texts with patient since initial evaluation this am: Two episodes of sudden chills, fever , tachycardia both occurring when patient off the floor. Blood cultures pending. CBC this am and this evening both show normal WBC with mild left shift. Cultures pending. ECG ordered. Vancomycin initially stopped this am but resumed this evening. DDX: Post op infection: patient has history of UTIs and multiple urologic procedures including re implantation of right ureter. Has had UTI's with MDRO and currently treated for GBS in her last urine culture. Allergic to all antibiotics except vancomycin and nitrofurantoin. Pulmonary embolism: consider ABG and helical CT if occurs again. Septic thrombophleblitis: No elevation of WBC and febrile on vancomycin. blood cultures pending. no urine culture at this time. Observe for now--watch for another T spike and see if timed with leaving floor. pain management as needed no treatment for diabetes at this time. 07/30/17 POD #2 afeb on vanco at this time will try roxicodone with benadryl, has toradol ordered as back up continue post op care 07/30/17 noon discussed with Ming that I cannot explain why she had two temperature spikes, with shakes, elevated HR while off the floor. Her white count is normal. I want to stop the vanco and save it for future issues--not promote allergy or resistance by extended use. If she spikes again, we will use emperic heparin for presumed septic thrombophleblitis. Timing of spike is important. Also discussed seeing Dr. Hanley to discuss post depression and adequate treatment. I also want his opinion on her lifetime of multiple illnesses and medical interventions. I did not relay that concern to her at this time. Discharge Planning routine Deborah Ernst MD Jul 30, 2017 11:32
[2017-07-30 14:50] VITALS: TEMP 99.8
[2017-07-30 15:00] VITALS: TEMP 99.8
[2017-07-30] MEDS: ACETAMINOPHEN 325 MG TAB PO PRN (15:55)
[2017-07-30 19:50] VITALS: BP 123/89; PULSE 87; RESP 18; TEMP 98.6
[2017-07-31] MEDS: IBUPROFEN 600 MG TAB PO PRN ×3 (04:35→21:32)
[2017-07-31] MEDS: diphenhydrAMINE HCL 50 MG CAP PO PRN (06:47)
[2017-07-31 07:55] VITALS: BP 115/84; PULSE 84; RESP 18; TEMP 97.7
[2017-07-31 08:15] VITALS: BP 115/84; PULSE 84; RESP 18; TEMP 97.7
--- NOTE | 2017-07-31 09:31 | HHI.OB ---
Subjective Post Operative Day: 3 Remarks pt states her urine output is low and cloudy Objective Vitals/I&O Vital Signs Date Time Temp Pulse Resp B/P (MAP) Pulse Ox O2 Delivery O2 Flow Rate FiO2 07/31/17 08:15 97.7 84 18 115/84 (94) 07/31/17 07:55 97.7 07/31/17 07:55 84 18 115/84 (94) 07/30/17 19:50 98.6 87 18 123/89 (100) 07/30/17 15:00 99.8 07/30/17 14:50 99.8 Result Diagram: 07/29/17 19207/28/17 1246 Objective Remarks GENERAL: Well-nourished, well-developed patient. CARDIOVASCULAR:RRR with mild elevation in rate. RESPIRATORY: Breath sounds equal bilaterally. No accessory muscle use. ABDOMEN/GI: Abdomen soft, non-tender, bowel sounds present. Incision: Clean, dry and intact. Fundus: Firm, non-tender at umbilicus. GENITOURINARY: Light to moderate bleeding. EXTREMITIES: No cyanosis or edema, non-tender, without signs of DVT. Negative Homans, no erythema at or around incision No CVAT Medications and IVs Current Medications Medications (Trade) Dose Ordered Sig/Mary Route Start Time Stop Time Status Last Admin (Bicitra Liq) 30 ml APPLIANCE REPAIR TECHNICIAN PO 07/28/17 12:30 08/01/17 12:29 07/28/17 14:04 (NS Flush) 2 ml BID IV FLUSH 07/28/17 21:00 07/30/17 09:49 (NS Flush) 2 ml UNSCH PRN IV FLUSH 07/28/17 17:00 (Mylicon Chew) 80 mg QID PRN PO 07/28/17 17:00 (Motrin) 600 mg Q6H PRN PO 07/28/17 17:00 07/31/17 04:35 (Nohemy-Colace) 2 tab Q12H PRN PO 07/28/17 17:00 (Ambien) 5 mg HS PRN PO 07/28/17 17:00 (Zofran Inj) 4 mg Q6H PRN IV PUSH 07/28/17 17:00 (Zoloft) 50 mg DAILY PO 07/28/17 17:45 07/30/17 09:49 (Benadryl) 50 mg Q6H PRN PO 07/29/17 08:00 07/31/17 06:47 (Tylenol) 650 mg Q6H PRN PO 07/29/17 10:30 07/30/17 15:55 (Roxicodone) 10 mg Q6H PRN PO 07/29/17 12:00 07/31/17 04:35 (Benadryl Inj) 50 mg Q6H PRN IV 07/29/17 19:00 07/30/17 04:44 (Toradol Inj) 30 mg UNSCH X1 PRN IM 07/29/17 19:00 08/01/17 18:59 (Toradol Inj) 30 mg Q6HR PRN IM 07/30/17 09:15 08/04/17 09:14 Assessment/Plan Assessment and Plan Doing well POD 3 insulin dependent GDM--FBS now 110 No treatment for one week and can then resume her victoza and metformin. labor and delivery--history of many UTIs possible infection? WBC normal though HR slightly elevated and temp 101.3 at 8pm (afebrile now) itching terribly-- benedryl po and visteral plan for discharge POD 3 with pain meds, benedryl 07/29/17 23:30 Multiple conversations with post nurses and texts with patient since initial evaluation this am: Two episodes of sudden chills, fever , tachycardia both occurring when patient off the floor. Blood cultures pending. CBC this am and this evening both show normal WBC with mild left shift. Cultures pending. ECG ordered. Vancomycin initially stopped this am but resumed this evening. DDX: Post op infection: patient has history of UTIs and multiple urologic procedures including re implantation of right ureter. Has had UTI's with MDRO and currently treated for GBS in her last urine culture. Allergic to all antibiotics except vancomycin and nitrofurantoin. Pulmonary embolism: consider ABG and helical CT if occurs again. Septic thrombophleblitis: No elevation of WBC and febrile on vancomycin. blood cultures no growth in one day. no urine culture at this time. Observe for now--watch for another T spike and see if timed with leaving floor. pain management as needed no treatment for diabetes at this time. 07/30/17 POD #2 afeb on vanco at this time will try roxicodone with benadryl, has toradol ordered as back up continue post op care 07/30/17 sadia discussed with Ming that I cannot explain why she had two temperature spikes, with shakes, elevated HR while off the floor. Her white count is normal. I want to stop the vanco and save it for future issues--not promote allergy or resistance by extended use. If she spikes again, we will use emperic heparin for presumed septic thrombophleblitis. Timing of spike is important. Also discussed seeing Dr. Hanley to discuss post depression and adequate treatment. I also want his opinion on her lifetime of multiple illnesses and medical interventions. I did not relay that concern to her at this time. 07/31/17 pt seen in NICU bonding with baby will check urine output in hat, if cloudy will give 500 cc NS bolus and then send UA IF still cloudy for discharge today after psych consult Discharge Planning routine Attending Attestation pt seen by me Mariia Finch MD Jul 31, 2017 09:31
[2017-07-31] MEDS ORDERED: SODIUM CHLORID 0.9% 500 ML INJ 500 ML IV PRN (09:45)
[2017-07-31] MEDS: SERTRALINE HCL 50 MG TAB PO SCH (11:56)
[2017-07-31] MEDS: SODIUM CHLORIDE 0.9% FLUSH 10 ML FLUSH IV FLUSH SCH (11:57)
--- NOTE | 2017-07-31 16:11 | PD.PSY.CON ---
Provisional Diagnosis Admission Date Jul 28, 2017 at 09:21 [place]. Adjustment disorder with mixed disturbance of emotion and conduct. Rule out factitious disorder (Munchhausen's) History of Present Illness Service Psychiatry Consult Requested By Dr Ernst Reason for Consult Possible Factitious Disorder Primary Care Physician Cornelia Nuñez, HPI Patient interviewed briefly with her present. There are no obvious signs the patient is engaging in factitious disorder behavior. However, it is not uncommon for patients with factitious disorder to hide their behavior. Patient denies any suicidal or homicidal ideation, plan or intent. Her cognition is intact and she has no psychotic symptoms. She is competent to make medical decisions. This physician spoke with the patient's attending physician, and we arranged for the patient to complete the MMPI2. This may give us some insight as to the patient's personality style and whether it correlates with other individuals who have been diagnosed with factitious disorder. Review of Systems Except as stated in HPI: all other systems reviewed are Neg Past Family Social History Coded Allergies: cefuroxime (Unverified Allergy, Severe, SEVERE VOMITING,THROAT SWELLING, 07/14/17) THROAT SWELLING ciprofloxacin (Unverified Allergy, Severe, HIVES, SOB ; THROAT SWELLING, 07/14/17) ertapenem (Unverified Allergy, Severe, swelling throat, 07/14/17) meropenem (Verified Allergy, Severe, Hives, 07/14/17) promethazine (Unverified Allergy, Severe, SEIZURES, 07/14/17) ceftriaxone (Unverified Allergy, Intermediate, Rash, 07/14/17) levofloxacin (Unverified Allergy, Unknown, Hives, 07/14/17) *MDRO Multi-Drug Resistant Organism (Verified Adverse Reaction, Unknown, ESBL, 07/14/17) ESBL Klebsiella (urine) - 01/22/17 Active Scripts Oxycodone HCl/Acetaminophen (Oxycodone-Acetaminophen 5-325) 5 Mg-325 Mg Tablet, 2 TAB PO Q4H Y for PAIN SCALE 6 TO 10, #30 TAB Prov:Deborah Ernst MD 07/29/17 Nitrofurantoin Monohydrate Macrocrystals (Macrobid) 100 Mg Cap, 100 MG PO BID for Infection, #14 CAP 0 Refills Prov:Deborah Ernst MD 07/26/17 Nifedipine (Procardia) 10 Mg Cap, 10 MG PO QID for Chest Pain, #120 CAP 0 Refills Prov:Deborah Ernst MD 07/26/17 Reported Medications Insulin Detemir Inj (Levemir Inj) 1,000 unit/ 10 ML Vial, 14 UNITS SQ BID for Blood Sugar Management, VIAL 0 Refills Do not mix with any other Insulin. 07/23/17 Insulin Lispro (Human) Inj (Humalog Inj) 1,000 Unit/10 Ml Vial, 8 UNITS SQ DIRECTED for Blood Sugar Management, #1 VIAL 0 Refills Max dose at bedtime:( )units; sugars< 70,(0)units; sugars 150-199,(1)unit; sugars 200-249,(3)units; sugars 250-299,(5)units; sugars 300-349,(7)units; sugars more than 349,(9)units. 07/23/17 Albuterol 18 GM Inh (Ventolin Hfa 18 GM Inh) 90 Mcg/Act Aer, 2 PUFF INH Q4H Y for SHORTNESS OF BREATH, #1 INHALER 0 Refills 09/20/16 Discontinued Reported Medications Nifedipine ER 24 HR (Procardia XL) 30 Mg Tab, 30 MG PO DAILY, #30 TAB 0 Refills 07/23/17 Current Medications Medications (Trade) Dose Ordered Sig/Mary Route Start Time Stop Time Status Last Admin (Bicitra Liq) 30 ml QUENCHER OPERATOR PO 07/28/17 12:30 08/01/17 12:29 07/28/17 14:04 (NS Flush) 2 ml BID IV FLUSH 07/28/17 21:00 07/31/17 11:57 (NS Flush) 2 ml UNSCH PRN IV FLUSH 07/28/17 17:00 (Mylicon Chew) 80 mg QID PRN PO 07/28/17 17:00 (Motrin) 600 mg Q6H PRN PO 07/28/17 17:00 07/31/17 11:56 (Nohemy-Colace) 2 tab Q12H PRN PO 07/28/17 17:00 (Ambien) 5 mg HS PRN PO 07/28/17 17:00 (Zofran Inj) 4 mg Q6H PRN IV PUSH 07/28/17 17:00 (Zoloft) 50 mg DAILY PO 07/28/17 17:45 07/31/17 11:56 (Benadryl) 50 mg Q6H PRN PO 07/29/17 08:00 07/31/17 06:47 (Tylenol) 650 mg Q6H PRN PO 07/29/17 10:30 07/30/17 15:55 (Roxicodone) 10 mg Q6H PRN PO 07/29/17 12:00 07/31/17 11:56 (Benadryl Inj) 50 mg Q6H PRN IV 07/29/17 19:00 07/30/17 04:44 (Toradol Inj) 30 mg UNSCH X1 PRN IM 07/29/17 19:00 08/01/17 18:59 (Toradol Inj) 30 mg Q6HR PRN IM 07/30/17 09:15 08/04/17 09:14 Sodium Chloride 500 ml @ 500 mls/hr BOLUS PRN IV 07/31/17 09:45 07/31/17 11:56 Family Psych History Positive for somatizations symptoms. Social History and just had her fourth child who will stay in the intensive care unit. Patient upset about her infant child having to stay in the hospital but baby was born premature. is supportive. Parents are supportive. No evidence of alcohol or drug abuse. Patient's Strengths (min. 2) Verbal and has supportive family. Physical Exam Vital Signs Vital Signs Date Time Temp Pulse Resp B/P (MAP) Pulse Ox O2 Delivery O2 Flow Rate FiO2 07/31/17 08:15 97.7 84 18 115/84 (94) 07/30/17 07:40 95 Lab Results Date/Time Source Procedure Growth Status 07/29/17 11:30 Blood Peripheral Aerobic Blood Culture - Preliminary NO GROWTH IN 2 DAYS Resulted 07/29/17 11:30 Blood Peripheral Anaerobic Blood Culture - Preliminary NO GROWTH IN 2 DAYS Resulted Mental Status Examination Appearance: Appropriate Consciousness: Alert Orientation: x4 Motor Activity: Normal gait Speech: Unremarkable Language: Adequate Fund of Knowledge: Adequate Attention and Concentration: Adequate Memory: Unremarkable Mood: Appropriate Affect: Appropriate Thought Process & Associations: Intact Thought Content: Appropriate Hallucination Type: None Delusion Type: None Suicidal Ideation: No Suicidal Plan: No Suicidal Intention: No Homicidal Ideation: No Homicidal Plan: No Homicidal Intention: No Insight: Adequate Judgment: Adequate Assessment & Plan Problem List: (1) Adjustment disorder with mixed disturbance of emotions and conduct ICD Codes: F43.25 - Adjustment disorder with mixed disturbance of emotions and conduct Assessment & Plan Estimated LOS: days. We will attempt to provide results of MMPI2 tomorrow for review and discussion with attending physician. Facundo Hanley MD Jul 31, 2017 16:11
[2017-07-31 16:21] LABS: BACTERIA, URINE RARE /hpf; BLOOD, URINE LARGE (NEG); GLUCOSE,URINE NEG (NEG); KETONE, URINE NEG (NEG); MUCUS URINE FEW /lpf (OCC); NITRITE,URINE NEG (NEG); PH, URINE 6.5 (5.0-8.5); SQUAMOUS EPITHELIAL CELL URINE 11 /hpf (0-5); URINE COLOR YELLOW (YELLW/STRAW)
[2017-07-31 16:22] LABS: COMMENT (UR) CULTURE INDICATED; CULTURE IF INDICATED CULTURE INDICATED
[2017-07-31 19:30] VITALS: BP 127/90; PULSE 89; RESP 20; TEMP 98.8
--- NOTE | 2017-07-31 23:14 | EKG ---
Date Performed: 07/29/2017 Time Performed: 20:16:52 PTAGE: 36 years EKG: Sinus rhythm NORMAL ECG PREVIOUS TRACING : 03/30/2017 22.19 Compared to prior tracing no significant change DOCTOR: Oscar Stern Interpretating Date/Time 07/31/2017 23:13:44
[2017-08-01] MEDS: IBUPROFEN 600 MG TAB PO PRN ×2 (05:26→11:18)
[2017-08-01 08:00] VITALS: BP 115/72; PULSE 80; RESP 18; TEMP 98.5
[2017-08-01 08:06] LABS: BATH SALTS (MDPV) UR NEG (NEG); ECSTASY (MDMA) UR NEG (NEG); HEROIN (6-ACETYLMORPHINE) UR NEG (NEG); K2 SPICE UR NEG (NEG); OBGABAPENTIN UR NEG (NEG); OBHYDROMORPHONE U NEG (NEG); OBMETHADONE UR NEG (NEG); PHENCYCLIDINE URINE NEG (NEG)
--- NOTE | 2017-08-01 08:11 | HHI.DCPOC ---
Discharge Care Plan Report Symptoms to Your Doctor -Temperature above 100.5 degrees -Redness, of incision or excessive or foul smelling drainage -Unusual pain or calf pain -Increased vaginal bleeding -Painful or difficulty urinating -Feelings of extreme sadness or anxiety after 2 weeks Goals to Promote Your Health * To prevent worsening of your condition and complications * To maintain your health at the optimal level Directions to Meet Your Goals Take your medications as prescribed Follow your dietary instruction Follow activity as directed Ensure plenty of rest for recovery Drink fluids for hydration Keep your appointments as scheduled Take your immunizations and boosters as scheduled If your symptoms worsen call your PCP, if no PCP go to Urgent Care Center or Emergency Room Smoking is Dangerous to Your Health. Avoid second hand smoke Call the 24-hour crisis hotline for domestic abuse at Deborah Ernst MD Aug 01, 2017 08:11
--- NOTE | 2017-08-01 08:13 | HHI.OB ---
Subjective Post Operative Day: 4 Remarks quiet 24 hours with no more chills has intermittent bouts of abdominal pain feels she has frequent allergic reactions to established meds, but benedryl helps no fever > 24 hours on no antibiotics Objective Vitals/I&O Vital Signs Date Time Temp Pulse Resp B/P (MAP) Pulse Ox O2 Delivery O2 Flow Rate FiO2 07/31/17 19:30 89 127/90 (102) 07/31/17 19:30 98.8 20 07/31/17 08:15 97.7 84 18 115/84 (94) Result Diagram: 07/29/17 19207/28/17 1246 Objective Remarks GENERAL: Well-nourished, well-developed patient. CARDIOVASCULAR:RRR with mild elevation in rate. RESPIRATORY: Breath sounds equal bilaterally. No accessory muscle use. ABDOMEN/GI: Abdomen soft, non-tender, bowel sounds present. Incision: Clean, dry and intact. Fundus: Firm, non-tender at umbilicus. GENITOURINARY: Light to moderate bleeding. EXTREMITIES: No cyanosis or edema, non-tender, without signs of DVT. Negative Homans, no erythema at or around incision No CVAT Medications and IVs Current Medications Medications (Trade) Dose Ordered Sig/Mary Route Start Time Stop Time Status Last Admin (Bicitra Liq) 30 ml DRAFTER CASTINGS PO 07/28/17 12:30 08/01/17 12:29 07/28/17 14:04 (NS Flush) 2 ml BID IV FLUSH 07/28/17 21:00 07/31/17 11:57 (NS Flush) 2 ml UNSCH PRN IV FLUSH 07/28/17 17:00 (Mylicon Chew) 80 mg QID PRN PO 07/28/17 17:00 (Motrin) 600 mg Q6H PRN PO 07/28/17 17:00 08/01/17 05:26 (Nohemy-Colace) 2 tab Q12H PRN PO 07/28/17 17:00 (Ambien) 5 mg HS PRN PO 07/28/17 17:00 (Zofran Inj) 4 mg Q6H PRN IV PUSH 07/28/17 17:00 (Zoloft) 50 mg DAILY PO 07/28/17 17:45 07/31/17 11:56 (Benadryl) 50 mg Q6H PRN PO 07/29/17 08:00 07/31/17 06:47 (Tylenol) 650 mg Q6H PRN PO 07/29/17 10:30 07/30/17 15:55 (Roxicodone) 10 mg Q6H PRN PO 07/29/17 12:00 08/01/17 05:26 (Benadryl Inj) 50 mg Q6H PRN IV 07/29/17 19:00 07/30/17 04:44 (Toradol Inj) 30 mg UNSCH X1 PRN IM 07/29/17 19:00 08/01/17 18:59 (Toradol Inj) 30 mg Q6HR PRN IM 07/30/17 09:15 08/04/17 09:14 Sodium Chloride 500 ml @ 500 mls/hr BOLUS PRN IV 07/31/17 09:45 07/31/17 11:56 Assessment/Plan Assessment and Plan Doing well POD 3 insulin dependent GDM--FBS now 110 No treatment for one week and can then resume her victoza and metformin. labor and delivery--history of many UTIs possible infection? WBC normal though HR slightly elevated and temp 101.3 at 8pm (afebrile now) itching terribly-- benedryl po and visteral plan for discharge POD 3 with pain meds, benedryl 07/29/17 23:30 Multiple conversations with post nurses and texts with patient since initial evaluation this am: Two episodes of sudden chills, fever , tachycardia both occurring when patient off the floor. Blood cultures pending. CBC this am and this evening both show normal WBC with mild left shift. Cultures pending. ECG ordered. Vancomycin initially stopped this am but resumed this evening. DDX: Post op infection: patient has history of UTIs and multiple urologic procedures including re implantation of right ureter. Has had UTI's with MDRO and currently treated for GBS in her last urine culture. Allergic to all antibiotics except vancomycin and nitrofurantoin. Pulmonary embolism: consider ABG and helical CT if occurs again. Septic thrombophleblitis: No elevation of WBC and febrile on vancomycin. blood cultures no growth in one day. no urine culture at this time. Observe for now--watch for another T spike and see if timed with leaving floor. pain management as needed no treatment for diabetes at this time. 07/30/17 POD #2 afeb on vanco at this time will try roxicodone with benadryl, has toradol ordered as back up continue post op care 07/30/17 noon discussed with Ming that I cannot explain why she had two temperature spikes, with shakes, elevated HR while off the floor. Her white count is normal. I want to stop the vanco and save it for future issues--not promote allergy or resistance by extended use. If she spikes again, we will use emperic heparin for presumed septic thrombophleblitis. Timing of spike is important. Also discussed seeing Dr. Hanley to discuss post depression and adequate treatment. I also want his opinion on her lifetime of multiple illnesses and medical interventions. I did not relay that concern to her at this time. 07/31/17 pt seen in NICU bonding with baby will check urine output in hat, if cloudy will give 500 cc NS bolus and then send UA IF still cloudy for discharge today after psych consult 08/01/[address] Hanley yesterday and took the MMPI follow up with occur on an outpatient basis as indicated to see me in one week Discharge Planning routine Deborah Ernst MD Aug 01, 2017 08:13
[2017-08-01 11:16] VITALS: BP 121/81
[2017-08-01] MEDS: SERTRALINE HCL 50 MG TAB PO SCH (11:18)
== END 2017-08-01 12:32 | disposition home or self-care (01) | DRG 765 ==
LOC: HOBED 08:05 → H2EA 09:21 → OBSVTOIN 09:21 → H2EB 13:36 → H1EA 17:15
PROVIDERS: ADMIT Obstetrics & Gynecology; ATTEND Obstetrics & Gynecology
PROC: 10D00Z1 Extraction of Products of Conception, Low, Open Approach (ICD-10-PCS; principal; 2017-07-28)
PROC: 0UB70ZZ Excision of Bilateral Fallopian Tubes, Open Approach (ICD-10-PCS; 2017-07-28)
DX: O60.14X0 Preterm labor third trimester with preterm delivery third trimester, not applicable or unspecified (principal); O24.12 Pre-existing type 2 diabetes mellitus, in childbirth; K31.84 Gastroparesis; E11.43 Type 2 diabetes mellitus with diabetic autonomic (poly)neuropathy; O26.833 Pregnancy related renal disease, third trimester; O86.4 Pyrexia of unknown origin following delivery; O67.9 Intrapartum hemorrhage, unspecified; O34.211 Maternal care for low transverse scar from previous cesarean delivery; N28.89 Other specified disorders of kidney and ureter; O99.344 Other mental disorders complicating childbirth; F32.9 Major depressive disorder, single episode, unspecified; O99.52 Diseases of the respiratory system complicating childbirth; J45.909 Unspecified asthma, uncomplicated; N80.9 Endometriosis, unspecified; N94.89 Other specified conditions associated with female genital organs and menstrual cycle; O99.824 Streptococcus B carrier state complicating childbirth; O71.89 Other specified obstetric trauma; Z3A.30 30 weeks gestation of pregnancy; Z30.2 Encounter for sterilization; Z37.0 Single live birth; Z79.4 Long term (current) use of insulin; Z88.1 Allergy status to other antibiotic agents
CPT/HCPCS: 76815; 76817; 76937; 80053; 80307; 81001; 82570; 82947; 82948; 84156; 85007; 85025; 85027; 86850; 86900; 86901; 87040; 87077; 87086; 87186; 88302; 90715; 93005; 94150; G0481; J0131; J1200; J2175; J2590; J3010; J3370; J3475; J7040; J7050; J7120; Q0163

== ENCOUNTER 2017-08-16 19:56 | Inpatient (IN) | payer BC ==
[~2017-08-16 19:56] MED LIST changes: -HUMALOG SQ; -LEVEMIR SQ; -MACR100C2 PO; -NIFE10 PO; +OXYC1TAB63 PO
[2017-08-16 19:59] VITALS: BP 121/79; PULSE 112; RESP 18; TEMP 100.5; O2SAT 97
[2017-08-16 20:49] VITALS: BP 122/69; PULSE 107; RESP 20; TEMP 102.2; O2SAT 97
--- NOTE | 2017-08-16 20:49 | PD.CONS ---
HPI Chief Complaint 36 yo mwf 3 weeks post section and BTL at 30+ weeks for intractable labor and imminent delivery with prior section. Hx of abnormal ureteral junction and multiple surgeries for re implantation. still gets severe UTIs and pyelonephritis. Has multiple allergies and hx of MDRO UTIs. Pumping and states has developed mastitis with recurrent fevers above 103.5. Given dicloxicillin yesterday po yesterday which she has tolerated so far, but states her fever continues to spike to 103.5 and she now has right kidney pain. Brought in for evaluation. Date Seen: Aug 16, 2017 Time Seen: 20:42 Travel History International Travel<30 Days: No Contact w/Intl Traveler<30Days: No Known Affected Area: No History of Present Illness HPI as above History Past Medical History Narrative Medical multiple laparoscopies for pelvic pain and endometriosis hernia repairs multiple urologic surgeries C/S x 2 with BTL Obstetric History Obstetric History x 1 with shoulder dystocia elective term section repeat section 3 weeks ago at 30 + weeks for intractable labor Family History Family History: Negative Social History Alcohol Use: No Tobacco Use: No Substance Abuse: No Allergies-Medications (Allergen,Severity, Reaction): Coded Allergies: cefuroxime (Unverified Allergy, Severe, SEVERE VOMITING,THROAT SWELLING, 07/14/17) THROAT SWELLING ciprofloxacin (Unverified Allergy, Severe, HIVES, SOB ; THROAT SWELLING, 07/14/17) ertapenem (Unverified Allergy, Severe, swelling throat, 07/14/17) meropenem (Verified Allergy, Severe, Hives, 07/14/17) promethazine (Unverified Allergy, Severe, SEIZURES, 07/14/17) ceftriaxone (Unverified Allergy, Intermediate, Rash, 07/14/17) levofloxacin (Unverified Allergy, Unknown, Hives, 07/14/17) amoxicillin (Unverified Adverse Reaction, Severe, Swelling, 08/16/17) clavulanic acid (Unverified Adverse Reaction, Severe, Swelling, 08/16/17) *MDRO Multi-Drug Resistant Organism (Verified Adverse Reaction, Unknown, ESBL, 07/14/17) ESBL Klebsiella (urine) - 01/22/17 Home Meds Active Scripts Oxycodone HCl/Acetaminophen (Oxycodone-Acetaminophen 5-325) 5 Mg-325 Mg Tablet, 2 TAB PO Q4H Y for PAIN SCALE 6 TO 10, #30 TAB Prov:Deborah Ernst MD 07/29/17 Reported Medications Albuterol 18 GM Inh (Ventolin Hfa 18 GM Inh) 90 Mcg/Act Aer, 2 PUFF INH Q4H Y for SHORTNESS OF BREATH, #1 INHALER 0 Refills 09/20/16 Review of Systems General / Constitutional: Fever Genitourinary: Other (right CVAT) Physical Exam Vital Signs Date Time Temp Pulse Resp B/P (MAP) Pulse Ox O2 Delivery O2 Flow Rate FiO2 08/16/17 19:59 100.5 112 18 121/79 (93) 97 Room Air Narrative GENERAL: Well-nourished, well-developed patient. SKIN: Warm and dry. HEAD: Normocephalic and atraumatic. EYES: No scleral icterus. No injection or drainage. ENT: No nasal drainage noted. Mucous membranes pink. Airway patent. NECK: Supple, trachea midline. No JVD. CARDIOVASCULAR: Regular rate and rhythm without murmurs, gallops, or rubs. RESPIRATORY: Breath sounds equal bilaterally. No accessory muscle use. BREASTS: lactating. mild diffuse erythema left > right No abcess or cellulitis noted ABDOMEN/GI: Abdomen soft, non-tender, bowel sounds present, no rebound, no guarding Positive RIght CVAT EXTREMITIES: No cyanosis or edema. BACK: Nontender without obvious deformity. No CVA tenderness. NEUROLOGICAL: Awake and alert. Motor and sensory grossly within normal limits. Five out of 5 muscle strength in all muscle groups. Normal speech. MDM Interpretation(s) reported elevated temperature in post woman who is pumping for her states pain in breasts and mastitis today developed right kidney pain despite dicloxicillin she is still spiking multiple allergies Will start IV get blood cultures CBC vancomycin 1250 mg IV x 1 urine analysis and culture Deborah Ernst MD Aug 16, 2017 20:49
[2017-08-16] MEDS ORDERED: SODIUM CHLORIDE 0.9% FLUSH 10 ML FLUSH IV FLUSH PRN (21:00)
[2017-08-16] MEDS ORDERED: ZOLPIDEM TARTRATE 5 MG TAB PO PRN (21:00)
[2017-08-16] MEDS ORDERED: ONDANSETRON HCL 4 MG/2 ML VIAL IV PUSH PRN (21:00)
[2017-08-16] MEDS: LACTATED RINGER'S 1000 ML INJ 1,000 ML IV SCH (21:24)
[2017-08-16] MEDS: ACETAMINOPHEN 325 MG TAB PO PRN (21:24)
[2017-08-16] MEDS: SODIUM CHLORIDE 0.9% FLUSH 10 ML FLUSH IV FLUSH SCH (21:24)
[2017-08-16 21:47] LABS: AUTOMATED NEUTROPHIL # 11.7 TH/MM3 (1.8-7.7); BASOPHIL % 0.2 % (0.0-2.0); EOSINOPHIL # 0.6 TH/MM3 (0-0.4); EOSINOPHIL % 4.7 % (0.0-4.0); HEMATOCRIT 36.3 % (35.0-46.0); HEMO FLAGS DIFF FINAL; LYMPH % 6.6 % (9.0-44.0); LYMPHOCYTE # 0.9 TH/MM3 (1.0-4.8); MEAN CELL VOLUME 89.1 FL (80.0-100.0); MEAN CORPUSCULAR HEMOGLOBIN 29.7 PG (27.0-34.0); MEAN CORPUSCULAR HGB CONC 33.3 % (32.0-36.0); MONO % 2.8 % (0.0-8.0); NEUT % 85.7 % (16.0-70.0); PLATELET COUNT 208 TH/MM3 (150-450); RED BLOOD COUNT 4.07 MIL/MM3 (4.00-5.30); RED CELL DISTRIBUTION WIDTH 14.3 % (11.6-17.2); WHITE BLOOD COUNT 13.7 TH/MM3 (4.0-11.0)
[2017-08-16 21:52] LABS: BACTERIA, URINE RARE /hpf; BLOOD, URINE SMALL (NEG); COMMENT (UR) CULTURE INDICATED; CULTURE IF INDICATED CULTURE INDICATED; GLUCOSE,URINE NEG (NEG); KETONE, URINE NEG (NEG); MUCUS URINE FEW /lpf (OCC); NITRITE,URINE NEG (NEG); PH, URINE 6.5 (5.0-8.5); SQUAMOUS EPITHELIAL CELL URINE 1 /hpf (0-5); URINE COLOR YELLOW (YELLW/STRAW)
--- NOTE | 2017-08-16 21:58 | PD ---
Physical Exam Date Seen by Provider: Aug 16, 2017 Time Seen by Provider: 21:00 Narrative This is a 36-year-old female who presents at the request of Dr. Naida Copeland for failed outpatient treatment for mastitis. The patient was met here by Dr. Ernst who evaluated the patient and had written admission orders. Please see her consultation note/admission note for further details. Data Data Last Documented VS Vital Signs Date Time Temp Pulse Resp B/P (MAP) Pulse Ox O2 Delivery O2 Flow Rate FiO2 08/16/17 19:59 100.5 112 18 121/79 (93) 97 Room Air Orders Orders Admit Order (Ed Use Only) (08/16/17 20:39) [facility] Medical Record Reviewed: Yes Supervised Visit with JUSTIN: No Differential Diagnosis Mastitis versus failed outpatient treatment versus engorgement syndrome. Narrative Course 36-year-old female who presents with mastitis. The patient was seen and treated by Dr. Ernst when she arrived. The patient had failed outpatient treatment for the mastitis. The patient will be admitted and placed on IVD vancomycin for her mastitis. She is currently comfortable and will be placed as an inpatient as she meets criteria for inpatient treatment. Diagnosis Primary Impression: mastitis, failed outpatient antibiotics. Additional Impression: Fever Admitting Information Admitting Physician Requests: Admit Booker Menjivar MD Aug 16, 2017 21:58
[2017-08-16] MEDS ORDERED: VANCOMYCIN INJ 1,250 MG in SODIUM CHLOR 0.9% 250 ML INJ 250 ML IV ONE (22:00)
[2017-08-16 22:12] LABS: BICARBONATE 25.7 MEQ/L (21.0-32.0); POTASSIUM 3.2 MEQ/L (3.5-5.1)
[2017-08-16 22:35] VITALS: PULSE 84; TEMP 99.8
[2017-08-16] MEDS ORDERED: PREN29TA PO (23:29)
[2017-08-16] MEDS ORDERED: DICL500 PO (23:29)
[2017-08-16] MEDS ORDERED: ZOLO100T PO (23:29)
[2017-08-17] VITALS (7 sets, daily range): BP systolic 92–113; BP diastolic 51–62; PULSE 75–80; RESP 17–19; TEMP 98.2–99.6; O2SAT 96–98
[2017-08-17] MEDS: ACETAMINOPHEN 325 MG TAB PO PRN ×4 (01:28→22:00)
[2017-08-17] MEDS: LACTATED RINGER'S 1000 ML INJ 1,000 ML IV SCH ×2 (07:00→20:25)
--- NOTE | 2017-08-17 08:37 | HHI.OB ---
Subjective Post Operative Day: 20 Remarks States severe FINK. Now has blisters on left corner of mouth--states she has had shingles there before concerned her milk is less in left breast now. Right breast more tender Was able to tolerate vancomycin until last few minutes and states developed hives. Tmax 102.2 at 11pm. WBC 13.7 with left shift and urine dirty (culture is being grown after 24 hours of dicloxicllin for mastitis) Objective Vitals/I&O Vital Signs Date Time Temp Pulse Resp B/P (MAP) Pulse Ox O2 Delivery O2 Flow Rate FiO2 08/17/17 08:00 98.3 79 19 96/52 (67) 97 Room Air 08/17/17 04:24 98.2 78 18 99/58 (72) 97 Room Air 08/17/17 01:19 99.6 80 18 99/51 (67) 97 Room Air 08/16/17 22:35 99.8 84 08/16/17 20:49 102.2 107 20 122/69 (86) 97 Room Air 08/16/17 19:59 100.5 112 18 121/79 (93) 97 Room Air Intake & Output 08/17/17 08/17/17 07:00 19:00 Intake Total 262.5 ml Balance 262.5 ml Intake IV Total 262.5 ml # Voids 1 Result Diagram: 08/16/17 2100 08/16/17 2100 Objective Remarks GENERAL: Well-nourished, well-developed patient. breasts appear normal CARDIOVASCULAR: Regular rate and rhythm without murmurs, gallops, or rubs. RESPIRATORY: Breath sounds equal bilaterally. No accessory muscle use. ABDOMEN/GI: Abdomen soft, non-tender, bowel sounds present. Incision: Clean, dry and intact. less CVAT EXTREMITIES: No cyanosis or edema, non-tender, without signs of DVT. Medications and IVs Current Medications Medications (Trade) Dose Ordered Sig/Mary Route Start Time Stop Time Status Last Admin (NS Flush) 2 ml BID IV FLUSH 08/16/17 21:00 08/16/17 21:24 (NS Flush) 2 ml UNSCH PRN IV FLUSH 08/16/17 21:00 Lactated Ringer's 1,000 ml @ 100 mls/hr Q10H IV 08/16/17 21:00 08/16/17 21:24 (Tylenol) 650 mg Q4H PRN PO 08/16/17 21:00 08/17/17 01:28 (Ambien) 5 mg HS PRN PO 08/16/17 21:00 (Zofran Inj) 4 mg Q6H PRN IV PUSH 08/16/17 21:00 Assessment/Plan Problem List: (1) Mastitis, obstetric, delivered ICD Codes: O91.22 - Nonpurulent mastitis associated with the puerperium Plan: consult ID regarding continued vanco vs ? (2) History of ESBL Klebsiella pneumoniae infection ICD Codes: Z86.19 - Personal history of other infectious and parasitic diseases Status: Acute Plan: await culture (3) UTI (urinary tract infection) ICD Codes: N39.0 - Urinary tract infection, site not specified Status: Acute Plan: consult ID (4) Vesico-ureteral reflux ICD Codes: N13.70 - Vesicoureteral reflux Status: Acute (5) Headache ICD Codes: R51 - Headache Status: Acute (6) Adjustment disorder with mixed disturbance of emotions and conduct ICD Codes: F43.25 - Adjustment disorder with mixed disturbance of emotions and conduct Assessment and Plan will consult ID I am at a loss for continued antibiotic for mastitis and UTI her multiple drug allergies combined with history of MSRO infection is restricting options 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 will start reglan hopeful transfer to floor Deborah Ernst MD Aug 17, 2017 08:37
[2017-08-17] MEDS: SODIUM CHLORIDE 0.9% FLUSH 10 ML FLUSH IV FLUSH SCH ×2 (09:00→21:00)
[2017-08-17] MEDS: metFORMIN HCL 500 MG TAB PO SCH ×2 (09:39→18:00)
[2017-08-17] MEDS: SERTRALINE HCL 100 MG TAB PO SCH (09:39)
[2017-08-17] MEDS: valACYclovir HCL 500 MG TAB PO SCH ×2 (09:40→18:52)
[2017-08-17] MEDS: METOCLOPRAMIDE HCL 10 MG TAB PO SCH ×3 (11:45→21:00)
--- NOTE | 2017-08-17 13:30 | PD.ID.CON ---
History of Present Illness Service ID Consult Requested By Dr Chavez Reason for Consult mastitis, UTI Primary Care Physician Cornelia Nuñez DO Diagnoses: History of Present Illness 36 yo 3 weeks post section and BTL at 30+ weeks for intractable labor and imminent delivery with prior section. Hx of abnormal ureteral junction and multiple surgeries for re implantation. still gets severe UTIs and pyelonephritis. Has multiple allergies and hx of MDRO UTIs (ESBL+ E.coli). Her baby is in NICU and she started pumping and states has developed redness, engordgement and pain in both breasts and recurrent fevers above 103.5. She was started on dicloxicillin yesterday po yesterday which she has tolerated so far, and continues to spike to 103.5 and she now has right flank pain. She con to pump, L breast improved, R cont to have pain and redness She also co cloudy urine and pain on R side T max 102.2, WBC @ 13 K and her vss are stable Pt had VUR and since 2013 had multiple urological procedures Sh con to have frequent UTIs she thinks however they are less frequent now She developped laryngeal edema and hives with ertapenem and subsequently meropenem use Review of Systems Except as stated in HPI: all other systems reviewed are Neg Past Family Social History Allergies: Coded Allergies: cefuroxime (Unverified Allergy, Severe, SEVERE VOMITING,THROAT SWELLING, 07/14/17) THROAT SWELLING ciprofloxacin (Unverified Allergy, Severe, HIVES, SOB ; THROAT SWELLING, 07/14/17) ertapenem (Unverified Allergy, Severe, swelling throat, 07/14/17) meropenem (Verified Allergy, Severe, Hives, 07/14/17) promethazine (Unverified Allergy, Severe, SEIZURES, 07/14/17) ceftriaxone (Unverified Allergy, Intermediate, Rash, 07/14/17) levofloxacin (Unverified Allergy, Unknown, Hives, 07/14/17) amoxicillin (Unverified Adverse Reaction, Severe, Swelling, 08/16/17) clavulanic acid (Unverified Adverse Reaction, Severe, Swelling, 08/16/17) *MDRO Multi-Drug Resistant Organism (Verified Adverse Reaction, Unknown, ESBL, 07/14/17) ESBL Klebsiella (urine) - 01/22/17 Past Medical History multiple laparoscopies for pelvic pain and endometriosis hernia repairs Past Surgical History multiple urologic surgeries C/S x 2 with BTL elective term section repeat section 3 weeks ago at 30 + weeks for intractable labor Active Ordered Medications Medications where reviewed in EMR Antibiotics Include: vancomycin azactam Family History Negative Social History Alcohol Use: No Tobacco Use: No Substance Abuse: No Physical Exam Vital Signs Vital Signs Date Time Temp Pulse Resp B/P (MAP) Pulse Ox O2 Delivery O2 Flow Rate FiO2 08/17/17 11:39 98.3 75 17 100/51 (67) 97 Room Air 08/17/17 08:00 98.3 79 19 96/52 (67) 97 Room Air 08/17/17 04:24 98.2 78 18 99/58 (72) 97 Room Air 08/17/17 01:19 99.6 80 18 99/51 (67) 97 Room Air 08/16/17 22:35 99.8 84 08/16/17 20:49 102.2 107 20 122/69 (86) 97 Room Air 08/16/17 19:59 100.5 112 18 121/79 (93) 97 Room Air Physical Exam CONSTITUTIONAL/GENERAL: This is an adequately nourished patient, in no apparent distress. TUBES/LINES/DRAINS: SKIN: No jaundice, rashes, or lesions. Ecchymoses on upper extremities. No wounds seen anteriorly. Skin temperature appropriate. Not diaphoretic. HEAD: Atraumatic. Normocephalic. EYES: Pupils equal and round and reactive. Extraocular motions intact. No scleral icterus. No injection or drainage. Fundi not examined. ENT: Hearing grossly normal. Nose without bleeding or purulent drainage. Throat without visible erythema, exudates, masses, or lesions. NECK: Trachea midline. Supple, nontender. No palpable thyroid enlargement or nodularity. BREASTS: both breasts are engorges, there is ill defined erythema on the R with small area of induration CARDIOVASCULAR: Regular rate and rhythm without murmurs, gallops, or rubs. No JVD. Peripheral pulses symmetric. RESPIRATORY/CHEST: Symmetric, unlabored respirations. Clear to auscultation. Breath sounds equal bilaterally. No wheezes, rales, or rhonchi. GASTROINTESTINAL: Abdomen soft, non-tender, nondistended. No hepato-splenomegaly , or palpable masses. No guarding. Bowel sounds present. GENITOURINARY: Without palpable bladder distension. + moderate R VA tenderness MUSCULOSKELETAL: Extremities without clubbing, cyanosis, or edema. No joint tenderness or effusion noted. No calf tenderness. No mottling or clubbing. LYMPHATICS: No palpable cervical or supraclavicular adenopathy. NEUROLOGICAL: Awake and alert. Motor and sensory grossly within normal limits. Follows commands. Cognitively sharp. Moves all extremities. PSYCHIATRIC: No obvious anxiety/depression. no apparent hallucinations or other psychotic thought process. Laboratory Laboratory Tests Test 08/16/17 21:00 White Blood Count 13.7 Red Blood Count 4.07 Hemoglobin 12.1 Hematocrit 36.3 Mean Corpuscular Volume 89.1 Mean Corpuscular Hemoglobin 29.7 Mean Corpuscular Hemoglobin Concent 33.3 Red Cell Distribution Width 14.3 Platelet Count 208 Mean Platelet Volume 7.9 Neutrophils (%) (Auto) 85.7 Lymphocytes (%) (Auto) 6.6 Monocytes (%) (Auto) 2.8 Eosinophils (%) (Auto) 4.7 Basophils (%) (Auto) 0.2 Neutrophils # (Auto) 11.7 Lymphocytes # (Auto) 0.9 Monocytes # (Auto) 0.4 Eosinophils # (Auto) 0.6 Basophils # (Auto) 0.0 CBC Comment DIFF FINAL Differential Comment Urine Color YELLOW Urine Turbidity CLEAR Urine pH 6.5 Urine Specific [place] 1.032 Urine Protein TRACE Urine Glucose (UA) NEG Urine Ketones NEG Urine Occult Blood SMALL Urine Nitrite NEG Urine Bilirubin NEG Urine Urobilinogen 2.0 Urine Leukocyte Esterase LARGE Urine RBC 1 Urine WBC 11 Urine Squamous Epithelial Cells 1 Urine Bacteria RARE Urine Mucus FEW Microscopic Urinalysis Comment CULTURE INDICATED Blood Urea Nitrogen 11 Creatinine 0.91 Random Glucose 104 Calcium Level 9.0 Sodium Level 140 Potassium Level 3.2 Chloride Level 101 Carbon Dioxide Level 25.7 Anion Gap 13 Estimat Glomerular Filtration Rate 71 Date/Time Source Procedure Growth Status 08/16/17 20:40 Blood Peripheral Aerobic Blood Culture - Preliminary NO GROWTH IN 1 DAY Resulted 08/16/17 20:40 Blood Peripheral Anaerobic Blood Culture - Preliminary NO GROWTH IN 1 DAY Resulted 08/16/17 21:00 Urine Clean Catch Urine Culture Pending Received Result Diagram: 08/16/17209908/16/17 2100 Assessment and Plan Assessment and Plan UTI, with h/o VUR -growing GNB H/o ESBL+ organism UTI b/l mastitis H/o immediate Ertapenem, PCN, cefalosporin allergies cont azctam will start desensitisation in ICU tomorrow cont vanco for mastitis for now kidney US monitor clx (blood and urine) Discussed Condition With Dr Chavez Pharm[employer] Eugenie Scruggs MD Aug 17, 2017 13:30
--- NOTE | 2017-08-17 18:18 | HHI.OB ---
Subjective Post Operative Day: 20 Remarks Has been afebrile today states the blisters at her corner of mouth spreading on her face states her milk flow is diminishing, despite hospital strength electric pump concerned she will develop allergies to the vanco and azactem and wants benedryl available if she starts to itch wants result of renal sonogram done today Objective Vitals/I&O Vital Signs Date Time Temp Pulse Resp B/P (MAP) Pulse Ox O2 Delivery O2 Flow Rate FiO2 08/17/17 16:11 98.6 76 18 103/55 (71) 97 08/17/17 13:56 99.1 79 18 104/62 (76) 98 08/17/17 13:50 08/17/17 11:39 98.3 75 17 100/51 (67) 97 Room Air 08/17/17 08:00 98.3 79 19 96/52 (67) 97 Room Air 08/17/17 04:24 98.2 78 18 99/58 (72) 97 Room Air 08/17/17 01:19 99.6 80 18 99/51 (67) 97 Room Air 08/16/17 22:35 99.8 84 08/16/17 20:49 102.2 107 20 122/69 (86) 97 Room Air 08/16/17 19:59 100.5 112 18 121/79 (93) 97 Room Air Intake & Output 08/17/17 08/17/17 06:59 18:59 Intake Total 262.5 ml 591 ml Balance 262.5 ml 591 ml Intake Oral 591 ml IV Total 262.5 ml # Voids 1 1 Result Diagram: 08/16/17209908/16/17 2100 Objective Remarks GENERAL: Well-nourished, well-developed patient. The cold sores at her mouth corner left have not changed since the morning, despite her concern otherwise breasts appear normal with no redness, firmness, masses or streaking. clinically appear normal CARDIOVASCULAR: Regular rate and rhythm without murmurs, gallops, or rubs. RESPIRATORY: Breath sounds equal bilaterally. No accessory muscle use. ABDOMEN/GI: Abdomen soft, non-tender, bowel sounds present. Incision: Clean, dry and intact. EXTREMITIES: No cyanosis or edema, non-tender, without signs of DVT. Medications and IVs Current Medications Medications (Trade) Dose Ordered Sig/Mary Route Start Time Stop Time Status Last Admin (NS Flush) 2 ml BID IV FLUSH 08/16/17 21:00 08/16/17 21:24 (NS Flush) 2 ml UNSCH PRN IV FLUSH 08/16/17 21:00 Lactated Ringer's 1,000 ml @ 100 mls/hr Q10H IV 08/16/17 21:00 08/16/17 21:24 (Tylenol) 650 mg Q4H PRN PO 08/16/17 21:00 08/17/17 11:46 (Ambien) 5 mg HS PRN PO 08/16/17 21:00 (Zofran Inj) 4 mg Q6H PRN IV PUSH 08/16/17 21:00 08/17/17 11:45 (Valtrex) 1,000 mg Q8H PO 08/17/17 10:00 08/17/17 09:40 (Reglan) 10 mg ACHS PO 08/17/17 12:00 08/17/17 11:45 (Zoloft) 100 mg DAILY PO 08/17/17 09:00 08/17/17 09:39 (Glucophage) 500 mg BIDPC PO 08/17/17 09:00 08/17/17 09:39 Vancomycin HCl 1250 mg/Sodium Chloride 262.5 ml @ 262.5 mls/ hr Q12H IV 08/17/17 17:00 Aztreonam 2000 mg/ Sodium Chloride 100 ml @ 200 mls/hr Q6H IV 08/17/17 17:00 Assessment/Plan Problem List: (1) Mastitis, obstetric, delivered ICD Codes: O91.22 - Nonpurulent mastitis associated with the puerperium Plan: consult ID regarding continued vanco vs ? (2) History of ESBL Klebsiella pneumoniae infection ICD Codes: Z86.19 - Personal history of other infectious and parasitic diseases Status: Acute Plan: await culture (3) UTI (urinary tract infection) ICD Codes: N39.0 - Urinary tract infection, site not specified Status: Acute Plan: consult ID (4) Vesico-ureteral reflux ICD Codes: N13.70 - Vesicoureteral reflux Status: Acute (5) Headache ICD Codes: R51 - Headache Status: Acute (6) Adjustment disorder with mixed disturbance of emotions and conduct ICD Codes: F43.25 - Adjustment disorder with mixed disturbance of emotions and conduct Assessment and Plan will consult ID I am at a loss for continued antibiotic for mastitis and UTI. 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 will start reglan hopeful transfer to floor 08/17/17 18:30 On floor and now on vanco and azactem per discussion with Dr. Scruggs afebrile and with no clinical suggestion of persistent mastitis focus now is on UTI Will reassess in am continue antibiotics and valtrex Deborah Ernst MD Aug 17, 2017 18:17
--- NOTE | 2017-08-17 18:20 | HHI.DCPOC ---
Discharge Care Plan Report Symptoms to Your Doctor -Temperature above 100.5 degrees -Redness, of incision or excessive or foul smelling drainage -Unusual pain or calf pain -Increased vaginal bleeding -Painful or difficulty urinating -Feelings of extreme sadness or anxiety after 2 weeks Goals to Promote Your Health * To prevent worsening of your condition and complications * To maintain your health at the optimal level Directions to Meet Your Goals Take your medications as prescribed Follow your dietary instruction Follow activity as directed Ensure plenty of rest for recovery Drink fluids for hydration Keep your appointments as scheduled Take your immunizations and boosters as scheduled If your symptoms worsen call your PCP, if no PCP go to Urgent Care Center or Emergency Room Smoking is Dangerous to Your Health. Avoid second hand smoke Call the 24-hour crisis hotline for domestic abuse at Deborah Ernst MD Aug 17, 2017 18:20
[2017-08-17] MEDS: VANCOMYCIN INJ 1,250 MG in SODIUM CHLOR 0.9% 250 ML INJ 250 ML IV SCH (20:24)
[2017-08-17] MEDS: AZTREONAM INJ 2,000 MG in SODIUM CHLORIDE 0.9% INJ 100 ML IV SCH ×2 (20:24→22:08)
[2017-08-17] MEDS: diphenhydrAMINE HCL 50 MG CAP PO PRN (20:25)
--- NOTE | 2017-08-17 23:24 | RADRPT ---
EXAM DATE/TIME: 08/17/2017 16:59 [facility] COMPARISON: US KIDNEY/RENAL/BLADDER, May 20, 2017, 8:22. INDICATIONS : Flank pain. MEDICAL HISTORY : Gastroesophageal reflux disease. . Seizures. Migraines. Asthma. Gastroparesis. Endometriosis . PCOS. Ectopic . Renal disease. Kidney stones. Inguinal hernia. Diabetes. ADHD. Vesicureter al reflux. MDRO. SURGICAL HISTORY : Tonsillectomy. Cholecystectomy. Appendectomy. CABG. Appendectomy. Hysterectomy. Left shoulder surgery . Laparotomy x 4. section. ENCOUNTER: [facility] ACUITY: 1 day PAIN SCORE: 2/10 LOCATION: Bilateral flank MEASUREMENTS: RIGHT KIDNEY: 11.1 x 5.1 x 5.0 cm LEFT KIDNEY: 12.2 x 4.8 x 5.1 cm FINDINGS: RIGHT KIDNEY: Renal cortex is normal in thickness and echotexture. No hydronephrosis, stone, or mass. LEFT KIDNEY: Renal cortex is normal in thickness and echotexture. No hydronephrosis, stone, or mass. BLADDER: Within normal limits given the degree of distension. CONCLUSION: Normal examination. Bc Block MD on August 17, 2017 at 23:22 Board Certified Radiologist. This report was verified electronically.
[2017-08-18 00:39] VITALS: BP 110/59; PULSE 72; RESP 18; TEMP 98.6; O2SAT 97
[2017-08-18] MEDS: valACYclovir HCL 500 MG TAB PO SCH ×3 (02:00→18:00)
[2017-08-18] MEDS: LACTATED RINGER'S 1000 ML INJ 1,000 ML IV SCH ×3 (03:00→23:25)
[2017-08-18] MEDS: VANCOMYCIN INJ 1,250 MG in SODIUM CHLOR 0.9% 250 ML INJ 250 ML IV SCH ×2 (04:39→19:48)
[2017-08-18] MEDS: AZTREONAM INJ 2,000 MG in SODIUM CHLORIDE 0.9% INJ 100 ML IV SCH ×4 (04:39→23:24)
[2017-08-18] MEDS: diphenhydrAMINE HCL 50 MG CAP PO PRN ×2 (05:49→19:49)
[2017-08-18 08:00] VITALS: BP 118/76; PULSE 69; RESP 20; TEMP 98.5; O2SAT 96
[2017-08-18] MEDS: METOCLOPRAMIDE HCL 10 MG TAB PO SCH ×4 (08:00→21:00)
[2017-08-18 08:11] LABS: AUTOMATED NEUTROPHIL # 2.9 TH/MM3 (1.8-7.7); BASOPHIL % 0.4 % (0.0-2.0); EOSINOPHIL # 0.7 TH/MM3 (0-0.4); EOSINOPHIL % 13.3 % (0.0-4.0); HEMATOCRIT 31.5 % (35.0-46.0); HEMO FLAGS DIFF FINAL; LYMPH % 28.4 % (9.0-44.0); LYMPHOCYTE # 1.5 TH/MM3 (1.0-4.8); MEAN CELL VOLUME 89.5 FL (80.0-100.0); MEAN CORPUSCULAR HEMOGLOBIN 30.3 PG (27.0-34.0); MEAN CORPUSCULAR HGB CONC 33.8 % (32.0-36.0); MONO % 4.9 % (0.0-8.0); PLATELET COUNT 219 TH/MM3 (150-450); RED BLOOD COUNT 3.52 MIL/MM3 (4.00-5.30); WHITE BLOOD COUNT 5.4 TH/MM3 (4.0-11.0)
--- NOTE | 2017-08-18 08:34 | HHI.OB ---
Subjective Post Operative Day: 21 Remarks Remains afebrile and feels better. no symptoms of mastitis concerned fernandoctem won't cover her UTI--I don't see identification of bug or resistances yet Objective Vitals/I&O Vital Signs Date Time Temp Pulse Resp B/P (MAP) Pulse Ox O2 Delivery O2 Flow Rate FiO2 08/18/17 00:39 98.6 72 18 110/59 (76) 97 08/17/17 21:28 98.9 79 18 113/61 (78) 96 08/17/17 16:11 98.6 76 18 103/55 (71) 97 08/17/17 13:56 99.1 79 18 104/62 (76) 98 08/17/17 13:50 08/17/17 11:39 98.3 75 17 100/51 (67) 97 Room Air Intake & Output 08/18/17 08/18/17 06:59 18:59 # Voids 2 # Bowel Movements 0 Result Diagram: 08/18/17 0739 08/16/17 2100 Objective Remarks GENERAL: Well-nourished, well-developed patient. The cold sores at her mouth corner left have not changed since the morning, despite her concern otherwise breasts appear normal with no redness, firmness, masses or streaking. clinically appear normal CARDIOVASCULAR: Regular rate and rhythm without murmurs, gallops, or rubs. RESPIRATORY: Breath sounds equal bilaterally. No accessory muscle use. ABDOMEN/GI: Abdomen soft, non-tender, bowel sounds present. Incision: Clean, dry and intact. EXTREMITIES: No cyanosis or edema, non-tender, without signs of DVT. Medications and IVs Current Medications Medications (Trade) Dose Ordered Sig/Mary Route Start Time Stop Time Status Last Admin (NS Flush) 2 ml BID IV FLUSH 08/16/17 21:00 08/17/17 21:00 (NS Flush) 2 ml UNSCH PRN IV FLUSH 08/16/17 21:00 Lactated Ringer's 1,000 ml @ 100 mls/hr Q10H IV 08/16/17 21:00 08/17/17 20:25 (Tylenol) 650 mg Q4H PRN PO 08/16/17 21:00 08/17/17 22:00 (Ambien) 5 mg HS PRN PO 08/16/17 21:00 (Zofran Inj) 4 mg Q6H PRN IV PUSH 08/16/17 21:00 08/17/17 11:45 (Valtrex) 1,000 mg Q8H PO 08/17/17 10:00 08/18/17 02:00 (Reglan) 10 mg ACHS PO 08/17/17 12:00 08/17/17 11:45 (Zoloft) 100 mg DAILY PO 08/17/17 09:00 08/17/17 09:39 (Glucophage) 500 mg BIDPC PO 08/17/17 09:00 08/17/17 09:39 Vancomycin HCl 1250 mg/Sodium Chloride 262.5 ml @ 262.5 mls/ hr Q12H IV 08/17/17 17:00 08/18/17 04:39 Aztreonam 2000 mg/ Sodium Chloride 100 ml @ 200 mls/hr Q6H IV 08/17/17 17:00 08/18/17 04:39 (Benadryl) 50 mg Q6H PRN PO 08/17/17 20:15 08/18/17 05:49 Assessment/Plan Problem List: (1) Mastitis, obstetric, delivered ICD Codes: O91.22 - Nonpurulent mastitis associated with the puerperium Plan: consult ID regarding continued vanco vs ? (2) History of ESBL Klebsiella pneumoniae infection ICD Codes: Z86.19 - Personal history of other infectious and parasitic diseases Status: Acute Plan: await culture (3) UTI (urinary tract infection) ICD Codes: N39.0 - Urinary tract infection, site not specified Status: Acute Plan: consult ID (4) Vesico-ureteral reflux ICD Codes: N13.70 - Vesicoureteral reflux Status: Acute (5) Headache ICD Codes: R51 - Headache Status: Acute (6) Adjustment disorder with mixed disturbance of emotions and conduct ICD Codes: F43.25 - Adjustment disorder with mixed disturbance of emotions and conduct Assessment and Plan will consult ID I am at a loss for continued antibiotic for mastitis and UTI. 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 will start reglan hopeful transfer to floor 08/17/17 18:30 On floor and now on vanco and azactem per discussion with Dr. Scruggs afebrile and with no clinical suggestion of persistent mastitis focus now is on UTI Will reassess in am continue antibiotics and valtrex 08/18/17 8:00 feeling better on abx regimen with no perceived development of allergies yet continues valtrex and looks better at corner of mouth continues to pump afebrile now > 24 Hours--should be able to see baby with a mask will ask Dr Scruggs how long IV meds needed since we have no PO follow up available will do allergy testing with either Dr. Quispe or her government relations director at [facility],Deborah Zarate MD Aug 18, 2017 08:34
[2017-08-18] MEDS: SODIUM CHLORIDE 0.9% FLUSH 10 ML FLUSH IV FLUSH SCH ×2 (09:00→21:00)
[2017-08-18] MEDS: metFORMIN HCL 500 MG TAB PO SCH ×2 (09:46→18:00)
[2017-08-18] MEDS: SERTRALINE HCL 100 MG TAB PO SCH (09:46)
[2017-08-18] MEDS: ACETAMINOPHEN 325 MG TAB PO PRN (09:46)
[2017-08-18 12:20] VITALS: BP 122/59; PULSE 76; RESP 20; TEMP 98.6; O2SAT 96
[2017-08-18 16:15] VITALS: BP 124/79; PULSE 77; RESP 20; TEMP 98.9; O2SAT 98
--- NOTE | 2017-08-18 19:47 | HHI.PR ---
Addendum to Inpatient Note Additional Information attempted to see the pt Pt was off the floor will see tomorrow Eugenie Scruggs MD Aug 18, 2017 19:47
[2017-08-18 21:40] VITALS: BP 128/88; PULSE 88; RESP 16; TEMP 98.3; O2SAT 97
[2017-08-19 00:15] VITALS: BP 111/59; PULSE 73; RESP 18; TEMP 98.8; O2SAT 96
[2017-08-19] MEDS: valACYclovir HCL 500 MG TAB PO SCH ×2 (02:00→09:10)
[2017-08-19] MEDS: AZTREONAM INJ 2,000 MG in SODIUM CHLORIDE 0.9% INJ 100 ML IV SCH ×2 (04:50→11:28)
[2017-08-19] MEDS: VANCOMYCIN INJ 1,250 MG in SODIUM CHLOR 0.9% 250 ML INJ 250 ML IV SCH (04:51)
[2017-08-19] MEDS: diphenhydrAMINE HCL 50 MG CAP PO PRN (04:51)
[2017-08-19 06:12] VITALS: BP 118/75; PULSE 71; RESP 18; TEMP 98.7; O2SAT 97
[2017-08-19 08:26] VITALS: BP 114/72; PULSE 68; RESP 20; TEMP 98.4; O2SAT 96
[2017-08-19] MEDS: SODIUM CHLORIDE 0.9% FLUSH 10 ML FLUSH IV FLUSH SCH (09:00)
[2017-08-19] MEDS: SERTRALINE HCL 100 MG TAB PO SCH (09:10)
[2017-08-19] MEDS: metFORMIN HCL 500 MG TAB PO SCH (09:10)
[2017-08-19] MEDS: METOCLOPRAMIDE HCL 10 MG TAB PO SCH (09:10)
--- NOTE | 2017-08-19 11:30 | HHI.IDPN ---
Subjective Subjective Remarks pt is doing better pumping helps her with breast pain and engorgment Still has some R back pain afebrile she grew sarmiento S E.coli tolerating azactam uneventfully Antibiotics azactam vancomycin Allergies: Coded Allergies: cefuroxime (Unverified Allergy, Severe, SEVERE VOMITING,THROAT SWELLING, 07/14/17) THROAT SWELLING ciprofloxacin (Unverified Allergy, Severe, HIVES, SOB ; THROAT SWELLING, 07/14/17) ertapenem (Unverified Allergy, Severe, swelling throat, 07/14/17) meropenem (Verified Allergy, Severe, Hives, 07/14/17) promethazine (Unverified Allergy, Severe, SEIZURES, 07/14/17) ceftriaxone (Unverified Allergy, Intermediate, Rash, 07/14/17) levofloxacin (Unverified Allergy, Unknown, Hives, 07/14/17) amoxicillin (Unverified Adverse Reaction, Severe, Swelling, 08/16/17) clavulanic acid (Unverified Adverse Reaction, Severe, Swelling, 08/16/17) *MDRO Multi-Drug Resistant Organism (Verified Adverse Reaction, Unknown, ESBL, 07/14/17) ESBL Klebsiella (urine) - 01/22/17 Objective . Vital Signs Date Time Temp Pulse Resp B/P (MAP) Pulse Ox O2 Delivery O2 Flow Rate FiO2 08/19/17 08:26 98.4 68 20 114/72 (86) 96 08/19/17 06:12 98.7 71 18 118/75 (89) 97 08/19/17 00:15 98.8 73 18 111/59 (76) 96 08/18/17 21:40 98.3 88 16 128/88 (101) 97 08/18/17 16:15 98.9 77 20 124/79 (94) 98 08/18/17 12:20 98.6 76 20 122/59 (80) 96 . Laboratory Tests Test 08/18/17 07:39 White Blood Count 5.4 TH/MM3 Red Blood Count 3.52 MIL/MM3 Hemoglobin 10.7 GM/DL Hematocrit 31.5 % Mean Corpuscular Volume 89.5 FL Mean Corpuscular Hemoglobin 30.3 PG Mean Corpuscular Hemoglobin Concent 33.8 % Red Cell Distribution Width 14.0 % Platelet Count 219 TH/MM3 Mean Platelet Volume 7.7 FL Neutrophils (%) (Auto) 53.0 % Lymphocytes (%) (Auto) 28.4 % Monocytes (%) (Auto) 4.9 % Eosinophils (%) (Auto) 13.3 % Basophils (%) (Auto) 0.4 % Neutrophils # (Auto) 2.9 TH/MM3 Lymphocytes # (Auto) 1.5 TH/MM3 Monocytes # (Auto) 0.3 TH/MM3 Eosinophils # (Auto) 0.7 TH/MM3 Basophils # (Auto) 0.0 TH/MM3 CBC Comment DIFF FINAL Differential Comment Microbiology Date/Time Source Procedure Growth Status 08/16/17 20:40 Blood Peripheral Aerobic Blood Culture - Preliminary NO GROWTH IN 2 DAYS Resulted 08/16/17 20:40 Blood Peripheral Anaerobic Blood Culture - Preliminary NO GROWTH IN 2 DAYS Resulted 08/16/17 20:40 Blood Peripheral Aerobic Blood Culture - Preliminary NO GROWTH IN 2 DAYS Resulted 08/16/17 20:40 Blood Peripheral Anaerobic Blood Culture - Preliminary NO GROWTH IN 2 DAYS Resulted 08/16/17 21:00 Urine Clean Catch Urine Culture - Final Escherichia Coli Complete Imaging Last Impressions Renal Ultrasound 08/17/17 0000 Signed Impressions: Service Date/Time: Thursday, August 17, 2017 16:59 - CONCLUSION: Normal examination. Bc Block MD Physical Exam CONSTITUTIONAL/GENERAL: This is an adequately nourished patient, in no apparent distress. TUBES/LINES/DRAINS: SKIN: No jaundice, rashes, or lesions. EYES: Pupils equal and round and reactive. Extraocular motions intact. No scleral icterus. No injection or drainage. Fundi not examined. BREASTS: pt is pumping . Erythema resolved CARDIOVASCULAR: Regular rate and rhythm without murmurs, gallops, or rubs. No JVD. Peripheral pulses symmetric. RESPIRATORY/CHEST: Symmetric, unlabored respirations. Clear to auscultation. Breath sounds equal bilaterally. No wheezes, rales, or rhonchi. GASTROINTESTINAL: Abdomen soft, non-tender, nondistended. No hepato-splenomegaly , or palpable masses. No guarding. Bowel sounds present. GENITOURINARY: Without palpable bladder distension. + mild R CVA tenderness MUSCULOSKELETAL: Extremities without clubbing, cyanosis, or edema. Assessment & Plan Remarks UTI, with h/o VUR -growing panS e.coli improved on current abx US negative H/o ESBL+ organism UTI b/l mastitis: improved with pumping H/o immediate Ertapenem, PCN, cefalosporin allergies dc azctam start Bactrim in-pt and cont for 10 more days Pt was instructed to discard breast milk obtained while on Bactrim cancell desensitisation OK to dc home if tolerates bactrim uneventfully, o/w will need to be d/c on IV azactam Discussed Condition With Eugenie Mao MD Aug 19, 2017 11:30
[2017-08-19] MEDS ORDERED: BACT800T5 PO (11:31)
[2017-08-19 12:00] VITALS: BP 121/80; PULSE 77; RESP 20; TEMP 98.7; O2SAT 97
[2017-08-19] MEDS ORDERED: SULFAMETHOXAZOLE-TRIMETHOPRIM DS 800-160 MG TAB PO SCH (12:00)
== END 2017-08-19 13:17 | disposition home or self-care (01) | DRG 776 ==
LOC: NEPC 19:56 → NEDA 20:42 → OBSVTOIN 21:49 → NEDH 08-17 02:20 → N05A 08-17 13:52
PROVIDERS: ADMIT Obstetrics & Gynecology; ATTEND Obstetrics & Gynecology
DX: O91.22 Nonpurulent mastitis associated with the puerperium (principal); O86.20 Urinary tract infection following delivery, unspecified; Z87.440 Personal history of urinary (tract) infections; O90.89 Other complications of the puerperium, not elsewhere classified; N13.70 Vesicoureteral-reflux, unspecified; F43.25 Adjustment disorder with mixed disturbance of emotions and conduct; O99.345 Other mental disorders complicating the puerperium; R51 Headache; B00.1 Herpesviral vesicular dermatitis
CPT/HCPCS: 76775; 80048; 81001; 85025; 87040; 87077; 87086; 87186; J2405; J3370; J7050; J7120; Q0163

== ENCOUNTER 2017-10-19 19:11 | Observation (INO) | payer BC ==
[~2017-10-19 19:11] MED LIST changes: +BACT800T5 PO; -OXYC1TAB63 PO; +PREN29TA PO; +ZOLO100T PO
[2017-10-19 19:13] VITALS: BP 125/74; PULSE 78; RESP 16; TEMP 98.7; O2SAT 100
[2017-10-19 20:11] LABS: AUTOMATED NEUTROPHIL # 3.4 TH/MM3 (1.8-7.7); BASOPHIL % 0.5 % (0.0-2.0); EOSINOPHIL # 0.2 TH/MM3 (0-0.4); EOSINOPHIL % 2.5 % (0.0-4.0); HEMATOCRIT 36.5 % (35.0-46.0); HEMOGLOBIN 12.5 GM/DL (11.6-15.3); LYMPH % 37.4 % (9.0-44.0); LYMPHOCYTE # 2.4 TH/MM3 (1.0-4.8); MEAN CELL VOLUME 85.4 FL (80.0-100.0); MEAN CORPUSCULAR HEMOGLOBIN 29.2 PG (27.0-34.0); MEAN CORPUSCULAR HGB CONC 34.2 % (32.0-36.0); MEAN PLATELET VOLUME 7.7 FL (7.0-11.0); MONO % 6.4 % (0.0-8.0); MONOCYTE # 0.4 TH/MM3 (0-0.9); NEUT % 53.2 % (16.0-70.0); PLATELET COUNT 226 TH/MM3 (150-450); RED BLOOD COUNT 4.27 MIL/MM3 (4.00-5.30); RED CELL DISTRIBUTION WIDTH 13.4 % (11.6-17.2); WHITE BLOOD COUNT 6.3 TH/MM3 (4.0-11.0)
[2017-10-19 20:32] LABS: BACTERIA, URINE OCC /hpf; BICARBONATE 24.4 MEQ/L (21.0-32.0); BILIRUBIN, URINE NEG (NEG); BLOOD, URINE NEG (NEG); CALCIUM 8.6 MG/DL (8.5-10.1); CREATININE 1.1 MG/DL (0.50-1.00); GLUCOSE,URINE NEG (NEG); KETONE, URINE NEG (NEG); MUCUS URINE FEW /lpf (OCC); NITRITE,URINE NEG (NEG); PH, URINE 6.5 (5.0-8.5); SQUAMOUS EPITHELIAL CELL URINE 1 /hpf (0-5); URINE COLOR LIGHT-YELLOW (YELLW/STRAW); URINE LEUKOCYTE ESTERASE NEG (NEG)
[2017-10-19] MEDS ORDERED: ONDANSETRON HCL 4 MG/2 ML VIAL IV PUSH ONE (22:30)
[2017-10-19] MEDS ORDERED: MORPHINE SULFATE 2 MG/ML INJ IV PUSH ONE (22:30)
[2017-10-19] MEDS ORDERED: diphenhydrAMINE HCL 50 MG/ML VIAL IV PUSH ONE (22:30)
--- NOTE | 2017-10-19 22:33 | PD ---
HPI Chief Complaint: Flank/Kidney Pain Time Seen by Provider: 22:03 Travel History International Travel<30 days: No Contact w/Intl Traveler<30days: No Traveled to known affect area: No History of Present Illness HPI 36-year-old female that presents to the ED for evaluation of right flank pain. 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 She's had had multiple infections of her right kidney secondary to this. Apparently Dr. waite her urologist attempted to get a sample of the right kidney but he could not do it. Patient has a history of about 3 surgeries done to correct the anatomy. She states that the procedure was done on the eighth and has been having worsening symptoms since. She is about 6-8 weeks . She was told to come here by her doctor Dr. Ernst who wants the patient to have a CT with contrast to see what is going on with the kidney. She does have multiple allergies to different antibiotics. She is currently breast-feeding. Denies . PFSH Past Medical History Arthritis: No Asthma: Yes Heart Rhythm Problems: No Cancer: No Cardiovascular Problems: No High Cholesterol: No Chest Pain: Yes Congestive Heart Failure: No COPD: No Cerebrovascular Accident: No Diabetes: Yes Patient Takes Glucophage: Yes Diminished Hearing: No Endocrine: No Gastrointestinal Disorders: Yes (GERD; GASTROPARESIS) GERD: Yes Genitourinary: Yes (VESICOURETERAL REFLUX, CKD) Headaches: Yes Hepatitis: No Hiatal Hernia: No Immune Disorder: No Inguinal Hernia: Yes Kidney Stones: Yes Medical other: Yes Musculoskeletal: No Neurologic: Yes ( ONE SEIZURE AFTER PHENERGAN, HORMONAL MIGRAINES) Psychiatric: Yes (ADHD) Reproductive: Yes (ENDOMETRIOSIS;PELVIC CONGESTIVE SYNDROME, PCOS ) Respiratory: Yes (ASTHMA) Immunizations Current: Yes Migraines: Yes Renal Failure: No Seizures: Yes Sleep Apnea: No Thyroid Disease: No Ulcer: No Tetanus Vaccination: < 5 Years Influenza Vaccination: Yes ?: Not : 4 Para: 3 Miscarriage: 0 : 0 Ectopic : Yes Dilation and Curettage (D&C): Yes Past Surgical History Abdominal Surgery: Yes (APPENDECTOMY, CHOLECTSTECTOMY) AICD: No Appendectomy: Yes Body Medical Devices: NOVA RING Cardiac Surgery: No Section: Yes Cholecystectomy: Yes Ear Surgery: No Endocrine Surgery: No Eye Surgery: Yes (STRIBISMUS) Genitourinary Surgery: Yes Gynecologic Surgery: Yes (mult lap endometrosis X 4; C -SECTION) Joint Replacement: No Oral Surgery: Yes (TONSILS) Pacemaker: No Thoracic Surgery: No Tonsillectomy: Yes Other Surgery: Yes (multiple revision/corrective surgeries to vesicoureteral ) Social History Alcohol Use: No Tobacco Use: No Substance Use: No Allergies-Medications (Allergen,Severity, Reaction): Coded Allergies: cefuroxime (Unverified Allergy, Severe, SEVERE VOMITING,THROAT SWELLING, 07/14/17) THROAT SWELLING ciprofloxacin (Unverified Allergy, Severe, HIVES, SOB ; THROAT SWELLING, 07/14/17) ertapenem (Unverified Allergy, Severe, swelling throat, 07/14/17) meropenem (Verified Allergy, Severe, Hives, 07/14/17) promethazine (Unverified Allergy, Severe, SEIZURES, 07/14/17) ceftriaxone (Unverified Allergy, Intermediate, Rash, 07/14/17) levofloxacin (Unverified Allergy, Unknown, Hives, 07/14/17) vancomycin (Verified Allergy, Unknown, 10/19/17) itching/hives amoxicillin (Unverified Adverse Reaction, Severe, Swelling, 08/16/17) clavulanic acid (Unverified Adverse Reaction, Severe, Swelling, 08/16/17) *MDRO Multi-Drug Resistant Organism (Verified Adverse Reaction, Unknown, ESBL, 07/14/17) ESBL Klebsiella (urine) - 01/22/17 Reported Meds & Prescriptions Reported Meds & Active Scripts Active Bactrim DS (Sulfamethoxazole-Trimethoprim) 800-160 Mg Tab 1 Tab PO BID 10 Days Reported Plus Iron 29-1 mg ( Vit-Iron Carbonyl) 29 Mg Iron-1 Mg Tab 1 Tab PO DAILY Zoloft (Sertraline HCl) 100 Mg Tab 100 Mg PO DAILY Ventolin Hfa 18 GM Inh (Albuterol Sulfate) 90 Mcg/Act Aer 2 Puff INH Q4H PRN Review of Systems Except as stated in HPI: all other systems reviewed are Neg Physical Exam Narrative GENERAL: SKIN: Warm and dry. HEAD: Atraumatic. Normocephalic. EYES: Pupils equal and round. No scleral icterus. No injection or drainage. ENT: No nasal bleeding or discharge. Mucous membranes pink and moist. Tongue is midline. No uvula deviation. NECK: Trachea midline. No JVD. CARDIOVASCULAR: Regular rate and rhythm. RESPIRATORY: No accessory muscle use. Clear to auscultation. Breath sounds equal bilaterally. GASTROINTESTINAL: Abdomen soft, non-tender, nondistended. Hepatic and splenic margins not palpable. Right-sided CVA tenderness MUSCULOSKELETAL: Extremities without clubbing, cyanosis, or edema. No obvious deformities. NEUROLOGICAL: Awake and alert. No obvious cranial nerve deficits. Motor grossly within normal limits. Five out of 5 muscle strength in the arms and legs. Normal speech. PSYCHIATRIC: Appropriate mood and affect; insight and judgment normal. Data Data Last Documented VS Vital Signs Date Time Temp Pulse Resp B/P (MAP) Pulse Ox O2 Delivery O2 Flow Rate FiO2 10/19/17 19:52 18 10/19/17 19:13 98.7 78 125/74 (91) 100 Room Air Orders Orders Basic Metabolic Panel (Bmp) (10/19/17 19:45) Complete Blood Count With Diff (10/19/17 19:45) Urinalysis - C+S If Indicated (10/19/17 19:45) Ed Urine Pregnancytest Poc (10/19/17 19:45) Ct Abd/Pel W Iv Contrast(Rout) (10/19/17 ) Morphine Inj (Morphine Inj) (10/19/17 22:30) Ondansetron Inj (Zofran Inj) (10/19/17 22:30) Diphenhydramine Inj (Benadryl Inj) (10/19/17 22:30) Labs Laboratory Tests Test 10/19/17 20:00 White Blood Count 6.3 TH/MM3 Red Blood Count 4.27 MIL/MM3 Hemoglobin 12.5 GM/DL Hematocrit 36.5 % Mean Corpuscular Volume 85.4 FL Mean Corpuscular Hemoglobin 29.2 PG Mean Corpuscular Hemoglobin Concent 34.2 % Red Cell Distribution Width 13.4 % Platelet Count 226 TH/MM3 Mean Platelet Volume 7.7 FL Neutrophils (%) (Auto) 53.2 % Lymphocytes (%) (Auto) 37.4 % Monocytes (%) (Auto) 6.4 % Eosinophils (%) (Auto) 2.5 % Basophils (%) (Auto) 0.5 % Neutrophils # (Auto) 3.4 TH/MM3 Lymphocytes # (Auto) 2.4 TH/MM3 Monocytes # (Auto) 0.4 TH/MM3 Eosinophils # (Auto) 0.2 TH/MM3 Basophils # (Auto) 0.0 TH/MM3 CBC Comment DIFF FINAL Differential Comment Urine Color LIGHT-YELLOW Urine Turbidity CLEAR Urine pH 6.5 Urine Specific [place] 1.010 Urine Protein NEG mg/dL Urine Glucose (UA) NEG mg/dL Urine Ketones NEG mg/dL Urine Occult Blood NEG Urine Nitrite NEG Urine Bilirubin NEG Urine Urobilinogen LESS THAN 2.0 MG/DL Urine Leukocyte Esterase NEG Urine Squamous Epithelial Cells 1 /hpf Urine Bacteria OCC /hpf Urine Mucus FEW /lpf Microscopic Urinalysis Comment CULT NOT INDICATED Blood Urea Nitrogen 15 MG/DL Creatinine 1.10 MG/DL Random Glucose 99 MG/DL Calcium Level 8.6 MG/DL Sodium Level 139 MEQ/L Potassium Level 3.8 MEQ/L Chloride Level 105 MEQ/L Carbon Dioxide Level 24.4 MEQ/L Anion Gap 10 MEQ/L Estimat Glomerular Filtration Rate 57 ML/MIN MDM Medical Decision Making Medical Screen Exam Complete: Yes Emergency Medical Condition: Yes Medical Record Reviewed: Yes Interpretation(s) CBC & BMP Diagram 10/19/17 20:00 Calcium Level 8.6 UA negative Differential Diagnosis Pyelonephritis versus hydronephrosis versus acute on chronic kidney disease versus kidney failure Narrative Course 36-year-old female that presents to the ED for evaluation of right flank pain. Patient was properly examined and was found to have signs and symptoms of unclear etiology with definite concerning. Labs and imaging were ordered. Labs were already done in triage. These were all negative. Dr. Ernst spoke with Dr. Barajsa who wanted the patient to have a CTA and wanted us to contact her back. Case was signed out to my attending pending CT results. Aaron Olivia Oct 19, 2017 22:33
[2017-10-19] MEDS ORDERED: IOHEXOL 350 MG/ML 10 ML VIAL (for RAD DIAG) IVCONTRAST ONE (23:15)
--- NOTE | 2017-10-19 23:24 | RADRPT ---
EXAM DATE/TIME: 10/19/2017 23:03 [place] COMPARISON: No previous studies available for comparison. INDICATIONS : Abdomen pain. IV CONTRAST: 90 cc Omnipaque 350 (iohexol) IV ORAL CONTRAST: No oral contrast ingested. RADIATION DOSE: 8.66 CTDIvol (mGy) MEDICAL HISTORY : None SURGICAL HISTORY : Appendectomy. Cholecystectomy. section. ENCOUNTER: Initial ACUITY: 1 day PAIN SCALE: 5/10 LOCATION: Bilateral abdomen TECHNIQUE: Volumetric scanning of the abdomen and pelvis was performed. Using automated exposure control and ad justment of the mA and/or kV according to patient size, radiation dose was kept as low as reasonably achievable to obtain optimal diagnostic quality images. DICOM format image data is available electro nically for review and comparison. FINDINGS: LOWER LUNGS: The visualized lower lungs are clear. LIVER: Homogeneous density without lesion. There is no dilation of the biliary tree. Status post cholecyste ctomy. There is moderate hepatic steatosis. SPLEEN: Normal size without lesion. PANCREAS: Within normal limits. KIDNEYS: Normal in size and shape except for mild cortical scarring involving the medial upper pole of the rig ht kidney. There is no mass, stone or hydronephrosis. ADRENAL GLANDS: Within normal limits. VASCULAR: There is no aortic aneurysm. BOWEL/MESENTERY: No oral contrast was given limiting the sensitivity of the exam. The stomach, small bowel, and colon demonstrate no acute abnormality. There is no free intraperitoneal air or fluid. ABDOMINAL WALL: Within normal limits. RETROPERITONEUM: There is no lymphadenopathy. BLADDER: No wall thickening or mass. REPRODUCTIVE: Within normal limits. INGUINAL: There is no lymphadenopathy or hernia. MUSCULOSKELETAL: Within normal limits for patient age. CONCLUSION: 1. Unremarkable bowel gas pattern. 2. Moderate hepatic steatosis. 3. Status post cholecystectomy. Isaiah Cevallos MD on October 19, 2017 at 23:20 Board Certified Radiologist. This report was verified electronically.
[2017-10-20 01:30] VITALS: BP 112/61; PULSE 69; RESP 20; TEMP 98.2; O2SAT 96
[2017-10-20] MEDS ORDERED: ACETAMINOPHEN 325 MG TAB PO PRN (02:45)
[2017-10-20] MEDS ORDERED: MORPHINE SULFATE 4 MG/ML INJ IV PUSH PRN (02:45)
[2017-10-20 04:00] VITALS: BP 116/72; PULSE 74; RESP 20; TEMP 98.2; O2SAT 97
[2017-10-20] MEDS ORDERED: diphenhydrAMINE HCL 50 MG/ML VIAL IV PUSH ONE ×2 (04:00→16:45)
[2017-10-20 08:00] VITALS: BP 122/64; PULSE 71; RESP 20; TEMP 97.8; O2SAT 95
--- NOTE | 2017-10-20 08:56 | PD.CONS ---
HPI Service Nephrology Consult Requested By Dr. Baer Reason for Consult FAUZIA Cortical scarring of right renal Primary Care Physician Cornelia Nuñez DO History of Present Illness Patient is a 36-year-old female that presents to the ED for evaluation of right flank pain. 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 She's had had multiple infections of her right kidney secondary to this. Has a history of about 3 surgeries done to correct the anatomy. She states that the procedure was done on the eighth and has been having worsening symptoms since. She is about 6-8 weeks . She is currently breast-feeding. CT noted to have kidney in normal size and shape except for mild cortical scarring involving the medial upper pole of the right kidney. There is no mass, stone or hydronephrosis. Creatinine is noted to be 1.10 and GFR is 57 ML/MIN. Her baseline creatinine is less than 1. (Bonnie Louis) Review of Systems Constitutional: COMPLAINS OF: Fatigue Respiratory: DENIES: Shortness of breath Gastrointestinal: COMPLAINS OF: Nausea, DENIES: Diarrhea, Vomiting Genitourinary: COMPLAINS OF: Dysuria Musculoskeletal: COMPLAINS OF: Back pain (right flank pain) Neurologic: COMPLAINS OF: Localized weakness (Bonnie Louis) Past Family Social History Allergies: Coded Allergies: cefuroxime (Unverified Allergy, Severe, SEVERE VOMITING,THROAT SWELLING, 07/14/17) THROAT SWELLING ciprofloxacin (Unverified Allergy, Severe, HIVES, SOB ; THROAT SWELLING, 07/14/17) ertapenem (Unverified Allergy, Severe, swelling throat, 07/14/17) meropenem (Verified Allergy, Severe, Hives, 07/14/17) promethazine (Unverified Allergy, Severe, SEIZURES, 07/14/17) ceftriaxone (Unverified Allergy, Intermediate, Rash, 07/14/17) levofloxacin (Unverified Allergy, Unknown, Hives, 07/14/17) vancomycin (Verified Allergy, Unknown, 10/19/17) itching/hives amoxicillin (Unverified Adverse Reaction, Severe, Swelling, 08/16/17) clavulanic acid (Unverified Adverse Reaction, Severe, Swelling, 08/16/17) *MDRO Multi-Drug Resistant Organism (Verified Adverse Reaction, Unknown, ESBL, 07/14/17) ESBL Klebsiella (urine) - 01/22/17 Past Medical History Asthma PCOS Endometriosis Diabetes Pelvic congestion ureteral reflux Past Surgical History Appendectomy Cholecystectomy [place] ring section Tonsillectomy multiple revision/corrective surgeries to vesicoureteral Family History Mother with diabetes and HTN Son with nephrectomy for reflux DTR with vesicoureteral reflux Social History Denies any smoking or ETOH use Lives with and 6 children (Bonnie Louis) Physical Exam Vital Signs Vital Signs Date Time Temp Pulse Resp B/P (MAP) Pulse Ox O2 Delivery O2 Flow Rate FiO2 10/20/17 04:00 98.2 74 20 116/72 (87) 97 10/20/17 01:30 98.2 69 20 112/61 (78) 96 10/19/17 19:52 18 10/19/17 19:13 98.7 78 16 125/74 (91) 100 Room Air Physical Exam GENERAL: Alert and oriented SKIN: Warm and dry. HEAD: Normocephalic. EYES: No scleral icterus. No injection or drainage. NECK: Supple, trachea midline. No JVD or lymphadenopathy. CARDIOVASCULAR: Regular rate and rhythm without murmurs, gallops, or rubs. RESPIRATORY: Breath sounds equal bilaterally. No accessory muscle use. GASTROINTESTINAL: Abdomen soft, non-tender, nondistended. MUSCULOSKELETAL: No cyanosis, or edema. BACK: Nontender without obvious deformity. Right CVA tenderness. Laboratory Laboratory Tests Test 10/19/17 20:00 White Blood Count 6.3 Red Blood Count 4.27 Hemoglobin 12.5 Hematocrit 36.5 Mean Corpuscular Volume 85.4 Mean Corpuscular Hemoglobin 29.2 Mean Corpuscular Hemoglobin Concent 34.2 Red Cell Distribution Width 13.4 Platelet Count 226 Mean Platelet Volume 7.7 Neutrophils (%) (Auto) 53.2 Lymphocytes (%) (Auto) 37.4 Monocytes (%) (Auto) 6.4 Eosinophils (%) (Auto) 2.5 Basophils (%) (Auto) 0.5 Neutrophils # (Auto) 3.4 Lymphocytes # (Auto) 2.4 Monocytes # (Auto) 0.4 Eosinophils # (Auto) 0.2 Basophils # (Auto) 0.0 CBC Comment DIFF FINAL Differential Comment Urine Color LIGHT-YELLOW Urine Turbidity CLEAR Urine pH 6.5 Urine Specific [place] 1.010 Urine Protein NEG Urine Glucose (UA) NEG Urine Ketones NEG Urine Occult Blood NEG Urine Nitrite NEG Urine Bilirubin NEG Urine Urobilinogen LESS THAN 2.0 Urine Leukocyte Esterase NEG Urine Squamous Epithelial Cells 1 Urine Bacteria OCC Urine Mucus FEW Microscopic Urinalysis Comment CULT NOT INDICATED Blood Urea Nitrogen 15 Creatinine 1.10 Random Glucose 99 Calcium Level 8.6 Sodium Level 139 Potassium Level 3.8 Chloride Level 105 Carbon Dioxide Level 24.4 Anion Gap 10 Estimat Glomerular Filtration Rate 57 (Bonnie Louis) Result Diagram: 10/19/17199910/19/171999 Imaging Last Impressions Abdomen/Pelvis CT 10/19/17 0000 Signed Impressions: Service Date/Time: Tuesday, October 19, 2017 23:03 - CONCLUSION: 1. Unremarkable bowel gas pattern. 2. Moderate hepatic steatosis. 3. Status post cholecystectomy. Isaiah Cevallos MD (Bonnie Louis) Assessment and Plan Problem List: (1) FAUZIA (acute kidney injury) ICD Codes: N17.9 - Acute kidney failure, unspecified Plan: Patient with FAUZIA possible related to infection Creatinine is 1.10 and GFR 56 ml/min on admission, patients baseline creatinine in 08/[address] of abdomen and pelvis noted to have kidney in normal size and shape except for mild cortical scarring involving the medial upper pole of the right kidney. There is no mass, stone or hydronephrosis Patient is NPO currently awaiting urology consult Will order IVF's while patient is NPO Will monitor labs and UOP Labs ordered Avoid nephrotoxins (2) Vesico-ureteral reflux ICD Codes: N13.70 - Vesicoureteral reflux Status: Acute Plan: Urology consult (3) History of ESBL Klebsiella pneumoniae infection ICD Codes: Z86.19 - Personal history of other infectious and parasitic diseases Status: Acute Plan: UA is negative (4) Diabetes mellitus ICD Codes: E11.9 - Type 2 diabetes mellitus without complications Status: Acute Plan: Maintain blood sugars 140 mg/dl to 180 mg/dl (Bonnie Louis) Problem List: (1) FAUZIA (acute kidney injury) ICD Codes: N17.9 - Acute kidney failure, unspecified Plan: Patient with FAUZIA possible related to infection Creatinine is 1.10 and GFR 56 ml/min on admission, patients baseline creatinine in 08/[address] of abdomen and pelvis noted to have kidney in normal size and shape except for mild cortical scarring involving the medial upper pole of the right kidney. There is no mass, stone or hydronephrosis Patient is NPO currently awaiting urology consult Will order IVF's while patient is NPO Will monitor labs and UOP Labs ordered Avoid nephrotoxins. Patient seen and examined, agree with above. Patient has improvement in the Creatinine. The scarring in the Rt. kidney is due to recurrent infection and VUR. Patient has been following with Urology. Need to rule out localized Rt. Kidney infection. 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 Can be discharged from Nephrology, to follow with urology. (2) Vesico-ureteral reflux ICD Codes: N13.70 - Vesicoureteral reflux Status: Acute Plan: Urology consult (3) History of ESBL Klebsiella pneumoniae infection ICD Codes: Z86.19 - Personal history of other infectious and parasitic diseases Status: Acute Plan: UA is negative (4) Diabetes mellitus ICD Codes: E11.9 - Type 2 diabetes mellitus without complications Status: Acute Plan: Maintain blood sugars 140 mg/dl to 180 mg/dl (Leora Koehler MD) Bonnie Louis Oct 20, 2017 08:55 Leora Koehler MD Oct 20, 2017 20:43
[2017-10-20] MEDS ORDERED: SODIUM CHLOR 0.9% 1000 ML INJ 1,000 ML IV SCH (08:59)
[2017-10-20 11:23] LABS: ALBUMIN 4.1 GM/DL (3.4-5.0); BICARBONATE 28.5 MEQ/L (21.0-32.0); CALCIUM 9.2 MG/DL (8.5-10.1); COMPLEMENT C3 156 MG/DL (90-180); COMPLEMENT C4 29 MG/DL (10-40); CREATININE 0.86 MG/DL (0.50-1.00); PHOSPHORUS 4.8 MG/DL (2.5-4.9)
--- NOTE | 2017-10-20 12:01 | PD.CONS ---
[facility] Service Urology Consult Requested By Dr. Ernst Reason for Consult Scarring to right kidney Primary Care Physician Cornelia Nuñez DO Diagnosis: History of Present Illness 36-year-old female with history vesicoureteral reflux with recurrent pyelonephritis involving the right kidney. Patient is status post multiple procedures to correct the reflux including a bilateral ureteral reimplantation procedure performed in May 2014 and multiple sub-ureteric injection procedures subsequently performed. The patient is presently under the care of Dr. Miles Alvarenga and patient reports that he planned on doing some type of additional procedure to directly obtain urine from the right kidney due to her ongoing infections. During present hospitalization a CT scan of the abdomen and pelvis was performed which failed to demonstrate any evidence of hydronephrosis mass lesions or calculi. There was mild cortical scarring noted to the right kidney. Urinalysis was negative, white blood cell count not elevated and BUN and creatinine within normal limits. I discussed all of these normal findings with the patient and she is adamant that she has a new infection of the right kidney and cannot go back to work until this is fully addressed. She continues to complain of right flank pain. Review of Systems Cardiovascular: DENIES: Chest pain Gastrointestinal: DENIES: Abdominal pain Genitourinary: DENIES: Hematuria Musculoskeletal: COMPLAINS OF: Back pain (Right flank) Except as stated in HPI: all other systems reviewed are Neg Past Family Social History Past Medical History Vesicoureteral reflux Recurrent pyelonephritis Asthma Endometriosis Diabetes mellitus Past Surgical History Status post bilateral ureteral reimplantation Status post multiple sub-ureteric injections Status post cholecystectomy Status post appendectomy Status post section Status post tonsillectomy Reported Medications Refer to EMR Allergies: Coded Allergies: cefuroxime (Unverified Allergy, Severe, SEVERE VOMITING,THROAT SWELLING, 07/14/17) THROAT SWELLING ciprofloxacin (Unverified Allergy, Severe, HIVES, SOB ; THROAT SWELLING, 07/14/17) ertapenem (Unverified Allergy, Severe, swelling throat, 07/14/17) meropenem (Verified Allergy, Severe, Hives, 07/14/17) promethazine (Unverified Allergy, Severe, SEIZURES, 07/14/17) ceftriaxone (Unverified Allergy, Intermediate, Rash, 07/14/17) levofloxacin (Unverified Allergy, Unknown, Hives, 07/14/17) vancomycin (Verified Allergy, Unknown, 10/19/17) itching/hives amoxicillin (Unverified Adverse Reaction, Severe, Swelling, 08/16/17) clavulanic acid (Unverified Adverse Reaction, Severe, Swelling, 08/16/17) *MDRO Multi-Drug Resistant Organism (Verified Adverse Reaction, Unknown, ESBL, 07/14/17) ESBL Klebsiella (urine) - 01/22/17 Active Ordered Medications Refer to EMR Family History Has a son and daughter both with vesicoureteral reflux Mother with hypertension, diabetes mellitus Social History Denies tobacco, alcohol or illicit drug abuse Physical Exam Vital Signs Date Time Temp Pulse Resp B/P (MAP) Pulse Ox O2 Delivery O2 Flow Rate FiO2 10/20/17 08:00 97.8 71 20 122/64 (83) 95 10/20/17 04:00 98.2 74 20 116/72 (87) 97 10/20/17 01:30 98.2 69 20 112/61 (78) 96 10/19/17 19:52 18 10/19/17 19:13 98.7 78 16 125/74 (91) 100 Room Air Physical Exam GENERAL: This is a well-nourished, well-developed patient, in no apparent distress. SKIN: No rashes, ecchymoses or lesions. HEAD: Atraumatic. Normocephalic. EYES: Pupils equal round and reactive. Extraocular motions intact. No scleral icterus. ENT: Nose without bleeding, purulent drainage or septal hematoma. Throat without erythema, tonsillar hypertrophy or exudate. Uvula midline. Airway patent. NECK: Trachea midline. No JVD or lymphadenopathy. Supple, nontender, no meningeal signs. GASTROINTESTINAL: Abdomen nondistended. MUSCULOSKELETAL: Extremities without clubbing, cyanosis, or edema. NEUROLOGICAL: Awake and alert. Normal speech. Lab results reviewed: Yes Laboratory Tests Test 10/19/17 20:00 10/20/17 10:20 White Blood Count 6.3 Red Blood Count 4.27 Hemoglobin 12.5 Hematocrit 36.5 Mean Corpuscular Volume 85.4 Mean Corpuscular Hemoglobin 29.2 Mean Corpuscular Hemoglobin Concent 34.2 Red Cell Distribution Width 13.4 Platelet Count 226 Mean Platelet Volume 7.7 Neutrophils (%) (Auto) 53.2 Lymphocytes (%) (Auto) 37.4 Monocytes (%) (Auto) 6.4 Eosinophils (%) (Auto) 2.5 Basophils (%) (Auto) 0.5 Neutrophils # (Auto) 3.4 Lymphocytes # (Auto) 2.4 Monocytes # (Auto) 0.4 Eosinophils # (Auto) 0.2 Basophils # (Auto) 0.0 CBC Comment DIFF FINAL Differential Comment Urine Color LIGHT-YELLOW Urine Turbidity CLEAR Urine pH 6.5 Urine Specific [place] 1.010 Urine Protein NEG Urine Glucose (UA) NEG Urine Ketones NEG Urine Occult Blood NEG Urine Nitrite NEG Urine Bilirubin NEG Urine Urobilinogen LESS THAN 2.0 Urine Leukocyte Esterase NEG Urine Squamous Epithelial Cells 1 Urine Bacteria OCC Urine Mucus FEW Microscopic Urinalysis Comment CULT NOT INDICATED Blood Urea Nitrogen 15 12 Creatinine 1.10 0.86 Random Glucose 99 78 Calcium Level 8.6 9.2 Sodium Level 139 139 Potassium Level 3.8 3.7 Chloride Level 105 103 Carbon Dioxide Level 24.4 28.5 Anion Gap 10 8 Estimat Glomerular Filtration Rate 57 76 Albumin 4.1 Phosphorus Level 4.8 Complement C3 156 Complement C4 29 Result Diagram: 10/19/17199910/20/17 1020 Personally reviewed images: Yes Imaging Last Impressions Abdomen/Pelvis CT 10/19/17 0000 Signed Impressions: Service Date/Time: Thursday, October 19, 2017 23:03 - CONCLUSION: 1. Unremarkable bowel gas pattern. 2. Moderate hepatic steatosis. 3. Status post cholecystectomy. Isaiah Cevallos MD Assessment and Plan Assessment and Plan Urologic impression: 1. History of multiple urologic procedures to correct vesicoureteral reflux 2. History recurrent pyelonephritis currently without evidence of infection 3. Mild scarring to right kidney likely related to history pyelonephritis as a consequence of vesicoureteral reflux 4. Right sided flank and abdominal pain of indeterminate etiology unlikely coming from the urinary tract. Recommendations: 1. I have nothing further to offer this patient during her present hospitalization 2. Patient advised to keep her follow-up appointment with her established urologist after hospital discharge Norm Cai MD Oct 20, 2017 12:01
[2017-10-20 16:35] VITALS: BP 109/69; PULSE 76; RESP 20; TEMP 98.5; O2SAT 98
--- NOTE | 2017-10-20 16:51 | HHI.HP ---
HPI Chief Complaint right flank and RLQ pain one week after retrograde attempt to culture kidney. Ming texted me as did her parents concerned she may have blockage and need a percutaneous nephrostomy Date Seen: Oct 20, 2017 Time Seen: 12:00 Travel History International Travel<30 Days: No Contact w/Intl Traveler<30Days: No Known Affected Area: No History of Present Illness HPI 36 yo mwf P3 now 7 weeks post section (repeat with BTL) to ED with complaint of severe right flank pain and RLQ pain. Has had three major urologic procedures involving right ureteral reimplantation for reflux. Has had innumerable UTI's and often has UTI with MDRO -- coupled with complicating allergies to many antibiotics. No fever, chills, N, V. No blood or pus in the urine. Last week her urologist attempted to sample urine directly from the kidney through a retrograde approach but could not reach the pelvic calyx due to scarring. Ming has also had a least one hernia repair in the RLQ which is a complicating factor for pain. Pain is worsening, constant but gets worse and better and feels like a squeezing. Bowels are fine. Cannot determine an inciting event other than the recent procedure nor does anything make it better or worse. She has been nursing. She is complaining of lymph nodes under her arms. History Past Medical History Narrative Medical right renal disease dsymenorrhea/metrorhaggia hernia with repair RLQ anxiety disorder mild depression Obstetric History Obstetric History one term with shoulder dystocia and daughter with erb's palsy second term section third repeat section at 32 weeks for intractable PTL. Past Surgical History Narrative Surgical > 3 urologic procedures 2+ hernia procedures 2 sections Lscopes to rule out endometriosis and adhesions Surgical History: No Previous Surgery Family History Family History: Negative Social History Alcohol Use: No Tobacco Use: No Substance Abuse: No Allergies-Medications (Allergen,Severity, Reaction): Coded Allergies: cefuroxime (Unverified Allergy, Severe, SEVERE VOMITING,THROAT SWELLING, 07/14/17) THROAT SWELLING ciprofloxacin (Unverified Allergy, Severe, HIVES, SOB ; THROAT SWELLING, 07/14/17) ertapenem (Unverified Allergy, Severe, swelling throat, 07/14/17) meropenem (Verified Allergy, Severe, Hives, 07/14/17) promethazine (Unverified Allergy, Severe, SEIZURES, 07/14/17) ceftriaxone (Unverified Allergy, Intermediate, Rash, 07/14/17) levofloxacin (Unverified Allergy, Unknown, Hives, 07/14/17) vancomycin (Verified Allergy, Unknown, 10/19/17) itching/hives amoxicillin (Unverified Adverse Reaction, Severe, Swelling, 08/16/17) clavulanic acid (Unverified Adverse Reaction, Severe, Swelling, 08/16/17) *MDRO Multi-Drug Resistant Organism (Verified Adverse Reaction, Unknown, ESBL, 07/14/17) ESBL Klebsiella (urine) - 01/22/17 Home Meds Reported Medications Vit-Iron Carbonyl ( Plus Iron 29-1 mg) 29 Mg Iron-1 Mg Tab, 1 TAB PO DAILY for Nutritional Supplement, #30 TAB 0 Refills 08/16/17 Sertraline (Zoloft) 100 Mg Tab, 100 MG PO DAILY, #30 TAB 0 Refills 08/16/17 Albuterol 18 GM Inh (Ventolin Hfa 18 GM Inh) 90 Mcg/Act Aer, 2 PUFF INH Q4H Y for SHORTNESS OF BREATH, #1 INHALER 0 Refills 09/20/16 Discontinued Scripts Sulfamethoxazole-Trimethoprim (Bactrim DS) 800-160 Mg Tab, 1 TAB PO BID for Infection for 10 Days, #20 TAB 0 Refills Prov:Eugenie Scruggs MD 08/19/17 Review of Systems General / Constitutional: Weight Gain Cardiovascular: Edema Gastrointestinal: Abdominal Pain, Loss of Appetite Genitourinary: Pelvic Pain Skin: Breast Lumps Psychiatric: Depression Hematologic/Lymphatic: Lymph Node Enlargement Physical Exam Vital Signs Date Time Temp Pulse Resp B/P (MAP) Pulse Ox O2 Delivery O2 Flow Rate FiO2 10/20/17 16:35 98.5 76 20 109/69 (82) 98 10/20/17 08:00 97.8 71 20 122/64 (83) 95 10/20/17 04:00 98.2 74 20 116/72 (87) 97 10/20/17 01:30 98.2 69 20 112/61 (78) 96 10/19/17 19:52 18 10/19/17 19:13 98.7 78 16 125/74 (91) 100 Room Air Narrative GENERAL: Well-nourished, well-developed patient. SKIN: Warm and dry. HEAD: Normocephalic and atraumatic. EYES: No scleral icterus. No injection or drainage. ENT: No nasal drainage noted. Mucous membranes pink. Airway patent. NECK: Supple, trachea midline. No JVD. CARDIOVASCULAR: Regular rate and rhythm without murmurs, gallops, or rubs. RESPIRATORY: Breath sounds equal bilaterally. No accessory muscle use. BREASTS: Bilateral exam showed no masses , no retractions, no nipple discharge. ABDOMEN/GI: Abdomen soft, non-tender, bowel sounds present, no rebound, no guarding EXTREMITIES: No cyanosis or edema. BACK: Nontender without obvious deformity. No CVA tenderness. NEUROLOGICAL: Awake and alert. Motor and sensory grossly within normal limits. Five out of 5 muscle strength in all muscle groups. Normal speech. Caprini VTE Risk Assessment Caprini VTE Risk Assessment: No/Low Risk (score <= 1) Caprini Risk Assessment Model Point Value = 1 Point Value = 2 Point Value = 3 Point Value = 5 Age 41-60 Minor surgery BMI > 25 kg/m2 Swollen legs Varicose veins or History of unexplained or recurrent spontaneous Oral contraceptives or hormone replacement Sepsis (< 1 month) Serious lung disease, including pneumonia (< 1 month) Abnormal pulmonary function Acute myocardial infarction Congestive heart failure (< 1 month) History of inflammatory bowel disease Medical patient at bed rest Age 61-74 Arthroscopic surgery Major open surgery (> 45 min) Laparoscopic surgery (> 45 min) Malignancy Confined to bed (> 72 hours) Immobilizing plaster cast Central venous access Age >= 75 History of VTE Family history of VTE Factor V Leiden Prothrombin [id number] Lupus anticoagulant Anticardiolipin antibodies Elevated serum homocysteine Heparin-induced thrombocytopenia Other congenital or acquired thrombophilia Stroke (< 1 month) Elective arthroplasty Hip, pelvis, or leg fracture Acute spinal cord injury (< 1 month) Prophylaxis Regimen Total Risk Factor Score Risk Level Prophylaxis Regimen 0-1 Low Early ambulation 2 Moderate Order ONE of the following: *Sequential Compression Device (SCD) *Heparin 5000 units SQ BID 3-4 Higher Order ONE of the following medications: *Heparin 5000 units SQ TID *Enoxaparin/Lovenox 40 mg SQ daily (WT < 150 kg, CrCl > 30 mL/min) *Enoxaparin/Lovenox 30 mg SQ daily (WT < 150 kg, CrCl > 10-29 mL/min) *Enoxaparin/Lovenox 30 mg SQ BID (WT < 150 kg, CrCl > 30 mL/min) AND/OR *Sequential Compression Device (SCD) 5 or more Highest Order ONE of the following medications: *Heparin 5000 units SQ TID (Preferred with Epidurals) *Enoxaparin/Lovenox 40 mg SQ daily (WT < 150 kg, CrCl > 30 mL/min) *Enoxaparin/Lovenox 30 mg SQ daily (WT < 150 kg, CrCl > 10-29 mL/min) *Enoxaparin/Lovenox 30 mg SQ BID (WT < 150 kg, CrCl > 30 mL/min) AND *Sequential Compression Device (SCD) Data Data Orders Orders Basic Metabolic Panel (Bmp) (10/19/17 19:45) Complete Blood Count With Diff (10/19/17 19:45) Urinalysis - C+S If Indicated (10/19/17 19:45) Ed Urine Pregnancytest Poc (10/19/17 19:45) Ct Abd/Pel W Iv Contrast(Rout) (10/19/17 ) Morphine Inj (Morphine Inj) (10/19/17 22:30) Ondansetron Inj (Zofran Inj) (10/19/17 22:30) Diphenhydramine Inj (Benadryl Inj) (10/19/17 22:30) Iohexol 350 Inj (Omnipaque 350 Inj) (10/19/17 23:15) Admit Order (Ed Use Only) (10/20/17 00:37) Vital Signs (Adult) BERYL.Q4H (10/20/17 02:36) Activity Oob Ad Sharon (10/20/17 02:36) Acetaminophen (Tylenol) (10/20/17 02:45) Morphine Inj (Morphine Inj) (10/20/17 02:45) Consult Nephrology (10/20/17 ) Consult Urology (10/20/17 ) (Hub Use Only)Inp Phy Cons/Ref (10/20/17 ) (Hub Use Only)Inp Phy Cons/Ref (10/20/17 ) Diphenhydramine Inj (Benadryl Inj) (10/20/17 04:00) Renal Functional Panel (10/20/17 08:59) Complement C3 (10/20/17 08:59) Complement C4 (10/20/17 08:59) Meliza Screen (10/20/17 08:59) Sodium Chlor 0.9% 1000 Ml Inj (Ns 1000 M (10/20/17 08:59) Osmolality, Urine (10/20/17 09:00) Specimen To Be Collected PRN (10/20/17 09:00) Sodium, Random Urine (10/20/17 09:00) ^ Other Nursing Orders (10/20/17 12:01) Vascular Access Team Consult/P PRN (10/20/17 13:45) Vascular Poc Ultrasound (10/20/17 ) Diet Clear Liquid (10/20/17 Lunch) Labs Laboratory Tests Test 10/19/17 20:00 10/20/17 10:20 White Blood Count 6.3 Red Blood Count 4.27 Hemoglobin 12.5 Hematocrit 36.5 Mean Corpuscular Volume 85.4 Mean Corpuscular Hemoglobin 29.2 Mean Corpuscular Hemoglobin Concent 34.2 Red Cell Distribution Width 13.4 Platelet Count 226 Mean Platelet Volume 7.7 Neutrophils (%) (Auto) 53.2 Lymphocytes (%) (Auto) 37.4 Monocytes (%) (Auto) 6.4 Eosinophils (%) (Auto) 2.5 Basophils (%) (Auto) 0.5 Neutrophils # (Auto) 3.4 Lymphocytes # (Auto) 2.4 Monocytes # (Auto) 0.4 Eosinophils # (Auto) 0.2 Basophils # (Auto) 0.0 CBC Comment DIFF FINAL Differential Comment Urine Color LIGHT-YELLOW Urine Turbidity CLEAR Urine pH 6.5 Urine Specific [place] 1.010 Urine Protein NEG Urine Glucose (UA) NEG Urine Ketones NEG Urine Occult Blood NEG Urine Nitrite NEG Urine Bilirubin NEG Urine Urobilinogen LESS THAN 2.0 Urine Leukocyte Esterase NEG Urine Squamous Epithelial Cells 1 Urine Bacteria OCC Urine Mucus FEW Microscopic Urinalysis Comment CULT NOT INDICATED Blood Urea Nitrogen 15 12 Creatinine 1.10 0.86 Random Glucose 99 78 Calcium Level 8.6 9.2 Sodium Level 139 139 Potassium Level 3.8 3.7 Chloride Level 105 103 Carbon Dioxide Level 24.4 28.5 Anion Gap 10 8 Estimat Glomerular Filtration Rate 57 76 Albumin 4.1 Phosphorus Level 4.8 Complement C3 156 Complement C4 29 Assessment/Plan Problem List: (1) Bladder spasms ICD Codes: N32.89 - Bladder spasms Status: Acute (2) Flank pain ICD Codes: R10.9 - Unspecified abdominal pain Status: Acute (3) Vesico-ureteral reflux ICD Codes: N13.70 - Vesicoureteral reflux Status: Acute (4) Inguinal pain ICD Codes: R10.30 - Inguinal pain Status: Acute (5) History of ESBL Klebsiella pneumoniae infection ICD Codes: Z86.19 - Personal history of other infectious and parasitic diseases Status: Acute Assessment and Plan current episdoe of pain not unsimilar to historic episodes but states getting worse. No evidence of UTI, obstruction or stones unclear if urologic etiology acute/emergent process ruled out by urology who defers management until her attending urologist returns from family leave awaiting input by inspector sheet metal parts. Would support discharge with outpatient follow up since acute process ruled out. Deborah Ernst MD Oct 20, 2017 16:51
--- NOTE | 2017-10-20 20:15 | PD ---
Physical Exam Date Seen by Provider: Oct 19, 2017 Time Seen by Provider: 23:00 Narrative Pt has renal CT that shows renal cortical scarring to right kidney no hydronephrosis, no hydroureter, I call Dr Preston TYPING TEACHER managing her from outpt. Pt is admitted to [facility] and Uro consult and Nephro Consult in AM . pt is agreeing to stay and wnatwe to know if she can breast feed her baby inpt. Pt stable and I enter holding admitting orders to admit to floor Data Data Last Documented VS Vital Signs Date Time Temp Pulse Resp B/P (MAP) Pulse Ox O2 Delivery O2 Flow Rate FiO2 10/19/17 19:52 18 10/19/17 19:13 98.7 78 125/74 (91) 100 Room Air Orders Orders Basic Metabolic Panel (Bmp) (10/19/17 19:45) Complete Blood Count With Diff (10/19/17 19:45) Urinalysis - C+S If Indicated (10/19/17 19:45) Ed Urine Pregnancytest Poc (10/19/17 19:45) Ct Abd/Pel W Iv Contrast(Rout) (10/19/17 ) Morphine Inj (Morphine Inj) (10/19/17 22:30) Ondansetron Inj (Zofran Inj) (10/19/17 22:30) Diphenhydramine Inj (Benadryl Inj) (10/19/17 22:30) Iohexol 350 Inj (Omnipaque 350 Inj) (10/19/17 23:15) Admit Order (Ed Use Only) (10/20/17 00:37) Labs Laboratory Tests Test 10/19/17 20:00 White Blood Count 6.3 TH/MM3 Red Blood Count 4.27 MIL/MM3 Hemoglobin 12.5 GM/DL Hematocrit 36.5 % Mean Corpuscular Volume 85.4 FL Mean Corpuscular Hemoglobin 29.2 PG Mean Corpuscular Hemoglobin Concent 34.2 % Red Cell Distribution Width 13.4 % Platelet Count 226 TH/MM3 Mean Platelet Volume 7.7 FL Neutrophils (%) (Auto) 53.2 % Lymphocytes (%) (Auto) 37.4 % Monocytes (%) (Auto) 6.4 % Eosinophils (%) (Auto) 2.5 % Basophils (%) (Auto) 0.5 % Neutrophils # (Auto) 3.4 TH/MM3 Lymphocytes # (Auto) 2.4 TH/MM3 Monocytes # (Auto) 0.4 TH/MM3 Eosinophils # (Auto) 0.2 TH/MM3 Basophils # (Auto) 0.0 TH/MM3 CBC Comment DIFF FINAL Differential Comment Urine Color LIGHT-YELLOW Urine Turbidity CLEAR Urine pH 6.5 Urine Specific [place] 1.010 Urine Protein NEG mg/dL Urine Glucose (UA) NEG mg/dL Urine Ketones NEG mg/dL Urine Occult Blood NEG Urine Nitrite NEG Urine Bilirubin NEG Urine Urobilinogen LESS THAN 2.0 MG/DL Urine Leukocyte Esterase NEG Urine Squamous Epithelial Cells 1 /hpf Urine Bacteria OCC /hpf Urine Mucus FEW /lpf Microscopic Urinalysis Comment CULT NOT INDICATED Blood Urea Nitrogen 15 MG/DL Creatinine 1.10 MG/DL Random Glucose 99 MG/DL Calcium Level 8.6 MG/DL Sodium Level 139 MEQ/L Potassium Level 3.8 MEQ/L Chloride Level 105 MEQ/L Carbon Dioxide Level 24.4 MEQ/L Anion Gap 10 MEQ/L Estimat Glomerular Filtration Rate 57 ML/MIN MDM Supervised Visit with JUSTIN: Yes Physician Communication Physician Communication Dr Preston Diagnosis Primary Impression: Renal scarring Admitting Information Admitting Physician Requests: Observation Patient Instructions: General Instructions, Flank Pain (ED) Douglas Baer MD Oct 20, 2017 20:15
== END 2017-10-20 18:43 | disposition home or self-care (01) ==
LOC: NEPE 19:11 → NEDA 10-20 00:47 → NEDH 10-20 05:32 → NEPFCDU 10-20 12:42
PROVIDERS: ADMIT Obstetrics & Gynecology; ATTEND Obstetrics & Gynecology
DX: N32.89 Other specified disorders of bladder (principal); R10.30 Lower abdominal pain, unspecified; N13.70 Vesicoureteral-reflux, unspecified; E11.22 Type 2 diabetes mellitus with diabetic chronic kidney disease; N18.9 Chronic kidney disease, unspecified; J45.909 Unspecified asthma, uncomplicated; K21.9 Gastro-esophageal reflux disease without esophagitis; F41.9 Anxiety disorder, unspecified; F32.9 Major depressive disorder, single episode, unspecified; E28.2 Polycystic ovarian syndrome; N17.9 Acute kidney failure, unspecified; Z87.442 Personal history of urinary calculi; Z86.19 Personal history of other infectious and parasitic diseases
CPT/HCPCS: 74177; 80048; 80069; 81001; 84703; 85025; 86038; 86160; 96361; 96374; 96375; 96376; 99285; G0378; J1200; J2270; J2405; J7030; Q9967

== ENCOUNTER 2018-01-25 10:25 | Emergency (ER) | payer BC, OTHER ==
[~2018-01-25 10:25] MED LIST changes: -BACT800T5 PO
[2018-01-25 10:39] VITALS: BP 132/72; PULSE 79; RESP 16; TEMP 99.3; O2SAT 99
[2018-01-25 10:49] VITALS: O2SAT 100
[2018-01-25] MEDS ORDERED: SODIUM CHLOR 0.9% 1000 ML INJ 1,000 ML IV ONE (11:00)
[2018-01-25] MEDS ORDERED: SODIUM CHLORIDE 0.9% FLUSH 10 ML FLUSH IV FLUSH PRN (11:00)
[2018-01-25] MEDS ORDERED: ONDANSETRON ODT 4 MG TAB PO ONE ×2 (11:00→11:15)
[2018-01-25] MEDS ORDERED: MORPHINE SULFATE 4 MG/ML INJ IV PUSH ONE (11:00)
[2018-01-25 11:11] LABS: AUTOMATED NEUTROPHIL # 4.9 TH/MM3 (1.8-7.7); BASOPHIL % 0.4 % (0.0-2.0); EOSINOPHIL # 0.1 TH/MM3 (0-0.4); EOSINOPHIL % 1.5 % (0.0-4.0); HEMATOCRIT 40.9 % (35.0-46.0); HEMOGLOBIN 13.9 GM/DL (11.6-15.3); LYMPH % 28.1 % (9.0-44.0); LYMPHOCYTE # 2.1 TH/MM3 (1.0-4.8); MEAN CELL VOLUME 87.1 FL (80.0-100.0); MEAN CORPUSCULAR HEMOGLOBIN 29.5 PG (27.0-34.0); MEAN CORPUSCULAR HGB CONC 33.9 % (32.0-36.0); MEAN PLATELET VOLUME 7.6 FL (7.0-11.0); MONO % 3.5 % (0.0-8.0); MONOCYTE # 0.3 TH/MM3 (0-0.9); NEUT % 66.5 % (16.0-70.0); PLATELET COUNT 292 TH/MM3 (150-450); RED CELL DISTRIBUTION WIDTH 13.9 % (11.6-17.2); WHITE BLOOD COUNT 7.4 TH/MM3 (4.0-11.0)
[2018-01-25] MEDS ORDERED: diphenhydrAMINE HCL 50 MG/ML VIAL IV PUSH ONE (11:15)
[2018-01-25 11:20] LABS: BACTERIA, URINE RARE /hpf; BILIRUBIN, URINE NEG (NEG); BLOOD, URINE TRACE (NEG); GLUCOSE,URINE NEG (NEG); KETONE, URINE NEG (NEG); MUCUS URINE FEW /lpf (OCC); NITRITE,URINE NEG (NEG); PH, URINE 5.5 (5.0-8.5); SQUAMOUS EPITHELIAL CELL URINE 6 /hpf (0-5); URINE COLOR YELLOW (YELLW/STRAW); URINE LEUKOCYTE ESTERASE NEG (NEG)
--- NOTE | 2018-01-25 11:20 | PD ---
HPI Chief Complaint: Flank/Kidney Pain Time Seen by Provider: 10:52 Travel History International Travel<30 days: No Contact w/Intl Traveler<30days: No Traveled to known affect area: No History of Present Illness HPI Patient is a 37-year-old female with history of right ureteral reflux, presents to the ER with complaints of right-sided flank pain. Patient reports that she has been having dysuria, urinary urgency and frequency for the past 2 days along with right-sided flank pain. Patient denies any fever chills, reports that when she has the symptoms, she is usually diagnosed with a pyelonephritis. Patient reports that she has been on so many antibiotics, she has developed multidrug resistant organisms and is allergic to almost all antibiotics except for gentamicin. Patient denies any abdominal pain, denies any constipation or diarrhea. Patient reports nausea with no vomiting. Patient reports that she does follow-up with urologist at the [facility]. Patient has had several urological procedures involving the right ureter in the past. PFSH Past Medical History Arthritis: No Asthma: Yes Heart Rhythm Problems: No Cancer: No Cardiovascular Problems: No High Cholesterol: No Chest Pain: Yes Congestive Heart Failure: No COPD: No Cerebrovascular Accident: No Diabetes: Yes Patient Takes Glucophage: No Diminished Hearing: No Endocrine: No Gastrointestinal Disorders: Yes (GERD; GASTROPARESIS) GERD: Yes Genitourinary: Yes (VESICOURETERAL REFLUX, CKD) Headaches: Yes Hepatitis: No Hiatal Hernia: No Immune Disorder: No Inguinal Hernia: Yes Kidney Stones: Yes Medical other: Yes Musculoskeletal: No Neurologic: Yes ( ONE SEIZURE AFTER PHENERGAN, HORMONAL MIGRAINES) Psychiatric: Yes (ADHD) Reproductive: Yes (ENDOMETRIOSIS;PELVIC CONGESTIVE SYNDROME, PCOS ) Respiratory: Yes (ASTHMA) Immunizations Current: Yes Migraines: Yes Renal Failure: No Seizures: Yes Sleep Apnea: No Thyroid Disease: No Ulcer: No Tetanus Vaccination: < 5 Years ?: Not LMP: 01/17/18 : 4 Para: 3 Miscarriage: 0 : 0 Ectopic : Yes Dilation and Curettage (D&C): Yes Past Surgical History Abdominal Surgery: Yes (hernia repair) AICD: No Appendectomy: Yes Body Medical Devices: MESH FROM HERNIA Cardiac Surgery: No Section: Yes (x 2) Cholecystectomy: Yes Ear Surgery: No Endocrine Surgery: No Eye Surgery: Yes (STRIBISMUS) Genitourinary Surgery: Yes Gynecologic Surgery: Yes (mult lap endometrosis X 4; C -SECTION) Joint Replacement: No Oral Surgery: Yes (TONSILS) Pacemaker: No Thoracic Surgery: No Tonsillectomy: Yes Other Surgery: Yes (multiple revision/corrective surgeries to vesicoureteral ) Social History Alcohol Use: Yes (rarely) Tobacco Use: No Substance Use: No Allergies-Medications (Allergen,Severity, Reaction): Coded Allergies: cefuroxime (Unverified Allergy, Severe, SEVERE VOMITING,THROAT SWELLING, 07/14/17) THROAT SWELLING ciprofloxacin (Unverified Allergy, Severe, HIVES, SOB ; THROAT SWELLING, 07/14/17) ertapenem (Unverified Allergy, Severe, swelling throat, 07/14/17) meropenem (Verified Allergy, Severe, Hives, 07/14/17) promethazine (Unverified Allergy, Severe, SEIZURES, 07/14/17) ceftriaxone (Unverified Allergy, Intermediate, Rash, 07/14/17) levofloxacin (Unverified Allergy, Unknown, Hives, 07/14/17) vancomycin (Verified Allergy, Unknown, 10/19/17) itching/hives amoxicillin (Unverified Adverse Reaction, Severe, Swelling, 08/16/17) clavulanic acid (Unverified Adverse Reaction, Severe, Swelling, 08/16/17) *MDRO Multi-Drug Resistant Organism (Verified Adverse Reaction, Unknown, ESBL, 07/14/17) ESBL Klebsiella (urine) - 01/22/17 Reported Meds & Prescriptions Reported Meds & Active Scripts Active Reported Plus Iron 29-1 mg ( Vit-Iron Carbonyl) 29 Mg Iron-1 Mg Tab 1 Tab PO DAILY Zoloft (Sertraline HCl) 100 Mg Tab 100 Mg PO DAILY Ventolin Hfa 18 GM Inh (Albuterol Sulfate) 90 Mcg/Act Aer 2 Puff INH Q4H PRN Review of Systems General / Constitutional: No: Fever Eyes: No: Visual changes HENT: No: Headaches Cardiovascular: No: Chest Pain or Discomfort Respiratory: No: Shortness of Breath Gastrointestinal: No: Abdominal Pain Genitourinary: Positive: Urgency, Frequency, Dysuria, Flank Pain Musculoskeletal: No: Pain Skin: No Rash Neurologic: No: Weakness Psychiatric: No: Depression Endocrine: No: Polydipsia Hematologic/Lymphatic: No: Easy Bruising Physical Exam Narrative GENERAL: mild distress SKIN: Focused skin assessment warm/dry. HEAD: Atraumatic. Normocephalic. EYES: Pupils equal and round. No scleral icterus. No injection or drainage. ENT: No nasal bleeding or discharge. Mucous membranes pink and moist. NECK: Trachea midline. No JVD. CARDIOVASCULAR: Regular rate and rhythm. No murmur appreciated. RESPIRATORY: No accessory muscle use. Clear to auscultation. Breath sounds equal bilaterally. GASTROINTESTINAL: Abdomen soft, non-tender, nondistended. Hepatic and splenic margins not palpable. Patient with right sided flank pain MUSCULOSKELETAL: No obvious deformities. No clubbing. No cyanosis. No edema. NEUROLOGICAL: Awake and alert. No obvious cranial nerve deficits. Motor grossly within normal limits. Normal speech. PSYCHIATRIC: Appropriate mood and affect; insight and judgment normal. Data Data Last Documented VS Vital Signs Date Time Temp Pulse Resp B/P (MAP) Pulse Ox O2 Delivery O2 Flow Rate FiO2 01/25/18 10:49 100 Room Air 01/25/18 10:39 99.3 79 16 132/72 (92) Orders Orders Complete Blood Count With Diff (01/25/18 10:46) Comprehensive Metabolic Panel (01/25/18 10:46) Prothrombin Time / Inr (Pt) (01/25/18 10:46) Act Partial Throm Time (Ptt) (01/25/18 10:46) Urinalysis - C+S If Indicated (01/25/18 10:46) Iv Access Insert/Monitor (01/25/18 10:46) Ecg Monitoring (01/25/18 10:46) Oximetry (01/25/18 10:46) NPO (01/25/18 10:46) Sodium Chloride 0.9% Flush (Ns Flush) (01/25/18 11:00) Ed Urine Pregnancytest Poc (01/25/18 10:46) Sodium Chlor 0.9% 1000 Ml Inj (Ns 1000 M (01/25/18 11:00) Ondansetron Odt (Zofran Odt) (01/25/18 11:00) Morphine Inj (Morphine Inj) (01/25/18 11:00) Ondansetron Odt (Zofran Odt) (01/25/18 11:15) Diphenhydramine Inj (Benadryl Inj) (01/25/18 11:15) Urine Culture (01/25/18 12:50) Labs Laboratory Tests Test 01/25/18 10:55 White Blood Count 7.4 TH/MM3 Red Blood Count 4.70 MIL/MM3 Hemoglobin 13.9 GM/DL Hematocrit 40.9 % Mean Corpuscular Volume 87.1 FL Mean Corpuscular Hemoglobin 29.5 PG Mean Corpuscular Hemoglobin Concent 33.9 % Red Cell Distribution Width 13.9 % Platelet Count 292 TH/MM3 Mean Platelet Volume 7.6 FL Neutrophils (%) (Auto) 66.5 % Lymphocytes (%) (Auto) 28.1 % Monocytes (%) (Auto) 3.5 % Eosinophils (%) (Auto) 1.5 % Basophils (%) (Auto) 0.4 % Neutrophils # (Auto) 4.9 TH/MM3 Lymphocytes # (Auto) 2.1 TH/MM3 Monocytes # (Auto) 0.3 TH/MM3 Eosinophils # (Auto) 0.1 TH/MM3 Basophils # (Auto) 0.0 TH/MM3 CBC Comment DIFF FINAL Differential Comment Prothrombin Time 10.9 SEC Prothromb Time International Ratio 1.1 RATIO Activated Partial Thromboplast Time 28.2 SEC Urine Color YELLOW Urine Turbidity CLEAR Urine pH 5.5 Urine Specific [place] 1.022 Urine Protein TRACE mg/dL Urine Glucose (UA) NEG mg/dL Urine Ketones NEG mg/dL Urine Occult Blood TRACE Urine Nitrite NEG Urine Bilirubin NEG Urine Urobilinogen LESS THAN 2.0 MG/DL Urine Leukocyte Esterase NEG Urine RBC 1 /hpf Urine Squamous Epithelial Cells 6 /hpf Urine Bacteria RARE /hpf Urine Mucus FEW /lpf Microscopic Urinalysis Comment CULT NOT INDICATED Blood Urea Nitrogen 15 MG/DL Creatinine 1.06 MG/DL Random Glucose 103 MG/DL Total Protein 8.4 GM/DL Albumin 4.2 GM/DL Calcium Level 9.4 MG/DL Alkaline Phosphatase 54 U/L Aspartate Amino Transf (AST/SGOT) 17 U/L Alanine Aminotransferase (ALT/SGPT) 25 U/L Total Bilirubin 0.3 MG/DL Sodium Level 139 MEQ/L Potassium Level 3.6 MEQ/L Chloride Level 105 MEQ/L Carbon Dioxide Level 22.9 MEQ/L Anion Gap 11 MEQ/L Estimat Glomerular Filtration Rate 59 ML/MIN [facility] Medical Decision Making Medical Screen Exam Complete: Yes Emergency Medical Condition: Yes Medical Record Reviewed: Yes Interpretation(s) Vital Signs Date Time Temp Pulse Resp B/P (MAP) Pulse Ox O2 Delivery O2 Flow Rate FiO2 01/25/18 10:49 100 Room Air 01/25/18 10:39 99.3 79 16 132/72 (92) 99 Differential Diagnosis uti, pyelnephritis, kidney stone Narrative Course Patient is a 37 year old female with history of ureteral reflux, presents to the ER with complaints of 2 days of right sided flank pain with dysuria/urinary urgency and frequency. Patient with history of MDRO. During the course of the patients emergency department visit, the patients history, examination, and differential diagnosis were reviewed with the patient. The patient was placed on a radiation monitor with oximetry and frequent blood pressure monitoring. The patient had an IV access obtained and blood work sent for analysis. The patient was initially provided IV fluids, IV morphine for pain The patients laboratory studies were reviewed and remarkable for Laboratory Tests Test 01/25/18 10:55 White Blood Count 7.4 TH/MM3 (4.0-11.0) Red Blood Count 4.70 MIL/MM3 (4.00-5.30) Hemoglobin 13.9 GM/DL (11.6-15.3) Hematocrit 40.9 % (35.0-46.0) Mean Corpuscular Volume 87.1 FL (80.0-100.0) Mean Corpuscular Hemoglobin 29.5 PG (27.0-34.0) Mean Corpuscular Hemoglobin Concent 33.9 % (32.0-36.0) Red Cell Distribution Width 13.9 % (11.6-17.2) Platelet Count 292 TH/MM3 (150-450) Mean Platelet Volume 7.6 FL (7.0-11.0) Neutrophils (%) (Auto) 66.5 % (16.0-70.0) Lymphocytes (%) (Auto) 28.1 % (9.0-44.0) Monocytes (%) (Auto) 3.5 % (0.0-8.0) Eosinophils (%) (Auto) 1.5 % (0.0-4.0) Basophils (%) (Auto) 0.4 % (0.0-2.0) Neutrophils # (Auto) 4.9 TH/MM3 (1.8-7.7) Lymphocytes # (Auto) 2.1 TH/MM3 (1.0-4.8) Monocytes # (Auto) 0.3 TH/MM3 (0-0.9) Eosinophils # (Auto) 0.1 TH/MM3 (0-0.4) Basophils # (Auto) 0.0 TH/MM3 (0-0.2) CBC Comment DIFF FINAL Differential Comment Prothrombin Time 10.9 SEC (9.8-11.6) Prothromb Time International Ratio 1.1 RATIO Activated Partial Thromboplast Time 28.2 SEC (24.3-30.1) Urine Color YELLOW (YELLW/STRAW) Urine Turbidity CLEAR (CLEAR) Urine pH 5.5 (5.0-8.5) Urine Specific [place] 1.022 (1.002-1.035) Urine Protein TRACE mg/dL (NEG-TRACE) Urine Glucose (UA) NEG mg/dL (NEG) Urine Ketones NEG mg/dL (NEG) Urine Occult Blood TRACE (NEG) Urine Nitrite NEG (NEG) Urine Bilirubin NEG (NEG) Urine Urobilinogen LESS THAN 2.0 MG/DL (LESS Urine Leukocyte Esterase NEG (NEG) Urine RBC 1 /hpf (0-3) Urine Squamous Epithelial Cells 6 /hpf (0-5) Urine Bacteria RARE /hpf (NONE) Urine Mucus FEW /lpf (OCC) Microscopic Urinalysis Comment CULT NOT INDICATED Blood Urea Nitrogen 15 MG/DL (7-18) Creatinine 1.06 MG/DL (0.50-1.00) Random Glucose 103 MG/DL (74-106) Total Protein 8.4 GM/DL (6.4-8.2) Albumin 4.2 GM/DL (3.4-5.0) Calcium Level 9.4 MG/DL (8.5-10.1) Alkaline Phosphatase 54 U/L (45-117) Aspartate Amino Transf (AST/SGOT) 17 U/L (15-37) Alanine Aminotransferase (ALT/SGPT) 25 U/L (10-53) Total Bilirubin 0.3 MG/DL (0.2-1.0) Sodium Level 139 MEQ/L (136-145) Potassium Level 3.6 MEQ/L (3.5-5.1) Chloride Level 105 MEQ/L (98-107) Carbon Dioxide Level 22.9 MEQ/L (21.0-32.0) Anion Gap 11 MEQ/L (5-15) Estimat Glomerular Filtration Rate 59 ML/MIN (>89) Labs reviewed, CBC within normal limits BMP: BUN 15, creatinine 1.06 UA shows rare bacteria, few mucus, negative leuk esterase, negative ketones, trace blood A urine culture was sent. I reviewed all labs and all studies with patient in detail, patient with no signs of urinary tract infection at this time, the urine culture was sent as patient is concerned that she normally has a clean urine but then turns up positive when cultures are sent. Given her history of multidrug-resistant organisms and multiple drug allergies, will hold on treating prophylactically with antibiotics. Patient will follow-up with her urologist. She will return to ER as needed. Patient is currently stable for discharge to emergency room. Diagnosis Primary Impression: Flank pain Patient Instructions: General Instructions, Narcotic given in the ED Additional Instructions: Please provide patient with a copy of their lab work and studies at discharge* * Please follow up with your primary care doctor in 2-3 days Return to the ER if symptoms worsen or progress Return to the ER as needed Please follow-up with urologist Disposition: 01 DISCHARGE HOME Condition: Stable Kimberli Maher DO January 25, 2018 11:20
[2018-01-25 11:23] VITALS: RESP 18
[2018-01-25 11:24] LABS: INTERNATIONAL NORMALIZED RATIO 1.1 RATIO; PROTHROMBIN TIME - PATIENT 10.9 SEC (9.8-11.6)
[2018-01-25 11:30] LABS: ALBUMIN 4.2 GM/DL (3.4-5.0); AST (GOT) 17 U/L (15-37); BICARBONATE 22.9 MEQ/L (21.0-32.0); BLOOD UREA NITROGEN 15 MG/DL (7-18); CALCIUM 9.4 MG/DL (8.5-10.1); CHLORIDE 105 MEQ/L (98-107); CREATININE 1.06 MG/DL (0.50-1.00); GLOMERULAR FILTRATION RATE 59 ML/MIN (>89); GLUCOSE,RANDOM 103 MG/DL (74-106); SODIUM (NA) 139 MEQ/L (136-145)
[2018-01-25 11:33] LABS: ALKALINE PHOSPHATASE 54 U/L (45-117); ALT (GPT) 25 U/L (10-53); TOTAL BILIRUBIN ADULT 0.3 MG/DL (0.2-1.0); TOTAL PROTEIN 8.4 GM/DL (6.4-8.2)
--- NOTE | 2018-01-25 15:16 | RADRPT ---
EXAM DATE: 01/25/2018 3:05 PM EDT AGE/SEX: 37 years / Female INDICATIONS: Right flank pain. Nausea. CLINICAL DATA: This is the patient's initial encounter. Patient reports that signs and symptoms have been present for 2 days and indicates a pain score of 5/10. MEDICAL/SURGICAL HISTORY: Renal disease. Asthma. Seizure. Appendectomy. Cholecystectomy. Ce sarean section. RADIATION DOSE: 8.15 CTDI (mGy) COMPARISON: No prior [facility] exams available for comparison. TECHNIQUE: Multiple contiguous axial images were obtained through the abdomen. Images were obtained using multiple row detector helical technique. Using dose reduction techniques, radiation dose was ke pt as low as reasonably achievable to obtain optimal diagnostic quality images. FINDINGS: Lower Lungs: The visualized lower lungs are clear. Liver: The liver has a homogeneous density without space-occupying lesion. There is no dilation of th e biliary tree. Surgical clips gallbladder fossa Spleen: Homogeneous density without enlargement. Pancreas: Unremarkable without mass or calcification. Kidneys: Minimal cortical irregularity right kidney without stone. Adrenal Glands: Unremarkable. Aorta: The aorta and proximal iliac vessels are grossly unremarkable without aneurysmal dilation. Bowel/Mesentery: The bowel loops are grossly unremarkable. The cecum and sigmoid colon have a normal configuration. Abdominal Wall: Intact. Retroperitoneum: No evidence of adenopathy in the retrocrural, para-aortic, or deep pelvic regions. Bladder: Contours are smooth. Reproductive Organs: 4 cm predominantly cystic right adnexal mass. Left adnexa unremarkable. Prominent probable fibroid uterus. Inguinal: The inguinal region is unremarkable without evidence of adenopathy. Bony Structures: Unremarkable. There is no free fluid. CONCLUSION: 1. Negative for stone. 2. Predominantly cystic 4 cm right adnexal mass 3. No free fluid Electronically signed by: You Bravo MD 01/25/2018 3:15 PM EDT
== END 2018-01-25 16:09 | disposition home or self-care (01) ==
LOC: NEPC 10:25
DX: R10.9 Unspecified abdominal pain (principal); R30.0 Dysuria; R11.0 Nausea
CPT/HCPCS: 74176; 80053; 81001; 84703; 85025; 85610; 85730; 87086; 96361; 96374; 96375; 99284; J1200; J2270; J7030

== ENCOUNTER 2018-02-19 20:02 | Emergency (ER) | payer OTHER ==
[~2018-02-19] VITALS: Ht 157.5 cm; Wt 72.0 kg
[2018-02-19 20:08] VITALS: BP 143/80; PULSE 86; RESP 16; TEMP 99.1; O2SAT 99
[2018-02-19 20:21] VITALS: BP 165/89; PULSE 90; RESP 20; O2SAT 99
[2018-02-19] MEDS ORDERED: ZOFR4TAB PO (20:21)
[2018-02-19 20:23] VITALS: RESP 20
[2018-02-19] MEDS ORDERED: METOCLOPRAMIDE HCL 10 MG/2 ML VIAL IV PUSH ONE ×2 (20:30→21:45)
[2018-02-19] MEDS ORDERED: SODIUM CHLOR 0.9% 1000 ML INJ 1,000 ML IV ONE ×2 (20:30→21:30)
--- NOTE | 2018-02-19 20:40 | PD ---
HPI Chief Complaint: Abdominal Pain Time Seen by Provider: 20:13 Travel History International Travel<30 days: No Contact w/Intl Traveler<30days: No Traveled to known affect area: No History of Present Illness HPI The patient is a 37 year old female who presents to the [facility] emergency department with a history of reportedly beginning to feel ill after breakfast this morning. The patient reports that she began to have an upper abdominal pain. The patient reports that the pain has been constant. She reports that the character of the pain is sharp. She reports that it waxes and wanes in intensity. She reports that she has had associated nausea with vomiting 2. She denies having any diarrhea. She has had more frequent stools today, however they were all formed. She denies having any blood in her stool or black or tarry stools. She reports that she moved her bowels 4 times today. She reports having right flank pain that is chronic related to kidney disease on the right, however it has been worse than usual today. She reports that she tried taking Tums, Pepto-Bismol, and Zofran without relief. She does report having a past medical history of gastroparesis. She is currently in the process of undergoing IVF, pending ovum harvest. Her last menstrual cycle was February 04, 2018. She denies having any dysuria, urinary frequency, or urinary urgency. She reports that one week ago she completed treatment with gentamicin injections for group B strep urinary tract infection. She reports that her right hip has been hurting over the last week related to the injection 1 week ago of gentamicin in the right side. She denies having any known fevers, however she has had chills and sweating today. On review of systems otherwise, the patient denies having any recent cough or congestion, neck pain, chest pain , shortness of breath, or neurologic symptoms. [facility] Past Medical History Narrative Medical The patient's past medical history is significant for right renal disease with chronic right flank pain and 3 prior major urologic procedures including right ureteral reimplantation for reflux, history of recurrent urinary tract infections with multidrug-resistant organisms, history of dysmenorrhea, metrorrhagia, right inguinal hernia repair with chronic right inguinal pain, anxiety disorder, mild depression, gastroparesis. Arthritis: No Asthma: Yes Heart Rhythm Problems: No Cancer: No Cardiovascular Problems: No High Cholesterol: No Chest Pain: Yes Congestive Heart Failure: No COPD: No Cerebrovascular Accident: No Diabetes: Yes Patient Takes Glucophage: No Diminished Hearing: No Endocrine: No Gastrointestinal Disorders: Yes (GERD; GASTROPARESIS) GERD: Yes Genitourinary: Yes (VESICOURETERAL REFLUX, CKD) Headaches: Yes Hepatitis: No Hiatal Hernia: No Hypertension: No Immune Disorder: No Inguinal Hernia: Yes Implanted Vascular Access Dvce: Yes Kidney Stones: Yes Medical other: Yes Musculoskeletal: No Neurologic: Yes ( ONE SEIZURE AFTER PHENERGAN, HORMONAL MIGRAINES) Psychiatric: Yes (ADHD) Reproductive: Yes (ENDOMETRIOSIS;PELVIC CONGESTIVE SYNDROME, PCOS ) Respiratory: Yes (ASTHMA) Immunizations Current: Yes Migraines: Yes Renal Failure: No Seizures: Yes Sleep Apnea: No Thyroid Disease: No Ulcer: No Tetanus Vaccination: < 5 Years Influenza Vaccination: Yes ?: Unknown LMP: 02/04/18 : 4 Para: 3 Miscarriage: 0 : 0 Ectopic : Yes Dilation and Curettage (D&C): Yes Past Surgical History Narrative Surgical The patient's past surgical history is significant for 2 hernia repairs, 2 C- sections, 3 urologic procedures on the right side, laparoscopy to rule out endometriosis and adhesions, history of cholecystectomy, appendectomy Abdominal Surgery: Yes (hernia repair) AICD: No Appendectomy: Yes Body Medical Devices: MESH FROM HERNIA Cardiac Surgery: No Section: Yes (x 2) Cholecystectomy: Yes Ear Surgery: No Endocrine Surgery: No Eye Surgery: Yes (STRIBISMUS) Genitourinary Surgery: Yes Gynecologic Surgery: Yes (mult lap endometrosis X 4; C -SECTION) Joint Replacement: No Neurologic Surgery: No Oral Surgery: Yes (TONSILS) Pacemaker: No Thoracic Surgery: No Tonsillectomy: Yes Other Surgery: Yes (multiple revision/corrective surgeries to vesicoureteral ) Social History Alcohol Use: Yes (rarely) Tobacco Use: No Substance Use: No Allergies-Medications (Allergen,Severity, Reaction): Coded Allergies: cefuroxime (Unverified Allergy, Severe, SEVERE VOMITING,THROAT SWELLING, ) THROAT SWELLING ciprofloxacin (Unverified Allergy, Severe, HIVES, SOB ; THROAT SWELLING, ) ertapenem (Unverified Allergy, Severe, swelling throat, 02/19/18) meropenem (Verified Allergy, Severe, Hives, 02/19/18) promethazine (Unverified Allergy, Severe, SEIZURES, 02/19/18) ceftriaxone (Unverified Allergy, Intermediate, Rash, 02/19/18) levofloxacin (Unverified Allergy, Unknown, Hives, 02/19/18) vancomycin (Verified Allergy, Unknown, 02/19/18) itching/hives amoxicillin (Unverified Adverse Reaction, Severe, Swelling, 02/19/18) clavulanic acid (Unverified Adverse Reaction, Severe, Swelling, 02/19/18) *MDRO Multi-Drug Resistant Organism (Verified Adverse Reaction, Unknown, ESBL, 02/19/18) ESBL Klebsiella (urine) - 01/22/17 Reported Meds & Prescriptions Reported Meds & Active Scripts Active Reglan (Metoclopramide HCl) 5 Mg Tab 5 Mg PO Q8HR PRN Reported Zofran (Ondansetron HCl) 4 Mg Tab 4 Mg PO Q6HR PRN Plus Iron 29-1 mg ( Vit-Iron Carbonyl) 29 Mg Iron-1 Mg Tab 1 Tab PO DAILY Zoloft (Sertraline HCl) 100 Mg Tab 100 Mg PO DAILY Ventolin Hfa 18 GM Inh (Albuterol Sulfate) 90 Mcg/Act Aer 2 Puff INH Q4H PRN Review of Systems Except as stated in HPI: all other systems reviewed are Neg General / Constitutional: Positive: Chills, No: Fever Eyes: No: Visual changes HENT: No: Headaches Cardiovascular: No: Chest Pain or Discomfort Respiratory: No: Shortness of Breath Gastrointestinal: Positive: Nausea, Vomiting, Abdominal Pain, Changes in Bowel Habits, Indigestion, No: Diarrhea, Hematemesis, Hematochezia, Constipation, Loss of Appetite Genitourinary: Positive: Flank Pain, No: Dysuria Musculoskeletal: No: Pain Skin: No Rash Neurologic: Positive: Weakness (Generalized weakness), No: Focal Abnormalities , Change in Mentation, Slurred Speech, Sensory Disturbance Psychiatric: No: Depression Endocrine: No: Polydipsia Hematologic/Lymphatic: No: Easy Bruising Physical Exam Narrative General: The patient is a well-developed well-nourished female in no acute distress. Head and Neck exam: Head is normocephalic atraumatic. Eyes: EOMI, pupils are equal round and reactive to light. Nose: Midline septum with pink mucous membranes Mouth: Dentition unremarkable. Moist mucus membranes. Posterior oropharynx is not erythematous. No tonsillar hypertrophy. Uvula midline. Airway patent. Neck: No palpable lymphadenopathy. No nuchal rigidity. No thyromegaly. Cardiovascular: Regular rate and rhythm without murmurs, gallops, or rubs. No pulse deficit to the extremities on simultaneous auscultation and palpation of her radial artery. Lungs: Clear to auscultation bilaterally. No wheezes, rhonchi, or rales. Abdomen: Soft, with tenderness on palpation of the midepigastric area and area overlying her prior right inguinal hernia repair that she reports is chronic, no other tenderness on palpation of the other quadrants of the abdomen. No tenderness on palpation of McBurney's point. Negative Rowe sign. No guarding, rebound, or rigidity. Normal bowel sounds are audible. Extremities: No clubbing, cyanosis, or edema. 2+ pulses in all 4 extremities. No calf tenderness on palpation. Back: No spinous process tenderness to palpation. The patient reports having right- sided CVA tenderness that she reports is chronic. No tenderness on palpation of the left side. The patient on examination of the right buttock area, the patient reports pain along the upper aspect of the buttock area overlying the iliac bone. There is no evidence of erythema, edema, pointing, vesicle formation or other skin abnormality. She does however report tenderness on palpation of the site where she had a gentamicin injection a week ago. Neurologic Exam: Grossly nonfocal. Skin Exam: No rash noted. Intact skin that is warm and dry. Data Data Last Documented VS Vital Signs Date Time Temp Pulse Resp B/P (MAP) Pulse Ox O2 Delivery O2 Flow Rate FiO2 02/19/18 22:00 79 20 146/94 (111) 99 Room Air 02/19/18 20:08 99.1 Orders Orders Electrocardiogram (02/19/18 20:20) Complete Blood Count With Diff (02/19/18 20:20) Comprehensive Metabolic Panel (02/19/18 20:20) C-Reactive Protein (Crp) (02/19/18 20:20) Lipase (02/19/18 20:20) Urinalysis - C+S If Indicated (02/19/18 20:20) Magnesium (Mg) (02/19/18 20:20) Thyroid Stimulating Hormone (02/19/18 20:20) Iv Access Insert/Monitor (02/19/18 20:20) Ecg Monitoring (02/19/18 20:20) Oximetry (02/19/18 20:20) Ed Urine Pregnancytest Poc (02/19/18 20:20) Sodium Chlor 0.9% 1000 Ml Inj (Ns 1000 M (02/19/18 20:30) Metoclopramide Inj (Reglan Inj) (02/19/18 20:30) Blood Culture (02/19/18 20:33) Lactic Acid Sepsis Protocol (02/19/18 20:33) Pelvis, Ap Only (Routine) (02/19/18 20:46) Morphine Inj (Morphine Inj) (02/19/18 21:00) Pantoprazole Inj (Protonix Inj) (02/19/18 21:00) Diphenhydramine Inj (Benadryl Inj) (02/19/18 21:30) Sodium Chlor 0.9% 1000 Ml Inj (Ns 1000 M (02/19/18 21:30) Oral Rehydration (02/19/18 21:28) Metoclopramide Inj (Reglan Inj) (02/19/18 21:45) Labs Laboratory Tests Test 02/19/18 20:25 02/19/18 20:45 Urine Color Straw Urine Turbidity CLEAR Urine pH 5.0 Urine Specific Holliday 1.013 Urine Protein NEG mg/dL Urine Glucose (UA) NEG mg/dL Urine Ketones NEG mg/dL Urine Occult Blood NEG Urine Nitrite NEG Urine Bilirubin NEG Urine Urobilinogen LESS THAN 2 mg/dL Urine Leukocyte Esterase NEG Urine WBC LESS THAN 1 /hpf Urine Squamous Epithelial Cells <1 /hpf Urine Mucus FEW /lpf Microscopic Urinalysis Comment CULT NOT INDICATED White Blood Count 8.6 TH/MM3 Red Blood Count 4.44 MIL/MM3 Hemoglobin 13.1 GM/DL Hematocrit 38.7 % Mean Corpuscular Volume 87.1 FL Mean Corpuscular Hemoglobin 29.5 PG Mean Corpuscular Hemoglobin Concent 33.9 % Red Cell Distribution Width 13.1 % Platelet Count 211 TH/MM3 Mean Platelet Volume 7.8 FL Neutrophils (%) (Auto) 59.2 % Lymphocytes (%) (Auto) 33.0 % Monocytes (%) (Auto) 5.4 % Eosinophils (%) (Auto) 2.1 % Basophils (%) (Auto) 0.3 % Neutrophils # (Auto) 5.1 TH/MM3 Lymphocytes # (Auto) 2.8 TH/MM3 Monocytes # (Auto) 0.5 TH/MM3 Eosinophils # (Auto) 0.2 TH/MM3 Basophils # (Auto) 0.0 TH/MM3 CBC Comment DIFF FINAL Differential Comment Blood Urea Nitrogen 16 MG/DL Creatinine 0.82 MG/DL Random Glucose 93 MG/DL Total Protein 8.0 GM/DL Albumin 4.2 GM/DL Calcium Level 9.2 MG/DL Magnesium Level 1.9 MG/DL Alkaline Phosphatase 49 U/L Aspartate Amino Transf (AST/SGOT) 18 U/L Alanine Aminotransferase (ALT/SGPT) 30 U/L Total Bilirubin 0.2 MG/DL Sodium Level 138 MEQ/L Potassium Level 3.5 MEQ/L Chloride Level 103 MEQ/L Carbon Dioxide Level 25.0 MEQ/L Anion Gap 10 MEQ/L Estimat Glomerular Filtration Rate 79 ML/MIN Lactic Acid Level 1.0 mmol/L C-Reactive Protein 0.72 MG/DL Lipase 168 U/L Thyroid Stimulating Hormone 3rd Gen 1.700 uIU/ML MDM Medical Decision Making Medical Screen Exam Complete: Yes Emergency Medical Condition: Yes Medical Record Reviewed: Yes Differential Diagnosis Sepsis of undetermined origin, versus pyelonephritis, versus exacerbation of gastroparesis, versus viral syndrome, versus pancreatitis, versus dehydration Narrative Course During the course of the patient's emergency department visit, the patient's history, examination, and differential diagnosis were reviewed with the patient. The patient was placed on a traffic monitor specialist with oximetry and frequent blood pressure monitoring. The patient had IV access obtained and blood work sent for analysis. A bedside test was done and negative. The patient had an EKG done on arrival that shows a sinus rhythm heart rate of 73, QRS duration 90 ms, QTC [address] segment elevation noted. T waves are inverted in V1. The patient was initially provided normal saline 1 L IV fluid bolus, Reglan 5 mg IV, morphine 4 mg IV for pain, Protonix 40 mg IV. The patient's laboratory studies were reviewed and remarkable for a CBC that is within normal limits, CMP is remarkable for GFR 79 which is compared to her last GFR of 59 and actually improved. TSH is within normal limits, C-reactive protein 0.72, lipase within normal limits at 168, lactic acid is 1.0, urinalysis shows few mucus otherwise unremarkable. Radiology studies were reviewed and remarkable for Last Impressions Pelvis X-Ray 02/19/182045 Signed Impressions: CONCLUSION: No acute findings. The patient's results were discussed with her. Her questions were answered. We did discuss doing a CT scan of the abdomen and pelvis, however the patient recently had a CAT scan on January 26 has had multiple CAT scans in the past, therefore the risks outweigh the benefit given the location of the patient's abdominal pain. The patient agreed with this at this time. The patient will be started on an oral challenge. The patient will be given a second liter of normal saline. The patient reports some improvement in her nausea with Reglan. The patient will be given a second dose of Reglan 5 mg IV. The patient reports that she has had H. pylori multiple times treated in the past and she is concerned that she may be developing a recurrence. She is followed by [facility] as an outpatient. I did recommend that she follow-up with him for consideration of testing and followup regarding this emergency department evaluation. The patient on repeat examination after second dose of Reglan was reportedly feeling improved. The patient was tolerating p.o. hydration with Gatorade. The patient will be discharged home to follow-up with her [facility]. The patient was given a prescription for Reglan at discharge per The patient is resting comfortably and feels better, is alert and in no distress. The patient's results and examination findings were discussed with the patient. The repeat examination is unremarkable and benign. The history, exam, diagnostic testing, and current condition do not suggest any significant pathology to warrant further testing, continued ED treatment, admission, or surgical evaluation at this point. The vital signs have been stable. The patient does not have uncontrollable pain, intractable vomiting, or other significant symptoms. The patient's condition is stable and appropriate for discharge. The patient will pursue further outpatient evaluation with a primary care physician or other designated or consulting physician as indicated in the discharge instructions. The patient is instructed to report back to the emergency department immediately for reexamination in the mean time if she develops any new or worsening signs or symptoms. The patient expressed understanding and was agreeable with this plan. Diagnosis Primary Impression: Abdominal pain Qualified Codes: R10.13 - Epigastric pain Additional Impression: Vomiting Qualified Codes: R11.2 - Nausea with vomiting, unspecified Referrals: Gastroenterology Nurse 2 days Primary Care Physician 2 days Patient Instructions: Abdominal Pain (ED), Acute Nausea and Vomiting (ED), General Instructions Med/Other Pt SpecificInfo: Prescription(s) given Scripts Metoclopramide (Reglan) 5 Mg Tab 5 MG PO Q8HR Y for NAUSEA OR VOMITING, #9 TAB 0 Refills Prov: Jenny Messer MD 02/19/18 Disposition: 01 DISCHARGE HOME Condition: Stable Jenny Messer MD Feb 19, 2018 20:40
[2018-02-19 20:54] LABS: AUTOMATED NEUTROPHIL # 5.1 TH/MM3 (1.8-7.7); BASOPHIL % 0.3 % (0.0-2.0); EOSINOPHIL # 0.2 TH/MM3 (0-0.4); EOSINOPHIL % 2.1 % (0.0-4.0); HEMATOCRIT 38.7 % (35.0-46.0); HEMOGLOBIN 13.1 GM/DL (11.6-15.3); LYMPHOCYTE # 2.8 TH/MM3 (1.0-4.8); MEAN CELL VOLUME 87.1 FL (80.0-100.0); MEAN CORPUSCULAR HEMOGLOBIN 29.5 PG (27.0-34.0); MEAN CORPUSCULAR HGB CONC 33.9 % (32.0-36.0); MEAN PLATELET VOLUME 7.8 FL (7.0-11.0); MONO % 5.4 % (0.0-8.0); MONOCYTE # 0.5 TH/MM3 (0-0.9); NEUT % 59.2 % (16.0-70.0); PLATELET COUNT 211 TH/MM3 (150-450); RED BLOOD COUNT 4.44 MIL/MM3 (4.00-5.30); RED CELL DISTRIBUTION WIDTH 13.1 % (11.6-17.2); WHITE BLOOD COUNT 8.6 TH/MM3 (4.0-11.0)
[2018-02-19] MEDS ORDERED: PANTOPRAZOLE SODIUM 40 MG VIAL IV PUSH ONE (21:00)
[2018-02-19] MEDS ORDERED: MORPHINE SULFATE 4 MG/ML INJ IV PUSH ONE (21:00)
[2018-02-19 21:01] LABS: BILIRUBIN, URINE NEG (NEG); BLOOD, URINE NEG (NEG); GLUCOSE,URINE NEG (NEG); KETONE, URINE NEG (NEG); MUCUS URINE FEW /lpf (OCC); NITRITE,URINE NEG (NEG); SQUAMOUS EPITHELIAL CELL URINE <1 /hpf (0-5); URINE COLOR Straw (YELLW/STRAW); URINE LEUKOCYTE ESTERASE NEG (NEG)
[2018-02-19 21:09] LABS: ALBUMIN 4.2 GM/DL (3.4-5.0); ALT (GPT) 30 U/L (10-53); AST (GOT) 18 U/L (15-37); BLOOD UREA NITROGEN 16 MG/DL (7-18); C-REACTIVE PROTEIN 0.72 MG/DL (0.00-0.30); CALCIUM 9.2 MG/DL (8.5-10.1); CHLORIDE 103 MEQ/L (98-107); CREATININE 0.82 MG/DL (0.50-1.00); GLOMERULAR FILTRATION RATE 79 ML/MIN (>89); GLUCOSE,RANDOM 93 MG/DL (74-106); MAGNESIUM 1.9 MG/DL (1.5-2.5); SODIUM (NA) 138 MEQ/L (136-145)
[2018-02-19 21:18] LABS: ALKALINE PHOSPHATASE 49 U/L (45-117); TOTAL BILIRUBIN ADULT 0.2 MG/DL (0.2-1.0)
--- NOTE | 2018-02-19 21:25 | RADRPT ---
EXAM DATE: 02/19/2018 9:03 PM EDT AGE/SEX: 37 years / Female INDICATIONS: Right flank pain CLINICAL DATA: This is the patient's initial encounter. Patient reports that signs and symptoms have been present for 1 day and indicates a pain score of 8/10. MEDICAL/SURGICAL HISTORY: None. Appendectomy. Cholecystectomy. COMPARISON: No prior exams available for comparison. FINDINGS: Examination of the pelvis demonstrates no evidence of fracture or dislocation. Bony mineralization i s normal. There is no widening of the sacroiliac joints. No foreign body is identified. CONCLUSION: No acute findings. Electronically signed by: Julio Cesar Mclean MD 02/19/2018 9:23 PM EDT
[2018-02-19] MEDS ORDERED: diphenhydrAMINE HCL 50 MG/ML VIAL IV PUSH ONE (21:30)
[2018-02-19 22:00] VITALS: BP 146/94; PULSE 79; RESP 20; O2SAT 99
[2018-02-19] MEDS ORDERED: REGL5TAB PO (22:32)
[2018-02-19 22:58] VITALS: BP 126/72; TEMP 98
--- NOTE | 2018-02-20 23:03 | EKG ---
Date Performed: 02/19/2018 Time Performed: 21:57:51 PTAGE: 37 years EKG: Sinus rhythm NORMAL ECG PREVIOUS TRACING : 07/29/2017 20.16 Since the previous tracing, no significant change noted DOCTOR: Tru Vines Interpretating Date/Time 02/20/2018 23:03:25
== END 2018-02-19 22:59 | disposition home or self-care (01) ==
LOC: NEPC 20:02
DX: R10.13 Epigastric pain (principal); R11.2 Nausea with vomiting, unspecified; M25.551 Pain in right hip; J45.909 Unspecified asthma, uncomplicated; N18.9 Chronic kidney disease, unspecified; E11.22 Type 2 diabetes mellitus with diabetic chronic kidney disease; E11.43 Type 2 diabetes mellitus with diabetic autonomic (poly)neuropathy; Z87.442 Personal history of urinary calculi; Z90.49 Acquired absence of other specified parts of digestive tract; Z88.1 Allergy status to other antibiotic agents; Z88.0 Allergy status to penicillin; Z87.440 Personal history of urinary (tract) infections
CPT/HCPCS: 72170; 80053; 81001; 83605; 83690; 83735; 84443; 84703; 85025; 86140; 87040; 93005; 96361; 96374; 96375; 96376; 99285; C9113; J1200; J2270; J2765; J7030